=== PATIENT | female | born 1930 | race Caucasian/White ===

== ENCOUNTER → 2017-02-07 | Outpatient (CLI) | payer BC ==
[~2017-02-07] MED LIST: ALLO300T2 PO; ASPI-232 PO; ATRINS NEB; DOCU-94 PO; FURO-85 PO; IMD/2 PO; LORA-741 PO; MIRT45TA3 PO; MULT-506 PO; MULT60CA PO; SERT-234 PO; TPRSR50 PO
--- NOTE | 2017-02-07 15:00 | ECHOCARDIOGRAM REPORT ---
*NOTICE TO RECEIVING [employer] This information is strictly Confidential and protected under [place] law. [place] law prohibits you from making any further disclosure of this information unless further disclosure is expressly permitted by the written consent of the person to whom it pertains or is authorized by law. A general authorization for the release of medical or other information is not sufficient for this purpose. Hospital accepts no responsibility if the information is made available to any other person, INCLUDING THE PATIENT. Interpretation Summary * Name: KAITLYNN BARRON Study Date: 02/07/2017 12:38 PM BP: 125/63 mmHg * Patient Location: [facility] HR: 70 * : 1930 (M/d/yyyy) Gender: Female Height: 60 in * Age: 86 yrs Ethnicity: CA Weight: 156 lb * Ordering Physician: Sugar Ward * Referring Physician: Sugar Ward * Performed By: Marah Sands RDCS * * Reason For Study: DYSPNEA, ELEVATED BNP * BSA: 1.7 m2 * -- Conclusions -- * Left ventricular systolic function is low normal. * There are regional wall motion abnormalities as specified. * Right ventricular systolic pressure is normal. * The left atrium is mildly dilated. Procedure Details * A complete two-dimensional transthoracic echocardiogram was performed (2D, M-mode, Doppler and color flow Doppler). Left Ventricle * The left ventricle is normal in size. * There is normal left ventricular wall thickness. * Ejection Fraction = 50-55%. * Left ventricular systolic function is low normal. * There are regional wall motion abnormalities as specified. * Septum is severely hypokinetic. The basal inferior wall appears mildly hypokinetic Right Ventricle * The right ventricle is grossly normal size. * There is a pacemaker lead in the right ventricle. Atria * The left atrium is mildly dilated. * Right atrial size is normal. Mitral Valve * The mitral valve is grossly normal. * There is trace mitral regurgitation. Tricuspid Valve * The tricuspid valve is not well visualized, but is grossly normal. * There is mild tricuspid regurgitation. * Right ventricular systolic pressure is normal. Aortic Valve * The aortic valve is normal in structure and function. * No hemodynamically significant valvular aortic stenosis. * No aortic regurgitation is present. Great Vessels * The aortic root is normal size. Pericardium/Pleural * There is no pericardial effusion. MMode 2D Measurements and Calculations IVSd 0.87 cm IVSs 1.5 cm LVIDd 4.7 cm LVIDs 3.3 cm LVPWd 0.81 cm LVPWs 1.2 cm IVS/LVPW 1.1 FS 30.2 % EDV(Teich) 103.6 ml ESV(Teich) 44.1 ml EF(Teich) 57.4 % EDV(cubed) 105.5 ml ESV(cubed) 35.9 ml EF(cubed) 65.9 % % IVS thick 73.3 % % LVPW thick 53.2 % LV mass(C)d 131.5 grams LV mass(C)dI 78.3 grams/m\S\2 LV mass(C)s 154.9 grams LV mass(C)sI 92.2 grams/m\S\2 SV(Teich) 59.5 ml SI(Teich) 35.4 ml/m\S\2 SV(cubed) 69.6 ml SI(cubed) 41.4 ml/m\S\2 Ao root diam 2.8 cm Ao root area 6.1 cm\S\2 LA dimension 3.6 cm LA/Ao 1.3 LVAd ap4 19.1 cm\S\2 LVLd ap4 6.6 cm EDV(MOD-sp4) 46.5 ml EDV(sp4-el) 47.1 ml LVAs ap4 13.2 cm\S\2 LVLs ap4 6.5 cm ESV(MOD-sp4) 23.4 ml ESV(sp4-el) 23.0 ml EF(MOD-sp4) 49.7 % EF(sp4-el) 51.2 % LVAd ap2 23.6 cm\S\2 LVLd ap2 7.7 cm EDV(MOD-sp2) 61.4 ml EDV(sp2-el) 61.5 ml LVAs ap2 14.6 cm\S\2 LVLs ap2 6.4 cm ESV(MOD-sp2) 28.6 ml ESV(sp2-el) 28.4 ml EF(MOD-sp2) 53.4 % EF(sp2-el) 53.9 % LVLd %diff 14.5 % EDV(MOD-bp) 58.1 ml LVLs %diff -0.97 % ESV(MOD-bp) 26.0 ml EF(MOD-bp) 55.3 % SV(MOD-sp4) 23.1 ml SI(MOD-sp4) 13.8 ml/m\S\2 SV(MOD-sp2) 32.8 ml SI(MOD-sp2) 19.5 ml/m\S\2 SV(MOD-bp) 32.1 ml SI(MOD-bp) 19.1 ml/m\S\2 SV(sp4-el) 24.1 ml SI(sp4-el) 14.4 ml/m\S\2 SV(sp2-el) 33.1 ml SI(sp2-el) 19.7 ml/m\S\2 Doppler Measurements and Calculations Ao V2 max 127.2 cm/sec Ao max PG 6.5 mmHg Ao max PG (full) 5.1 mmHg LV V1 max PG 1.3 mmHg LV V1 max 57.8 cm/sec TR max wallace 245.9 cm/sec
== END | disposition home or self-care (01) ==
LOC: C.CPL 12:27
PROVIDERS: ATTEND Nurse Practitioner Adult Health
DX: R06.09 Other forms of dyspnea (principal)

== ENCOUNTER → 2017-04-06 | Outpatient (CLI) | payer BC ==
[2017-04-06 09:25] LABS: HEMATOCRIT 40.2 % (37-47); MEAN CELL VOLUME 101.3 fL (80-100); MEAN CORPUSCULAR HEMOGLOBIN 32.5 pg (25-34); MEAN CORPUSCULAR HGB CONC 32.1 g/dl (32-36); MEAN PLATELET VOLUME 10.9 fL (7.4-10.4); PLATELET COUNT 143 K/uL (130-400); RED BLOOD COUNT 3.97 M/uL (4.2-5.4); WHITE BLOOD COUNT 7.38 K/uL (4.8-10.8)
[2017-04-06 09:34] LABS: BLOOD UREA NITROGEN 33 mg/dl (7-18); BUN/CREATININE RATIO 29.9 (10-20); CALCIUM 9.2 mg/dl (8.5-10.1); CARBON DIOXIDE 25 mmol/L (21-32); CHLORIDE 111 mmol/L (98-107); GLUCOSE 116 mg/dl (70-99); POTASSIUM 4.2 mmol/L (3.5-5.1); SODIUM 143 mmol/L (136-145)
== END | disposition home or self-care (01) ==
LOC: C.LABWYN 09:03
PROVIDERS: ATTEND Internal Medicine
DX: I10 Essential (primary) hypertension (principal)

== ENCOUNTER → 2017-04-18 | Outpatient (CLI) | payer BC ==
[2017-04-18 08:46] LABS: BLOOD UREA NITROGEN 30 mg/dl (7-18); BUN/CREATININE RATIO 27.3 (10-20); CALCIUM 8.7 mg/dl (8.5-10.1); CARBON DIOXIDE 31 mmol/L (21-32); CHLORIDE 108 mmol/L (98-107); GLUCOSE 96 mg/dl (70-99); POTASSIUM 3.9 mmol/L (3.5-5.1); SODIUM 144 mmol/L (136-145)
== END | disposition home or self-care (01) ==
LOC: C.LABWYN 07:58
PROVIDERS: ATTEND Internal Medicine
DX: R60.9 Edema, unspecified (principal)

== ENCOUNTER 2017-09-12 23:18 | Emergency (ER) | payer BC ==
[~2017-09-12] VITALS: Ht 152.4 cm; Wt 83.2 kg
[2017-09-12 23:35] VITALS: TEMP 36.6; Ht 152.4 cm; Wt 83.2 kg
--- NOTE | 2017-09-12 23:42 | EMERGENCY ROOM VISIT NOTE ---
History Report prepared by Eber: Peewee Asher Under the Supervision of: Dr. Fadi Gtz M.D. First contact with patient: 23:24 Stated Complaint: BREATHING DIFFICULTY History of Present Illness The patient is a 87 year old female who presents to the Emergency Room with complaints of shortness of breath that began a couple of days ago. Over this time, the patient has been battling sinus and chest congestion with a cough. Her home health facility placed her onto Mucinex. However, her symptoms worsened significantly tonight. En route via ambulance, the patient received a nebulizer treatment which helped her symptoms. She notes that her breathing difficulties are exacerbated with exertion. She is afebrile. She denies any loss of consciousness, chest pain, nausea, vomiting, or sputum production. She notes that she is not short of breath when she lies down. Source of History: patient Onset: a couple days ago Position: other (Respiratory System) Symptom Intensity: moderate Quality: other (Shortness of breath) Timing: constant Modifying Factors (Worsening): exertion Modifying Factors (Relieving): other (Nebulizer) Associated Symptoms: + cough, No fevers Note: She is having sinus and chest congestion. Review of Systems See HPI for pertinent positives & negatives. A total of 10 systems reviewed and were otherwise negative. Past Medical & Surgical Medical Problems: (1) Anxiety (2) Anxiety (3) Anxiety (4) Atrial fibrillation (5) Cardiac pacemaker (6) Carotid artery disease (7) CKD (chronic kidney disease), stage III (8) Depression (9) Diabetes mellitus (10) Diabetes mellitus type 2, controlled (11) Diverticulitis (12) Dizziness (13) Dyslipidemia (14) GERD (gastroesophageal reflux disease) (15) History of atrial fibrillation (16) History of paroxysmal supraventricular tachycardia (17) History of thyroid cancer (18) History of ventricular tachycardia (19) Hyperlipidemia (20) Hypertension (21) Hypothyroidism (22) Mild cognitive impairment (23) Pacemaker Surgical Problems: (1) H/O thyroidectomy (2) Laparoscopic cholecystectomy (3) S/P knee replacement (4) Status post cardiac pacemaker procedure (5) Status post cholecystectomy (6) Status post partial thyroidectomy Family History Cancer Diabetes mellitus Hypertension Social History Smoking Status: Never Smoker Alcohol Use: none Drug Use: none Marital Status: Housing Status: lives alone Occupation Status: retired Current/Historical Medications Scheduled Allopurinol (Zyloprim), 1 TAB PO QAM Aspirin (Aspir-81), 81 MG PO QAM Azithromycin (Zithromax Z-Felix), 1 PKT PO UD Cetirizine Hcl (Qc All Day Allergy), 10 MG PO QAM Docusate Sodium (Colace), 1 CAP PO BID Doxycycline Hyclate (Vibramycin), 100 MG PO BID Furosemide (Lasix), 1 TAB PO BID17 Lactobacillus (Acidophilus Lactobacilli), 1 CAP PO QAM Metoprolol Succinate (Metoprolol Succinate ER), 50 MG PO QAM Mirtazapine (Mirtazapine), 45 MG PO HS Multiple Vitamins W/ Minerals (Therems M), 1 TAB PO QAM Prednisone (Prednisone), 1 TAB PO DAILY Sennosides-Docusate Sodium (Sennalax-S), 1 TAB PO QAM Sertraline (Zoloft), 150 MG PO HS Scheduled PRN Acetaminophen (Tylenol), 650 MG PO Q4H PRN for Pain Calcium Carbonate (Tums), 2 TABS PO BID PRN for GERD Dextromethorphan-Guaifenesin (Mucinex Dm), 1 TAB PO Q12 PRN for CONGESTION Ipratropium Franklin (Ipratropium Franklin), 1 VIAL NEB QID PRN for SOB/Wheezing Ipratropium-Albuterol (Duoneb), 1 TREATMENT INH Q4H PRN for SOB/Wheezing Loperamide Hcl (Imodium), 2 MG PO Q4H PRN for Diarrhea Lorazepam (Ativan), 0.25 MG PO Q6H PRN for Anxiety/Agitation Magnesium Hydroxide (Milk of Magnesia), 30 ML PO DAILY PRN for Constipation Allergies Coded Allergies: Sulfa Drugs (Verified Allergy, Intermediate, RASH, 09/13/17) Gabapentin (Verified Allergy, Unknown, Unknown Rxn, 09/13/17) Trazodone (Verified Allergy, Unknown, Unknown Rxn, 09/13/17) Physical Exam Vital Signs Date Time Temp Pulse Resp B/P (MAP) Pulse Ox O2 Delivery O2 Flow Rate FiO2 09/13/17 00:48 72 18 138/86 98 09/12/17 23:35 36.6 70 18 149/98 96 Room Air 09/12/17 23:35 96 Room Air Physical Exam GENERAL: Patient is elderly and well appearing and in no acute distress. HEENT: No acute trauma, normocephalic atraumatic, mucous membranes moist, rhinorrhea to the bilateral nares, no scleral icterus. NECK: Slight crackles to the right lower lobe. No stridor, no adenopathy, no meningismus, trachea is midline. LUNGS: No dyspnea. Clear to auscultation and equal bilaterally. No wheeze, no rhonchi. HEART: Regular rate and rhythm. No murmurs, rubs, gallops appreciated. ABDOMEN: Soft, nontender, bowel sounds positive, no masses appreciated, no peritonitis. BACK: No midline tenderness, no CVA tenderness EXTREMITIES: Normal motion all extremities, no cyanosis. 1+ edema bilateral lower extremities (chronic). NEUROLOGIC: Alert and oriented, no acute motor or sensory deficits, no focal weakness, cranial nerves grossly intact. SKIN: No rash, no jaundice, no diaphoresis. Medical Decision & Procedures ER Provider Diagnostic Interpretation: X ray results are stated below per my interpretation: Chest: 1 view: Mild RLL infiltrate, no effusion, normal cardiac border. Laboratory Results 09/12/17 23:15 Red Blood Count 3.93, Mean Corpuscular Volume 104.6, Mean Corpuscular Hemoglobin 33.6, Mean Corpuscular Hemoglobin Concent 32.1, Mean Platelet Volume 11.0, Neutrophils (%) (Auto) 71.4, Lymphocytes (%) (Auto) 15.1, Monocytes (%) ( Auto) 10.0, Eosinophils (%) (Auto) 2.6, Basophils (%) (Auto) 0.5, Neutrophils # (Auto) 5.78, Lymphocytes # (Auto) 1.22, Monocytes # (Auto) 0.81, Eosinophils # ( Auto) 0.21, Basophils # (Auto) 0.04 09/12/17 23:15 Test 09/12/17 23:15 White Blood Count 8.09 K/uL (4.8-10.8) Red Blood Count 3.93 M/uL (4.2-5.4) Hemoglobin 13.2 g/dL (12.0-16.0) Hematocrit 41.1 % (37-47) Mean Corpuscular Volume 104.6 fL (80-100) Mean Corpuscular Hemoglobin 33.6 pg (25-34) Mean Corpuscular Hemoglobin Concent 32.1 g/dl (32-36) Platelet Count 159 K/uL (130-400) Mean Platelet Volume 11.0 fL (7.4-10.4) Neutrophils (%) (Auto) 71.4 % Lymphocytes (%) (Auto) 15.1 % Monocytes (%) (Auto) 10.0 % Eosinophils (%) (Auto) 2.6 % Basophils (%) (Auto) 0.5 % Neutrophils # (Auto) 5.78 K/uL (1.4-6.5) Lymphocytes # (Auto) 1.22 K/uL (1.2-3.4) Monocytes # (Auto) 0.81 K/uL (0.11-0.59) Eosinophils # (Auto) 0.21 K/uL (0-0.5) Basophils # (Auto) 0.04 K/uL (0-0.2) RDW Standard Deviation 58.1 fL (36.4-46.3) RDW Coefficient of Variation 15.1 % (11.5-14.5) Immature Granulocyte % (Auto) 0.4 % Immature Granulocyte # (Auto) 0.03 K/uL (0.00-0.02) Anion Gap 5.0 mmol/L (3-11) Est Creatinine Clear Calc Drug Dose 32.6 ml/min Estimated GFR () 49.7 Estimated GFR (Non- 42.9 BUN/Creatinine Ratio 23.2 (10-20) Calcium Level 9.0 mg/dl (8.5-10.1) Troponin I 0.024 ng/ml (0-0.045) Laboratory results as reviewed by me. Medications Administered Medications (Trade) Dose Ordered Sig/Los Route Start Time Stop Time Status Last Admin Dose Admin Albuterol/ Ipratropium (Duoneb) 3 ml NOW STAT INH 09/12/17 23:50 09/12/17 23:51 DC 09/12/17 23:50 3 ML Prednisone (PredniSONE TAB) 40 mg NOW STAT PO 09/13/17 00:32 09/13/17 00:33 DC 09/13/17 00:32 40 MG Doxycycline Hyclate (Vibramycin Cap) 100 mg ONE ONCE PO 09/13/17 00:45 09/13/17 00:46 DC 09/13/17 00:45 100 MG ECG Indication: SOB/dyspnea Rate (beats per minute): 65 Rhythm: other (Ventricularly paced) Findings: no acute ischemic change, no ectopy ED Course 2324: The patient was evaluated in room B10. A complete history and physical exam was performed. 2350: Ordered DuoNeb 3 ml INH 0032: Ordered Prednisone 40 mg PO. The patient feels better and would like to go home. Her son is at the bedside and agrees with the plan. She has access to Nebulizers at her [facility]. 0045: Ordered Vibramycin Cap 100 mg PO 0050: Reevaluated the patient. Discussed results and discharge instructions: She verbalized understanding and agreement. The patient is ready for discharge. Medical Decision Differential: Infectious, Reactive Airway Disease, Pneumonia, Pneumothorax, COPD , CHF, ACS, Pulmonary Embolism, MSK, GI, Dissection, amongst other etiologies entertained. 87 yr old female with history of asthmatic bronchitis. SHOB vastly improved with neb. She is not septic, no clear pna, no evidence CHF/ACS. She does not have reason to highly suspect PE nor dissection. She has symptoms similar to multiple other episodes of bronchitis. She was symptom free post neb. Given steroids and doxy that have worked well in past and will be using neb at [facility]. Reviewed symptoms requiring return but she feels comfortable going home for now. Medication Reconcilliation Current Medication List: was personally reviewed by me Blood Pressure Screening Patient's blood pressure: Elevated blood pressure Blood pressure disposition: Elevated BP felt to be situational Impression Primary Impression: Asthmatic bronchitis Scribe Attestation The scribe's documentation has been prepared under my direction and personally reviewed by me in its entirety. I confirm that the note above accurately reflects all work, treatment, procedures, and medical decision making performed by me. Departure Information Dispostion Home / Self-Care Prescriptions Ipratropium-Albuterol (DUONEB) 3 Ml Nebu 1 TREATMENT INH Q4H Y for SOB/Wheezing, #1 BOX Prov: Fadi Gtz M.D. 09/13/17 Prednisone (Prednisone) 20 Mg Tab 1 TAB PO DAILY for 5 Days, #5 TAB Prov: Fadi Gtz M.D. 09/13/17 Doxycycline Hyclate (VIBRAMYCIN) 100 Mg Cap 100 MG PO BID for 7 Days, #14 CAP Prov: Fadi Gtz M.D. 09/13/17 Referrals [facility] (PCP) Forms HOME CARE DOCUMENTATION FORM, IMPORTANT VISIT INFORMATION, WORK / SCHOOL INSTRUCTIONS Patient Instructions Bronchitis Acute, My [facility]
[2017-09-12] MEDS ORDERED: ALBUT/IPRATROP 3MG/0.5MG NEB 3 ML VIAL INH STA (23:50)
[2017-09-13 00:06] LABS: BASO % 0.5 %; BASO ABS # 0.04 K/uL (0-0.2); COMPLETE YES; EOS % 2.6 %; HEMATOCRIT 41.1 % (37-47); IG% 0.4 %; LYMPH % 15.1 %; LYMPH ABS # 1.22 K/uL (1.2-3.4); MEAN CELL VOLUME 104.6 fL (80-100); MEAN CORPUSCULAR HEMOGLOBIN 33.6 pg (25-34); MEAN CORPUSCULAR HGB CONC 32.1 g/dl (32-36); NEUT % 71.4 %; PLATELET COUNT 159 K/uL (130-400); RED BLOOD COUNT 3.93 M/uL (4.2-5.4); WHITE BLOOD COUNT 8.09 K/uL (4.8-10.8)
[2017-09-13 00:10] LABS: BUN/CREATININE RATIO 23.2 (10-20); CREATININE 1.14 mg/dl (0.60-1.20); POTASSIUM 3.6 mmol/L (3.5-5.1)
[2017-09-13] MEDS ORDERED: AZITTAB PO (00:11)
[2017-09-13] MEDS ORDERED: LACT1CAP22 PO (00:11)
[2017-09-13] MEDS ORDERED: ACET-1311 PO (00:11)
[2017-09-13] MEDS ORDERED: CETI10TA62 PO (00:11)
[2017-09-13] MEDS ORDERED: MOMLX PO (00:11)
[2017-09-13] MEDS ORDERED: DEXT30TA7 PO (00:11)
[2017-09-13] MEDS ORDERED: SENN1TAB86 PO (00:11)
[2017-09-13] MEDS ORDERED: CALC500C3 PO (00:11)
[2017-09-13] MEDS ORDERED: MULTTAB63 PO (00:11)
[2017-09-13] MEDS ORDERED: PRED20TA PO (00:34)
[2017-09-13] MEDS ORDERED: IPRASOL4 INH (00:34)
[2017-09-13] MEDS ORDERED: DOXY100C PO (00:34)
[2017-09-13] MEDS ORDERED: DOXYCYCLINE HYCLATE 100 MG CAP PO ONE (00:45)
[2017-09-13 00:48] VITALS: BP 138/86; PULSE 72; O2SAT 98
--- NOTE | 2017-09-13 07:09 | DIAGNOSTIC IMAGING REPORT ---
SINGLE VIEW CHEST CLINICAL HISTORY: Dyspnea FINDINGS: An AP, portable, upright chest radiograph is compared to study dated 06/07/2016. The examination is degraded by portable technique and patient rotation. A 2-lead cardiac pacemaker partially obscures the left upper chest. The heart is enlarged and there is atherosclerotic calcification of the thoracic aorta. The pulmonary vasculature is noncongested. Bibasilar atelectasis is observed. No airspace consolidation is seen typical for pneumonia and there is no large pleural effusion. There is a 1.5 cm nodule in the right upper lobe. No pneumothorax is seen. The skeletal structures are osteopenic. The bony thorax is grossly intact. IMPRESSION: 1. Cardiomegaly and cardiac pacemaker. There is no radiographic evidence of congestive failure. 2. No airspace consolidation or large pleural effusion is identified. 3. There is a 1.5 cm right upper lobe pulmonary nodule. Follow-up with a chest CT is recommended for further assessment. Electronically signed by: Hermann Egan M.D. 09/13/2017 7:07 AM Dictated Date/Time: 09/13/2017 7:06 AM
== END 2017-09-13 01:15 | disposition home or self-care (01) ==
LOC: EDBD 23:18 → C.EDB 23:22
DX: J45.909 Unspecified asthma, uncomplicated (principal); I12.9 Hypertensive chronic kidney disease with stage 1 through stage 4 chronic kidney disease, or unspecified chronic kidney disease; E11.22 Type 2 diabetes mellitus with diabetic chronic kidney disease; N18.3 Chronic kidney disease, stage 3 (moderate); F32.9 Major depressive disorder, single episode, unspecified; F41.9 Anxiety disorder, unspecified; I48.91 Unspecified atrial fibrillation; Z85.850 Personal history of malignant neoplasm of thyroid; Z95.0 Presence of cardiac pacemaker; Z79.82 Long term (current) use of aspirin; Z79.899 Other long term (current) drug therapy

== ENCOUNTER → 2017-10-09 | Outpatient (CLI) | payer BC ==
[~2017-10-09] MED LIST changes: +ACET-1311 PO; +AZITTAB PO; +CALC500C3 PO; +CETI10TA62 PO; +DEXT30TA7 PO; +IPRASOL4 INH; +LACT1CAP22 PO; +MOMLX PO; -MULT-506 PO; -MULT60CA PO; +MULTTAB63 PO; +SENN1TAB86 PO
--- NOTE | 2017-10-09 11:51 | DIAGNOSTIC IMAGING REPORT ---
(CHEST) THORAX WITHOUT CT DOSE: 329.87 mGy.cm HISTORY: Abnormal chest x-ray. RIGHT UPPER LUNG MASS TECHNIQUE: Multiaxial CT images of the chest were performed without contrast. A dose lowering technique was utilized adhering to the principles of ALARA. COMPARISON: Chest 09/12/2017. FINDINGS: No pneumothorax. Small bilateral pleural effusions. Bibasilar interlobular septal thickening. Narrowing of the bronchi may be due to the expiratory phase. There are greater than 30 bilateral pulmonary nodules. The majorities are subcentimeter in size. Dominant nodule within the right upper lobe measures 1.5 cm. Dominant nodule within the lingula measures 1 cm. There is an enlarged and heterogeneous left thyroid lobe resulting in right deviation of the trachea. Left-sided dual-chamber pacemaker. No mediastinal or hilar lymphadenopathy. The heart is enlarged. Trace pericardial effusion. Cholecystectomy. There are 2 hypodense lesions within the liver. The largest in the left hepatic lobe measures 1.6 cm. These are incompletely characterize on this noncontrast study but favor cysts. The visualized adrenal glands and spleen are unremarkable. IMPRESSION: 1. Multiple bilateral pulmonary nodules as described above. This is highly suspicious for metastatic disease. 2. Enlarged and heterogeneous left thyroid lobe. This favors a multinodular goiter. However, an underlying thyroid malignancy cannot be excluded. 3. Small bilateral pleural effusions. 4. Mild bibasilar interlobular septal thickening. This may be due to mild congestive change. Electronically signed by: Marco Harman M.D. 10/09/2017 11:50 AM Dictated Date/Time: 10/09/2017 11:40 AM
== END | disposition home or self-care (01) ==
LOC: C.CTS 11:05
PROVIDERS: ATTEND Internal Medicine
DX: R91.8 Other nonspecific abnormal finding of lung field (principal); J90 Pleural effusion, not elsewhere classified

== ENCOUNTER → 2017-10-12 | Outpatient (CLI) | payer BC ==
[2017-10-12 08:50] LABS: BLOOD UREA NITROGEN 30 mg/dl (7-18); CALCIUM 8.9 mg/dl (8.5-10.1); CARBON DIOXIDE 28 mmol/L (21-32); CREATININE 1.01 mg/dl (0.60-1.20); GLUCOSE 139 mg/dl (70-99); POTASSIUM 3.5 mmol/L (3.5-5.1); SODIUM 142 mmol/L (136-145)
== END | disposition home or self-care (01) ==
LOC: C.LABOUTLO 08:26
PROVIDERS: ATTEND Internal Medicine
DX: I48.91 Unspecified atrial fibrillation (principal); R00.0 Tachycardia, unspecified; N18.3 Chronic kidney disease, stage 3 (moderate); E11.9 Type 2 diabetes mellitus without complications; K21.9 Gastro-esophageal reflux disease without esophagitis; F41.9 Anxiety disorder, unspecified

== ENCOUNTER 2017-10-15 06:39 | Inpatient (IN) | payer BC, OTHER ==
[2017-10-15] VITALS (8 sets, daily range): BP systolic 100–144; BP diastolic 74–98; PULSE 82–120; TEMP 36.6–37.1; O2SAT 91–96; BMI 34.6
[~2017-10-15] VITALS: Ht 152.4 cm; Wt 75.5 kg
[2017-10-15] MEDS ORDERED: ALBUT/IPRATROP 3MG/0.5MG NEB 3 ML VIAL INH STA (06:58)
[2017-10-15] MEDS ORDERED: METHYLPREDNISOLONE 125 MG VIAL IV STA (06:58)
--- NOTE | 2017-10-15 07:39 | DIAGNOSTIC IMAGING REPORT ---
CHEST ONE VIEW PORTABLE HISTORY: EVALUATE RESPIRATORY DISTRESS.DYSPNEA COMPARISON: Chest 09/12/2017. Chest CT 10/09/2017. FINDINGS: No pneumothorax. No pleural effusions. The heart remains mildly enlarged. Mild interstitial thickening, unchanged. Bilateral pulmonary nodules are better appreciated on the recent chest CT. Dominant nodule within the right upper lobe measures 1.4 cm. Left-sided dual-chamber pacemaker. IMPRESSION: 1. Stable cardiomegaly. 2. No new focal lung consolidations. 3. Pulmonary nodules are again noted. Electronically signed by: Marco Harman M.D. 10/15/2017 7:38 AM Dictated Date/Time: 10/15/2017 7:36 AM
[2017-10-15 07:57] LABS: BASO % 0.3 %; BASO ABS # 0.02 K/uL (0-0.2); EOS % 1.7 %; EOS ABS # 0.12 K/uL (0-0.5); HEMOGLOBIN 11.7 g/dL (12.0-16.0); IG# 0.02 K/uL (0.00-0.02); LYMPH % 8.6 %; MEAN CELL VOLUME 103.2 fL (80-100); MEAN CORPUSCULAR HEMOGLOBIN 33.5 pg (25-34); MEAN CORPUSCULAR HGB CONC 32.5 g/dl (32-36); MEAN PLATELET VOLUME 10.2 fL (7.4-10.4); MONO % 9.7 %; MONO ABS # 0.68 K/uL (0.11-0.59); NEUT % 79.4 %; NEUT ABS # 5.56 K/uL (1.4-6.5); PLATELET COUNT 126 K/uL (130-400); RED CELL DISTRIBUTION WIDTH CV 15.4 % (11.5-14.5); RED CELL DISTRIBUTION WIDTH SD 57.9 fL (36.4-46.3)
[2017-10-15 08:13] LABS: ALBUMIN 3.1 gm/dl (3.4-5.0); ALT/SGPT 34 U/L (12-78); AST/SGOT 35 U/L (15-37); BLOOD UREA NITROGEN 31 mg/dl (7-18); CALCIUM 8.8 mg/dl (8.5-10.1); CARBON DIOXIDE 28 mmol/L (21-32); CREATININE 1.21 mg/dl (0.60-1.20); GLUCOSE 137 mg/dl (70-99); POTASSIUM 3.5 mmol/L (3.5-5.1); SODIUM 141 mmol/L (136-145)
[2017-10-15 08:18] LABS: ALKALINE PHOSPHATASE 78 U/L (45-117); CKMB 1.2 ng/ml (0.5-3.6); TOTAL PROTEIN 5.8 gm/dl (6.4-8.2)
[2017-10-15 08:38] LABS: INFLUENZA B ANTIGEN Neg for Influ B (NEG)
[2017-10-15] MEDS ORDERED: SODIUM CHLORIDE 0.9% 500ML 500 ML IV STA (09:03)
[2017-10-15] MEDS ORDERED: OPTIRAY 320 IV PRN (09:15)
--- NOTE | 2017-10-15 10:24 | DIAGNOSTIC IMAGING REPORT ---
CHEST CTA for PULMONARY ARTERIES CT DOSE: 284.82 mGy.cm HISTORY: History distress. Dyspnea. TECHNIQUE: Multiaxial CT images of the chest were performed following the intravenous administration of contrast to evaluate the pulmonary arteries. Maximal intensity projection images were also obtained. A dose lowering technique was utilized adhering to the principles of ALARA. COMPARISON STUDY: Chest CT 10/09/2017. FINDINGS: Cholecystectomy. The spleen is unremarkable. Mild adrenal gland thickening, unchanged. This is likely chronic. There are 2 hypodense lesions within the liver, unchanged. These favor cysts. Partially visualized left renal hypodense lesion is incomplete characterize but also favors a cyst. No mediastinal or hilar lymphadenopathy. Normal caliber thoracic aorta with no evidence for dissection. The heart remains enlarged. Pacemaker wires are noted. Small bilateral pleural effusions. No suspicious lytic or blastic osseous lesions. No filling defects within the pulmonary arteries to suggest pulmonary embolus. Enlarged and heterogeneous left thyroid lobe resulting in right deviation of the trachea is again noted. However, the trachea appears patent. There again noted multiple bilateral pulmonary nodules. There are greater than 30 nodules present. Dominant nodule within the right upper lobe measures 1.5 cm area mild interlobular septal thickening most pronounced at the lung bases. No new focal lung consolidations. IMPRESSION: 1. No evidence for pulmonary embolus. 2. Otherwise, no significant change compared to the prior study. 3. Multiple bilateral pulmonary nodules which is suspicious for metastatic disease. 4. Mild interlobular septal thickening and small bilateral pleural effusions. This may represent mild pulmonary edema. 5. Enlarged and heterogeneous left thyroid lobe. Electronically signed by: Marco Harman M.D. 10/15/2017 10:23 AM Dictated Date/Time: 10/15/2017 10:14 AM
--- NOTE | 2017-10-15 14:15 | EMERGENCY ROOM VISIT NOTE ---
History Report prepared by Eber: Peewee Asher Under the Supervision of: Dr. Raheem Camargo M.D. First contact with patient: 06:51 Chief Complaint: COUGH Stated Complaint: COUGH/CONGESTION Nursing Triage Summary: patient with cough and congestion for a week. tried OTC meds with no relief. Duo neb on the way in by EMS. states it did help History of Present Illness The patient is a 87 year old female who presents to the Emergency Room with complaints of a non-productive cough that began 1 week ago. She has a past medical history of hypertension, diabetes, SVT, paroxysmal atrial fibrillation, and a hip/knee replacement. Over this time, she has tried multiple over the counter medications without relief. She has not contacted her PCP at her assisted living facility for her current symptoms. She is experiencing some chest congestion with her cough and notes that she feels mildly short of breath whenever she has a fit of coughing. En route via EMS, she was given a breathing treatment with mild improvement. She is not on oxygen at home. She denies any history of pneumonia. She denies any known sick contacts. Pt denies LOC, headache, fevers, chills, diaphoresis, visual changes, neck pain, chest pain, nausea, vomiting, abdominal pain, back pain, melena, hematochezia, urinary symptoms, numbness, weakness, lymphadenopathy, rash, or other complaints. Source of History: patient Onset: 1 week ago Position: other (Respiratory system) Symptom Intensity: moderate Quality: other (Cough) Timing: other (Persistent) Associated Symptoms: + SOB (intermittently with coughing) Note: She is experiencing some chest congestion. Review of Systems See HPI for pertinent positives and negatives. A total of ten systems were reviewed and were otherwise negative. Past Medical & Surgical Medical Problems: (1) Anxiety (2) Anxiety (3) Anxiety (4) Atrial fibrillation (5) Cardiac pacemaker (6) Carotid artery disease (7) CHF (congestive heart failure) (8) CKD (chronic kidney disease), stage III (9) Depression (10) Diabetes mellitus (11) Diabetes mellitus type 2, controlled (12) Diverticulitis (13) Dizziness (14) Dyslipidemia (15) GERD (gastroesophageal reflux disease) (16) History of atrial fibrillation (17) History of paroxysmal supraventricular tachycardia (18) History of thyroid cancer (19) History of ventricular tachycardia (20) Hyperlipidemia (21) Hypertension (22) Hypothyroidism (23) Mild cognitive impairment (24) Pacemaker (25) SOB (shortness of breath) Surgical Problems: (1) H/O thyroidectomy (2) Laparoscopic cholecystectomy (3) S/P knee replacement (4) Status post cardiac pacemaker procedure (5) Status post cholecystectomy (6) Status post partial thyroidectomy Family History Cancer Diabetes mellitus Hypertension Social History Smoking Status: Never Smoker Alcohol Use: none Drug Use: none Marital Status: Housing Status: lives alone Occupation Status: retired Current/Historical Medications Scheduled Allopurinol (Zyloprim), 1 TAB PO QAM Aspirin (Aspir-81), 81 MG PO QAM Cetirizine Hcl (Qc All Day Allergy), 10 MG PO QAM Docusate Sodium (Colace), 1 CAP PO BID Furosemide (Lasix), 1 TAB PO BID17 Lactobacillus (Acidophilus Lactobacilli), 1 CAP PO QAM Metoprolol Succinate (Metoprolol Succinate ER), 50 MG PO QAM Mirtazapine (Mirtazapine), 45 MG PO HS Multiple Vitamins W/ Minerals (Therems M), 1 TAB PO QAM Sennosides-Docusate Sodium (Sennalax-S), 1 TAB PO QAM Sertraline (Zoloft), 150 MG PO HS Scheduled PRN Acetaminophen (Tylenol), 650 MG PO Q4H PRN for Pain Calcium Carbonate (Tums), 2 TABS PO BID PRN for GERD Dextromethorphan-Guaifenesin (Mucinex Dm), 1 TAB PO Q12 PRN for CONGESTION Ipratropium Zearing (Ipratropium Zearing), 1 VIAL NEB QID PRN for SOB/Wheezing Ipratropium-Albuterol (Duoneb), 1 TREATMENT INH Q4H PRN for SOB/Wheezing Loperamide Hcl (Imodium), 2 MG PO Q4H PRN for Diarrhea Lorazepam (Ativan), 0.25 MG PO Q6H PRN for Anxiety/Agitation Magnesium Hydroxide (Milk of Magnesia), 30 ML PO DAILY PRN for Constipation Allergies Coded Allergies: Sulfa Drugs (Verified Allergy, Intermediate, RASH, 10/15/17) Gabapentin (Verified Allergy, Unknown, Unknown Rxn, 10/15/17) Trazodone (Verified Allergy, Unknown, Unknown Rxn, 10/15/17) Physical Exam Vital Signs Date Time Temp Pulse Resp B/P (MAP) Pulse Ox O2 Delivery O2 Flow Rate FiO2 10/15/17 11:35 110 30 99/77 94 10/15/17 11:31 55/48 10/15/17 11:05 119 23 94 10/15/17 11:02 147/103 10/15/17 10:54 119/92 10/15/17 10:43 126 10/15/17 10:35 110 24 95 10/15/17 10:30 107/67 10/15/17 10:20 110 24 96 10/15/17 10:16 122/85 10/15/17 10:02 111/74 10/15/17 09:15 104 21 101/62 95 10/15/17 09:04 109/74 10/15/17 09:00 72/44 10/15/17 08:45 103 20 92 10/15/17 08:30 82/47 10/15/17 08:15 110 27 95 10/15/17 08:00 99/60 10/15/17 07:47 96 Nasal Cannula 2.0 10/15/17 07:45 117 24 94 10/15/17 07:31 112/66 10/15/17 07:15 105 27 95 10/15/17 07:12 95 Nasal Cannula 2.0 10/15/17 07:02 103/68 10/15/17 06:52 127 10/15/17 06:49 Room Air 10/15/17 06:49 36.4 114 18 124/89 89 Room Air 10/15/17 06:45 124/89 Physical Exam GENERAL: Awake, alert, mildly dyspneic appearing, in no distress HENT: Normocephalic, atraumatic. Oropharynx unremarkable. EYES: Normal conjunctiva. Sclera non-icteric. NECK: Supple. No nuchal rigidity. FROM. No JVD. RESPIRATORY: Coarse breath sounds with scant wheezes bilaterally CARDIAC: Regular rate, normal rhythm. Extremities warm and well perfused. Pulses equal. ABDOMEN: Soft, non-distended. No tenderness to palpation. No rebound or guarding. No masses. RECTAL: Deferred. MUSCULOSKELETAL: Chest examination reveals no tenderness. The back is symmetrical on inspection without obvious abnormality. There is no CVA tenderness to palpation. No joint edema. LOWER EXTREMITIES: Left leg slightly larger than the right at 2+ edema vs 1+ edema. No discoloration. NEURO: Normal sensorium. No sensory or motor deficits noted. SKIN: No rash or jaundice noted. Medical Decision & Procedures ER Provider Diagnostic Interpretation: Radiology results as stated below per my review and radiologist interpretation: CHEST ONE VIEW PORTABLE HISTORY: EVALUATE RESPIRATORY DISTRESS.DYSPNEA COMPARISON: Chest 09/12/2017. Chest CT 10/09/2017. FINDINGS: No pneumothorax. No pleural effusions. The heart remains mildly enlarged. Mild interstitial thickening, unchanged. Bilateral pulmonary nodules are better appreciated on the recent chest CT. Dominant nodule within the right upper lobe measures 1.4 cm. Left-sided dual-chamber pacemaker. IMPRESSION: 1. Stable cardiomegaly. 2. No new focal lung consolidations. 3. Pulmonary nodules are again noted. Electronically signed by: Marco Harman M.D. 10/15/2017 7:38 AM Dictated Date/Time: 10/15/2017 7:36 AM CHEST CTA for PULMONARY ARTERIES CT DOSE: 284.82 mGy.cm HISTORY: History distress. Dyspnea. TECHNIQUE: Multiaxial CT images of the chest were performed following the intravenous administration of contrast to evaluate the pulmonary arteries. Maximal intensity projection images were also obtained. A dose lowering technique was utilized adhering to the principles of ALARA. COMPARISON STUDY: Chest CT 10/09/2017. FINDINGS: Cholecystectomy. The spleen is unremarkable. Mild adrenal gland thickening, unchanged. This is likely chronic. There are 2 hypodense lesions within the liver, unchanged. These favor cysts. Partially visualized left renal hypodense lesion is incomplete characterize but also favors a cyst. No mediastinal or hilar lymphadenopathy. Normal caliber thoracic aorta with no evidence for dissection. The heart remains enlarged. Pacemaker wires are noted. Small bilateral pleural effusions. No suspicious lytic or blastic osseous lesions. No filling defects within the pulmonary arteries to suggest pulmonary embolus. Enlarged and heterogeneous left thyroid lobe resulting in right deviation of the trachea is again noted. However, the trachea appears patent. There again noted multiple bilateral pulmonary nodules. There are greater than 30 nodules present. Dominant nodule within the right upper lobe measures 1.5 cm area mild interlobular septal thickening most pronounced at the lung bases. No new focal lung consolidations. IMPRESSION: 1. No evidence for pulmonary embolus. 2. Otherwise, no significant change compared to the prior study. 3. Multiple bilateral pulmonary nodules which is suspicious for metastatic disease. 4. Mild interlobular septal thickening and small bilateral pleural effusions. This may represent mild pulmonary edema. 5. Enlarged and heterogeneous left thyroid lobe. Electronically signed by: Marco Harman M.D. 10/15/2017 10:23 AM Dictated Date/Time: 10/15/2017 10:14 AM Laboratory Results 10/15/17 07:30 Red Blood Count 3.49, Mean Corpuscular Volume 103.2, Mean Corpuscular Hemoglobin 33.5, Mean Corpuscular Hemoglobin Concent 32.5, Mean Platelet Volume 10.2, Neutrophils (%) (Auto) 79.4, Lymphocytes (%) (Auto) 8.6, Monocytes (%) ( Auto) 9.7, Eosinophils (%) (Auto) 1.7, Basophils (%) (Auto) 0.3, Neutrophils # ( Auto) 5.56, Lymphocytes # (Auto) 0.60, Monocytes # (Auto) 0.68, Eosinophils # ( Auto) 0.12, Basophils # (Auto) 0.02 10/15/17 07:30 Test 10/15/17 07:30 10/15/17 08:00 10/15/17 10:20 White Blood Count 7.00 K/uL (4.8-10.8) Red Blood Count 3.49 M/uL (4.2-5.4) Hemoglobin 11.7 g/dL (12.0-16.0) Hematocrit 36.0 % (37-47) Mean Corpuscular Volume 103.2 fL (80-100) Mean Corpuscular Hemoglobin 33.5 pg (25-34) Mean Corpuscular Hemoglobin Concent 32.5 g/dl (32-36) Platelet Count 126 K/uL (130-400) Mean Platelet Volume 10.2 fL (7.4-10.4) Neutrophils (%) (Auto) 79.4 % Lymphocytes (%) (Auto) 8.6 % Monocytes (%) (Auto) 9.7 % Eosinophils (%) (Auto) 1.7 % Basophils (%) (Auto) 0.3 % Neutrophils # (Auto) 5.56 K/uL (1.4-6.5) Lymphocytes # (Auto) 0.60 K/uL (1.2-3.4) Monocytes # (Auto) 0.68 K/uL (0.11-0.59) Eosinophils # (Auto) 0.12 K/uL (0-0.5) Basophils # (Auto) 0.02 K/uL (0-0.2) RDW Standard Deviation 57.9 fL (36.4-46.3) RDW Coefficient of Variation 15.4 % (11.5-14.5) Immature Granulocyte % (Auto) 0.3 % Immature Granulocyte # (Auto) 0.02 K/uL (0.00-0.02) Anion Gap 7.0 mmol/L (3-11) Est Creatinine Clear Calc Drug Dose 30.2 ml/min Estimated GFR () 46.3 Estimated GFR (Non- 39.9 BUN/Creatinine Ratio 25.5 (10-20) Calcium Level 8.8 mg/dl (8.5-10.1) Total Bilirubin 0.6 mg/dl (0.2-1) Aspartate Amino Transf (AST/SGOT) 35 U/L (15-37) Alanine Aminotransferase (ALT/SGPT) 34 U/L (12-78) Alkaline Phosphatase 78 U/L (45-117) Total Creatine Kinase 47 U/L (26-192) Creatine Kinase MB 1.2 ng/ml (0.5-3.6) Creatine Kinase MB Ratio 2.6 (0-3.0) Troponin I < 0.015 ng/ml (0-0.045) Pro-B-Type Natriuretic Peptide 5577 pg/ml (0-1800) Total Protein 5.8 gm/dl (6.4-8.2) Albumin 3.1 gm/dl (3.4-5.0) Globulin 2.7 gm/dl (2.5-4.0) Albumin/Globulin Ratio 1.1 (0.9-2) Influenza Type A Antigen Neg for Influ A (NEG) Influenza Type B Antigen Neg for Influ B (NEG) Urine Color YELLOW Urine Appearance CLEAR (CLEAR) Urine pH 5.5 (4.5-7.5) Urine Specific [place] 1.010 (1.000-1.030) Urine Protein 1+ (NEG) Urine Glucose (UA) NEG (NEG) Urine Ketones NEG (NEG) Urine Occult Blood NEG (NEG) Urine Nitrite NEG (NEG) Urine Bilirubin NEG (NEG) Urine Urobilinogen NEG (NEG) Urine Leukocyte Esterase NEG (NEG) Urine RBC 0-4 /hpf (0-4) Urine WBC 1-5 /hpf (0-5) Urine Epithelial Cells >30 /lpf (0-5) Urine Bacteria NEG (NEG) Laboratory results reviewed by me Medications Administered Medications (Trade) Dose Ordered Sig/Los Route Start Time Stop Time Status Last Admin Dose Admin Albuterol/ Ipratropium (Duoneb) 3 ml NOW STAT INH 10/15/17 06:58 10/15/17 07:00 DC 10/15/17 06:58 3 ML Methylprednisolone Sodium Succinate (Solu-Medrol IV) 125 mg NOW STAT IV 10/15/17 06:58 10/15/17 07:00 DC 10/15/17 07:47 125 MG Sodium Chloride 500 ml @ 999 mls/hr Q31M STAT IV 10/15/17 09:03 10/15/17 09:33 DC 10/15/17 09:03 999 MLS/HR ECG Indication: SOB/dyspnea Rate (beats per minute): 116 Rhythm: atrial fibrillation, other (with RVR) Findings: PVC, Q waves (Septal and lateral) ED Course 0651: The patient was evaluated in room B11. A complete history and physical exam was performed. 0658: Ordered Solu-Medrol IV 125 mg IV, DuoNeb 3 ml INH 0750: Upon reevaluation, the patient is stable. 0903: Ordered Sodium Chloride 500 ml @ 999 mls/hr IV 0910: I updated the patient and her family at this time. She will be getting a CTA of her chest. She is feeling better. 1146: Upon reexamination, the patient was resting. I discussed the test results and treatment plan with her. I discussed the patient's case with Dr. Zaki Gates [facility] Hospitalist. The patient will be evaluated for further management. Medical Decision Triage Nursing notes reviewed. The patient's presentation and history were concerning for respiratory issues. Etiologies such as pneumonia, COPD, reactive airway disease, CHF, cardiac ischemia, pulmonary embolism, pneumothorax, musculoskeletal, infections, gastrointestinal, as well as others were entertained. The patient was evaluated. Clinically she was doing well but was requiring supplemental oxygen. She was given a DuoNeb and Solu-Medrol. She felt better with this. She was able to eat lunch. She did have an episode where blood pressure was low. She responded to fluids. She would have waxing and waning low and normal blood pressures. She was asymptomatic with this. Her blood work revealed an unremarkable CBC and chemistry panel. Her cardiac markers were negative. Her BNP was significantly elevated. She does not have a known history of CHF. Chest x-ray and CT of the chest as above. Given the findings the patient will need further evaluation and management in the hospital. Patient was made with the hospitalist service. The patient was evaluated and admitted for further treatment. Medication Reconcilliation Current Medication List: was personally reviewed by me Blood Pressure Screening Patient's blood pressure: Normal blood pressure Blood pressure disposition: Did not require urgent referral Consults Time Called: 1140 Consulting Physician: Dr. Zaki Schaeffer Hospitalist Returned Call: [phone] Discussed the patient's case. The patient will be evaluated for further treatment and disposition. Impression Primary Impression: Hypoxia Additional Impressions: SOB (shortness of breath) CHF (congestive heart failure) Pulmonary nodules Scribe Attestation The scribe's documentation has been prepared under my direction and personally reviewed by me in its entirety. I confirm that the note above accurately reflects all work, treatment, procedures, and medical decision making performed by me. Departure Information Dispostion Being Evaluated By Hospitalist Referrals [place] (PCP) Patient Instructions My [facility] Problem Qualifiers
--- NOTE | 2017-10-15 15:59 | History and Physical ---
History & Physical Date & Time of Service: Oct 15, 2017 at 15:59 Chief Complaint: Chf, Sob Primary Care Physician: Saba Shah M.D. History of Present Illness Source: patient, family (DAUGHTERS ) 87 yo F sent form [facility] personal residential with complain of SOB /FITZGERALD for past 2 weeks. Pt mentions of feeling weak and tired with minimum activity , occasional dizzy spell .has non productive cough felt feverish in the ER pt was found to be hypoxic in RA with audible wheeze CT chest with contrast shows no evidence of PE , multiple bilateral pulmonary nodule suspicions of metastatic malignancy pt is a non smoker all her life , no exposure to industrial chemicals , no prior hx of Asthma or COPD pt was seen at [facility] ER on 09/12/18 for Bronchitis /respiratory distress symptom improved with Neb tx pt was discharged form ER , arrangements made for home Neb tx Cxray -showed bilateral pulmonary nodule per Pulmonary Nodule programme CT chest with contrast on 10/09/17 showed bilateral multiple pulmonary nodule the dominant nodule being 1.5 cm had persisted non productive cough no report of hemoptysis pt had episode of significant epistaxis few days back -as daughter found a dressing gown soaked with blood both front and back pt did not report to [facility] staff the incident hx of Paroxysmal Afib on Beta chaya , not on chronic anticoagulation except for low dose aspirin 81 mg daily Past Medical/Surgical History Medical Problems: (1) Anxiety Status: Resolved (2) Anxiety Status: Chronic (3) Anxiety Status: Chronic (4) Atrial fibrillation Status: Chronic (5) Cardiac pacemaker Status: Chronic (6) Carotid artery disease Status: Chronic (7) CKD (chronic kidney disease), stage III Status: Chronic (8) Depression Status: Chronic (9) Diabetes mellitus Status: Chronic (10) Diabetes mellitus type 2, controlled Status: Chronic (11) Diverticulitis Status: Resolved (12) Dizziness Status: Resolved (13) Dyslipidemia Status: Chronic (14) GERD (gastroesophageal reflux disease) Status: Chronic (15) History of atrial fibrillation Status: Chronic (16) History of paroxysmal supraventricular tachycardia Status: Chronic (17) History of thyroid cancer Status: Chronic (18) History of ventricular tachycardia Permanent Comment: nonsustained Status: Chronic (19) Hyperlipidemia Status: Chronic (20) Hypertension Status: Chronic (21) Hypothyroidism Status: Chronic (22) Mild cognitive impairment Status: Chronic (23) Pacemaker Status: Chronic Surgical Problems: (1) H/O thyroidectomy Status: Chronic (2) Laparoscopic cholecystectomy Status: Resolved (3) S/P knee replacement Status: Chronic (4) Status post cardiac pacemaker procedure Status: Chronic (5) Status post cholecystectomy Status: Chronic (6) Status post partial thyroidectomy Status: Chronic Family History Cancer Diabetes mellitus Hypertension Social History Smoking Status: Never Smoker Drug Use: none Marital Status: Housing status: lives alone Occupational Status: retired Immunizations History of Influenza Vaccine: Yes History of Tetanus Vaccine?: Unknown History of Pneumococcal: Yes History of Hepatitis B Vaccine: Unknown Multi-Drug Resistant Organisms History of MDRO: No Allergies Coded Allergies: Sulfa Drugs (Verified Allergy, Intermediate, RASH, 10/15/17) Gabapentin (Verified Allergy, Unknown, Unknown Rxn, 10/15/17) Trazodone (Verified Allergy, Unknown, Unknown Rxn, 10/15/17) Home Medications Scheduled Allopurinol (Zyloprim), 1 TAB PO QAM Aspirin (Aspir-81), 81 MG PO QAM Cetirizine Hcl (Qc All Day Allergy), 10 MG PO QAM Docusate Sodium (Colace), 1 CAP PO BID Furosemide (Lasix), 1 TAB PO BID17 Lactobacillus (Acidophilus Lactobacilli), 1 CAP PO QAM Metoprolol Succinate (Metoprolol Succinate ER), 50 MG PO QAM Mirtazapine (Mirtazapine), 45 MG PO HS Multiple Vitamins W/ Minerals (Therems M), 1 TAB PO QAM Sennosides-Docusate Sodium (Sennalax-S), 1 TAB PO QAM Sertraline (Zoloft), 150 MG PO HS Scheduled PRN Acetaminophen (Tylenol), 650 MG PO Q4H PRN for Pain Calcium Carbonate (Tums), 2 TABS PO BID PRN for GERD Dextromethorphan-Guaifenesin (Mucinex Dm), 1 TAB PO Q12 PRN for CONGESTION Ipratropium Peck (Ipratropium Peck), 1 VIAL NEB QID PRN for SOB/Wheezing Ipratropium-Albuterol (Duoneb), 1 TREATMENT INH Q4H PRN for SOB/Wheezing Loperamide Hcl (Imodium), 2 MG PO Q4H PRN for Diarrhea Lorazepam (Ativan), 0.25 MG PO Q6H PRN for Anxiety/Agitation Magnesium Hydroxide (Milk of Magnesia), 30 ML PO DAILY PRN for Constipation Review of Systems Constitutional: + fever, + chills, + weakness, + fatigue Eyes: No worsening of vision, No eye pain, No redness, No discharge, No diplopia, No problem reported ENT: + unusual epistaxis (nose bleed few days back ), + nasal symptoms, + sore throat Respiratory: + cough, + sputum, + shortness of breath, + dyspnea on exertion, + dyspnea at rest Cardiovascular: + chest pain (with constant coughing ), + palpitations Abdomen: No pain, No nausea, No vomiting, No diarrhea, No constipation, No GI bleeding, No problem reported Genitourinary - Female: No dysuria, No urinary frequency, No urinary urgency, No urinary incontinence, No urinary retention, No hematuria, No dysmenorrhea, No menorrhagia, No metrorrhagia, No rash, No vaginal bleeding, No vaginal discharge, No vaginal itching, No vulvodynia, No , No problem reported Neurologic: + weakness, + numbness/tingling, + vertigo Psychiatric: No depression symptoms, No anhedonism, No anxiety, No insomnia, No substance abuse, No problem reported Endocrine: + fatigue Physical Exam Vital Signs Date Time Temp Pulse Resp B/P (MAP) Pulse Ox O2 Delivery O2 Flow Rate FiO2 10/15/17 13:40 37.1 115 28 144/74 (97) 94 Nasal Cannula 4.0 10/15/17 13:22 36.4 99 26 92/54 94 10/15/17 13:10 99 26 94 10/15/17 13:09 92/54 10/15/17 13:05 81/50 10/15/17 13:02 97 10/15/17 13:00 78/50 10/15/17 12:40 105 22 95 10/15/17 12:35 102 23 95 10/15/17 12:31 96 Nasal Cannula 2.0 10/15/17 12:30 107/63 10/15/17 12:05 104 22 95 10/15/17 12:00 92/60 10/15/17 11:35 110 30 99/77 94 10/15/17 11:31 55/48 10/15/17 11:05 119 23 94 10/15/17 11:02 147/103 10/15/17 10:54 119/92 10/15/17 10:43 126 10/15/17 10:35 110 24 95 10/15/17 10:30 107/67 10/15/17 10:20 110 24 96 10/15/17 10:16 122/85 10/15/17 10:02 111/74 10/15/17 09:15 104 21 101/62 95 10/15/17 09:04 109/74 10/15/17 09:00 72/44 10/15/17 08:45 103 20 92 10/15/17 08:30 82/47 10/15/17 08:15 110 27 95 10/15/17 08:00 99/60 10/15/17 07:47 96 Nasal Cannula 2.0 10/15/17 07:45 117 24 94 10/15/17 07:31 112/66 10/15/17 07:15 105 27 95 10/15/17 07:12 95 Nasal Cannula 2.0 10/15/17 07:02 103/68 10/15/17 06:52 127 10/15/17 06:49 Room Air 10/15/17 06:49 36.4 114 18 124/89 89 Room Air 10/15/17 06:45 124/89 General Appearance: no apparent distress, + pertinent finding (elderly female , in distress due to coughing spell ) Head: normocephalic, atraumatic Eyes: normal inspection, PERRL, EOMI, sclerae normal ENT: hearing grossly normal, pharynx normal Neck: supple, thyroid normal, no JVD, no carotid bruits, trachea midline Respiratory/Chest: + respiratory distress, + decreased breath sounds, + rales, + wheezing Cardiovascular: + irregularly irregular Abdomen/GI: normal bowel sounds, non tender, soft Extremities/Musculoskelatal: normal capillary refill, no pedal edema Neurologic/Psych: no motor/sensory deficits, alert, normal mood/affect, oriented x 3 Skin: normal color, warm/dry, no rash Diagnostics Laboratory Results Results Past 24 Hours Test 10/15/17 07:30 10/15/17 08:00 10/15/17 10:20 Range/Units White Blood Count 7.00 4.8-10.8 K/uL Red Blood Count 3.49 4.2-5.4 M/uL Hemoglobin 11.7 12.0-16.0 g/dL Hematocrit 36.0 37-47 % Mean Corpuscular Volume 103.2 80-100 fL Mean Corpuscular Hemoglobin 33.5 25-34 pg Mean Corpuscular Hemoglobin Concent 32.5 32-36 g/dl Platelet Count 126 130-400 K/uL Mean Platelet Volume 10.2 7.4-10.4 fL Neutrophils (%) (Auto) 79.4 % Lymphocytes (%) (Auto) 8.6 % Monocytes (%) (Auto) 9.7 % Eosinophils (%) (Auto) 1.7 % Basophils (%) (Auto) 0.3 % Neutrophils # (Auto) 5.56 1.4-6.5 K/uL Lymphocytes # (Auto) 0.60 1.2-3.4 K/uL Monocytes # (Auto) 0.68 0.11-0.59 K/uL Eosinophils # (Auto) 0.12 0-0.5 K/uL Basophils # (Auto) 0.02 0-0.2 K/uL RDW Standard Deviation 57.9 36.4-46.3 fL RDW Coefficient of Variation 15.4 11.5-14.5 % Immature Granulocyte % (Auto) 0.3 % Immature Granulocyte # (Auto) 0.02 0.00-0.02 K/uL Sodium Level 141 136-145 mmol/L Potassium Level 3.5 3.5-5.1 mmol/L Chloride Level 106 98-107 mmol/L Carbon Dioxide Level 28 21-32 mmol/L Anion Gap 7.0 3-11 mmol/L Blood Urea Nitrogen 31 7-18 mg/dl Creatinine 1.21 0.60-1.20 mg/dl Est Creatinine Clear Calc Drug Dose 30.2 ml/min Estimated GFR () 46.3 Estimated GFR (Non- 39.9 BUN/Creatinine Ratio 25.5 10-20 Random Glucose 137 70-99 mg/dl Calcium Level 8.8 8.5-10.1 mg/dl Total Bilirubin 0.6 0.2-1 mg/dl Aspartate Amino Transf (AST/SGOT) 35 15-37 U/L Alanine Aminotransferase (ALT/SGPT) 34 12-78 U/L Alkaline Phosphatase 78 45-117 U/L Total Creatine Kinase 47 26-192 U/L Creatine Kinase MB 1.2 0.5-3.6 ng/ml Creatine Kinase MB Ratio 2.6 0-3.0 Troponin I < 0.015 0-0.045 ng/ml Pro-B-Type Natriuretic Peptide 5577 0-1800 pg/ml Total Protein 5.8 6.4-8.2 gm/dl Albumin 3.1 3.4-5.0 gm/dl Globulin 2.7 2.5-4.0 gm/dl Albumin/Globulin Ratio 1.1 0.9-2 Influenza Type A Antigen Neg for Influ A NEG Influenza Type B Antigen Neg for Influ B NEG Urine Color YELLOW Urine Appearance CLEAR CLEAR Urine pH 5.5 4.5-7.5 Urine Specific Gilbert 1.010 1.000-1.030 Urine Protein 1+ NEG Urine Glucose (UA) NEG NEG Urine Ketones NEG NEG Urine Occult Blood NEG NEG Urine Nitrite NEG NEG Urine Bilirubin NEG NEG Urine Urobilinogen NEG NEG Urine Leukocyte Esterase NEG NEG Urine RBC 0-4 0-4 /hpf Urine WBC 1-5 0-5 /hpf Urine Epithelial Cells >30 0-5 /lpf Urine Bacteria NEG NEG Microbiology Results 10/15/17 Blood Culture, Received Pending 10/15/17 Blood Culture, Received Pending Diagnostic Radiology CT CHEST WITH CONTRAST : IMPRESSION: 1. No evidence for pulmonary embolus. 2. Otherwise, no significant change compared to the prior study. 3. Multiple bilateral pulmonary nodules which is suspicious for metastatic disease. There are greater than 30 nodules present. Dominant nodule within the right upper lobe measures 1.5 cm area mild interlobular septal thickening most pronounced at the lung bases. No new focal lung consolidations. 4. Mild interlobular septal thickening and small bilateral pleural effusions. This may represent mild pulmonary edema. 5. Enlarged and heterogeneous left thyroid lobe. CHEST XRAY : IMPRESSION: 1. Stable cardiomegaly. 2. No new focal lung consolidations. 3. Pulmonary nodules are again noted. EKG Vent. rate 116 BPM CA interval * ms QRS duration 124 ms QT/QTc 378/525 ms P-R-T axes * 9 147 Atrial fibrillation with rapid ventricular response with premature ventricular or aberrantly conducted complexes Anterolateral infarct , age undetermined Abnormal ECG When compared with ECG of 12-SEP-2017 23:53, Atrial fibrillation has replaced Electronic ventricular pacemaker Vent. rate has increased BY 51 BPM Confirmed by ARYAN PEREZ ([id number]) on 10/15/2017 12:10:47 PM Impression Assessment and Plan SOB /ACUTE HYPOXIC RESPIRATORY FAILURE : presents with few days of cough and SOB /FITZGERALD found to be hypoxic on room air multifactorial : rapid afib /pulm congestion /reactive airway disease ( diffuse wheeze ) /no prior hx of asthma or COPD cont with respiratory support ordered for neb tx given 125 mg IV Solu medrol in ER cont with 40 mg q 8hrs for wheeze /bronchospasm empiric abx with Doxycycline Pulmonology eval requested BILATERAL PULMONARY NODULE : CT chest with contrast : Negative for PE Multiple bilateral pulmonary nodules which is suspicious for metastatic disease.There are greater than30 nodules present. Dominant nodule within the right upper lobe measures 1.5 cm area mild interlobular septal thickening most pronounced at the lung bases. No new focal lung consolidations. noted in Cxray /CT chest in 09/2017 as well no hx of smoking will need bronchoscopy with biopsy -Family Daughters and Son ( POA ) Antony Conn updated Ct scan finding pulmonology eval requested AFIB RVR possible due to hypoxia /resp distress hx of paroxysmal afib -as per medical record on beta chaya ,was not on anticoagulation has not been following with Cardiology for years ( Last visit noted on [address] Jose J Paez ) pt is continued her home medication dose -Lopressor monitor in tele ECHO , serial troponin ordered Cardiology eval requested IV heparin wt based protocol pt had a significant nose bleed few days back -monitor closely for bleeding complication daily H&H RITO ON CKD STAGE 3 : cr elevated 1.21 baseline cr ~1 hold Lasix follow PRP PROLONG QTC : Qtc > 500 hold Remeron /Zofran avoid mediation that can worsen Qtc prolongation daily felt hat pouncing operator hand K /mg/ca level Cardiology following DNR/DNI -has living will discussed with pt and Daughters and Son ( POA ) DISPOSITION : resident at [facility] will need PT /OT eval prior to discharge Medicine follow up with Dr Espinoza CONTACT : SON ( POA ) ANTONY CONN PHONE # [phone] requests to have update form the Providers Level of Care Telemetry Advanced Directives Existing Living Will: Yes Existing Power of Paste Maker: Yes Resuscitation Status DO NOT RESUSCITATE VTE Prophylaxis VTE Risk Assessment Done? Y/N: Yes Risk Level: Moderate Given or contraindicated: Other Anticoagulation (iv heparin ) Additional Copies To Regino Espinoza D.O.
[2017-10-15] MEDS ORDERED: ONDANSETRON INJ 2 MG/ML 2 ML VIAL IV PRN (16:00)
[2017-10-15] MEDS ORDERED: GLUCOSE 40% GEL 15 GM TUBE PO PRN (16:00)
[2017-10-15] MEDS ORDERED: NITROGLYCERIN 0.4 MG SL PER TAB CHARGE SL PRN (16:00)
[2017-10-15] MEDS ORDERED: MAGNESIUM HYDROXIDE SUSP 30 ML UDC PO PRN ×2 (16:00)
[2017-10-15] MEDS ORDERED: POLYETHYLENE (MIRALAX) 17 GM PACK PO PRN (16:00)
[2017-10-15] MEDS ORDERED: GLUCAGON FOR INJ 1 MG VIAL SQ PRN (16:00)
[2017-10-15] MEDS ORDERED: ALUMINUM/MAGNESIUM/SIMETH (MAALOX MAX) 30 ML UDC PO PRN (16:00)
[2017-10-15] MEDS ORDERED: LOPERAMIDE HCL 2 MG CAP PO PRN (16:00)
[2017-10-15] MEDS ORDERED: GLUCOSE 10 TABS/TUBE PO PRN (16:00)
[2017-10-15] MEDS ORDERED: CALCIUM CARBONATE 500 MG CHEWABLE PO PRN (16:00)
[2017-10-15] MEDS ORDERED: DEXTROSE 50% 50 ML SYR IV PRN (16:00)
[2017-10-15] MEDS ORDERED: ALBUT/IPRATROP 3MG/0.5MG NEB 3 ML VIAL INH PRN ×2 (16:15→17:30)
[2017-10-15] MEDS ORDERED: GUAIFENESIN 600 MG TABCR PO PRN (16:45)
[2017-10-15] MEDS ORDERED: FUROSEMIDE 20 MG TAB PO SCH (17:00)
[2017-10-15] MEDS: INSULIN ASPART 100 UNITS/ML 3 ML PEN SC SCH ×2 (17:00→22:21)
[2017-10-15] MEDS: ALBUT/IPRATROP 3MG/0.5MG NEB 3 ML VIAL INH SCH ×2 (19:15→23:21)
[2017-10-15] MEDS ORDERED: SERTRALINE HCL 100 MG TAB PO SCH (21:00)
[2017-10-15] MEDS ORDERED: MIRTAZAPINE TAB 15 MG TAB PO SCH (21:00)
[2017-10-15] MEDS ORDERED: HEPARIN SOD 5000 UNIT/0.5 ML CARP SQ SCH (22:00)
[2017-10-15] MEDS: DOXYCYCLINE HYCLATE 100 MG CAP PO SCH (22:09)
[2017-10-15] MEDS: DOCUSATE SODIUM 100 MG CAP PO SCH (22:09)
[2017-10-15] MEDS: GUAIFENESIN/CODEINE 100MG/10MG 5ML UDC PO PRN (22:26)
[2017-10-16] VITALS (16 sets, daily range): BP systolic 93–134; BP diastolic 56–92; PULSE 105–144; TEMP 36.4–37.3; O2SAT 92–97; Ht 152.4 cm; Wt 75.5 kg
[2017-10-16] MEDS ORDERED: HEPARIN IV LOW DOSE NO BOLUS SCH (00:26)
[2017-10-16 01:13] LABS: PTT PATIENT 23.5 SECONDS (21.0-31.0)
[2017-10-16] MEDS: HEPARIN 25,000 UNIT/500ML D5W 500 ML IV PRN ×3 (01:25→23:08)
[2017-10-16] MEDS: ALBUT/IPRATROP 3MG/0.5MG NEB 3 ML VIAL INH SCH ×2 (04:16→06:57)
[2017-10-16 08:01] LABS: HEMATOCRIT 35.8 % (37-47); HEMOGLOBIN 11.4 g/dL (12.0-16.0); MEAN CELL VOLUME 103.8 fL (80-100); MEAN CORPUSCULAR HGB CONC 31.8 g/dl (32-36); MEAN PLATELET VOLUME 10.3 fL (7.4-10.4); PLATELET COUNT 112 K/uL (130-400); RED CELL DISTRIBUTION WIDTH CV 15.5 % (11.5-14.5); RED CELL DISTRIBUTION WIDTH SD 58.7 fL (36.4-46.3); WHITE BLOOD COUNT 6.86 K/uL (4.8-10.8)
[2017-10-16] MEDS: DOXYCYCLINE HYCLATE 100 MG CAP PO SCH ×2 (08:03→20:45)
[2017-10-16] MEDS: ASPIRIN 81 MG ECTAB PO SCH (08:03)
[2017-10-16] MEDS: DOCUSATE SODIUM 100 MG CAP PO SCH ×2 (08:03→20:45)
[2017-10-16] MEDS: LACTOBACILLUS ACIDOPHILUS (FLORANEX) TAB PO SCH (08:03)
[2017-10-16] MEDS: CETIRIZINE HCL 10 MG TAB PO SCH (08:03)
[2017-10-16] MEDS: CEROVITE ADV FORMULA TAB PO SCH (08:03)
[2017-10-16] MEDS: DOCUSATE SODIUM/SENNA 50/8.6MG TAB PO SCH (08:03)
[2017-10-16] MEDS: ALLOPURINOL 300 MG TAB PO SCH (08:04)
[2017-10-16] MEDS: INSULIN ASPART 100 UNITS/ML 3 ML PEN SC SCH ×4 (08:05→20:44)
[2017-10-16] MEDS: GUAIFENESIN/CODEINE 100MG/10MG 5ML UDC PO PRN ×2 (08:07→18:26)
[2017-10-16 08:28] LABS: PTT PATIENT 34.3 SECONDS (21.0-31.0)
[2017-10-16 08:31] LABS: CALCIUM 8.6 mg/dl (8.5-10.1); CREATININE 1.03 mg/dl (0.60-1.20); POTASSIUM 3.4 mmol/L (3.5-5.1)
[2017-10-16 08:59] LABS: HEMOGLOBIN A1C 6.2 % (4.5-5.6)
[2017-10-16] MEDS ORDERED: METOPROLOL SUCC 50MG EXT REL TAB PO SCH (09:00)
[2017-10-16] MEDS ORDERED: METOPROLOL SUCC 50MG EXT REL TAB PO STA (09:51)
--- NOTE | 2017-10-16 09:51 | Cardiology Consultation ---
Cardiology Consultation Date of Consultation: Oct 16, 2017. Requesting Physician: Dr. Pompa Reason for Consultation: AF, weakness, edema Pt evaluation today including: conversation w/ patient, physical exam, lab review, review of studies, review of inpatient medication list History of Present Illness 7-year-old woman with a history of paroxysmal atrial fibrillation and sick sinus syndrome, hyperlipidemia, hypertension and long-standing left bundle branch block. She had a dual-chamber pacemaker implanted on 04/06/2010. We followed her pacemaker initially, however more recently she was lost to follow- up and her device has not been interrogated since a hospitalization on 2013. At that time it was working well, she was pacing infrequently in the atrium and minimally in the ventricle and she had occasional episodes of atrial tachycardia or atrial fibrillation but only minutes in duration. She was therefore not anticoagulated. She now presents with a long-standing nonproductive cough, associated with some shortness of breath and dyspnea on exertion for perhaps 2 weeks. She also complains of feeling weak with minimal activity and occasional dizziness. In the emergency room she was hypoxic, wheezing and was admitted. She was seen in the emergency room in mid September for similar symptoms which improved with a nebulizer treatment. Of note she tells me that she had an episode of epistaxis several days ago, she tells me that it was not severe but it did get on her clothing and she doesn't think it lasted very long. She was not on anticoagulant at the time. On admission she was noted to be in atrial fibrillation, based on her history the duration was unknown. She has remained in atrial fibrillation so far during the hospitalization. She was admitted with edema, but she seems unaware of this so the duration of that is not known either. Past Medical/Surgical History (1) History of ventricular tachycardia (2) History of atrial fibrillation (3) Cardiac pacemaker (4) Diabetes mellitus type 2, controlled (5) Hypertension (6) History of thyroid cancer (7) Depression (8) GERD (gastroesophageal reflux disease) (9) Dyslipidemia (10) Carotid artery disease (11) CKD (chronic kidney disease), stage III (12) Mild cognitive impairment (13) Status post cardiac pacemaker procedure (14) Status post partial thyroidectomy (15) Status post cholecystectomy Family History Cancer Diabetes mellitus Hypertension Social History Smoking Status: Never Smoker History of Alcohol Use: No Review of Systems Constitutional: + weakness, No fever, No weight loss Respiratory: + see HPI, + cough, No wheezing, No shortness of breath, No dyspnea on exertion Cardiac: + see HPI Abdomen: No pain, No nausea, No vomiting, No diarrhea, No GI bleeding Female : No problem reported Neurologic: No paralysis, No weakness, No numbness/tingling, No balance problems Heme: No abnormal bleeding/bruising, No clotting problems Endo: No fatigue Skin: No problem reported All Other Systems: Reviewed and Negative Allergies Coded Allergies: Sulfa Antibiotics (Verified Allergy, Intermediate, RASH, 10/16/17) Gabapentin (Verified Allergy, Unknown, Unknown Rxn, 10/15/17) Trazodone (Verified Allergy, Unknown, Unknown Rxn, 10/15/17) Medications Current Inpatient Medications Medications (Trade) Dose Ordered Sig/Los Route Start Time Stop Time Status Last Admin Dose Admin Ioversol (Optiray 320) 100 ml UD PRN IV 10/15/17 09:15 10/19/17 09:14 Acetaminophen (Tylenol Tab) 650 mg Q4H PRN PO 10/15/17 16:00 11/14/17 15:59 Al Hydrox/Mg Hydrox/Simethicone (Maalox Max Susp) 15 ml Q4H PRN PO 10/15/17 16:00 11/14/17 15:59 Magnesium Hydroxide (Milk Of Magnesia Susp) 30 ml Q12H PRN PO 10/15/17 16:00 11/14/17 15:59 Nitroglycerin (Nitrostat Tab) 0.4 mg UD PRN SL 10/15/17 16:00 11/14/17 15:59 Aspirin (Ecotrin Tab) 81 mg QAM PO 10/16/17 09:00 11/15/17 08:59 10/16/17 08:03 81 MG Polyethylene (Miralax Powder Packet) 17 gm DAILY PRN PO 10/15/17 16:00 11/14/17 15:59 Insulin Aspart (novoLOG ASPART) SLIDING SCALE If C... ACHS SC 10/15/17 16:15 11/14/17 16:14 Glucose (Glucose 40% Gel) 15-30 GRAMS 15 GRAMS... UD PRN PO 10/15/17 16:00 11/14/17 15:59 Glucose (Glucose Chew Tab) 4-8 Tablets 4 Tabl... UD PRN PO 10/15/17 16:00 11/14/17 15:59 Dextrose (Dextrose 50% 50ML Syringe) 25-50ML OF 50% DW IV FOR... UD PRN IV 10/15/17 16:00 11/14/17 15:59 Glucagon (Glucagon Inj) 1 mg UD PRN SQ 10/15/17 16:00 11/14/17 15:59 Allopurinol (Zyloprim Tab) 300 mg QAM PO 10/16/17 09:00 11/15/17 08:59 10/16/17 08:04 300 MG Calcium Carbonate (Tums Chew Tab) 1,000 mg BID PRN PO 10/15/17 16:00 11/14/17 15:59 Cetirizine HCl (zyrTEC TAB) 10 mg QAM PO 10/16/17 09:00 11/15/17 08:59 10/16/17 08:03 10 MG Docusate Sodium (coLACE CAP) 100 mg BID PO 10/15/17 21:00 11/14/17 20:59 10/16/17 08:03 100 MG Loperamide HCl (Imodium Cap) 2 mg Q4H PRN PO 10/15/17 16:00 11/14/17 15:59 Lorazepam (Ativan Tab) 0.25 mg Q6H PRN PO 10/15/17 16:00 11/14/17 15:59 Metoprolol Succinate (Toprol Xl Tab) 50 mg QAM PO 10/16/17 09:00 11/15/17 08:59 10/16/17 08:04 50 MG Multivitamins/ Minerals (Multivitamin W/ Minerals Tab) 1 tab QAM PO 10/16/17 09:00 11/15/17 08:59 10/16/17 08:03 1 TAB Senna/Docusate Sodium (Senokot S Tab) 1 tab QAM PO 10/16/17 09:00 11/15/17 08:59 10/16/17 08:03 1 TAB Lactobacillus Acidophilus (Floranex Tab) 1 tab QAM PO 10/16/17 09:00 11/15/17 08:59 10/16/17 08:03 1 TAB Albuterol/ Ipratropium (Duoneb) 3 ml Q4R INH 10/15/17 17:15 11/14/17 16:14 10/16/17 06:57 3 ML Codeine Phosphate/ Guaifenesin (Robitussin-AC Sugar Free Syrup) 5 ml Q6H PRN PO 10/15/17 17:15 11/14/17 17:14 10/16/17 08:07 5 ML Doxycycline Hyclate (Vibramycin Cap) 100 mg BID PO 10/15/17 21:00 10/22/17 20:59 10/16/17 08:03 100 MG Albuterol/ Ipratropium (Duoneb) 3 ml Q2R PRN INH 10/15/17 17:30 11/14/17 17:29 Metoprolol Tartrate (Lopressor Iv) 5 mg Q6 PRN IV 10/16/17 00:15 11/15/17 00:14 Heparin Sodium/ Dextrose 500 ml @ 14 mls/hr Q24H PRN IV 10/16/17 00:45 11/15/17 00:44 10/16/17 01:25 14 MLS/HR Physical Exam Vital Signs Past 12 Hours Date Time Temp Pulse Resp B/P (MAP) Pulse Ox O2 Delivery O2 Flow Rate FiO2 10/16/17 08:12 36.4 109 22 134/56 (82) 97 Nasal Cannula 3.0 10/16/17 06:59 107 22 96 Nasal Cannula 3.0 10/16/17 04:16 112 24 95 Nasal Cannula 4.0 10/16/17 04:00 Nasal Cannula 4.0 10/16/17 04:00 36.5 106 22 112/92 (99) 97 Nasal Cannula 3.0 10/16/17 00:00 Nasal Cannula 4.0 10/15/17 23:31 36.9 83 19 133/98 (110) 95 Nasal Cannula 4.0 10/15/17 23:22 109 24 95 Nasal Cannula 4.0 Constitutional: General Apperance: heathly-appearing Level of Distress: mild distress Psychiatric: Mental Status: active & alert Head: normocephalic Eyes: EOM: EOMI ENMT: normal ENT inspection, hearing grossly normal Neck: supple, no masses Lungs: Respiratory effort: no dyspnea Auscultation: expiratory wheezing, rhonchi Cardiovascular: Heart Auscultation: no murmurs, no rubs, no gallops, tachycardia, irregular rate rhythm Peripheral Pulses: Bruits: none appreciated Abdomen: Bowel Sounds: normal Inspection & Palpation: soft, no tenderness, guarding & rebound, no masses Musculoskeletal: normal strength (5/5 throughout) Extremities: edema (+2 bilateral) Neurologic: Cranial Nerves: grossly intact Sensation: grossly intact Data Laboratory Results: Last 24 Hours Test 10/15/17 10:20 10/15/17 16:49 10/15/17 19:51 10/16/17 00:54 Urine Color YELLOW Urine Appearance CLEAR Urine pH 5.5 Urine Specific Potrero 1.010 Urine Protein 1+ Urine Glucose (UA) NEG Urine Ketones NEG Urine Occult Blood NEG Urine Nitrite NEG Urine Bilirubin NEG Urine Urobilinogen NEG Urine Leukocyte Esterase NEG Urine RBC 0-4 /hpf Urine WBC 1-5 /hpf Urine Epithelial Cells >30 /lpf Urine Bacteria NEG Bedside Glucose 170 mg/dl 175 mg/dl Activated Partial Thromboplast Time 23.5 SECONDS Partial Thromboplastin Ratio 0.9 Troponin I 0.015 ng/ml Test 10/16/17 07:39 10/16/17 07:42 Arterial Blood pH 7.43 Arterial Blood Partial Pressure CO2 40 mmHg Arterial Blood Partial Pressure O2 109 mm/Hg Arterial Blood HCO3 26 mmol/L Arterial Blood Oxygen Saturation 98.0 % Arterial Blood Base Excess 1.7 mEq/L Arterial Blood Gas Delivery 3 L Chaz Test POS White Blood Count 6.86 K/uL Red Blood Count 3.45 M/uL Hemoglobin 11.4 g/dL Hematocrit 35.8 % Mean Corpuscular Volume 103.8 fL Mean Corpuscular Hemoglobin 33.0 pg Mean Corpuscular Hemoglobin Concent 31.8 g/dl RDW Standard Deviation 58.7 fL RDW Coefficient of Variation 15.5 % Platelet Count 112 K/uL Mean Platelet Volume 10.3 fL Activated Partial Thromboplast Time 34.3 SECONDS Partial Thromboplastin Ratio 1.3 Sodium Level 143 mmol/L Potassium Level 3.4 mmol/L Chloride Level 106 mmol/L Carbon Dioxide Level 28 mmol/L Anion Gap 9.0 mmol/L Blood Urea Nitrogen 29 mg/dl Creatinine 1.03 mg/dl Est Creatinine Clear Calc Drug Dose 35.4 ml/min Estimated GFR () 56.2 Estimated GFR (Non- 48.5 BUN/Creatinine Ratio 27.9 Random Glucose 110 mg/dl Estimated Average Glucose 131 mg/dl Hemoglobin A1c 6.2 % Calcium Level 8.6 mg/dl Magnesium Level 2.3 mg/dl Troponin I 0.020 ng/ml Thyroid Stimulating Hormone (TSH) 1.240 uIu/ml Imaging: CXR: No pneumonia or CHF EKG: On admission AF with HR 116, LBBB, no pacing Telemetry reviewed: AF, HR averaging about 120 visually Pacer evaluation: Her pacer has been at [facility] since 05/20/2015, it is surprising it is still working. It will need to be replaced soon. It reports 31 days to AF. Assessment & Plan 1. AF: In the past she had very brief (minutes) episodes of SVT/AF, now about 31 days of AF. Agree with anticoagulation, I would stop aspirin (I don't think she has a clear indication for it). Her pacer needs replacement now, I would use heparin until that is done then switch to oral. Need better rate control, I will increase the metoprolol. Cannot convert now with 1 month of AF, will plan rate control and conversion in 1 month. 2. Weakness, fatigue: May be due to AF, she recalls symptoms from last fall. Need to look at LVEF 3. Pacer: Not evaluated for 3-1/2 years, was OK then with very little AF. Now at [facility] for 2-1/2 years. It needs to be replaced soon, before we start oral anticoagulants this admission. I have her scheduled for the afternoon of 2017. I discussed the indications, procedure, risks and alternatives of device replacement as well as lead replacement (if needed) and she understands and agrees to proceed. I also reviewed sedation with her. Consent obtained for the procedure and for sedation. I will keep her nothing by mouth after midnight. 4. Edema: She isn't aware of it but it is present. Could be from AF, perhaps with LV dysfunction, check echo. Thank You
[2017-10-16] MEDS ORDERED: HEPARIN IV BOLUS 4,000 UNIT in SYRINGE 0 ML IV ONE (10:00)
--- NOTE | 2017-10-16 10:26 | Pulmonary Consultation ---
History General Date of Service: Oct 16, 2017. Stated Complaint: Chf, Sob HPI The patient is a 87 year old female admitted to [facility] 10/15/17 from [facility] to [facility] with complaints dyspnea and cough. The patient's primary care provider is Saba Shah M.D. PMHx includes: atrial fibrillation/SSS s/p duel chamber pacemaker, diabetes mellitus, HTN, GERD, anxiety, macular degeneration, CKD III and h/o thyroid CA s /p partial surgical excision. She is a life-long non-smoker with apx 50-year history of heavy second hand smoke exposure through her . Patient's son Antony is her POA. 09/12/17 patient presented to the [facility] ER with symptoms of dyspnea, cough, sinus and chest congestion. She underwent CXR and discharged on doxycycline, nebulized bronchodilators and prednisone. She states that initially she felt somewhat improved. She tolerated these treatments well. Her symptoms however, regressed and dyspnea, cough and congestion progressed. CT 10/09/17: - Small bilateral pleural effusions - Bibasilar interlobular septal thickening - > 30 pulmonary nodules - these nodules are variable in size and rounded. Largest RUL: 1.5cm, lingular nodule 1cm - Enlarged heterogeneous left thyroid lobe and right tracheal deviation Patient returned to [facility] and was admitted 10/15/17 with progressive dyspnea, cough, chest congestion, and generalized fatigue/weakness. She reports associated symptom of bilateral peripheral edema without pain. She states that she underwent prior surgical fusion of her left foot and historically has had some minor swelling in the area however her current edema is more advanced that previous. She denies any calf pain. No associated abdominal pain, emesis or loose stools. No fevers or chills. Her cough is productive of thin white sputum with bother upper and lower airway involvement. She reports nebulizers offer only 20-minutes of symptomatic relief. Additionally, she reports a sensation of fullness in her throat without dysphagia or pain. On admission: WBC: 7, Hgb/Hct: 11.7/36, Plts: 126, ProBNP: 5577, Influenza: negative, TSH: 1.24. EKG: QTc: 525 with atrial fibrillation rate - 116. ABG 7.43/40/109-3LPM/26 CT Angiogram: 10/15/17: No evidence of filling defects. Persistent multiple pulmonary nodules. Mild interlobular septal thickening and small bilateral pleura effusions. Enlarged and heterogenous left thyroid lob. Patient denies any history of childhood asthma or allergies. She denies any history of frequent respiratory illness, chronic cough or h/o PE/DVT. She is a life-long [facility] resident [place] 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 She denies any known occupational/industrial/or environmental exposures. Prior imaging available CT A/P 05/11/13: 4mm right nodule suggested Historian: patient Review of Systems Constitutional: reports: malaise, weakness, weight gain, denies: chills, fever , weight loss Eyes: reports: no symptoms ENT: reports: nasal congestion, denies: epistaxis, sore throat Cardiovascular: reports: edema, denies: chest pressure, syncope Respiratory: reports: cough, shortness of breath, sputum production, FITZGERALD, denies: hemoptysis Gastrointestinal: reports: no symptoms Genitourinary - Female: denies: dysuria Musculoskeletal: reports: no symptoms Neurologic: reports: general weakness, denies: headache, dizziness, tingling, paresthesia Psychiatric: reports: anxiety Allergic / Immunologic: denies: frequent infections Past Medical History Past Medical History: 1. Atrial fibrillation 2. H/o duel chamber pacemaker implantation 3. Hypertension 4. H/O thyroid cancer s/p excision 5. Hypothyroid post excision 6. diabetes mellitus 7. Chronic kidney disease 8, Anxiety 9. GERD 10. Macular degeneration Family History Cancer Diabetes mellitus Hypertension Social History Hx Tobacco Use In Past Year?: No Smoking Status: Never Smoker Marital status: Housing status: lives alone Occupational Status: retired Immunizations History of Influenza Vaccine: Yes History of Tetanus Vaccine?: Unknown History of Pneumococcal: Yes History of Hepatitis B Vaccine: Unknown History of MDRO History of MDRO: No Allergies Coded Allergies: Sulfa Antibiotics (Verified Allergy, Intermediate, RASH, 10/16/17) Gabapentin (Verified Allergy, Unknown, Unknown Rxn, 10/15/17) Trazodone (Verified Allergy, Unknown, Unknown Rxn, 10/15/17) Current Medications Reported Home Medications Medications Dose Route/Sig Max Daily Dose Days Date Category Duoneb (Ipratropium-Albuterol) 3 Ml Nebu 1 Treatment INH Q4H PRN 09/13/17 Rx Milk of Magnesia (Magnesium Hydroxide) 30 Ml Susp 30 Ml PO DAILY PRN 09/13/17 Reported Tums (Calcium Carbonate) 500 Mg Chew 2 Tabs PO BID PRN 09/13/17 Reported Tylenol (Acetaminophen) 325 Mg Tab 650 Mg PO Q4H PRN 09/13/17 Reported Sennalax-S (Sennosides-Docusate Sodium) 1 Tab Tab 1 Tab PO QAM 09/13/17 Reported Qc All Day Allergy (Cetirizine Hcl) 10 Mg Tab 10 Mg PO QAM 09/13/17 Reported Mucinex Dm (Dextromethorphan-Guaifenesin) 1 Tab Tab 1 Tab PO Q12 PRN 14 09/13/17 Reported Acidophilus Lactobacilli (Lactobacillus) 1 Cap Cap 1 Cap PO QAM 09/13/17 Reported Therems M (Multiple Vitamins W/ Minerals) 1 Tab Tab 1 Tab PO QAM 09/13/17 Reported Ipratropium [place] 0.5 Mg/2.5 Ml Nebu 1 Vial NEB QID PRN 30 12/27/16 Reported Ativan (Lorazepam) 0.5 Mg Tab 0.25 Mg PO Q6H PRN 12/27/16 Reported Imodium (Loperamide HCl) 2 Mg Cap 2 Mg PO Q4H PRN 12/27/16 Reported Zoloft (Sertraline HCl) 100 Mg Tab 150 Mg PO HS 12/27/16 Reported Lasix (Furosemide) 20 Mg Tab 1 Tab PO BID17 90 12/27/16 Reported Colace (Docusate Sodium) 100 Mg Cap 1 Cap PO BID 15 12/27/16 Reported Zyloprim (Allopurinol) 300 Mg Tab 1 Tab PO QAM 30 12/27/16 Reported Metoprolol Succinate ER (Metoprolol Succinate) 50 Mg Tabcr 50 Mg PO QAM 06/10/16 Reported Aspir-81 (Aspirin) 81 Mg Tab 81 Mg PO QAM 06/07/16 Reported Mirtazapine 45 Mg Tab 45 Mg PO HS 12/25/15 Reported Physical Physical Exam Vital Signs: Date Time Temp Pulse Resp B/P (MAP) Pulse Ox O2 Delivery O2 Flow Rate FiO2 10/16/17 08:12 36.4 109 22 134/56 (82) 97 Nasal Cannula 3.0 10/16/17 08:00 94 Nasal Cannula 3.0 10/16/17 06:59 107 22 96 Nasal Cannula 3.0 10/16/17 04:16 112 24 95 Nasal Cannula 4.0 10/16/17 04:00 Nasal Cannula 4.0 10/16/17 04:00 36.5 106 22 112/92 (99) 97 Nasal Cannula 3.0 10/16/17 00:00 Nasal Cannula 4.0 10/15/17 23:31 36.9 83 19 133/98 (110) 95 Nasal Cannula 4.0 10/15/17 23:22 109 24 95 Nasal Cannula 4.0 10/15/17 20:00 Nasal Cannula 4.0 10/15/17 19:15 82 24 96 Nasal Cannula 4.0 10/15/17 18:50 36.9 112 22 117/83 (94) 96 Nasal Cannula 4.0 10/15/17 17:06 120 24 96 Nasal Cannula 4.0 10/15/17 15:14 36.6 94 19 100/81 (87) 91 Nasal Cannula 4.0 10/15/17 13:40 37.1 115 28 144/74 (97) 94 Nasal Cannula 4.0 10/15/17 13:22 36.4 99 26 92/54 94 10/15/17 13:10 99 26 94 10/15/17 13:09 92/54 10/15/17 13:05 81/50 10/15/17 13:02 97 10/15/17 13:00 78/50 10/15/17 12:40 105 22 95 10/15/17 12:35 102 23 95 10/15/17 12:31 96 Nasal Cannula 2.0 10/15/17 12:30 107/63 10/15/17 12:05 104 22 95 10/15/17 12:00 92/60 10/15/17 11:35 110 30 99/77 94 10/15/17 11:31 55/48 10/15/17 11:05 119 23 94 10/15/17 11:02 147/103 10/15/17 10:54 119/92 10/15/17 10:43 126 10/15/17 10:35 110 24 95 10/15/17 10:30 107/67 10/15/17 10:20 110 24 96 10/15/17 10:16 122/85 Constitutional: Well developed elderly female sitting in chair at bedside, no acute distress Head: + facial symmetry. O2 via NC Eyes: EOMi, PERRLA, pale conjunctiva. Glasses Mouth: Moist mucous membranes. White malini tongue. No erythema or visible drainage Respiratory: Non-labored respirations. Bilateral rales and coarse rhonchi. Wheeze upper airways bilaterally Right > Left. Cough provoked in deep inspiration Cardiovascular: Irregularly irregular. Cannot appreciate any additional details over lung exam. Palpable radial pulses. No clubbing or cyanosis GI: Soft, active bowel sounds MSK/Extremities: Moving and developed symmetrically. Bilateral LE edema Left > Right. No tenderness to palpation Neurologic: Alert, oriented. Good data recall. Cooperative and appropriate affect. Diagnostics Labs Results Past 24 Hours Test 10/15/17 10:20 10/15/17 16:49 10/15/17 19:51 10/16/17 00:54 Range/Units Urine Color YELLOW Urine Appearance CLEAR CLEAR Urine pH 5.5 4.5-7.5 Urine Specific [place] 1.010 1.000-1.030 Urine Protein 1+ NEG Urine Glucose (UA) NEG NEG Urine Ketones NEG NEG Urine Occult Blood NEG NEG Urine Nitrite NEG NEG Urine Bilirubin NEG NEG Urine Urobilinogen NEG NEG Urine Leukocyte Esterase NEG NEG Urine RBC 0-4 0-4 /hpf Urine WBC 1-5 0-5 /hpf Urine Epithelial Cells >30 0-5 /lpf Urine Bacteria NEG NEG Bedside Glucose 170 175 70-90 mg/dl Activated Partial Thromboplast Time 23.5 21.0-31.0 SECONDS Partial Thromboplastin Ratio 0.9 Troponin I 0.015 0-0.045 ng/ml Test 10/16/17 07:39 10/16/17 07:42 Range/Units Arterial Blood pH 7.43 7.35-7.45 Arterial Blood Partial Pressure CO2 40 35-46 mmHg Arterial Blood Partial Pressure O2 109 80-95 mm/Hg Arterial Blood HCO3 26 19-24 mmol/L Arterial Blood Oxygen Saturation 98.0 90-95 % Arterial Blood Base Excess 1.7 -9-1.8 mEq/L Arterial Blood Gas Delivery 3 L Chaz Test POS POS White Blood Count 6.86 4.8-10.8 K/uL Red Blood Count 3.45 4.2-5.4 M/uL Hemoglobin 11.4 12.0-16.0 g/dL Hematocrit 35.8 37-47 % Mean Corpuscular Volume 103.8 80-100 fL Mean Corpuscular Hemoglobin 33.0 25-34 pg Mean Corpuscular Hemoglobin Concent 31.8 32-36 g/dl RDW Standard Deviation 58.7 36.4-46.3 fL RDW Coefficient of Variation 15.5 11.5-14.5 % Platelet Count 112 130-400 K/uL Mean Platelet Volume 10.3 7.4-10.4 fL Activated Partial Thromboplast Time 34.3 21.0-31.0 SECONDS Partial Thromboplastin Ratio 1.3 Sodium Level 143 136-145 mmol/L Potassium Level 3.4 3.5-5.1 mmol/L Chloride Level 106 98-107 mmol/L Carbon Dioxide Level 28 21-32 mmol/L Anion Gap 9.0 3-11 mmol/L Blood Urea Nitrogen 29 7-18 mg/dl Creatinine 1.03 0.60-1.20 mg/dl Est Creatinine Clear Calc Drug Dose 35.4 ml/min Estimated GFR () 56.2 Estimated GFR (Non- 48.5 BUN/Creatinine Ratio 27.9 10-20 Random Glucose 110 70-99 mg/dl Estimated Average Glucose 131 mg/dl Hemoglobin A1c 6.2 4.5-5.6 % Calcium Level 8.6 8.5-10.1 mg/dl Magnesium Level 2.3 1.8-2.4 mg/dl Troponin I 0.020 0-0.045 ng/ml Thyroid Stimulating Hormone (TSH) 1.240 0.300-4.500 uIu/ml Impression Assessment and Plan 1. Switch to levalbuterol-ipratropium nebulized in setting of low-trade tachycardia and atrial athymia 2. Broaden antibiotic with non-QT prolongation antimicrobial 3. Ynes diuresis with increased peripheral edema 4. Add oral prednisone: 40mg q day - responded to treatment previously 5. Multiple pulmonary nodules in 87-yo female with multiple comorbidities - discuss goals of care with primary service and son TRISHA
[2017-10-16] MEDS: IPRATROPIUM BROMIDE NEB SOLN 0.02% 2.5 ML VIAL INH SCH ×4 (11:12→23:26)
[2017-10-16] MEDS: LEVALBUTEROL 1.25MG/0.5ML NEB INH SCH ×4 (11:12→23:26)
[2017-10-16] MEDS ORDERED: LEVALBUTEROL/IPRATROPIUM NEB INH SCH (12:00)
[2017-10-16] MEDS ORDERED: LACTATED RINGER'S 1000ML 1,000 ML IV ONE (15:30)
--- NOTE | 2017-10-16 16:09 | PULMONARY PROGRESS NOTE ---
DATE: 10/16/2017 STATED COMPLAINT: Shortness of breath/acute and chronic chest congestion. HISTORY OF PRESENT ILLNESS: An 87-year-old white female admitted on 10/15/2017 from [facility] to [facility] with complaints of dyspnea and cough. The patient was seen earlier today by Hilaria Huffman, physician assistant superintendent for curriculum, from the pulmonary service and I will refer you to her well outlined pulmonary consultative note. The patient has had a history of atrial fibrillation and sick sinus syndrome, status post dual-chamber pacemaker, diabetes mellitus, hypertension, GERD, macular degeneration, chronic renal disease and a history of thyroid CA with partial surgical resection by Dr. Boyd in the early . She is a nonsmoker. The patient states she feels better today than she did on admission and feels less congested, although has had difficulty expectorating phlegm. She has responded to aerosolized bronchodilator in the form of DuoNeb solution. A CTA done yesterday showed no evidence of pulmonary thromboembolic disease and was compared to film of 10/09/17, but once again showed multiple numerous bilateral pulmonary nodules, some measuring up to 1.5 cm throughout both lung allen associated with small bilateral pleural effusions and what appears to be mild pulmonary edema. Certainly, the lesions would suggest metastatic disease as the most likely etiology. PHYSICAL EXAMINATION: VITAL SIGNS: Temperature 36.4, pulse 105 and regular, respiratory rate 20, blood pressure 101/79, O2 sat 94% on 3 liters. SKIN: Without lesion. HEENT: Atraumatic, normocephalic. PERRLA, EOMI. Conjunctivae pale. Sclerae nonicteric. Fundi poorly visualized. NECK: Neck veins are not distended at 45 degrees. No evidence of adenopathy in the supra or infraclavicular areas. LUNGS: Coarse wheezes diffusely, left greater than right. CARDIAC EXAMINATION: Irregularly irregular rhythm with a ventricular response in the low 100 range. No S3. ABDOMEN: Soft, scaphoid. EXTREMITIES: No pedal edema, clubbing, or cyanosis. NEUROLOGICAL: Intact. IMAGING STUDIES: CT scan as noted. OVERALL ASSESSMENT: An 87-year-old presents with congestive heart failure with atrial fibrillation and relatively rapid ventricular response and with a probable intercurrent lower respiratory tract infection. I agree with the dosing of antibiotic and diuretics along with aerosolized bronchodilator. The patient may require additional steroid therapy. I did inform her about the presence of pulmonary nodules. It did not give detail as to what may be causing them at this point in time. It would be unlikely that they are playing a role in her severe coughing, if they do represent metastatic cancer, which is likely, then she may very well be immunocompromised. We will discuss further with Hilaria Huffman and the primary service and follow along with you. ROBEL
[2017-10-16 17:42] LABS: PTT PATIENT 60.2 SECONDS (21.0-31.0)
--- NOTE | 2017-10-16 18:15 | ECHOCARDIOGRAM REPORT ---
*NOTICE TO RECEIVING DEMOCRAT AGENCY This information is strictly Confidential and protected under [place] law. [place] law prohibits you from making any further disclosure of this information unless further disclosure is expressly permitted by the written consent of the person to whom it pertains or is authorized by law. A general authorization for the release of medical or other information is not sufficient for this purpose. Hospital accepts no responsibility if the information is made available to any other person, INCLUDING THE PATIENT. Interpretation Summary * Name: KAITLYNN BARRON Study Date: 10/16/2017 06:19 AM BP: 112/92 mmHg * Patient Location: [facility] HR: 92 * : 1930 (M/d/yyyy) Gender: Female Height: 60 in * Age: 87 yrs Ethnicity: CA Weight: 177 lb * Ordering Physician: Kacey Pompa MD * Performed By: Evelin Ramirez RDCS * * Reason For Study: Atrial Fibrillation * BSA: 1.8 m2 * -- Conclusions -- * 1. Normal LV size and wall thickness. * 2. Low normal LV systolic function. LVEF 50-55%. * 3. Mildly dilated RV with borderline function. * 4. Severe tricuspid regurgitation. * 5. Mild mitral regurgitation. Mild PI. * 6. Severe PH. Est PASP 60-65 mmHg. Dilated IVC. Est RA 15 mmHg. * 7. Compared with prior study on 02/07/2017: Severe TR, pulmonary hypertension, RV dilation is new. Procedure Details * A complete two-dimensional transthoracic echocardiogram was performed (2D, M-mode, Doppler and color flow Doppler). Left Ventricle * The left ventricle is grossly normal size. * There is normal left ventricular wall thickness. * Ejection Fraction = 50-55%. * Flattened septum is consistent with RV pressure overload. Right Ventricle * There is a pacemaker lead in the right ventricle. * The right ventricle is mildly dilated. * The right ventricular systolic function is borderline reduced. Atria * The left atrium is mildly dilated. * The right atrium is moderately dilated. * No ASD detected; PFO is not assessed. Mitral Valve * The mitral valve is grossly normal. * There is no mitral valve stenosis. * There is mild mitral regurgitation. Tricuspid Valve * There is severe tricuspid regurgitation. Aortic Valve * The aortic valve is trileaflet. * No hemodynamically significant valvular aortic stenosis. * There is no significant aortic regurgitation. Pulmonic Valve * There is no pulmonic valvular stenosis. * Mild pulmonic valvular regurgitation. Great Vessels * The aortic root and proximal ascending aorta are normal sized. Pericardium/Pleural * There is no pericardial effusion. Great Vessels * Dilated inferior vena cava with reduced collapsability with sniff indicates an elevated right atrial pressure of 15 mmHg MMode 2D Measurements and Calculations IVSd 0.83 cm IVSs 1.1 cm LVIDd 4.1 cm LVIDs 3.2 cm LVPWd 0.92 cm LVPWs 1.3 cm IVS/LVPW 0.90 FS 22.8 % EDV(Teich) 73.7 ml ESV(Teich) 39.6 ml EF(Teich) 46.3 % EDV(cubed) 68.3 ml ESV(cubed) 31.4 ml EF(cubed) 54.0 % % IVS thick 33.4 % % LVPW thick 42.5 % LV mass(C)d 109.2 grams LV mass(C)dI 61.6 grams/m\S\2 LV mass(C)s 118.3 grams LV mass(C)sI 66.8 grams/m\S\2 SV(Teich) 34.1 ml SI(Teich) 19.3 ml/m\S\2 SV(cubed) 36.9 ml SI(cubed) 20.8 ml/m\S\2 Ao root diam 2.8 cm Ao root area 6.1 cm\S\2 ACS 1.3 cm LA dimension 3.6 cm LA/Ao 1.3 LVAd ap4 18.5 cm\S\2 LVLd ap4 6.7 cm EDV(MOD-sp4) 42.5 ml EDV(sp4-el) 43.5 ml LVAs ap4 12.6 cm\S\2 LVLs ap4 6.6 cm ESV(MOD-sp4) 22.6 ml ESV(sp4-el) 20.4 ml EF(MOD-sp4) 46.8 % EF(sp4-el) 53.1 % LVAd ap2 18.3 cm\S\2 LVLd ap2 7.0 cm EDV(MOD-sp2) 46.3 ml EDV(sp2-el) 40.7 ml LVAs ap2 11.2 cm\S\2 LVLs ap2 6.1 cm ESV(MOD-sp2) 19.1 ml ESV(sp2-el) 17.4 ml EF(MOD-sp2) 58.8 % EF(sp2-el) 57.3 % LVLd %diff 4.4 % EDV(MOD-bp) 43.3 ml LVLs %diff -7.96 % ESV(MOD-bp) 21.6 ml EF(MOD-bp) 50.2 % SV(MOD-sp4) 19.9 ml SI(MOD-sp4) 11.2 ml/m\S\2 SV(MOD-sp2) 27.2 ml SI(MOD-sp2) 15.3 ml/m\S\2 SV(MOD-bp) 21.7 ml SI(MOD-bp) 12.3 ml/m\S\2 SV(sp4-el) 23.1 ml SI(sp4-el) 13.0 ml/m\S\2 SV(sp2-el) 23.3 ml SI(sp2-el) 13.2 ml/m\S\2 Doppler Measurements and Calculations Ao V2 max 101.2 cm/sec Ao max PG 4.1 mmHg Ao max PG (full) 1.6 mmHg LV V1 max PG 2.6 mmHg LV V1 max 78.9 cm/sec PA V2 max 74.6 cm/sec PA max PG 2.2 mmHg PI max wallace 97.7 cm/sec PI max PG 3.9 mmHg PI dec slope 130.2 cm/sec\S\2 PI P1/2t 219.8 msec TR max wallace 262.3 cm/sec
--- NOTE | 2017-10-16 19:27 | Progress Note ---
Subjective Date of Service: Oct 16, 2017. Subjective Pt evaluation today including: conversation w/ patient, physical exam, lab review, review of studies, review of inpatient medication list Saw/examined the patient in room 201 +shortness of breath +tachycardia Problem List Medical Problems: (1) Acute bronchitis Status: Acute (2) Anxiety Status: Chronic (3) Anxiety Status: Acute (4) Atrial fibrillation Status: Chronic (5) Diabetes mellitus Status: Chronic (6) Hyperlipidemia Status: Chronic (7) Hypertension Status: Acute (8) Hypothyroidism Status: Chronic (9) Hypoxia Status: Acute (10) Lightheaded Status: Acute (11) Pacemaker Status: Chronic (12) Pulmonary nodules Status: Acute (13) Vertigo Status: Acute (14) Vertigo Status: Acute (15) Wheezing Status: Acute Surgical Problems: (1) H/O thyroidectomy Status: Chronic (2) S/P knee replacement Status: Chronic Review of Systems Constitutional: No fever, No chills Respiratory: + cough, + sputum, + wheezing, + shortness of breath, + dyspnea on exertion, No dyspnea at rest, No hemoptysis Cardiac: No chest pain, No edema, No palpitations Psychiatric: + depression symptoms, + anxiety, No anhedonism, No insomnia, No substance abuse Medications Current Inpatient Medications Medications (Trade) Dose Ordered Sig/Los Route Start Time Stop Time Status Last Admin Dose Admin Ioversol (Optiray 320) 100 ml UD PRN IV 10/15/17 09:15 10/19/17 09:14 Acetaminophen (Tylenol Tab) 650 mg Q4H PRN PO 10/15/17 16:00 11/14/17 15:59 Al Hydrox/Mg Hydrox/Simethicone (Maalox Max Susp) 15 ml Q4H PRN PO 10/15/17 16:00 11/14/17 15:59 Magnesium Hydroxide (Milk Of Magnesia Susp) 30 ml Q12H PRN PO 10/15/17 16:00 11/14/17 15:59 Nitroglycerin (Nitrostat Tab) 0.4 mg UD PRN SL 10/15/17 16:00 11/14/17 15:59 Aspirin (Ecotrin Tab) 81 mg QAM PO 10/16/17 09:00 11/15/17 08:59 10/16/17 08:03 81 MG Polyethylene (Miralax Powder Packet) 17 gm DAILY PRN PO 10/15/17 16:00 11/14/17 15:59 Insulin Aspart (novoLOG ASPART) SLIDING SCALE If C... ACHS SC 10/15/17 16:15 11/14/17 16:14 10/16/17 12:36 1 UNITS Glucose (Glucose 40% Gel) 15-30 GRAMS 15 GRAMS... UD PRN PO 10/15/17 16:00 11/14/17 15:59 Glucose (Glucose Chew Tab) 4-8 Tablets 4 Tabl... UD PRN PO 10/15/17 16:00 11/14/17 15:59 Dextrose (Dextrose 50% 50ML Syringe) 25-50ML OF 50% DW IV FOR... UD PRN IV 10/15/17 16:00 11/14/17 15:59 Glucagon (Glucagon Inj) 1 mg UD PRN SQ 10/15/17 16:00 11/14/17 15:59 Allopurinol (Zyloprim Tab) 300 mg QAM PO 10/16/17 09:00 11/15/17 08:59 10/16/17 08:04 300 MG Calcium Carbonate (Tums Chew Tab) 1,000 mg BID PRN PO 10/15/17 16:00 11/14/17 15:59 Cetirizine HCl (zyrTEC TAB) 10 mg QAM PO 10/16/17 09:00 11/15/17 08:59 10/16/17 08:03 10 MG Docusate Sodium (coLACE CAP) 100 mg BID PO 10/15/17 21:00 11/14/17 20:59 10/16/17 08:03 100 MG Loperamide HCl (Imodium Cap) 2 mg Q4H PRN PO 10/15/17 16:00 11/14/17 15:59 Lorazepam (Ativan Tab) 0.25 mg Q6H PRN PO 10/15/17 16:00 11/14/17 15:59 Multivitamins/ Minerals (Multivitamin W/ Minerals Tab) 1 tab QAM PO 10/16/17 09:00 11/15/17 08:59 10/16/17 08:03 1 TAB Senna/Docusate Sodium (Senokot S Tab) 1 tab QAM PO 10/16/17 09:00 11/15/17 08:59 10/16/17 08:03 1 TAB Lactobacillus Acidophilus (Floranex Tab) 1 tab QAM PO 10/16/17 09:00 11/15/17 08:59 10/16/17 08:03 1 TAB Codeine Phosphate/ Guaifenesin (Robitussin-AC Sugar Free Syrup) 5 ml Q6H PRN PO 10/15/17 17:15 11/14/17 17:14 10/16/17 18:26 5 ML Doxycycline Hyclate (Vibramycin Cap) 100 mg BID PO 10/15/17 21:00 10/22/17 20:59 10/16/17 08:03 100 MG Albuterol/ Ipratropium (Duoneb) 3 ml Q2R PRN INH 10/15/17 17:30 11/14/17 17:29 Metoprolol Tartrate (Lopressor Iv) 5 mg Q6 PRN IV 10/16/17 00:15 11/15/17 00:14 Heparin Sodium/ Dextrose 500 ml @ 16 mls/hr Q24H PRN IV 10/16/17 00:45 10/17/17 09:00 10/16/17 10:45 16 MLS/HR Metoprolol Succinate (Toprol Xl Tab) 75 mg QAM PO 10/17/17 09:00 11/16/17 08:59 Ipratropium [place] (Atrovent 0.02% 0.5MG/2.5ML Neb) 0.5 mg Q4R INH 10/16/17 12:00 11/15/17 11:59 10/16/17 19:06 0.5 MG Levalbuterol (Xopenex 1.25MG/ 0.5ML Neb) 1.25 mg Q4R INH 10/16/17 12:00 11/15/17 11:59 10/16/17 19:06 1.25 MG Lactated Ringer's 1,000 ml @ 15 mls/hr Q24H ONCE IV 10/16/17 15:30 10/17/17 15:29 Cefazolin Sodium 10 ml @ 2.5 mls/min PREOP IV 10/17/17 06:00 10/17/17 18:00 Objective Vital Signs Date Time Temp Pulse Resp B/P (MAP) Pulse Ox O2 Delivery O2 Flow Rate FiO2 10/16/17 19:06 115 20 95 Nasal Cannula 3.0 10/16/17 16:00 94 Nasal Cannula 3.0 10/16/17 15:05 37.0 144 18 93/77 (82) 97 Nasal Cannula 3.0 10/16/17 14:43 105 20 94 Nasal Cannula 3.0 10/16/17 12:00 94 Nasal Cannula 3.0 10/16/17 11:56 36.4 115 22 101/79 (86) 95 Nasal Cannula 3.0 10/16/17 11:12 114 20 92 Nasal Cannula 3.0 10/16/17 08:12 36.4 109 22 134/56 (82) 97 Nasal Cannula 3.0 10/16/17 08:00 94 Nasal Cannula 3.0 10/16/17 06:59 107 22 96 Nasal Cannula 3.0 10/16/17 04:16 112 24 95 Nasal Cannula 4.0 10/16/17 04:00 Nasal Cannula 4.0 10/16/17 04:00 36.5 106 22 112/92 (99) 97 Nasal Cannula 3.0 10/16/17 00:00 Nasal Cannula 4.0 10/15/17 23:31 36.9 83 19 133/98 (110) 95 Nasal Cannula 4.0 10/15/17 23:22 109 24 95 Nasal Cannula 4.0 10/15/17 20:00 Nasal Cannula 4.0 Physical Exam General Appearance: no apparent distress ENT: hearing grossly normal Respiratory/Chest: no respiratory distress, no accessory muscle use, + decreased breath sounds Cardiovascular: no murmur, + tachycardia, + irregularly irregular Extremities: normal inspection, no pedal edema Laboratory Results Last 24 Hours Test 10/15/17 19:51 10/16/17 00:54 10/16/17 07:25 10/16/17 07:39 Bedside Glucose 175 mg/dl 113 mg/dl Activated Partial Thromboplast Time 23.5 SECONDS Partial Thromboplastin Ratio 0.9 Troponin I 0.015 ng/ml Arterial Blood pH 7.43 Arterial Blood Partial Pressure CO2 40 mmHg Arterial Blood Partial Pressure O2 109 mm/Hg Arterial Blood HCO3 26 mmol/L Arterial Blood Oxygen Saturation 98.0 % Arterial Blood Base Excess 1.7 mEq/L Arterial Blood Gas Delivery 3 L Chaz Test POS Test 1/15/18 07:42 10/16/17 11:11 10/16/17 16:00 10/16/17 17:00 White Blood Count 6.86 K/uL Red Blood Count 3.45 M/uL Hemoglobin 11.4 g/dL Hematocrit 35.8 % Mean Corpuscular Volume 103.8 fL Mean Corpuscular Hemoglobin 33.0 pg Mean Corpuscular Hemoglobin Concent 31.8 g/dl RDW Standard Deviation 58.7 fL RDW Coefficient of Variation 15.5 % Platelet Count 112 K/uL Mean Platelet Volume 10.3 fL Activated Partial Thromboplast Time 34.3 SECONDS 60.2 SECONDS Partial Thromboplastin Ratio 1.3 2.3 Sodium Level 143 mmol/L Potassium Level 3.4 mmol/L Chloride Level 106 mmol/L Carbon Dioxide Level 28 mmol/L Anion Gap 9.0 mmol/L Blood Urea Nitrogen 29 mg/dl Creatinine 1.03 mg/dl Est Creatinine Clear Calc Drug Dose 35.4 ml/min Estimated GFR () 56.2 Estimated GFR (Non- 48.5 BUN/Creatinine Ratio 27.9 Random Glucose 110 mg/dl Estimated Average Glucose 131 mg/dl Hemoglobin A1c 6.2 % Calcium Level 8.6 mg/dl Magnesium Level 2.3 mg/dl Troponin I 0.020 ng/ml Thyroid Stimulating Hormone (TSH) 1.240 uIu/ml Bedside Glucose 123 mg/dl 133 mg/dl Assessment and Plan 10/16 patient is NPO after midnight for pacemaker replacement in AM as per cardiology metoprolol dose is increased now continue IV heparin for now restarted Zoloft Hycodan PRN for cough restart Lasix if okay with cardiology for now nebulizers and abx. for breathing spoke with son - no biopsy needed for lung; wants symptomatic treatment only patient is agreeable to this plan SOB /ACUTE HYPOXIC RESPIRATORY FAILURE : presents with few days of cough and SOB /FITZGERALD found to be hypoxic on room air multifactorial : rapid afib /pulm congestion /reactive airway disease ( diffuse wheeze ) /no prior hx of asthma or COPD cont with respiratory support ordered for neb tx given 125 mg IV Solu medrol in ER cont with 40 mg q 8hrs for wheeze /bronchospasm empiric abx with Doxycycline Pulmonology eval requested BILATERAL PULMONARY NODULE : CT chest with contrast : Negative for PE Multiple bilateral pulmonary nodules which is suspicious for metastatic disease.There are greater than30 nodules present. Dominant nodule within the right upper lobe measures 1.5 cm area mild interlobular septal thickening most pronounced at the lung bases. No new focal lung consolidations. noted in Cxray /CT chest in 09/2017 as well no hx of smoking will need bronchoscopy with biopsy -Family Daughters and Son ( POA ) Antony Conn updated Ct scan finding pulmonology eval requested AFIB RVR possible due to hypoxia /resp distress hx of paroxysmal afib -as per medical record on beta chaya ,was not on anticoagulation has not been following with Cardiology for years ( Last visit noted on [address] Jose J Paez ) pt is continued her home medication dose -Lopressor monitor in tele ECHO , serial troponin ordered Cardiology eval requested IV heparin wt based protocol pt had a significant nose bleed few days back -monitor closely for bleeding complication daily H&H RITO ON CKD STAGE 3 : cr elevated 1.21 baseline cr ~1 hold Lasix follow PRP PROLONG QTC : Qtc > 500 hold Remeron /Zofran avoid mediation that can worsen 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
[2017-10-16] MEDS: SERTRALINE HCL 100 MG TAB PO SCH (20:46)
[2017-10-17] VITALS (13 sets, daily range): BP systolic 82–119; BP diastolic 61–88; PULSE 64–136; TEMP 36.6–37.2; O2SAT 93–100
[2017-10-17] MEDS ORDERED: NURSING VERBAL MED ORDER ONE (00:15)
[2017-10-17] MEDS: LEVALBUTEROL 1.25MG/0.5ML NEB INH SCH ×6 (03:13→23:02)
[2017-10-17] MEDS: IPRATROPIUM BROMIDE NEB SOLN 0.02% 2.5 ML VIAL INH SCH ×6 (03:13→23:02)
[2017-10-17] MEDS: METOPROLOL TARTRATE 1 MG/ML VIAL IV PRN ×2 (04:51→22:02)
[2017-10-17] MEDS: INSULIN ASPART 100 UNITS/ML 3 ML PEN SC SCH ×3 (06:00→17:26)
[2017-10-17] MEDS ORDERED: CEFAZOLIN 2000MG IV PUSH 10 ML IV SCH (06:00)
[2017-10-17] MEDS ORDERED: CEFAZOLIN SOD 1000MG/7.5 ML IV PUSH IV SCH (06:00)
[2017-10-17 06:06] LABS: HEMATOCRIT 36.7 % (37-47); HEMOGLOBIN 11.5 g/dL (12.0-16.0); MEAN CELL VOLUME 104.3 fL (80-100); MEAN CORPUSCULAR HEMOGLOBIN 32.7 pg (25-34); MEAN CORPUSCULAR HGB CONC 31.3 g/dl (32-36); MEAN PLATELET VOLUME 10.5 fL (7.4-10.4); PLATELET COUNT 126 K/uL (130-400); RED CELL DISTRIBUTION WIDTH CV 15.8 % (11.5-14.5); RED CELL DISTRIBUTION WIDTH SD 59.7 fL (36.4-46.3); WHITE BLOOD COUNT 6.59 K/uL (4.8-10.8)
[2017-10-17 06:18] LABS: PTT PATIENT 43.3 SECONDS (21.0-31.0)
[2017-10-17 06:30] LABS: CALCIUM 8.9 mg/dl (8.5-10.1); POTASSIUM 3.6 mmol/L (3.5-5.1)
[2017-10-17] MEDS ORDERED: HEPARIN IV BOLUS 2,000 UNIT in SYRINGE 0 ML IV ONE (07:15)
[2017-10-17] MEDS: ASPIRIN 81 MG ECTAB PO SCH (08:20)
[2017-10-17] MEDS: DOXYCYCLINE HYCLATE 100 MG CAP PO SCH ×2 (08:20→20:05)
[2017-10-17] MEDS: CEROVITE ADV FORMULA TAB PO SCH (08:20)
[2017-10-17] MEDS: METOPROLOL SUCC 50MG EXT REL TAB PO SCH (08:20)
[2017-10-17] MEDS: DOCUSATE SODIUM/SENNA 50/8.6MG TAB PO SCH (08:20)
[2017-10-17] MEDS: ALLOPURINOL 300 MG TAB PO SCH (08:20)
[2017-10-17] MEDS: CETIRIZINE HCL 10 MG TAB PO SCH (08:21)
[2017-10-17] MEDS: DOCUSATE SODIUM 100 MG CAP PO SCH ×2 (08:21→20:04)
[2017-10-17] MEDS: LACTOBACILLUS ACIDOPHILUS (FLORANEX) TAB PO SCH (08:27)
--- NOTE | 2017-10-17 12:41 | PULMONARY PROGRESS NOTE ---
DATE: 10/17/2017 DATE: 10/17/2017 SUBJECTIVE: The patient appears more breathless with persistent cough today and is feeling quite fatigued. She is not producing any phlegm with her coughing and cannot seem to achieve a comfortable position. Her PA systolic pressures are estimated at 60-65 mmHg with RV dilatation and normal LVEF 55%. OBJECTIVE: VITAL SIGNS: Temperature 37.2, pulse 118 and regular, respiratory rate 20, blood pressure 96/65, O2 sat 96% on 4 liters. SKIN: Without lesion. HEAD, EYES, EARS, NOSE, AND THROAT: Atraumatic, normocephalic. PERRLA, EOMI. Conjunctivae pale. Galien sclerae nonicteric. Fundi poorly visualized. NECK: Veins not distended at 45 degrees. LUNGS: Coarse wheezes diffusely. CARDIAC: Sinus tachycardia, no S3. ABDOMEN: Soft, scaphoid. No evidence of hepatosplenomegaly. EXTREMITIES: +1 pitting edema bilaterally. NEUROLOGIC: Intact. No lateralizing signs. CT scan of the chest on 10/15/2017 reviewed again showing no evidence of pulmonary thromboembolic disease but the multiple bilateral pulmonary nodules are very suspicious for metastatic disease. There are over 30 of them. 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 I think at this point in time we need to continue round the clock aerosolized bronchodilator in the form of DuoNeb. I would add high dose steroid therapy probably 40 mg q. 12 of Solu-Medrol. In addition, we could consider using Brovana 20 mg via nebulizer b.i.d. if patient is not too tachycardic. I am not concerned about patient's pulmonary hypertension as well which is newly diagnosed and certainly it is possible patient has endobronchial involvement from a neoplastic process, although I would doubt it. I would watch for any signs of respiratory fatigue or respiratory embarrassment in this patient. Will discuss further with hospitalist service.
[2017-10-17 13:35] LABS: PTT PATIENT 49.7 SECONDS (21.0-31.0)
--- NOTE | 2017-10-17 14:09 | Cardiology Follow-Up ---
Subjective Date of Service: Oct 17, 2017. Pt evaluation today including: conversation w/ patient, physical exam, lab review, review of studies, review of inpatient medication list History of Present Illness 7-year-old woman with a history of paroxysmal atrial fibrillation and sick sinus syndrome, hyperlipidemia, hypertension and long-standing left bundle branch block. She had a dual-chamber pacemaker implanted on 04/06/2010. We followed her pacemaker initially, however more recently she was lost to follow- up and her device has not been interrogated since a hospitalization on 2013. At that time it was working well, she was pacing infrequently in the atrium and minimally in the ventricle and she had occasional episodes of atrial tachycardia or atrial fibrillation but only minutes in duration. She was therefore not anticoagulated. She now presents with a long-standing nonproductive cough, associated with some shortness of breath and dyspnea on exertion for perhaps 2 weeks. She also complains of feeling weak with minimal activity and occasional dizziness. In the emergency room she was hypoxic, wheezing and was admitted. She was seen in the emergency room in mid September for similar symptoms which improved with a nebulizer treatment. Of note she tells me that she had an episode of epistaxis several days ago, she tells me that it was not severe but it did get on her clothing and she doesn't think it lasted very long. She was not on anticoagulant at the time. On admission she was noted to be in atrial fibrillation, based on her history the duration was unknown. Pacemaker interrogation however showed that is been present for one month. She was admitted with edema, but she seemed unaware of this so the duration of that is not known either. Pacemaker interrogation showed that her device was long since in need of replacement due to battery depletion, although was still functioning in its backup mode. She does not use it very much which is white lasted so long. It will need to be replaced this admission. I had planned on doing it this morning , however she didn't feel well and was having some respiratory difficulty so we postponed it. Social History Smoking Status: Never Smoker History of Alcohol Use: No Review of Systems Respiratory: + cough, + sputum, + wheezing, + shortness of breath, + dyspnea on exertion, No dyspnea at rest, No hemoptysis Cardiac: No chest pain, No edema, No palpitations Objective Vital Signs Past 12 Hours Date Time Temp Pulse Resp B/P (MAP) Pulse Ox O2 Delivery O2 Flow Rate FiO2 10/17/17 13:10 Nasal Cannula 3.0 10/17/17 12:00 Nasal Cannula 3.0 10/17/17 11:51 37.2 118 22 98/65 (76) 96 Nasal Cannula 4.0 10/17/17 11:18 102 20 95 Nasal Cannula 2.0 10/17/17 08:00 Nasal Cannula 3.0 10/17/17 07:32 36.7 108 24 111/85 (94) 95 Nasal Cannula 4.0 10/17/17 07:02 89 20 100 Nasal Cannula 3.0 10/17/17 06:15 96 106/63 (77) 10/17/17 05:05 98 82/61 (68) 10/17/17 04:51 116 127/92 10/17/17 04:00 Nasal Cannula 3.0 10/17/17 03:13 108 20 95 Nasal Cannula 3.0 10/17/17 03:00 36.6 109 18 113/71 (85) 96 Nasal Cannula 3.0 Last Recorded Weight-Kilograms: 79.500 Physical Exam Constitutional: Level of Distress: moderate distress Lungs: Respiratory effort: no dyspnea Auscultation: expiratory wheezing, rhonchi Cardiovascular: Heart Auscultation: no murmurs, no rubs, no gallops, tachycardia, irregular rate rhythm Peripheral Pulses: Bruits: none appreciated Extremities: edema Data Laboratory Results: Last 24 Hours Test 10/16/17 16:00 10/16/17 17:00 10/16/17 20:44 10/17/17 05:21 Bedside Glucose 133 mg/dl 152 mg/dl Activated Partial Thromboplast Time 60.2 SECONDS 43.3 SECONDS Partial Thromboplastin Ratio 2.3 1.7 White Blood Count 6.59 K/uL Red Blood Count 3.52 M/uL Hemoglobin 11.5 g/dL Hematocrit 36.7 % Mean Corpuscular Volume 104.3 fL Mean Corpuscular Hemoglobin 32.7 pg Mean Corpuscular Hemoglobin Concent 31.3 g/dl RDW Standard Deviation 59.7 fL RDW Coefficient of Variation 15.8 % Platelet Count 126 K/uL Mean Platelet Volume 10.5 fL Sodium Level 140 mmol/L Potassium Level 3.6 mmol/L Chloride Level 106 mmol/L Carbon Dioxide Level 27 mmol/L Anion Gap 7.0 mmol/L Blood Urea Nitrogen 28 mg/dl Creatinine 1.00 mg/dl Est Creatinine Clear Calc Drug Dose 36.3 ml/min Estimated GFR () 58.3 Estimated GFR (Non- 50.3 BUN/Creatinine Ratio 27.6 Random Glucose 124 mg/dl Calcium Level 8.9 mg/dl Magnesium Level 2.1 mg/dl Test 10/17/17 05:27 10/17/17 06:13 10/17/17 11:31 10/17/17 13:03 Urine Color RED Urine Appearance CLOUDY Urine pH 5.5 Urine Specific [place] 1.025 Urine Protein 2+ Urine Glucose (UA) NEG Urine Ketones NEG Urine Occult Blood 3+ Urine Nitrite NEG Urine Bilirubin NEG Urine Urobilinogen NEG Urine Leukocyte Esterase SMALL Urine WBC (Auto) 0 /hpf Urine RBC (Auto) 10-30 /hpf Urine Hyaline Casts (Auto) 0 /lpf Urine Epithelial Cells (Auto) 0-5 /lpf Urine Bacteria (Auto) NEG Bedside Glucose 119 mg/dl 118 mg/dl Activated Partial Thromboplast Time 49.7 SECONDS Partial Thromboplastin Ratio 1.9 Imaging: Echocardiography yesterday showed good left ventricular function (low normal), pulmonary hypertension with right ventricular and IVC dilatation. Telemetry reviewed: Atrial fibrillation with a reasonably well-controlled heart rate Assessment and Plan 1. AF: In the past she had very brief (minutes) episodes of SVT/AF, now about 31 days of AF. Agree with anticoagulation. Her pacer needs replacement now, I would use heparin until that is done then switch to oral anticoagulants. Cannot convert now with 1 month of AF, will plan rate control, anticoagulation and conversion in 1 month. 2. Weakness, fatigue: May be in part due to AF, she recalls symptoms from last fall. In addition her device has been operating in backup mode for a number of years (which is VVI 65) so she lacks rate response and prior to developing atrial fibrillation she was predominantly atrial pacing. This could contribute to her symptoms. In addition her pulmonary status could have contributed. 3. Pacer: Operating in backup mode, this is safe and in atrial fibrillation she does not need to pace very much. We need to replace that before she goes home as the device could fail at any time and she would not be protected from bradycardia. I have tentatively arranged for replacement on 10/19/2017, her pulmonary condition may be a determinant. I had discussed the indications, procedure, risks and alternatives of device replacement as well as lead replacement (if needed) yesterday and she understands and agrees to proceed. I also reviewed sedation with her. Consent obtained for the procedure and for sedation. 4. Edema: She isn't aware of it but it is present. Could be in part AF, however she has elevated right-sided pressures from her pulmonary hypertension which will promote edema. Thank You
[2017-10-17] MEDS: ACETAMINOPHEN 325 MG TAB PO PRN (14:24)
[2017-10-17] MEDS: METHYLPREDNISOLONE IV 80 MG in SYRINGE 0 ML IV SCH (14:24)
[2017-10-17] MEDS: GUAIFENESIN/CODEINE 100MG/10MG 5ML UDC PO PRN (17:27)
--- NOTE | 2017-10-17 18:38 | Progress Note ---
Subjective Date of Service: Oct 17, 2017. Subjective Pt evaluation today including: conversation w/ patient, physical exam, lab review, review of studies, review of inpatient medication list Saw/examined the patient in room 201 +worsening shortness of breath, worsening cough denies chest pain or palpitations Problem List Medical Problems: (1) Acute bronchitis Status: Acute (2) Anxiety Status: Chronic (3) Anxiety Status: Acute (4) Atrial fibrillation Status: Chronic (5) Diabetes mellitus Status: Chronic (6) Hyperlipidemia Status: Chronic (7) Hypertension Status: Acute (8) Hypothyroidism Status: Chronic (9) Hypoxia Status: Acute (10) Lightheaded Status: Acute (11) Pacemaker Status: Chronic (12) Pulmonary nodules Status: Acute (13) Vertigo Status: Acute (14) Vertigo Status: Acute (15) Wheezing Status: Acute Surgical Problems: (1) H/O thyroidectomy Status: Chronic (2) S/P knee replacement Status: Chronic Review of Systems Constitutional: + weakness, No fever, No chills Respiratory: + cough, + sputum, + wheezing, + shortness of breath, + dyspnea on exertion, No dyspnea at rest, No hemoptysis Cardiac: No chest pain, No edema, No palpitations Female : + hematuria Medications Current Inpatient Medications Medications (Trade) Dose Ordered Sig/Los Route Start Time Stop Time Status Last Admin Dose Admin Ioversol (Optiray 320) 100 ml UD PRN IV 10/15/17 09:15 10/19/17 09:14 Acetaminophen (Tylenol Tab) 650 mg Q4H PRN PO 10/15/17 16:00 11/14/17 15:59 10/17/17 14:24 650 MG Al Hydrox/Mg Hydrox/Simethicone (Maalox Max Susp) 15 ml Q4H PRN PO 10/15/17 16:00 11/14/17 15:59 Magnesium Hydroxide (Milk Of Magnesia Susp) 30 ml Q12H PRN PO 10/15/17 16:00 11/14/17 15:59 Nitroglycerin (Nitrostat Tab) 0.4 mg UD PRN SL 10/15/17 16:00 11/14/17 15:59 Aspirin (Ecotrin Tab) 81 mg QAM PO 10/16/17 09:00 11/15/17 08:59 10/17/17 08:20 81 MG Polyethylene (Miralax Powder Packet) 17 gm DAILY PRN PO 10/15/17 16:00 11/14/17 15:59 Glucose (Glucose 40% Gel) 15-30 GRAMS 15 GRAMS... UD PRN PO 10/15/17 16:00 11/14/17 15:59 Glucose (Glucose Chew Tab) 4-8 Tablets 4 Tabl... UD PRN PO 10/15/17 16:00 11/14/17 15:59 Dextrose (Dextrose 50% 50ML Syringe) 25-50ML OF 50% DW IV FOR... UD PRN IV 10/15/17 16:00 11/14/17 15:59 Glucagon (Glucagon Inj) 1 mg UD PRN SQ 10/15/17 16:00 11/14/17 15:59 Allopurinol (Zyloprim Tab) 300 mg QAM PO 10/16/17 09:00 11/15/17 08:59 10/17/17 08:20 300 MG Calcium Carbonate (Tums Chew Tab) 1,000 mg BID PRN PO 10/15/17 16:00 11/14/17 15:59 Cetirizine HCl (zyrTEC TAB) 10 mg QAM PO 10/16/17 09:00 11/15/17 08:59 10/17/17 08:21 10 MG Docusate Sodium (coLACE CAP) 100 mg BID PO 10/15/17 21:00 11/14/17 20:59 10/17/17 08:21 100 MG Loperamide HCl (Imodium Cap) 2 mg Q4H PRN PO 10/15/17 16:00 11/14/17 15:59 Lorazepam (Ativan Tab) 0.25 mg Q6H PRN PO 10/15/17 16:00 11/14/17 15:59 Multivitamins/ Minerals (Multivitamin W/ Minerals Tab) 1 tab QAM PO 10/16/17 09:00 11/15/17 08:59 10/17/17 08:20 1 TAB Senna/Docusate Sodium (Senokot S Tab) 1 tab QAM PO 10/16/17 09:00 11/15/17 08:59 10/17/17 08:20 1 TAB Lactobacillus Acidophilus (Floranex Tab) 1 tab QAM PO 10/16/17 09:00 11/15/17 08:59 10/17/17 08:27 1 TAB Codeine Phosphate/ Guaifenesin (Robitussin-AC Sugar Free Syrup) 5 ml Q6H PRN PO 10/15/17 17:15 11/14/17 17:14 10/17/17 17:27 5 ML Doxycycline Hyclate (Vibramycin Cap) 100 mg BID PO 10/15/17 21:00 10/22/17 20:59 10/17/17 08:20 100 MG Albuterol/ Ipratropium (Duoneb) 3 ml Q2R PRN INH 10/15/17 17:30 11/14/17 17:29 Metoprolol Tartrate (Lopressor Iv) 5 mg Q6 PRN IV 10/16/17 00:15 11/15/17 00:14 10/17/17 04:51 5 MG Metoprolol Succinate (Toprol Xl Tab) 75 mg QAM PO 10/17/17 09:00 11/16/17 08:59 10/17/17 08:20 75 MG Ipratropium [place] (Atrovent 0.02% 0.5MG/2.5ML Neb) 0.5 mg Q4R INH 10/16/17 12:00 11/15/17 11:59 10/17/17 14:53 0.5 MG Levalbuterol (Xopenex 1.25MG/ 0.5ML Neb) 1.25 mg Q4R INH 10/16/17 12:00 11/15/17 11:59 10/17/17 14:54 1.25 MG Sertraline HCl (Zoloft Tab) 150 mg HS PO 10/16/17 21:00 11/15/17 20:59 10/16/17 20:46 150 MG Insulin Aspart (novoLOG ASPART) SLIDING SCALE If C... Q6 SC 10/17/17 06:00 11/16/17 05:59 Methylprednisolone Sodium Succinate 80 mg/Syringe 1.28 ml @ 1.5 mls/min Q12H IV 10/17/17 14:00 11/16/17 13:59 10/17/17 14:24 1.5 MLS/MIN Objective Vital Signs Date Time Temp Pulse Resp B/P (MAP) Pulse Ox O2 Delivery O2 Flow Rate FiO2 10/17/17 16:13 Nasal Cannula 2.0 10/17/17 16:12 37.0 64 22 104/74 (84) 96 10/17/17 16:00 Nasal Cannula 2.0 10/17/17 14:55 106 20 95 Nasal Cannula 3.0 10/17/17 13:10 Nasal Cannula 3.0 10/17/17 12:00 Nasal Cannula 3.0 10/17/17 11:51 37.2 118 22 98/65 (76) 96 Nasal Cannula 4.0 10/17/17 11:18 102 20 95 Nasal Cannula 2.0 10/17/17 08:00 Nasal Cannula 3.0 10/17/17 07:32 36.7 108 24 111/85 (94) 95 Nasal Cannula 4.0 10/17/17 07:02 89 20 100 Nasal Cannula 3.0 10/17/17 06:15 96 106/63 (77) 10/17/17 05:05 98 82/61 (68) 10/17/17 04:51 116 127/92 10/17/17 04:00 Nasal Cannula 3.0 10/17/17 03:13 108 20 95 Nasal Cannula 3.0 10/17/17 03:00 36.6 109 18 113/71 (85) 96 Nasal Cannula 3.0 10/16/17 23:27 120 20 95 Nasal Cannula 3.0 10/16/17 23:15 Nasal Cannula 3.0 10/16/17 22:59 36.8 126 20 128/92 (104) 94 Nasal Cannula 3.0 10/16/17 20:00 95 Nasal Cannula 3.0 10/16/17 19:06 115 20 95 Nasal Cannula 3.0 10/16/17 18:50 37.3 129 20 103/81 (88) 96 Room Air Physical Exam General Appearance: no apparent distress Respiratory/Chest: no respiratory distress, no accessory muscle use, + respiratory distress, + decreased breath sounds, + accessory muscle use, + wheezing Cardiovascular: regular rate, rhythm, no edema, no murmur Extremities: normal range of motion, non-tender, normal inspection, no pedal edema, no calf tenderness Neurologic/Psychiatric: no motor/sensory deficits, alert, normal mood/affect Laboratory Results Last 24 Hours Test 10/16/17 20:44 10/17/17 05:21 10/17/17 05:27 1/16/18 06:13 Bedside Glucose 152 mg/dl 119 mg/dl White Blood Count 6.59 K/uL Red Blood Count 3.52 M/uL Hemoglobin 11.5 g/dL Hematocrit 36.7 % Mean Corpuscular Volume 104.3 fL Mean Corpuscular Hemoglobin 32.7 pg Mean Corpuscular Hemoglobin Concent 31.3 g/dl RDW Standard Deviation 59.7 fL RDW Coefficient of Variation 15.8 % Platelet Count 126 K/uL Mean Platelet Volume 10.5 fL Activated Partial Thromboplast Time 43.3 SECONDS Partial Thromboplastin Ratio 1.7 Sodium Level 140 mmol/L Potassium Level 3.6 mmol/L Chloride Level 106 mmol/L Carbon Dioxide Level 27 mmol/L Anion Gap 7.0 mmol/L Blood Urea Nitrogen 28 mg/dl Creatinine 1.00 mg/dl Est Creatinine Clear Calc Drug Dose 36.3 ml/min Estimated GFR () 58.3 Estimated GFR (Non- 50.3 BUN/Creatinine Ratio 27.6 Random Glucose 124 mg/dl Calcium Level 8.9 mg/dl Magnesium Level 2.1 mg/dl Urine Color RED Urine Appearance CLOUDY Urine pH 5.5 Urine Specific [place] 1.025 Urine Protein 2+ Urine Glucose (UA) NEG Urine Ketones NEG Urine Occult Blood 3+ Urine Nitrite NEG Urine Bilirubin NEG Urine Urobilinogen NEG Urine Leukocyte Esterase SMALL Urine WBC (Auto) 0 /hpf Urine RBC (Auto) 10-30 /hpf Urine Hyaline Casts (Auto) 0 /lpf Urine Epithelial Cells (Auto) 0-5 /lpf Urine Bacteria (Auto) NEG Test 10/17/17 11:31 10/17/17 13:03 10/17/17 15:53 Bedside Glucose 118 mg/dl 146 mg/dl Activated Partial Thromboplast Time 49.7 SECONDS Partial Thromboplastin Ratio 1.9 Assessment and Plan 10/17 appreciate pulm input solu-medrol started continue nebulizers PRN hycodan PRN for the cough continue b-chaya for rate control appreciate cardio input will delay pacemaker replacement 10/16 patient is NPO after midnight for pacemaker replacement in AM as per cardiology metoprolol dose is increased now continue IV heparin for now restarted Zoloft Hycodan PRN for cough restart Lasix if okay with cardiology for now nebulizers and abx. for breathing spoke with son - no biopsy needed for lung; wants symptomatic treatment only patient is agreeable to this plan Hematuria likely secondary to Gayle placement can d/c Gayle once she is not requiring Lasix SOB /ACUTE HYPOXIC RESPIRATORY FAILURE : presents with few days of cough and SOB /FITZGERALD found to be hypoxic on room air multifactorial : rapid afib /pulm congestion /reactive airway disease ( diffuse wheeze ) /no prior hx of asthma or COPD cont with respiratory support ordered for neb tx given 125 mg IV Solu medrol in ER cont with 40 mg q 8hrs for wheeze /bronchospasm empiric abx with Doxycycline Pulmonology eval requested BILATERAL PULMONARY NODULE : CT chest with contrast : Negative for PE Multiple bilateral pulmonary nodules which is suspicious for metastatic disease.There are greater than30 nodules present. Dominant nodule within the right upper lobe measures 1.5 cm area mild interlobular septal thickening most pronounced at the lung bases. No new focal lung consolidations. noted in Cxray /CT chest in 09/2017 as well no hx of smoking will need bronchoscopy with biopsy -Family Daughters and Son ( POA ) Antony Nilojessa updated Ct scan finding pulmonology eval requested AFIB RVR possible due to hypoxia /resp distress hx of paroxysmal afib -as per medical record on beta chaya ,was not on anticoagulation has not been following with Cardiology for years ( Last visit noted on [address] Jose J Paez ) pt is continued her home medication dose -Lopressor monitor in tele ECHO , serial troponin ordered Cardiology eval requested IV heparin wt based protocol pt had a significant nose bleed few days back -monitor closely for bleeding complication daily H&H RITO ON CKD STAGE 3 : cr elevated 1.21 baseline cr ~1 hold Lasix follow PRP PROLONG QTC : Qtc > 500 hold Remeron /Zofran avoid mediation that can worsen Qtc prolongation 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
[2017-10-17] MEDS: SERTRALINE HCL 100 MG TAB PO SCH (20:04)
[2017-10-17] MEDS: LORAZEPAM 0.5 MG TAB PO PRN (22:15)
[2017-10-18] VITALS (11 sets, daily range): BP systolic 120–168; BP diastolic 53–120; PULSE 88–125; TEMP 36.5–37; O2SAT 91–98
[2017-10-18] MEDS: METHYLPREDNISOLONE IV 80 MG in SYRINGE 0 ML IV SCH ×2 (02:24→13:52)
[2017-10-18] MEDS: LEVALBUTEROL 1.25MG/0.5ML NEB INH SCH ×6 (03:03→23:10)
[2017-10-18] MEDS: IPRATROPIUM BROMIDE NEB SOLN 0.02% 2.5 ML VIAL INH SCH ×6 (03:03→23:10)
[2017-10-18 05:54] LABS: HEMATOCRIT 36.5 % (37-47); MEAN CELL VOLUME 105.2 fL (80-100); MEAN CORPUSCULAR HEMOGLOBIN 34.6 pg (25-34); MEAN CORPUSCULAR HGB CONC 32.9 g/dl (32-36); MEAN PLATELET VOLUME 10.4 fL (7.4-10.4); PLATELET COUNT 118 K/uL (130-400); RED CELL DISTRIBUTION WIDTH CV 15.7 % (11.5-14.5); RED CELL DISTRIBUTION WIDTH SD 59.9 fL (36.4-46.3); WHITE BLOOD COUNT 8.36 K/uL (4.8-10.8)
[2017-10-18] MEDS: INSULIN ASPART 100 UNITS/ML 3 ML PEN SC SCH ×4 (06:00→18:34)
[2017-10-18 06:30] LABS: CREATININE 1.16 mg/dl (0.60-1.20); POTASSIUM 4.5 mmol/L (3.5-5.1)
[2017-10-18] MEDS: DOXYCYCLINE HYCLATE 100 MG CAP PO SCH ×2 (07:31→20:29)
[2017-10-18] MEDS: DOCUSATE SODIUM/SENNA 50/8.6MG TAB PO SCH (07:31)
[2017-10-18] MEDS: ASPIRIN 81 MG ECTAB PO SCH (07:31)
[2017-10-18] MEDS: CETIRIZINE HCL 10 MG TAB PO SCH (07:31)
[2017-10-18] MEDS: DOCUSATE SODIUM 100 MG CAP PO SCH ×2 (07:31→20:29)
[2017-10-18] MEDS: CEROVITE ADV FORMULA TAB PO SCH (07:31)
[2017-10-18] MEDS: METOPROLOL SUCC 50MG EXT REL TAB PO SCH ×2 (07:32→08:04)
[2017-10-18] MEDS: LACTOBACILLUS ACIDOPHILUS (FLORANEX) TAB PO SCH (07:33)
[2017-10-18] MEDS: ALLOPURINOL 300 MG TAB PO SCH (07:33)
--- NOTE | 2017-10-18 10:14 | Cardiology Follow-Up ---
Subjective Date of Service: Oct 18, 2017. Pt evaluation today including: conversation w/ patient, physical exam, lab review, review of studies, review of inpatient medication list History of Present Illness 7-year-old woman with a history of paroxysmal atrial fibrillation and sick sinus syndrome, hyperlipidemia, hypertension and long-standing left bundle branch block. She had a dual-chamber pacemaker implanted on 04/06/2010. We followed her pacemaker initially, however more recently she was lost to follow- up and her device has not been interrogated since a hospitalization on 2013. At that time it was working well, she was pacing infrequently in the atrium and minimally in the ventricle and she had occasional episodes of atrial tachycardia or atrial fibrillation but only minutes in duration. She was therefore not anticoagulated. She now presents with a long-standing nonproductive cough, associated with some shortness of breath and dyspnea on exertion for perhaps 2 weeks. She also complains of feeling weak with minimal activity and occasional dizziness. In the emergency room she was hypoxic, wheezing and was admitted. She was seen in the emergency room in mid September for similar symptoms which improved with a nebulizer treatment. Of note she tells me that she had an episode of epistaxis several days ago, she tells me that it was not severe but it did get on her clothing and she doesn't think it lasted very long. She was not on anticoagulant at the time. On admission she was noted to be in atrial fibrillation, based on her history the duration was unknown. Pacemaker interrogation however showed that is been present for one month. She was admitted with edema, but she seemed unaware of this so the duration of that is not known either. Pacemaker interrogation showed that her device was long since in need of replacement due to battery depletion, although was still functioning in its backup mode. She does not use it very much which is why It lasted so long. It will need to be replaced this admission. I had planned on doing it yesterday morning, however she didn't feel well and was having some respiratory difficulty so we postponed it. Today she feels better, she feels that her breathing has improved. She feels that she could lay still for the pacemaker replacement tomorrow. She has no cardiac vascular complaints. Social History Smoking Status: Never Smoker History of Alcohol Use: No Review of Systems Respiratory: + see HPI, + shortness of breath, + dyspnea on exertion, No dyspnea at rest, No hemoptysis Cardiac: No chest pain, No edema, No palpitations Medications Cardiovascular: Item Value Date Time Metoprolol 75 mg 10/17/17 0900 Succinate QAM/PO 10/18/17 0804 (Toprol Xl Tab) Aspirin 81 mg 10/16/17 0900 (Ecotrin Tab) QAM/PO 10/18/17 0731 Objective Vital Signs Past 12 Hours Date Time Temp Pulse Resp B/P (MAP) Pulse Ox O2 Delivery O2 Flow Rate FiO2 10/18/17 08:00 36.9 107 19 120/90 (100) 97 Nasal Cannula 5.0 10/18/17 08:00 Nasal Cannula 4.0 10/18/17 06:57 88 20 97 Nasal Cannula 5.0 10/18/17 04:00 Nasal Cannula 5.0 10/18/17 03:39 37.0 104 18 122/88 (99) 95 Nasal Cannula 5.0 10/18/17 00:00 Nasal Cannula 5.0 10/17/17 23:19 36.9 116 16 116/88 (97) 96 Nasal Cannula 5.0 10/17/17 23:05 105 20 93 Nasal Cannula 5.0 Last Recorded Weight-Kilograms: 78.700 Physical Exam Constitutional: Level of Distress: moderate distress Lungs: Respiratory effort: no dyspnea Auscultation: expiratory wheezing, rhonchi Cardiovascular: Heart Auscultation: no murmurs, no rubs, no gallops, tachycardia, irregular rate rhythm Peripheral Pulses: Bruits: none appreciated Data Laboratory Results: Last 24 Hours Test 10/17/17 11:31 10/17/17 13:03 10/17/17 15:53 10/17/17 19:59 Bedside Glucose 118 mg/dl 146 mg/dl 210 mg/dl Activated Partial Thromboplast Time 49.7 SECONDS Partial Thromboplastin Ratio 1.9 Test 10/17/17 23:48 10/18/17 05:11 10/18/17 05:53 Bedside Glucose 178 mg/dl 150 mg/dl White Blood Count 8.36 K/uL Red Blood Count 3.47 M/uL Hemoglobin 12.0 g/dL Hematocrit 36.5 % Mean Corpuscular Volume 105.2 fL Mean Corpuscular Hemoglobin 34.6 pg Mean Corpuscular Hemoglobin Concent 32.9 g/dl RDW Standard Deviation 59.9 fL RDW Coefficient of Variation 15.7 % Platelet Count 118 K/uL Mean Platelet Volume 10.4 fL Sodium Level 139 mmol/L Potassium Level 4.5 mmol/L Chloride Level 106 mmol/L Carbon Dioxide Level 29 mmol/L Anion Gap 4.0 mmol/L Blood Urea Nitrogen 36 mg/dl Creatinine 1.16 mg/dl Est Creatinine Clear Calc Drug Dose 31.1 ml/min Estimated GFR () 48.7 Estimated GFR (Non- 42.0 BUN/Creatinine Ratio 31.4 Random Glucose 153 mg/dl Calcium Level 9.0 mg/dl Magnesium Level 2.3 mg/dl Telemetry reviewed: Atrial fibrillation, heart rate somewhat improved today, still a little bit fast Assessment and Plan 1. AF: In the past she had very brief (minutes) episodes of SVT/AF, now about 33 days of AF. Agree with anticoagulation. Her pacer needs replacement now, I would use heparin until that is done then switch to oral anticoagulants. Cannot convert now with 1 month of AF, will plan rate control, anticoagulation and conversion in 1 month. 2. Weakness, fatigue: May be in part due to AF, she recalls symptoms from last fall. In addition her device has been operating in backup mode for a number of years (which is VVI 65) so she lacks rate response and prior to developing atrial fibrillation she was predominantly atrial pacing. This could contribute to her symptoms. In addition her pulmonary status could have contributed. 3. Pacer: Operating in backup mode, this is safe and in atrial fibrillation she does not need to pace very much. We need to replace that before she goes home as the device could fail at any time and she would not be protected from bradycardia. I have tentatively arranged for replacement on 10/19/2017, her pulmonary condition may be a determinant but seems to be improving, I will reevaluate tomorrow. I had discussed the indications, procedure, risks and alternatives of device replacement as well as lead replacement (if needed) on 10/16/2017 and she understands and agrees to proceed. I also reviewed sedation with her. Consent has been obtained for the procedure and for sedation. Thank You
--- NOTE | 2017-10-18 10:36 | DIAGNOSTIC IMAGING REPORT ---
CHEST ONE VIEW PORTABLE CLINICAL HISTORY: r/o overload COMPARISON STUDY: Chest CT and chest radiograph March or 2017. FINDINGS: A dual lead left pacemaker is noted. Multiple pulmonary noduled, including a 1.4 cm right upper lobe nodule are better depicted on recent chest CT. Rightward deviation of the trachea is due to a suspected thyroid goiter. Moderate cardiomegaly is noted. There are small bilateral pleural effusions. There is no pneumothorax. Mild pulmonary edema is present. IMPRESSION: 1. Mild pulmonary edema with small bilateral pleural effusions. 2. Redemonstration of multiple pulmonary nodules, better depicted on recent chest CT. 3. Bibasilar opacities, left greater than right. Atelectasis is favored although consolidation could appear similar. Electronically signed by: Dami Clarke M.D. 10/18/2017 10:34 AM Dictated Date/Time: 10/18/2017 10:32 AM
[2017-10-18] MEDS ORDERED: FUROSEMIDE 20 MG TAB PO ONE (12:30)
--- NOTE | 2017-10-18 16:09 | PULMONARY PROGRESS NOTE ---
DATE: 10/18/2017 DATE: 10/18/2017 The patient evaluation today including: Conversation with patient, physical exam, lab review, review of studies, review of inpatient medication list. HISTORY OF PRESENT ILLNESS: An 87-year-old white female with history of paroxysmal atrial fibrillation and sick sinus syndrome, dyslipidemia, hypertension and dual chamber pacemaker implantation on 04/06/2010. The patient states her respiratory status is somewhat improved overnight and her coughing is less problematic. She is still not productive of phlegm and denies pleuritic pain or hemoptysis. CT scan shows multiple pulmonary nodules worrisome for metastatic disease. Previous bout of epistaxis recently has abated. Pacemaker interrogation shows rare dependence on pacing. OBJECTIVE: CURRENT VITAL SIGNS: Temperature 36.9, pulse 107 and regular, respiratory rate 19, blood pressure 120/90, O2 sat 97% on 5 liters. SKIN: Without lesion. HEAD, EYES, EARS, NOSE, AND THROAT: Atraumatic, normocephalic. PERRLA, EOMI. Conjunctivae pale. Sclerae not icteric. Fundi poorly visualized. NECK: Neck veins are not distended at 45 degrees. LUNGS: Coarse rhonchi and wheezes audible, but less prominently noted than yesterday. CARDIAC: Exam irregular, tachycardic rhythm, no S2 audible. ABDOMEN: Soft, scaphoid. EXTREMITIES: No pedal edema, clubbing or cyanosis. NEUROLOGIC: Intact. No lateralizing signs. LABORATORY DATA: Chest x-ray yesterday, mild pulmonary edema with small bilateral pleural effusions and bibasilar opacities, left greater than right. The left thyroid lobe is displacing the trachea rightward. There does not appear to be any obvious invasion. The patient's influenza type A antigen for A and B were negative. OVERALL ASSESSMENT: An 87-year-old currently on cefazolin, IV methylprednisolone. In addition, aerosolized bronchodilator with some improvement but still persistent bronchospasm. At this point in time, I would continue with vigorous pulmonary toilet as the patient does appear to be slowly improving, although if she reaches a plateau phase with her respiratory status and then does not show further improvement, may consider bronchoscopic intervention, although at this point in time I think the patient would not tolerate the procedure well. Will continue current anticoagulation and will follow along with you every day. Further workup of the pulmonary nodules will be detailed once patient has clinically improved.
--- NOTE | 2017-10-18 19:02 | Progress Note ---
Subjective Date of Service: Oct 18, 2017. Subjective Pt evaluation today including: conversation w/ patient, physical exam, lab review, review of studies, review of inpatient medication list Saw/examined the patient in room 201 No problems/issues to note, breathing improving today cough improved Problem List Medical Problems: (1) Acute bronchitis Status: Acute (2) Anxiety Status: Chronic (3) Anxiety Status: Acute (4) Atrial fibrillation Status: Chronic (5) Diabetes mellitus Status: Chronic (6) Hyperlipidemia Status: Chronic (7) Hypertension Status: Acute (8) Hypothyroidism Status: Chronic (9) Hypoxia Status: Acute (10) Lightheaded Status: Acute (11) Pacemaker Status: Chronic (12) Pulmonary nodules Status: Acute (13) Vertigo Status: Acute (14) Vertigo Status: Acute (15) Wheezing Status: Acute Surgical Problems: (1) H/O thyroidectomy Status: Chronic (2) S/P knee replacement Status: Chronic Review of Systems Respiratory: + cough, + sputum, + wheezing, + shortness of breath, + dyspnea on exertion, No dyspnea at rest, No hemoptysis Cardiac: No chest pain, No edema, No palpitations Abdomen: No nausea, No vomiting, No diarrhea Medications Current Inpatient Medications Medications (Trade) Dose Ordered Sig/Los Route Start Time Stop Time Status Last Admin Dose Admin Ioversol (Optiray 320) 100 ml UD PRN IV 10/15/17 09:15 10/19/17 09:14 Acetaminophen (Tylenol Tab) 650 mg Q4H PRN PO 10/15/17 16:00 11/14/17 15:59 10/17/17 14:24 650 MG Al Hydrox/Mg Hydrox/Simethicone (Maalox Max Susp) 15 ml Q4H PRN PO 10/15/17 16:00 11/14/17 15:59 Magnesium Hydroxide (Milk Of Magnesia Susp) 30 ml Q12H PRN PO 10/15/17 16:00 11/14/17 15:59 10/18/17 14:50 30 ML Nitroglycerin (Nitrostat Tab) 0.4 mg UD PRN SL 10/15/17 16:00 11/14/17 15:59 Aspirin (Ecotrin Tab) 81 mg QAM PO 10/16/17 09:00 11/15/17 08:59 10/18/17 07:31 81 MG Polyethylene (Miralax Powder Packet) 17 gm DAILY PRN PO 10/15/17 16:00 11/14/17 15:59 10/18/17 18:32 17 GM Glucose (Glucose 40% Gel) 15-30 GRAMS 15 GRAMS... UD PRN PO 10/15/17 16:00 11/14/17 15:59 Glucose (Glucose Chew Tab) 4-8 Tablets 4 Tabl... UD PRN PO 10/15/17 16:00 11/14/17 15:59 Dextrose (Dextrose 50% 50ML Syringe) 25-50ML OF 50% DW IV FOR... UD PRN IV 10/15/17 16:00 11/14/17 15:59 Glucagon (Glucagon Inj) 1 mg UD PRN SQ 10/15/17 16:00 11/14/17 15:59 Allopurinol (Zyloprim Tab) 300 mg QAM PO 10/16/17 09:00 11/15/17 08:59 10/18/17 07:33 300 MG Calcium Carbonate (Tums Chew Tab) 1,000 mg BID PRN PO 10/15/17 16:00 11/14/17 15:59 Cetirizine HCl (zyrTEC TAB) 10 mg QAM PO 10/16/17 09:00 11/15/17 08:59 10/18/17 07:31 10 MG Docusate Sodium (coLACE CAP) 100 mg BID PO 10/15/17 21:00 11/14/17 20:59 10/18/17 07:31 100 MG Loperamide HCl (Imodium Cap) 2 mg Q4H PRN PO 10/15/17 16:00 11/14/17 15:59 Lorazepam (Ativan Tab) 0.25 mg Q6H PRN PO 10/15/17 16:00 11/14/17 15:59 10/17/17 22:15 0.25 MG Multivitamins/ Minerals (Multivitamin W/ Minerals Tab) 1 tab QAM PO 10/16/17 09:00 11/15/17 08:59 10/18/17 07:31 1 TAB Senna/Docusate Sodium (Senokot S Tab) 1 tab QAM PO 10/16/17 09:00 11/15/17 08:59 10/18/17 07:31 1 TAB Lactobacillus Acidophilus (Floranex Tab) 1 tab QAM PO 10/16/17 09:00 11/15/17 08:59 10/18/17 07:33 1 TAB Codeine Phosphate/ Guaifenesin (Robitussin-AC Sugar Free Syrup) 5 ml Q6H PRN PO 10/15/17 17:15 11/14/17 17:14 10/17/17 17:27 5 ML Doxycycline Hyclate (Vibramycin Cap) 100 mg BID PO 10/15/17 21:00 10/22/17 20:59 10/18/17 07:31 100 MG Albuterol/ Ipratropium (Duoneb) 3 ml Q2R PRN INH 10/15/17 17:30 11/14/17 17:29 Metoprolol Tartrate (Lopressor Iv) 5 mg Q6 PRN IV 10/16/17 00:15 11/15/17 00:14 10/17/17 22:02 5 MG Metoprolol Succinate (Toprol Xl Tab) 75 mg QAM PO 10/17/17 09:00 11/16/17 08:59 10/18/17 08:04 75 MG Ipratropium [place] (Atrovent 0.02% 0.5MG/2.5ML Neb) 0.5 mg Q4R INH 10/16/17 12:00 11/15/17 11:59 10/18/17 11:12 0.5 MG Levalbuterol (Xopenex 1.25MG/ 0.5ML Neb) 1.25 mg Q4R INH 10/16/17 12:00 11/15/17 11:59 10/18/17 11:12 1.25 MG Sertraline HCl (Zoloft Tab) 150 mg HS PO 10/16/17 21:00 11/15/17 20:59 10/17/17 20:04 200 MG Insulin Aspart (novoLOG ASPART) SLIDING SCALE If C... Q6 SC 10/17/17 06:00 11/16/17 05:59 10/18/17 18:34 1 UNITS Methylprednisolone Sodium Succinate 80 mg/Syringe 1.28 ml @ 1.5 mls/min Q12H IV 10/17/17 14:00 11/16/17 13:59 10/18/17 13:52 1.5 MLS/MIN Lactated Ringer's 1,000 ml @ 15 mls/hr Q24H ONCE IV 10/19/17 06:00 10/20/17 05:59 Cefazolin Sodium 1000 mg/Syringe 5 ml @ 1.667 mls/ min PREOP IV 10/19/17 06:00 10/19/17 18:00 Objective Vital Signs Date Time Temp Pulse Resp B/P (MAP) Pulse Ox O2 Delivery O2 Flow Rate FiO2 10/18/17 18:59 114 18 94 Nasal Cannula 2.0 10/18/17 16:00 91 Nasal Cannula 1.5 10/18/17 15:00 36.7 96 27 128/53 (78) 91 Nasal Cannula 10/18/17 12:00 Nasal Cannula 4.0 10/18/17 11:41 36.5 124 26 168/120 (136) Nasal Cannula 4.0 10/18/17 11:12 110 20 98 Nasal Cannula 4.0 10/18/17 11:04 Nasal Cannula 4.0 10/18/17 08:00 36.9 107 19 120/90 (100) 97 Nasal Cannula 5.0 10/18/17 08:00 Nasal Cannula 4.0 10/18/17 06:57 88 20 97 Nasal Cannula 5.0 10/18/17 04:00 Nasal Cannula 5.0 10/18/17 03:39 37.0 104 18 122/88 (99) 95 Nasal Cannula 5.0 10/18/17 00:00 Nasal Cannula 5.0 10/17/17 23:19 36.9 116 16 116/88 (97) 96 Nasal Cannula 5.0 10/17/17 23:05 105 20 93 Nasal Cannula 5.0 10/17/17 22:02 120 119/83 10/17/17 20:00 Nasal Cannula 2.0 Physical Exam General Appearance: no apparent distress Respiratory/Chest: no respiratory distress, no accessory muscle use, + decreased breath sounds, + wheezing Cardiovascular: + tachycardia, + irregularly irregular Extremities: normal inspection, no pedal edema Laboratory Results Last 24 Hours Test 10/17/17 19:59 10/17/17 23:48 10/18/17 05:11 10/18/17 05:53 Bedside Glucose 210 mg/dl 178 mg/dl 150 mg/dl White Blood Count 8.36 K/uL Red Blood Count 3.47 M/uL Hemoglobin 12.0 g/dL Hematocrit 36.5 % Mean Corpuscular Volume 105.2 fL Mean Corpuscular Hemoglobin 34.6 pg Mean Corpuscular Hemoglobin Concent 32.9 g/dl RDW Standard Deviation 59.9 fL RDW Coefficient of Variation 15.7 % Platelet Count 118 K/uL Mean Platelet Volume 10.4 fL Sodium Level 139 mmol/L Potassium Level 4.5 mmol/L Chloride Level 106 mmol/L Carbon Dioxide Level 29 mmol/L Anion Gap 4.0 mmol/L Blood Urea Nitrogen 36 mg/dl Creatinine 1.16 mg/dl Est Creatinine Clear Calc Drug Dose 31.1 ml/min Estimated GFR () 48.7 Estimated GFR (Non- 42.0 BUN/Creatinine Ratio 31.4 Random Glucose 153 mg/dl Calcium Level 9.0 mg/dl Magnesium Level 2.3 mg/dl Test 10/18/17 11:30 10/18/17 16:02 Bedside Glucose 174 mg/dl 177 mg/dl Assessment and Plan 10/18 plan for now is to continue solu-medrol, nebulizers PRN possible pacemaker replacement on 10/19 may need Lasix and possibly an increase in b-chaya, monitor this overnight appreciate pulmonology and cardio input 10/17 appreciate pulm input solu-medrol started continue nebulizers PRN hycodan PRN for the cough continue b-chaya for rate control appreciate cardio input will delay pacemaker replacement 10/16 patient is NPO after midnight for pacemaker replacement in AM as per cardiology metoprolol dose is increased now continue IV heparin for now restarted Zoloft Hycodan PRN for cough restart Lasix if okay with cardiology for now nebulizers and abx. for breathing spoke with son - no biopsy needed for lung; wants symptomatic treatment only patient is agreeable to this plan Hematuria likely secondary to Gayle placement can d/c Gayle once she is not requiring Lasix SOB /ACUTE HYPOXIC RESPIRATORY FAILURE : presents with few days of cough and SOB /FITZGERALD found to be hypoxic on room air multifactorial : rapid afib /pulm congestion /reactive airway disease ( diffuse wheeze ) /no prior hx of asthma or COPD cont with respiratory support ordered for neb tx given 125 mg IV Solu medrol in ER cont with 40 mg q 8hrs for wheeze /bronchospasm empiric abx with Doxycycline Pulmonology eval requested BILATERAL PULMONARY NODULE : CT chest with contrast : Negative for PE Multiple bilateral pulmonary nodules which is suspicious for metastatic disease.There are greater than30 nodules present. Dominant nodule within the right upper lobe measures 1.5 cm area mild interlobular septal thickening most pronounced at the lung bases. No new focal lung consolidations. noted in Cxray /CT chest in 09/2017 as well no hx of smoking will need bronchoscopy with biopsy -Family Daughters and Son ( POA ) Antony Conn updated Ct scan finding pulmonology eval requested AFIB RVR possible due to hypoxia /resp distress hx of paroxysmal afib -as per medical record on beta chaya ,was not on anticoagulation has not been following with Cardiology for years ( Last visit noted on [address] Jose J Paez ) pt is continued her home medication dose -Lopressor monitor in tele ECHO , serial troponin ordered Cardiology eval requested IV heparin wt based protocol pt had a significant nose bleed few days back -monitor closely for bleeding complication daily H&H RITO ON CKD STAGE 3 : cr elevated 1.21 baseline cr ~1 hold Lasix follow PRP PROLONG QTC : Qtc > 500 hold Remeron /Zofran avoid mediation that can worsen Qtc prolongation daily ekg monitor tech K /mg/ca level Cardiology following DNR/DNI -has living will discussed with pt and Daughters and Son ( POA ) DISPOSITION : resident at [facility] will need PT /OT eval prior to discharge Medicine follow up with Dr Espinoza CONTACT : SON ( POA ) ANTONY CONN PHONE # [phone] requests to have update form the Providers
[2017-10-18] MEDS: SERTRALINE HCL 100 MG TAB PO SCH (20:29)
[2017-10-18] MEDS: LORAZEPAM 0.5 MG TAB PO PRN (20:37)
[2017-10-18] MEDS: METOPROLOL TARTRATE 1 MG/ML VIAL IV PRN (20:38)
[2017-10-18] MEDS: GUAIFENESIN/CODEINE 100MG/10MG 5ML UDC PO PRN (20:48)
[2017-10-19] VITALS (21 sets, daily range): BP systolic 95–133; BP diastolic 32–113; PULSE 90–116; TEMP 36.5–36.8; O2SAT 92–98
[2017-10-19] MEDS: INSULIN ASPART 100 UNITS/ML 3 ML PEN SC SCH ×4 (00:29→18:00)
[2017-10-19] MEDS: METHYLPREDNISOLONE IV 80 MG in SYRINGE 0 ML IV SCH ×2 (02:20→14:00)
[2017-10-19] MEDS: IPRATROPIUM BROMIDE NEB SOLN 0.02% 2.5 ML VIAL INH SCH ×5 (03:12→18:37)
[2017-10-19] MEDS: LEVALBUTEROL 1.25MG/0.5ML NEB INH SCH ×5 (03:12→18:37)
[2017-10-19 05:38] LABS: HEMATOCRIT 38.9 % (37-47); HEMOGLOBIN 12.3 g/dL (12.0-16.0); MEAN CELL VOLUME 104.9 fL (80-100); MEAN CORPUSCULAR HEMOGLOBIN 33.2 pg (25-34); MEAN CORPUSCULAR HGB CONC 31.6 g/dl (32-36); MEAN PLATELET VOLUME 10.8 fL (7.4-10.4); PLATELET COUNT 144 K/uL (130-400); RED CELL DISTRIBUTION WIDTH CV 15.7 % (11.5-14.5); RED CELL DISTRIBUTION WIDTH SD 60.5 fL (36.4-46.3); WHITE BLOOD COUNT 12.32 K/uL (4.8-10.8)
[2017-10-19] MEDS ORDERED: CEFAZOLIN SOD 1000MG/7.5 ML IV PUSH IV SCH (06:00)
[2017-10-19] MEDS ORDERED: LACTATED RINGER'S 1000ML 1,000 ML IV ONE (06:00)
[2017-10-19] MEDS ORDERED: CEFAZOLIN IV 1,000 MG in SYRINGE 0 ML IV SCH (06:00)
[2017-10-19 06:08] LABS: CALCIUM 9.2 mg/dl (8.5-10.1); CREATININE 1.29 mg/dl (0.60-1.20)
[2017-10-19] MEDS ORDERED: BACITRACIN OINT 0.9 GM PKT ONE (07:21)
[2017-10-19] MEDS ORDERED: BACITRACIN 50000 UNIT VIAL ONE (07:22)
[2017-10-19] MEDS ORDERED: LIDOCAINE HCL 1% 20 ML VIAL ONE (07:22)
[2017-10-19] MEDS ORDERED: MIDAZOLAM HCL 5 MG/ML 1 ML VIAL ONE (07:49)
[2017-10-19] MEDS ORDERED: FENTANYL CITRATE INJ 50 MCG/1 ML 2 ML VIAL ONE (07:49)
--- NOTE | 2017-10-19 08:31 | History & Physical Bridge Note ---
H&P Re-Evaluation Bridge Note: I have examined the patient, reviewed the History & Physical and in the interval since the performance of the History & Physical I have noted the following changes of clinical significance: No changes noted.
[2017-10-19] MEDS ORDERED: CEFAZOLIN SOD 1 GM VIAL ONE ×2 (08:36→08:44)
--- NOTE | 2017-10-19 08:38 | Pre Sedation Assessment ---
Pre Sedation Assessment General Date of Sedation: Oct 19, 2017. Vital Signs Past 12 Hours Date Time Temp Pulse Resp B/P (MAP) Pulse Ox O2 Delivery O2 Flow Rate FiO2 10/19/17 08:13 36.5 103 18 120/91 (101) 96 Nasal Cannula 2.0 10/19/17 07:23 102 18 98 Nasal Cannula 2.0 10/19/17 07:08 36.6 99 20 133/88 (103) 95 Nasal Cannula 2.0 10/19/17 04:00 36.7 90 19 110/74 (86) 95 3.0 10/19/17 04:00 95 Nasal Cannula 3.0 10/19/17 00:00 92 Nasal Cannula 3.0 10/19/17 00:00 36.8 113 22 132/113 (119) 92 3.0 10/18/17 23:10 113 18 95 Nasal Cannula 2.0 10/18/17 20:38 120 123/76 Review Cardiovascular: + irregularly irregular Pre-Sedation Airway Assessment Smoking Status: Never Smoker Hx of Sleep Apnea: Yes Hx of difficult intubation: No Short Thick Neck: No Thyro-mental Distance: > 3 Finger Breadths Oral Cavity: Dentures Mallampati Classification: Class III ASA Classification: Class III NPO Status Date of Last Intake of Fluids: Oct 18, 2017 Time of Last Intake of Fluids: 2230 Date of Last Intake of Solids: Oct 18, 2017 Time of Last Intake of Solids: 2100 Procedure Planning Contraindications for Sedation: None Current Medications Reviewed: Yes Notes The planned sedation has been discussed with the patient. Informed Consent was obtained. I have identified the patient, determined the appropriateness of sedation and have assessed the patient immediately prior to the procedure. All medicine(s) and interventions are by my order.
--- NOTE | 2017-10-19 09:26 | [facility] Operative Report ---
Operative Report Operative Date Oct 19, 2017. Pre-Operative Diagnosis Pacemaker at [facility] Post-Operative Diagnosis same Procedure(s) Performed Dual chamber pacemaker replacement Surgeon Dr. Pineda Electrical Systems Design Engineer Surgeon(s) none Estimated Blood Loss 10 cc Findings Good chronic lead measurements Specimens Old pacemaker, return to [employer] Anesthesia local with sedation Complication(s) None Disposition PCU Description of Procedure After obtaining informed consent for the procedure, the patient was brought to the laboratory being NPO after midnight. After identification in the laboratory the patient was prepped and draped in the standard sterile manner for a left- sided device replacement. The left prepectoral region was anesthetized with 1% lidocaine local anesthetic and once adequate anesthesia was obtained a 5 cm incision was made through the old implant scar and carried down to the pacemaker generator. The generator was dissected free of tissue and explanted. A bacitracin-soaked sponge(50,000 units in 50 cc normal saline solution) was placed in the pocket. The pacemaker was removed from the leads and connected to an external pacing system. Pacing and sensing characteristics were evaluated in both the atrial and ventricular leads as noted on the implant data sheet. A new pacemaker was attached to the leads and found to be functioning normally. The bacitracin- soaked sponge was removed from the pocket, the pacemaker was placed in the pocket with the leads coiled beneath it. The incision was closed with a running double subcutaneous closure of 3-0 V-lock absorbable suture and 3-0 Vicryl followed by a running subcuticular skin closure of 4-0 V lock absorbable suture. Bacitracin ointment was placed on the incision and a dressing applied. I attest to the content of the Intraoperative Record and any orders documented therein. Any exceptions are noted below.
--- NOTE | 2017-10-19 09:27 | Post Sedation Assessment ---
Post Sedation Assessment General Date of Sedation Oct 19, 2017. Vital Signs: Vital Signs Past 12 Hours Date Time Temp Pulse Resp B/P (MAP) Pulse Ox O2 Delivery O2 Flow Rate FiO2 10/19/17 09:20 88 16 108/74 (85) 96 Mask 3 10/19/17 09:15 83 16 124/82 (96) 96 Mask 3 10/19/17 09:10 93 16 123/82 (96) 96 Mask 3 10/19/17 08:13 36.5 103 18 120/91 (101) 96 Nasal Cannula 2.0 10/19/17 08:00 98 Nasal Cannula 2.0 10/19/17 07:23 102 18 98 Nasal Cannula 2.0 10/19/17 07:08 36.6 99 20 133/88 (103) 95 Nasal Cannula 2.0 10/19/17 04:00 36.7 90 19 110/74 (86) 95 3.0 10/19/17 04:00 95 Nasal Cannula 3.0 10/19/17 00:00 92 Nasal Cannula 3.0 10/19/17 00:00 36.8 113 22 132/113 (119) 92 3.0 10/18/17 23:10 113 18 95 Nasal Cannula 2.0 Post Procedure Recovery Score Activity: (2) Moves 4 extremities * Respiration: (2) Deep breath/cough Circulation: (2) +/-20% PreAnes Value Consciousness: (1) Arouseable (by name) Oxygen Saturation: (1) O2 needed for >90% Post Anesthesia Score: 6 Discharge Sedation Level of Care: Fast Track Phase II Post Sedation Plan On clinical assessment, the patient appears to have tolerated the sedation without complications. Patient is recovering as anticipated. Patient will continue to be monitored by nursing and may be discharged when sedation discharge criteria are met per below protocol. Upon Completions of procedure and additional 15 minutes continue every 5 minute vital signs and the P.A.R. score; then discharge to a Phase I or Fast Track to Phase II per the following guidelines: * Discharge Patient to appropriate Phase II area if PAR is 8 or greater or return to pre- procedure baseline. The post - procedure orders will be as directed. * If PAR score is less than 8 or not return to pre-procedure baseline then patient will follow Phase I monitoring till PAR is reached for Phase II. The Phase I may be done in procedure room or may call to secure a Phase I area. * If naloxone or flumazenil are used for reversal, hold in Phase I for an additional 60 -120 minutes before discharge to Phase II. Please call the Sedation Physician to re-evaluate and complete post-note for discharge to Phase II area. Do NOT discharge from procedure sedation or Phase 1 until post- sedation evaluation note is complete by procedure /sedation MD Sedation Discharge Instructions to be given to the patient at discharge to home.
--- NOTE | 2017-10-19 09:28 | Clinical Documentation Query ---
CLINICAL DOCUMENTATION QUERY Dr. ALFARO, In your clinical opinion is this patient being managed for: ( X ) Acute or acute on chronic diastolic CHF ( ) Chronic diastolic CHF only ( ) Not Agree ( ) Other explanation of clinical findings (Please Explain) ( ) Unable to determine (Please Define) ( ) Need to Discuss The medical record reflects the following clinical findings, treatment, and risk factors. Clinical Indicators: 87 yo female presenting with hypoxia, A fib RVR, RITO, and dyspnea. BNP 5577. ER and pulmonary impressions include CHF, repeated CXR: indicates mild pulmonary edema with small bilateral pleural effusions. PMH included mention of history of unspecified CHF. ECHO performed this admission showed EF 50-55% Treatment: tele, O2 support, daily wts, I/O, po lasix, repeated CXR, cardiology consult, pulmonary consult, ECHO Risk Factors: IV fluids, A fib RVR, HTN, CKD, DM, SVT Please clarify and document your clinical opinion in the progress notes and discharge summary. Terms such as "probable", "suspected", "likely", "questionable", "possible", or "still to be ruled out" are acceptable. IF IN AGREEMENT, YOU MUST DOCUMENT ABOVE DIAGNOSTIC STATEMENT IN DAILY PROGRESS NOTES AND DISCHARGE SUMMARY. This document is not part of the patient's record. Thank You, Sherron Betancur RN [phone]
[2017-10-19] MEDS ORDERED: KETOROLAC TROMETHAMINE 10 MG TAB PO PRN (09:30)
[2017-10-19] MEDS ORDERED: ACETAMINOPHEN 325 MG TAB PO PRN (09:30)
[2017-10-19] MEDS: ALLOPURINOL 300 MG TAB PO SCH (09:41)
[2017-10-19] MEDS: METOPROLOL SUCC 50MG EXT REL TAB PO SCH (09:41)
[2017-10-19] MEDS: DOXYCYCLINE HYCLATE 100 MG CAP PO SCH ×2 (09:41→20:45)
[2017-10-19] MEDS: CETIRIZINE HCL 10 MG TAB PO SCH (09:41)
[2017-10-19] MEDS: DOCUSATE SODIUM 100 MG CAP PO SCH ×2 (09:42→20:45)
[2017-10-19] MEDS: CEROVITE ADV FORMULA TAB PO SCH (09:42)
[2017-10-19] MEDS: ASPIRIN 81 MG ECTAB PO SCH (09:42)
[2017-10-19] MEDS: DOCUSATE SODIUM/SENNA 50/8.6MG TAB PO SCH (09:42)
[2017-10-19] MEDS: LACTOBACILLUS ACIDOPHILUS (FLORANEX) TAB PO SCH (09:44)
[2017-10-19] MEDS ORDERED: METOPROLOL SUCC 25MG EXT REL TAB PO STA (10:10)
--- NOTE | 2017-10-19 11:17 | Progress Note ---
Subjective Date of Service: Oct 19, 2017. Subjective Pt evaluation today including: conversation w/ patient, physical exam, lab review, review of studies, review of inpatient medication list Saw/examined the patient in room 201 She had her pacemaker replacement this morning procedure went well b-chaya dose changed this morning, HRs are improving her cough and shortness of breath improving Problem List Medical Problems: (1) Acute bronchitis Status: Acute (2) Anxiety Status: Chronic (3) Anxiety Status: Acute (4) Atrial fibrillation Status: Chronic (5) Diabetes mellitus Status: Chronic (6) Hyperlipidemia Status: Chronic (7) Hypertension Status: Acute (8) Hypothyroidism Status: Chronic (9) Hypoxia Status: Acute (10) Lightheaded Status: Acute (11) Pacemaker Status: Chronic (12) Pulmonary nodules Status: Acute (13) Vertigo Status: Acute (14) Vertigo Status: Acute (15) Wheezing Status: Acute Surgical Problems: (1) H/O thyroidectomy Status: Chronic (2) S/P knee replacement Status: Chronic Review of Systems Constitutional: No fever, No chills, No weakness Respiratory: + cough, + sputum, + wheezing, + shortness of breath, + dyspnea on exertion Cardiac: No chest pain, No edema, No palpitations Abdomen: No pain, No nausea, No vomiting, No diarrhea Medications Current Inpatient Medications Medications (Trade) Dose Ordered Sig/Los Route Start Time Stop Time Status Last Admin Dose Admin Acetaminophen (Tylenol Tab) 650 mg Q4H PRN PO 10/15/17 16:00 11/14/17 15:59 10/17/17 14:24 650 MG Al Hydrox/Mg Hydrox/Simethicone (Maalox Max Susp) 15 ml Q4H PRN PO 10/15/17 16:00 11/14/17 15:59 Magnesium Hydroxide (Milk Of Magnesia Susp) 30 ml Q12H PRN PO 10/15/17 16:00 11/14/17 15:59 10/18/17 14:50 30 ML Nitroglycerin (Nitrostat Tab) 0.4 mg UD PRN SL 10/15/17 16:00 11/14/17 15:59 Aspirin (Ecotrin Tab) 81 mg QAM PO 10/16/17 09:00 11/15/17 08:59 10/19/17 09:42 81 MG Polyethylene (Miralax Powder Packet) 17 gm DAILY PRN PO 10/15/17 16:00 11/14/17 15:59 10/18/17 18:32 17 GM Glucose (Glucose 40% Gel) 15-30 GRAMS 15 GRAMS... UD PRN PO 10/15/17 16:00 11/14/17 15:59 Glucose (Glucose Chew Tab) 4-8 Tablets 4 Tabl... UD PRN PO 10/15/17 16:00 11/14/17 15:59 Dextrose (Dextrose 50% 50ML Syringe) 25-50ML OF 50% DW IV FOR... UD PRN IV 10/15/17 16:00 11/14/17 15:59 Glucagon (Glucagon Inj) 1 mg UD PRN SQ 10/15/17 16:00 11/14/17 15:59 Allopurinol (Zyloprim Tab) 300 mg QAM PO 10/16/17 09:00 11/15/17 08:59 10/19/17 09:41 300 MG Calcium Carbonate (Tums Chew Tab) 1,000 mg BID PRN PO 10/15/17 16:00 11/14/17 15:59 Cetirizine HCl (zyrTEC TAB) 10 mg QAM PO 10/16/17 09:00 11/15/17 08:59 10/19/17 09:41 10 MG Docusate Sodium (coLACE CAP) 100 mg BID PO 10/15/17 21:00 11/14/17 20:59 10/19/17 09:42 100 MG Loperamide HCl (Imodium Cap) 2 mg Q4H PRN PO 10/15/17 16:00 11/14/17 15:59 Lorazepam (Ativan Tab) 0.25 mg Q6H PRN PO 10/15/17 16:00 11/14/17 15:59 10/18/17 20:37 0.25 MG Multivitamins/ Minerals (Multivitamin W/ Minerals Tab) 1 tab QAM PO 10/16/17 09:00 11/15/17 08:59 10/19/17 09:42 1 TAB Senna/Docusate Sodium (Senokot S Tab) 1 tab QAM PO 10/16/17 09:00 11/15/17 08:59 10/19/17 09:42 1 TAB Lactobacillus Acidophilus (Floranex Tab) 1 tab QAM PO 10/16/17 09:00 11/15/17 08:59 10/19/17 09:44 1 TAB Codeine Phosphate/ Guaifenesin (Robitussin-AC Sugar Free Syrup) 5 ml Q6H PRN PO 10/15/17 17:15 11/14/17 17:14 10/18/17 20:48 5 ML Doxycycline Hyclate (Vibramycin Cap) 100 mg BID PO 10/15/17 21:00 10/22/17 20:59 10/19/17 09:41 100 MG Albuterol/ Ipratropium (Duoneb) 3 ml Q2R PRN INH 10/15/17 17:30 11/14/17 17:29 Metoprolol Tartrate (Lopressor Iv) 5 mg Q6 PRN IV 10/16/17 00:15 11/15/17 00:14 10/18/17 20:38 5 MG Ipratropium [place] (Atrovent 0.02% 0.5MG/2.5ML Neb) 0.5 mg Q4R INH 10/16/17 12:00 11/15/17 11:59 10/19/17 07:22 0.5 MG Levalbuterol (Xopenex 1.25MG/ 0.5ML Neb) 1.25 mg Q4R INH 10/16/17 12:00 11/15/17 11:59 10/19/17 07:22 1.25 MG Sertraline HCl (Zoloft Tab) 150 mg HS PO 10/16/17 21:00 11/15/17 20:59 10/18/17 20:29 150 MG Insulin Aspart (novoLOG ASPART) SLIDING SCALE If C... Q6 SC 10/17/17 06:00 11/16/17 05:59 10/19/17 00:29 1 UNITS Methylprednisolone Sodium Succinate 80 mg/Syringe 1.28 ml @ 1.5 mls/min Q12H IV 10/17/17 14:00 11/16/17 13:59 10/19/17 02:20 1.5 MLS/MIN Lactated Ringer's 1,000 ml @ 15 mls/hr Q24H ONCE IV 10/19/17 06:00 10/20/17 05:59 10/19/17 06:33 15 MLS/HR Cefazolin Sodium 1000 mg/Syringe 5 ml @ 1.667 mls/ min PREOP IV 10/19/17 06:00 10/19/17 18:00 Cefazolin Sodium 1000 mg/Syringe 5 ml @ 1.667 mls/ min Q8H IV 10/19/17 16:00 10/20/17 15:59 Ketorolac Tromethamine (Toradol Tab) 10 mg Q6H PRN PO 10/19/17 09:30 10/24/17 09:29 Metoprolol Succinate (Toprol Xl Tab) 100 mg QAM PO 10/20/17 09:00 11/19/17 08:59 Objective Vital Signs Date Time Temp Pulse Resp B/P (MAP) Pulse Ox O2 Delivery O2 Flow Rate FiO2 10/19/17 09:25 109 16 118/79 (92) 96 Mask 3 10/19/17 09:20 88 16 108/74 (85) 96 Mask 3 10/19/17 09:15 83 16 124/82 (96) 96 Mask 3 10/19/17 09:10 93 16 123/82 (96) 96 Mask 3 10/19/17 08:13 36.5 103 18 120/91 (101) 96 Nasal Cannula 2.0 10/19/17 08:00 98 Nasal Cannula 2.0 10/19/17 07:23 102 18 98 Nasal Cannula 2.0 10/19/17 07:08 36.6 99 20 133/88 (103) 95 Nasal Cannula 2.0 10/19/17 04:00 36.7 90 19 110/74 (86) 95 3.0 10/19/17 04:00 95 Nasal Cannula 3.0 10/19/17 00:00 92 Nasal Cannula 3.0 10/19/17 00:00 36.8 113 22 132/113 (119) 92 3.0 10/18/17 23:10 113 18 95 Nasal Cannula 2.0 10/18/17 20:38 120 123/76 10/18/17 20:00 91 Nasal Cannula 1.5 10/18/17 19:24 36.8 125 23 123/76 (92) 97 Nasal Cannula 3.0 10/18/17 18:59 114 18 94 Nasal Cannula 2.0 10/18/17 16:00 91 Nasal Cannula 1.5 10/18/17 15:00 36.7 96 27 128/53 (78) 91 Nasal Cannula 10/18/17 12:00 Nasal Cannula 4.0 10/18/17 11:41 36.5 124 26 168/120 (136) Nasal Cannula 4.0 10/18/17 11:12 110 20 98 Nasal Cannula 4.0 10/18/17 11:04 Nasal Cannula 4.0 Physical Exam General Appearance: no apparent distress, + pertinent finding (chronically ill) Respiratory/Chest: no respiratory distress, no accessory muscle use, + decreased breath sounds, + wheezing (mild and improving end expiratory wheezing) Cardiovascular: no murmur, + tachycardia, + irregularly irregular Extremities: normal inspection, no pedal edema, + pertinent finding (b/l knee surgical scars) Neurologic/Psychiatric: no motor/sensory deficits, alert, normal mood/affect Laboratory Results Last 24 Hours Test 10/18/17 11:30 10/18/17 16:02 10/19/17 00:06 10/19/17 05:04 Bedside Glucose 174 mg/dl 177 mg/dl 182 mg/dl White Blood Count 12.32 K/uL Red Blood Count 3.71 M/uL Hemoglobin 12.3 g/dL Hematocrit 38.9 % Mean Corpuscular Volume 104.9 fL Mean Corpuscular Hemoglobin 33.2 pg Mean Corpuscular Hemoglobin Concent 31.6 g/dl RDW Standard Deviation 60.5 fL RDW Coefficient of Variation 15.7 % Platelet Count 144 K/uL Mean Platelet Volume 10.8 fL Sodium Level 139 mmol/L Potassium Level 5.0 mmol/L Chloride Level 104 mmol/L Carbon Dioxide Level 28 mmol/L Anion Gap 7.0 mmol/L Blood Urea Nitrogen 52 mg/dl Creatinine 1.29 mg/dl Est Creatinine Clear Calc Drug Dose 28.0 ml/min Estimated GFR () 42.8 Estimated GFR (Non- 36.9 BUN/Creatinine Ratio 40.7 Random Glucose 153 mg/dl Calcium Level 9.2 mg/dl Magnesium Level 2.4 mg/dl Test 10/19/17 05:46 Bedside Glucose 153 mg/dl Assessment and Plan This is an 87 year old female with a PMH of A. Fib, HTN, CKD stage 3, sick sinus syndrome s/p pacemaker, CAD, DM2 presents from independent living due to worsening shortness of breath Acute Hypoxic Respiratory Failure secondary to presumed COPD Exacerbation Severe Pulmonary HTN 10/19 no official diagnosis of COPD patient was never a smoker, but her smoked for numerous years appreciate pulmonary input currently she is on Solu-medrol 80mg IV BID will taper to prednisone when okay with pulmonary Hycodan PRN for cough nebulizers as needed; will use Levalbuterol due to tachycardia 10/18 plan for now is to continue solu-medrol, nebulizers PRN possible pacemaker replacement on 10/19 may need Lasix and possibly an increase in b- chaya, monitor this overnight appreciate pulmonology and cardio input 10/17 appreciate pulm input solu-medrol started continue nebulizers PRN hycodan PRN for the cough continue b-chaya for rate control appreciate cardio input will delay pacemaker replacement 10/16 patient is NPO after midnight for pacemaker replacement in AM as per cardiology metoprolol dose is increased now continue IV heparin for now restarted Zoloft Hycodan PRN for cough restart Lasix if okay with cardiology for now nebulizers and abx. for breathing A. Fib with RVR 10/19 multiple causes, including hypoxia and respiratory distress currently on Toprol; dose increased to 100mg rates are improving down to closer to 100 monitor HRs on tele will add Coumadin for around 1 month as per cardiology Sick Sinus Syndrome pacemaker has been replaced on 10/19 Hematuria - resolved likely secondary to Gayle placement can d/c Gayle once she is not requiring Lasix Bilateral Pulmonary Nodules CT chest with contrast performed multiple bilateral pulmonary nodules; suspicious for metastatic disease spoke with son - no biopsy needed for lung; wants symptomatic treatment only patient is agreeable to this plan Acute Kidney Injury superimposed on CKD stage 3 creatinine on admission around 1.2 baseline is around 1.0 will hold off on IVFs or diuretics, currently euvolemic Prolonged QTc monitor electrolytes hold QTc prolonging agents if able DVT ppx SCDs DNR/DNI Antony Senia, son, is the [facility] [place] - [phone]
--- NOTE | 2017-10-19 15:40 | PULMONARY PROGRESS NOTE ---
DATE: 10/19/2017 SUBJECTIVE: The patient's evaluation is today including: Conversation with the patient, physical exam, lab review, review of studies and review of inpatient medication list. The patient underwent sedation and dual chamber pacemaker replacement today with Dr. Pineda uneventfully. She states she feels somewhat better. Her cough and dyspnea are not as profound. Beta blockade dosing was changed this morning. OBJECTIVE: VITAL SIGNS: Temperature 36.5, pulse 96 and regular, respiratory rate 19, blood pressure 108/79, and O2 sat 96% on 2 liters. SKIN: Without lesion. HEENT: Atraumatic. LUNGS: Scattered wheeze, but less pronounced than yesterday. CARDIAC: Tachycardic rhythm, no S3 audible. ABDOMEN: Soft and scaphoid. EXTREMITIES: Trace pedal edema. No clubbing or peripheral cyanosis. NEUROLOGIC: Intact. Chest x-ray yesterday showed mild pulmonary edema with small bilateral pleural effusions and multiple pulmonary nodules were bibasilar opacities, left greater than right noted. H&H is 12 and 38 and white count is 12,000. The patient is on steroid therapy. BUN 52 and creatinine 1.29. OVERALL ASSESSMENT: Elderly white female admitted with chronic obstructive pulmonary disease/asthma exacerbation with multiple pulmonary nodules, very very suggestive of metastatic disease, showing some improvement, but clearly symptomatic and having difficulty expectorating any quantity of phlegm. She is being mobilized out of bed and was ambulated this morning and she states that she felt somewhat improved performing this activity today than she has in the recent past. Would continue current therapy. Once again at this point in time, I would hold off any diagnostic or therapeutic procedure, i.e. bronchoscopic intervention unless the patient does not fully progress further with significant clinical improvement. We will continue daily rounds on the patient.
[2017-10-19] MEDS: CEFAZOLIN IV 1,000 MG in SYRINGE 0 ML IV SCH (16:00)
[2017-10-19] MEDS: SERTRALINE HCL 100 MG TAB PO SCH (20:45)
[2017-10-20] VITALS (8 sets, daily range): BP systolic 101–134; BP diastolic 71–93; PULSE 79–106; TEMP 36.7–37; O2SAT 91–98
[2017-10-20] MEDS: IPRATROPIUM BROMIDE NEB SOLN 0.02% 2.5 ML VIAL INH SCH ×8 (00:07→23:07)
[2017-10-20] MEDS: LEVALBUTEROL 1.25MG/0.5ML NEB INH SCH ×8 (00:07→23:07)
[2017-10-20] MEDS: CEFAZOLIN IV 1,000 MG in SYRINGE 0 ML IV SCH ×2 (02:23→08:44)
[2017-10-20] MEDS: METHYLPREDNISOLONE IV 80 MG in SYRINGE 0 ML IV SCH ×2 (02:23→14:30)
[2017-10-20] MEDS: INSULIN ASPART 100 UNITS/ML 3 ML PEN SC SCH ×5 (02:26→21:02)
[2017-10-20] MEDS ORDERED: NURSING VERBAL MED ORDER ONE (06:45)
[2017-10-20 07:14] LABS: HEMATOCRIT 35.7 % (37-47); HEMOGLOBIN 11.4 g/dL (12.0-16.0); MEAN CELL VOLUME 104.1 fL (80-100); MEAN CORPUSCULAR HEMOGLOBIN 33.2 pg (25-34); MEAN CORPUSCULAR HGB CONC 31.9 g/dl (32-36); MEAN PLATELET VOLUME 10.8 fL (7.4-10.4); PLATELET COUNT 137 K/uL (130-400); RED CELL DISTRIBUTION WIDTH CV 15.5 % (11.5-14.5); RED CELL DISTRIBUTION WIDTH SD 59.4 fL (36.4-46.3); WHITE BLOOD COUNT 9.92 K/uL (4.8-10.8)
[2017-10-20 07:42] LABS: CREATININE 1.26 mg/dl (0.60-1.20); POTASSIUM 5.2 mmol/L (3.5-5.1)
[2017-10-20] MEDS: DOCUSATE SODIUM 100 MG CAP PO SCH ×2 (08:45→20:50)
[2017-10-20] MEDS: ASPIRIN 81 MG ECTAB PO SCH (08:45)
[2017-10-20] MEDS: ALLOPURINOL 300 MG TAB PO SCH (08:45)
[2017-10-20] MEDS: CEROVITE ADV FORMULA TAB PO SCH (08:45)
[2017-10-20] MEDS: DOXYCYCLINE HYCLATE 100 MG CAP PO SCH ×2 (08:45→20:51)
[2017-10-20] MEDS: DOCUSATE SODIUM/SENNA 50/8.6MG TAB PO SCH (08:45)
[2017-10-20] MEDS: CETIRIZINE HCL 10 MG TAB PO SCH (08:45)
[2017-10-20] MEDS: LACTOBACILLUS ACIDOPHILUS (FLORANEX) TAB PO SCH (08:46)
[2017-10-20] MEDS ORDERED: METOPROLOL SUCC 50MG EXT REL TAB PO SCH (09:00)
--- NOTE | 2017-10-20 10:07 | Progress Note ---
Subjective Date of Service: Oct 20, 2017. Subjective Pt evaluation today including: conversation w/ patient, physical exam, lab review, review of studies, review of inpatient medication list Saw/examined the patient in room 201 +cough persists, +wheezing no shortness of breath, feeling better no palpitations or chest pain Problem List Medical Problems: (1) Acute bronchitis Status: Acute (2) Anxiety Status: Chronic (3) Anxiety Status: Acute (4) Atrial fibrillation Status: Chronic (5) Diabetes mellitus Status: Chronic (6) Hyperlipidemia Status: Chronic (7) Hypertension Status: Acute (8) Hypothyroidism Status: Chronic (9) Hypoxia Status: Acute (10) Lightheaded Status: Acute (11) Pacemaker Status: Chronic (12) Pulmonary nodules Status: Acute (13) Vertigo Status: Acute (14) Vertigo Status: Acute (15) Wheezing Status: Acute Surgical Problems: (1) H/O thyroidectomy Status: Chronic (2) S/P knee replacement Status: Chronic Review of Systems Constitutional: + weakness Respiratory: + cough, + sputum, + wheezing, + dyspnea on exertion, No shortness of breath Cardiac: No chest pain, No edema, No palpitations Medications Current Inpatient Medications Medications (Trade) Dose Ordered Sig/Los Route Start Time Stop Time Status Last Admin Dose Admin Acetaminophen (Tylenol Tab) 650 mg Q4H PRN PO 10/15/17 16:00 11/14/17 15:59 10/17/17 14:24 650 MG Al Hydrox/Mg Hydrox/Simethicone (Maalox Max Susp) 15 ml Q4H PRN PO 10/15/17 16:00 11/14/17 15:59 Magnesium Hydroxide (Milk Of Magnesia Susp) 30 ml Q12H PRN PO 10/15/17 16:00 11/14/17 15:59 10/18/17 14:50 30 ML Nitroglycerin (Nitrostat Tab) 0.4 mg UD PRN SL 10/15/17 16:00 11/14/17 15:59 Aspirin (Ecotrin Tab) 81 mg QAM PO 10/16/17 09:00 11/15/17 08:59 10/20/17 08:45 81 MG Polyethylene (Miralax Powder Packet) 17 gm DAILY PRN PO 10/15/17 16:00 11/14/17 15:59 10/18/17 18:32 17 GM Glucose (Glucose 40% Gel) 15-30 GRAMS 15 GRAMS... UD PRN PO 10/15/17 16:00 11/14/17 15:59 Glucose (Glucose Chew Tab) 4-8 Tablets 4 Tabl... UD PRN PO 10/15/17 16:00 11/14/17 15:59 Dextrose (Dextrose 50% 50ML Syringe) 25-50ML OF 50% DW IV FOR... UD PRN IV 10/15/17 16:00 11/14/17 15:59 Glucagon (Glucagon Inj) 1 mg UD PRN SQ 10/15/17 16:00 11/14/17 15:59 Allopurinol (Zyloprim Tab) 300 mg QAM PO 10/16/17 09:00 11/15/17 08:59 10/20/17 08:45 300 MG Calcium Carbonate (Tums Chew Tab) 1,000 mg BID PRN PO 10/15/17 16:00 11/14/17 15:59 Cetirizine HCl (zyrTEC TAB) 10 mg QAM PO 10/16/17 09:00 11/15/17 08:59 10/20/17 08:45 10 MG Docusate Sodium (coLACE CAP) 100 mg BID PO 10/15/17 21:00 11/14/17 20:59 10/20/17 08:45 100 MG Loperamide HCl (Imodium Cap) 2 mg Q4H PRN PO 10/15/17 16:00 11/14/17 15:59 Lorazepam (Ativan Tab) 0.25 mg Q6H PRN PO 10/15/17 16:00 11/14/17 15:59 10/18/17 20:37 0.25 MG Multivitamins/ Minerals (Multivitamin W/ Minerals Tab) 1 tab QAM PO 10/16/17 09:00 11/15/17 08:59 10/20/17 08:45 1 TAB Senna/Docusate Sodium (Senokot S Tab) 1 tab QAM PO 10/16/17 09:00 11/15/17 08:59 10/20/17 08:45 1 TAB Codeine Phosphate/ Guaifenesin (Robitussin-AC Sugar Free Syrup) 5 ml Q6H PRN PO 10/15/17 17:15 11/14/17 17:14 1/17/18 20:48 5 ML Doxycycline Hyclate (Vibramycin Cap) 100 mg BID PO 10/15/17 21:00 10/22/17 20:59 10/20/17 08:45 100 MG Albuterol/ Ipratropium (Duoneb) 3 ml Q2R PRN INH 10/15/17 17:30 11/14/17 17:29 Metoprolol Tartrate (Lopressor Iv) 5 mg Q6 PRN IV 10/16/17 00:15 11/15/17 00:14 10/18/17 20:38 5 MG Ipratropium [place] (Atrovent 0.02% 0.5MG/2.5ML Neb) 0.5 mg Q4R INH 10/16/17 12:00 11/15/17 11:59 10/20/17 07:28 0.5 MG Levalbuterol (Xopenex 1.25MG/ 0.5ML Neb) 1.25 mg Q4R INH 10/16/17 12:00 11/15/17 11:59 10/20/17 07:28 1.25 MG Sertraline HCl (Zoloft Tab) 150 mg HS PO 10/16/17 21:00 11/15/17 20:59 10/19/17 20:45 150 MG Methylprednisolone Sodium Succinate 80 mg/Syringe 1.28 ml @ 1.5 mls/min Q12H IV 10/17/17 14:00 11/16/17 13:59 10/20/17 02:23 1.5 MLS/MIN Cefazolin Sodium 1000 mg/Syringe 5 ml @ 1.667 mls/ min Q8H IV 10/19/17 16:00 10/20/17 15:59 10/20/17 08:44 1.667 MLS/MIN Ketorolac Tromethamine (Toradol Tab) 10 mg Q6H PRN PO 10/19/17 09:30 10/24/17 09:29 Metoprolol Succinate (Toprol Xl Tab) 100 mg QAM PO 10/20/17 09:00 11/19/17 08:59 10/20/17 08:46 100 MG Lactobacillus Acidophilus (Floranex Tab) 1 tab QAM PO 10/20/17 09:00 11/15/17 08:59 10/20/17 08:46 1 TAB Insulin Aspart (novoLOG ASPART) SLIDING SCALE If C... ACHS SC 10/20/17 07:00 11/19/17 06:59 10/20/17 08:47 2 UNITS Objective Vital Signs Date Time Temp Pulse Resp B/P (MAP) Pulse Ox O2 Delivery O2 Flow Rate FiO2 10/20/17 07:43 37.0 106 21 134/88 (103) 93 10/20/17 07:28 97 18 91 Nasal Cannula 2.0 10/20/17 04:00 Nasal Cannula 2.0 10/20/17 03:30 36.7 95 20 121/71 (88) 96 Nasal Cannula 2.0 10/20/17 00:01 Nasal Cannula 2.0 10/19/17 23:55 101 21 122/80 (94) 10/19/17 23:30 36.6 10/19/17 20:41 36.7 116 26 97/47 (64) 95 Nasal Cannula 2.0 10/19/17 20:00 Nasal Cannula 2.0 10/19/17 18:37 112 18 96 Nasal Cannula 2.0 10/19/17 16:22 36.5 103 21 95/32 (53) 94 Nasal Cannula 3.0 10/19/17 16:04 102 18 97 Nasal Cannula 2.0 10/19/17 16:00 Nasal Cannula 2.0 10/19/17 15:33 105 96 10/19/17 12:05 105 19 108/79 (89) 96 2.0 10/19/17 12:00 Nasal Cannula 2.0 10/19/17 11:35 105 20 112/84 (93) 96 2.0 10/19/17 11:08 96 18 97 Nasal Cannula 2.0 10/19/17 11:05 36.5 108 20 118/82 (94) 96 2.0 10/19/17 10:50 36.5 98 19 125/83 (97) 96 2.0 10/19/17 10:20 92 19 122/96 (105) 96 2.0 10/19/17 10:05 91 21 117/101 (106) 96 2.0 Physical Exam General Appearance: no apparent distress Respiratory/Chest: no respiratory distress, no accessory muscle use, + wheezing (diffuse end expiratory wheezing) Cardiovascular: no edema, no murmur, + irregularly irregular Extremities: non-tender, normal inspection, no pedal edema Laboratory Results Last 24 Hours Test 10/19/17 16:13 10/20/17 02:19 10/20/17 05:41 10/20/17 06:20 Bedside Glucose 166 mg/dl 198 mg/dl 177 mg/dl White Blood Count 9.92 K/uL Red Blood Count 3.43 M/uL Hemoglobin 11.4 g/dL Hematocrit 35.7 % Mean Corpuscular Volume 104.1 fL Mean Corpuscular Hemoglobin 33.2 pg Mean Corpuscular Hemoglobin Concent 31.9 g/dl RDW Standard Deviation 59.4 fL RDW Coefficient of Variation 15.5 % Platelet Count 137 K/uL Mean Platelet Volume 10.8 fL Sodium Level 139 mmol/L Potassium Level 5.2 mmol/L Chloride Level 105 mmol/L Carbon Dioxide Level 28 mmol/L Anion Gap 6.0 mmol/L Blood Urea Nitrogen 61 mg/dl Creatinine 1.26 mg/dl Est Creatinine Clear Calc Drug Dose 28.5 ml/min Estimated GFR () 44.1 Estimated GFR (Non- 38.0 BUN/Creatinine Ratio 48.0 Random Glucose 166 mg/dl Calcium Level 9.0 mg/dl Magnesium Level 2.6 mg/dl Test 10/20/17 07:30 Bedside Glucose 168 mg/dl Assessment and Plan This is an 87 year old female with a PMH of A. Fib, HTN, CKD stage 3, sick sinus syndrome s/p pacemaker, CAD, DM2 presents from independent living due to worsening shortness of breath Acute Hypoxic Respiratory Failure secondary to presumed COPD Exacerbation Severe Pulmonary HTN 10/20 continue pulmonary care including IV steroids, Hycodan PRN, nebs further management as per pulmonology for now, no bronchoscope unless condition does not improve we can wean O2 as tolerated PT/OT 10/19 no official diagnosis of COPD patient was never a smoker, but her smoked for numerous years appreciate pulmonary input currently she is on Solu-medrol 80mg IV BID will taper to prednisone when okay with pulmonary Hycodan PRN for cough nebulizers as needed; will use Levalbuterol due to tachycardia 10/18 plan for now is to continue solu-medrol, nebulizers PRN possible pacemaker replacement on 10/19 may need Lasix and possibly an increase in b- chaya, monitor this overnight appreciate pulmonology and cardio input 10/17 appreciate pulm input solu-medrol started continue nebulizers PRN hycodan PRN for the cough continue b-chaya for rate control appreciate cardio input will delay pacemaker replacement 10/16 patient is NPO after midnight for pacemaker replacement in AM as per cardiology metoprolol dose is increased now continue IV heparin for now restarted Zoloft Hycodan PRN for cough restart Lasix if okay with cardiology for now nebulizers and abx. for breathing A. Fib with RVR 10/19 multiple causes, including hypoxia and respiratory distress currently on Toprol; dose increased to 100mg rates are improving down to closer to 100 monitor HRs on tele will add Coumadin for around 1 month as per cardiology Sick Sinus Syndrome pacemaker has been replaced on 10/19 Hematuria - resolved likely secondary to Gayle placement can d/c Gayle Bilateral Pulmonary Nodules CT chest with contrast performed multiple bilateral pulmonary nodules; suspicious for metastatic disease spoke with son - no biopsy needed for lung; wants symptomatic treatment only patient is agreeable to this plan Acute Kidney Injury superimposed on CKD stage 3 creatinine on admission around 1.2 baseline is around 1.0 will hold off on IVFs or diuretics, currently euvolemic Prolonged QTc monitor electrolytes hold QTc prolonging agents if able DVT ppx SCDs DNR/DNI Antony Conn, son, is the [facility] - [phone]
[2017-10-20] MEDS ORDERED: METOPROLOL SUCC 50MG EXT REL TAB PO STA (10:44)
--- NOTE | 2017-10-20 10:44 | Cardiology Follow-Up ---
Subjective Date of Service: Oct 20, 2017. Pt evaluation today including: conversation w/ patient, physical exam, lab review, review of inpatient medication list History of Present Illness 87-year-old woman with a history of paroxysmal atrial fibrillation and sick sinus syndrome, hyperlipidemia, hypertension and long-standing left bundle branch block. She had a dual-chamber pacemaker implanted on 04/06/2010. We followed her pacemaker initially, however more recently she was lost to follow- up and her device has not been interrogated since a hospitalization on 2013. At that time it was working well, she was pacing infrequently in the atrium and minimally in the ventricle and she had occasional episodes of atrial tachycardia or atrial fibrillation but only minutes in duration. She was therefore not anticoagulated. She now presents with a long-standing nonproductive cough, associated with some shortness of breath and dyspnea on exertion for perhaps 2 weeks. She also complains of feeling weak with minimal activity and occasional dizziness. In the emergency room she was hypoxic, wheezing and was admitted. She was seen in the emergency room in mid September for similar symptoms which improved with a nebulizer treatment. Of note she tells me that she had an episode of epistaxis several days ago, she tells me that it was not severe but it did get on her clothing and she doesn't think it lasted very long. She was not on anticoagulant at the time. On admission she was noted to be in atrial fibrillation, based on her history the duration was unknown. Pacemaker interrogation however showed that is been present for one month. She was admitted with edema, but she seemed unaware of this so the duration of that was not known either. We replaced her pacemaker on 10/19/2017 using her chronic leads which were functioning well. Today she feels well regarding her pacemaker incision, she is still having breathing difficulty which may or may not be improved much. She has no cardiac vascular complaints. Social History Smoking Status: Never Smoker History of Alcohol Use: No Review of Systems Respiratory: + cough, + sputum, + wheezing, + dyspnea on exertion, No shortness of breath Cardiac: No chest pain, No edema, No palpitations Medications Cardiovascular: Item Value Date Time Metoprolol 100 mg 10/20/17 0900 Succinate QAM/PO 10/20/17 0846 (Toprol Xl Tab) Aspirin 81 mg 10/16/17 0900 (Ecotrin Tab) QAM/PO 10/20/17 0845 Objective Vital Signs Past 12 Hours Date Time Temp Pulse Resp B/P (MAP) Pulse Ox O2 Delivery O2 Flow Rate FiO2 10/20/17 07:43 37.0 106 21 134/88 (103) 93 10/20/17 07:28 97 18 91 Nasal Cannula 2.0 10/20/17 04:00 Nasal Cannula 2.0 10/20/17 03:30 36.7 95 20 121/71 (88) 96 Nasal Cannula 2.0 10/20/17 00:01 Nasal Cannula 2.0 10/19/17 23:55 101 21 122/80 (94) 10/19/17 23:30 36.6 Last Recorded Weight-Kilograms: 78.000 Physical Exam Constitutional: Level of Distress: moderate distress Lungs: Respiratory effort: no dyspnea Auscultation: expiratory wheezing, rhonchi Cardiovascular: Heart Auscultation: no murmurs, no rubs, no gallops, tachycardia, irregular rate rhythm Peripheral Pulses: Bruits: none appreciated Her pacemaker site is clean and dry, there is minor ecchymosis but no swelling. Data Laboratory Results: Last 24 Hours Test 10/19/17 16:13 10/20/17 02:19 10/20/17 05:41 10/20/17 06:20 Bedside Glucose 166 mg/dl 198 mg/dl 177 mg/dl White Blood Count 9.92 K/uL Red Blood Count 3.43 M/uL Hemoglobin 11.4 g/dL Hematocrit 35.7 % Mean Corpuscular Volume 104.1 fL Mean Corpuscular Hemoglobin 33.2 pg Mean Corpuscular Hemoglobin Concent 31.9 g/dl RDW Standard Deviation 59.4 fL RDW Coefficient of Variation 15.5 % Platelet Count 137 K/uL Mean Platelet Volume 10.8 fL Sodium Level 139 mmol/L Potassium Level 5.2 mmol/L Chloride Level 105 mmol/L Carbon Dioxide Level 28 mmol/L Anion Gap 6.0 mmol/L Blood Urea Nitrogen 61 mg/dl Creatinine 1.26 mg/dl Est Creatinine Clear Calc Drug Dose 28.5 ml/min Estimated GFR () 44.1 Estimated GFR (Non- 38.0 BUN/Creatinine Ratio 48.0 Random Glucose 166 mg/dl Calcium Level 9.0 mg/dl Magnesium Level 2.6 mg/dl Test 10/20/17 07:30 Bedside Glucose 168 mg/dl Telemetry reviewed: Atrial fibrillation with an elevated heart rate during the day, acceptable at night. Assessment and Plan 1. AF: In the past she had very brief (minutes) episodes of SVT/AF, now about one month of AF. Agree with anticoagulation. Cannot convert now with 1 month of AF, will plan rate control, anticoagulation and conversion in 1 month. My recommendation would be to start Eliquis today, I would start with the evening dose today. We need better rate control, I'm going to increase her Toprol succinate today. 2. Weakness, fatigue: May be in part due to AF, she recalls symptoms from last fall. In addition her device has been operating in backup mode for a number of years (which is VVI 65) so she lacks rate response and prior to developing atrial fibrillation she was predominantly atrial pacing. This could contribute to her symptoms. In addition her pulmonary is probably the main culprit. 3. Pacer: Replaced yesterday, very little pacing due to her intrinsically fast heart rate. Thank You
--- NOTE | 2017-10-20 11:56 | PULMONARY PROGRESS NOTE ---
DATE: 10/20/2017 The patient's evaluation is today including: Conversation with the patient, physical exam, lab review, and review of inpatient medication list. SUBJECTIVE: The patient does not feel better today. He is still quite dyspneic at rest with persistent cough and currently bronchospastic on exam. She seemed better yesterday. She did undergo a procedure yesterday with Dr. Pineda with changing a pacemaker. She rarely paces to my inspection and is in atrial fibrillation. She has been continued on anticoagulant therapy. The CT scan on admission showed multiple pulmonary nodules, probably greater than 30 that would suggest given its appearance of metastatic disease to the lung. Given her age and the fact she has metastatic disease, the persistent bronchospasm creates difficult clinical scenario. I believe the patient would tolerate bronchoscopic intervention at this point in time and we will need to review her medications. The presence of metoprolol at 150 mg daily may be problematic at that dose. We will discuss further with Dr. Pineda. She is on cefazolin, which should be adequate coverage at this point what we are attempting to treat. She is receiving aerosolized bronchodilator q. 4 hours and IV methylprednisolone. I believe her tachycardic rhythm is direct response from her underlying lung disease and lung infection and the dose of beta blockade I believe is enough there to maintain her bronchospasm. We will discuss further with Dr. Pineda. [facility]
[2017-10-20] MEDS ORDERED: DIGOXIN 0.25 MG TAB PO ONE ×2 (12:15→16:00)
[2017-10-20] MEDS: GUAIFENESIN/CODEINE 100MG/10MG 5ML UDC PO PRN (13:01)
--- NOTE | 2017-10-20 16:04 | DIAGNOSTIC IMAGING REPORT ---
TWO VIEW CHEST CLINICAL HISTORY: Lead placement.. FINDINGS: PA and lateral chest radiographs are compared to study dated 10/18/2017. Correlation is made with chest CT dated 10/15/2017. A 2-lead cardiac pacemaker partially obscures the left upper chest. The heart is enlarged and there is atherosclerotic calcification of the thoracic aorta. The pulmonary vasculature is noncongested. A 1.4 cm right upper lobe pulmonary nodule is unchanged. Patchy airspace opacities are seen in the left lung base. There is no pleural effusion. There is no pneumothorax. The skeletal structures are osteopenic. Degenerative change and scoliosis are noted in the thoracic spine. There is a healed left clavicular fracture. Healed left-sided rib fractures are noted. IMPRESSION: 1. No pneumothorax is identified post procedure. 2. Cardiomegaly and cardiac pacemaker. There is no radiographic evidence of congestive failure. 3. A right upper lobe pulmonary nodule is unchanged. 4. Patchy airspace opacities at the left lung base likely represent atelectasis. Clinical correlation will be required. Electronically signed by: Hermann Egan M.D. 10/20/2017 4:02 PM Dictated Date/Time: 10/20/2017 3:59 PM
[2017-10-20] MEDS: SERTRALINE HCL 100 MG TAB PO SCH (20:50)
[2017-10-20] MEDS: ACETAMINOPHEN 325 MG TAB PO PRN (21:58)
[2017-10-21] VITALS (15 sets, daily range): BP systolic 82–126; BP diastolic 59–93; PULSE 62–107; TEMP 36.6–37; O2SAT 91–98
[2017-10-21] MEDS: METHYLPREDNISOLONE IV 80 MG in SYRINGE 0 ML IV SCH ×2 (02:09→13:40)
[2017-10-21] MEDS: IPRATROPIUM BROMIDE NEB SOLN 0.02% 2.5 ML VIAL INH SCH ×6 (03:57→23:13)
[2017-10-21] MEDS: LEVALBUTEROL 1.25MG/0.5ML NEB INH SCH ×6 (03:57→23:13)
[2017-10-21 06:55] LABS: HEMOGLOBIN 11.3 g/dL (12.0-16.0); MEAN CELL VOLUME 102.9 fL (80-100); MEAN CORPUSCULAR HEMOGLOBIN 33.2 pg (25-34); MEAN CORPUSCULAR HGB CONC 32.3 g/dl (32-36); MEAN PLATELET VOLUME 10.6 fL (7.4-10.4); NUCLEATED RED BLOOD CELL ABS 0.03 K/uL (0-0); PLATELET COUNT 124 K/uL (130-400); RED CELL DISTRIBUTION WIDTH CV 15.3 % (11.5-14.5); RED CELL DISTRIBUTION WIDTH SD 57.5 fL (36.4-46.3); WHITE BLOOD COUNT 9.01 K/uL (4.8-10.8)
[2017-10-21] MEDS ORDERED: BOOST VANILLA PO SCH (07:30)
[2017-10-21] MEDS: DOCUSATE SODIUM 100 MG CAP PO SCH ×2 (08:55→19:49)
[2017-10-21] MEDS: DOXYCYCLINE HYCLATE 100 MG CAP PO SCH ×2 (08:56→19:49)
[2017-10-21] MEDS: CEROVITE ADV FORMULA TAB PO SCH (08:56)
[2017-10-21] MEDS: DOCUSATE SODIUM/SENNA 50/8.6MG TAB PO SCH (08:56)
[2017-10-21] MEDS: CETIRIZINE HCL 10 MG TAB PO SCH (08:56)
[2017-10-21] MEDS: ALLOPURINOL 300 MG TAB PO SCH (08:56)
[2017-10-21] MEDS: DILTIAZEM HCL 240 MG CAPCR PO SCH (08:56)
[2017-10-21] MEDS: ASPIRIN 81 MG ECTAB PO SCH (08:56)
[2017-10-21] MEDS: LACTOBACILLUS ACIDOPHILUS (FLORANEX) TAB PO SCH (08:56)
[2017-10-21] MEDS ORDERED: METOPROLOL SUCC 50MG EXT REL TAB PO SCH (09:00)
[2017-10-21] MEDS: INSULIN ASPART 100 UNITS/ML 3 ML PEN SC SCH ×4 (09:06→21:45)
--- NOTE | 2017-10-21 10:16 | PULMONARY PROGRESS NOTE ---
DATE: 10/21/2017 DATE: 10/21/2017 SUBJECTIVE: The patient feels somewhat improved today, her cough persists, but she is less dyspneic. I did speak with Dr. Pineda yesterday from cardiology who felt that given the bronchospasm that was present that the dose of Lopressor 150 mg daily could be problematic in this individual. He told me he would start her on diltiazem and use that in exchange for her beta blockade. I think there has been some improvement already. Her cough persists and as stated earlier, we have multiple bilateral pulmonary nodules that are very worrisome for metastatic disease with an unknown primary. We will continue current therapy and see if the patient can help mobilize those secretions and improve her cough and symptoms of dyspnea.
[2017-10-21] MEDS: DIGOXIN 0.125 MG TAB PO SCH (16:20)
[2017-10-21] MEDS: GUAIFENESIN/CODEINE 100MG/10MG 5ML UDC PO PRN (16:20)
[2017-10-21] MEDS: BOOST GLUCOSE CONTROL PO SCH (16:21)
--- NOTE | 2017-10-21 17:18 | Progress Note ---
Subjective Date of Service: Oct 21, 2017. Subjective Pt evaluation today including: conversation w/ patient, physical exam, lab review, review of studies, review of inpatient medication list Saw/examined the patient in room 201 cough persists breathing is improving, denies chest pain or palpitations Problem List Medical Problems: (1) Acute bronchitis Status: Acute (2) Anxiety Status: Chronic (3) Anxiety Status: Acute (4) Atrial fibrillation Status: Chronic (5) Diabetes mellitus Status: Chronic (6) Hyperlipidemia Status: Chronic (7) Hypertension Status: Acute (8) Hypothyroidism Status: Chronic (9) Hypoxia Status: Acute (10) Lightheaded Status: Acute (11) Pacemaker Status: Chronic (12) Pulmonary nodules Status: Acute (13) Vertigo Status: Acute (14) Vertigo Status: Acute (15) Wheezing Status: Acute Surgical Problems: (1) H/O thyroidectomy Status: Chronic (2) S/P knee replacement Status: Chronic Review of Systems Constitutional: + weakness Respiratory: + cough, + sputum, No wheezing, No shortness of breath, No dyspnea on exertion, No dyspnea at rest, No hemoptysis Cardiac: No chest pain, No edema, No palpitations Medications Current Inpatient Medications Medications (Trade) Dose Ordered Sig/Los Route Start Time Stop Time Status Last Admin Dose Admin Acetaminophen (Tylenol Tab) 650 mg Q4H PRN PO 10/15/17 16:00 11/14/17 15:59 10/20/17 21:58 650 MG Al Hydrox/Mg Hydrox/Simethicone (Maalox Max Susp) 15 ml Q4H PRN PO 10/15/17 16:00 11/14/17 15:59 Magnesium Hydroxide (Milk Of Magnesia Susp) 30 ml Q12H PRN PO 10/15/17 16:00 11/14/17 15:59 10/18/17 14:50 30 ML Nitroglycerin (Nitrostat Tab) 0.4 mg UD PRN SL 10/15/17 16:00 11/14/17 15:59 Aspirin (Ecotrin Tab) 81 mg QAM PO 10/16/17 09:00 11/15/17 08:59 10/21/17 08:56 81 MG Polyethylene (Miralax Powder Packet) 17 gm DAILY PRN PO 10/15/17 16:00 11/14/17 15:59 10/18/17 18:32 17 GM Glucose (Glucose 40% Gel) 15-30 GRAMS 15 GRAMS... UD PRN PO 10/15/17 16:00 11/14/17 15:59 Glucose (Glucose Chew Tab) 4-8 Tablets 4 Tabl... UD PRN PO 10/15/17 16:00 11/14/17 15:59 Dextrose (Dextrose 50% 50ML Syringe) 25-50ML OF 50% DW IV FOR... UD PRN IV 10/15/17 16:00 11/14/17 15:59 Glucagon (Glucagon Inj) 1 mg UD PRN SQ 10/15/17 16:00 11/14/17 15:59 Allopurinol (Zyloprim Tab) 300 mg QAM PO 10/16/17 09:00 11/15/17 08:59 10/21/17 08:56 300 MG Calcium Carbonate (Tums Chew Tab) 1,000 mg BID PRN PO 10/15/17 16:00 11/14/17 15:59 Cetirizine HCl (zyrTEC TAB) 10 mg QAM PO 10/16/17 09:00 11/15/17 08:59 10/21/17 08:56 10 MG Docusate Sodium (coLACE CAP) 100 mg BID PO 10/15/17 21:00 11/14/17 20:59 10/21/17 08:55 100 MG Loperamide HCl (Imodium Cap) 2 mg Q4H PRN PO 10/15/17 16:00 11/14/17 15:59 Lorazepam (Ativan Tab) 0.25 mg Q6H PRN PO 10/15/17 16:00 11/14/17 15:59 10/18/17 20:37 0.25 MG Multivitamins/ Minerals (Multivitamin W/ Minerals Tab) 1 tab QAM PO 10/16/17 09:00 11/15/17 08:59 10/21/17 08:56 1 TAB Senna/Docusate Sodium (Senokot S Tab) 1 tab QAM PO 10/16/17 09:00 11/15/17 08:59 10/21/17 08:56 1 TAB Codeine Phosphate/ Guaifenesin (Robitussin-AC Sugar Free Syrup) 5 ml Q6H PRN PO 10/15/17 17:15 11/14/17 17:14 10/21/17 16:20 5 ML Doxycycline Hyclate (Vibramycin Cap) 100 mg BID PO 10/15/17 21:00 10/22/17 20:59 10/21/17 08:56 100 MG Albuterol/ Ipratropium (Duoneb) 3 ml Q2R PRN INH 10/15/17 17:30 11/14/17 17:29 Metoprolol Tartrate (Lopressor Iv) 5 mg Q6 PRN IV 10/16/17 00:15 11/15/17 00:14 10/18/17 20:38 5 MG Ipratropium Aurora (Atrovent 0.02% 0.5MG/2.5ML Neb) 0.5 mg Q4R INH 10/16/17 12:00 11/15/17 11:59 10/21/17 15:36 0.5 MG Levalbuterol (Xopenex 1.25MG/ 0.5ML Neb) 1.25 mg Q4R INH 10/16/17 12:00 11/15/17 11:59 10/21/17 15:36 1.25 MG Sertraline HCl (Zoloft Tab) 150 mg HS PO 10/16/17 21:00 11/15/17 20:59 10/20/17 20:50 150 MG Methylprednisolone Sodium Succinate 80 mg/Syringe 1.28 ml @ 1.5 mls/min Q12H IV 10/17/17 14:00 11/16/17 13:59 10/21/17 13:40 1.5 MLS/MIN Ketorolac Tromethamine (Toradol Tab) 10 mg Q6H PRN PO 10/19/17 09:30 10/24/17 09:29 Lactobacillus Acidophilus (Floranex Tab) 1 tab QAM PO 10/20/17 09:00 11/15/17 08:59 10/21/17 08:56 1 TAB Insulin Aspart (novoLOG ASPART) SLIDING SCALE If C... ACHS SC 10/20/17 07:00 11/19/17 06:59 10/21/17 13:40 2 UNITS Diltiazem HCl (Cardizem Cd Cap) 240 mg QAM PO 10/21/17 09:00 2/19/18 08:59 10/21/17 08:56 240 MG Digoxin (Lanoxin Tab) 0.125 mg DAILY@16 PO 10/21/17 16:00 11/20/17 15:59 10/21/17 16:20 0.125 MG Enteral Nutritional Formula (Boost Glucose Control) 1 can BIDM PO 10/21/17 16:45 11/20/17 16:44 10/21/17 16:21 1 CAN Objective Vital Signs Date Time Temp Pulse Resp B/P (MAP) Pulse Ox O2 Delivery O2 Flow Rate FiO2 10/21/17 16:20 83 10/21/17 15:36 78 14 96 Nasal Cannula 2.0 10/21/17 15:09 37.0 87 20 114/93 (100) 93 Room Air 10/21/17 12:20 36.6 85 22 125/73 (90) 92 Nasal Cannula 2.0 10/21/17 11:13 77 14 97 Nasal Cannula 2.0 10/21/17 08:30 36.9 83 12 126/70 (88) 97 Nasal Cannula 2.0 10/21/17 07:03 66 18 96 Nasal Cannula 2.0 10/21/17 04:08 36.8 86 18 82/59 (67) 94 Room Air 10/21/17 04:00 94 Room Air 10/21/17 03:58 62 22 91 Nasal Cannula 2.0 10/21/17 00:01 98 Room Air 10/20/17 23:08 86 16 98 Nasal Cannula 2.0 10/20/17 23:02 36.9 90 19 104/93 (97) 96 Nasal Cannula 2.0 10/20/17 20:00 Nasal Cannula 2.0 10/20/17 19:07 89 20 94 Nasal Cannula 2.0 10/20/17 19:07 36.8 98 22 119/79 (92) 96 Nasal Cannula 2.0 10/20/17 17:20 102 Physical Exam General Appearance: no apparent distress Respiratory/Chest: no respiratory distress, no accessory muscle use, + rhonchi Cardiovascular: + irregularly irregular Extremities: normal inspection, no pedal edema Laboratory Results Last 24 Hours Test 10/20/17 20:26 10/21/17 06:19 10/21/17 06:34 10/21/17 10:44 Bedside Glucose 199 mg/dl 193 mg/dl 229 mg/dl White Blood Count 9.01 K/uL Red Blood Count 3.40 M/uL Hemoglobin 11.3 g/dL Hematocrit 35.0 % Mean Corpuscular Volume 102.9 fL Mean Corpuscular Hemoglobin 33.2 pg Mean Corpuscular Hemoglobin Concent 32.3 g/dl RDW Standard Deviation 57.5 fL RDW Coefficient of Variation 15.3 % Platelet Count 124 K/uL Mean Platelet Volume 10.6 fL Nucleated RBC Absolute Count (auto) 0.03 K/uL Nucleated Red Blood Cells % 0.3 % Digoxin Level 1.2 ng/ml Test 10/21/17 16:12 Bedside Glucose 186 mg/dl Assessment and Plan This is an 87 year old female with a PMH of A. Fib, HTN, CKD stage 3, sick sinus syndrome s/p pacemaker, CAD, DM2 presents from independent living due to worsening shortness of breath Acute Hypoxic Respiratory Failure secondary to presumed COPD Exacerbation Severe Pulmonary HTN 10/21 appreciate pulm and cardio input plan for now is to transition from metoprolol to Cardizem and digoxin as per cardiology continue IV steroids, Hycodan PRN and nebs 10/20 continue pulmonary care including IV steroids, Hycodan PRN, nebs further management as per pulmonology for now, no bronchoscope unless condition does not improve we can wean O2 as tolerated PT/OT 10/19 no official diagnosis of COPD patient was never a smoker, but her smoked for numerous years appreciate pulmonary input currently she is on Solu-medrol 80mg IV BID will taper to prednisone when okay with pulmonary Hycodan PRN for cough nebulizers as needed; will use Levalbuterol due to tachycardia 10/18 plan for now is to continue solu-medrol, nebulizers PRN possible pacemaker replacement on 10/19 may need Lasix and possibly an increase in b- chaya, monitor this overnight appreciate pulmonology and cardio input 10/17 appreciate pulm input solu-medrol started continue nebulizers PRN hycodan PRN for the cough continue b-chaya for rate control appreciate cardio input will delay pacemaker replacement 10/16 patient is NPO after midnight for pacemaker replacement in AM as per cardiology metoprolol dose is increased now continue IV heparin for now restarted Zoloft Hycodan PRN for cough restart Lasix if okay with cardiology for now nebulizers and abx. for breathing A. Fib with RVR 10/19 multiple causes, including hypoxia and respiratory distress currently on Toprol; dose increased to 100mg rates are improving down to closer to 100 monitor HRs on tele will add Coumadin for around 1 month as per cardiology Sick Sinus Syndrome pacemaker has been replaced on 10/19 Hematuria - resolved likely secondary to Gayle placement can d/c Gayle Bilateral Pulmonary Nodules CT chest with contrast performed multiple bilateral pulmonary nodules; suspicious for metastatic disease spoke with son - no biopsy needed for lung; wants symptomatic treatment only patient is agreeable to this plan Acute Kidney Injury superimposed on CKD stage 3 creatinine on admission around 1.2 baseline is around 1.0 will hold off on IVFs or diuretics, currently euvolemic Prolonged QTc monitor electrolytes hold QTc prolonging agents if able DVT ppx SCDs DNR/DNI Antony Conn, son, is the [employer] [facility] - [phone]
[2017-10-21] MEDS: SERTRALINE HCL 100 MG TAB PO SCH (19:50)
[2017-10-21] MEDS ORDERED: GUAIFENESIN 600 MG TABCR PO ONE (20:11)
[2017-10-22] VITALS (14 sets, daily range): BP systolic 107–128; BP diastolic 66–94; PULSE 67–99; TEMP 36.4–37; O2SAT 92–98
[2017-10-22] MEDS: METHYLPREDNISOLONE IV 80 MG in SYRINGE 0 ML IV SCH ×2 (01:02→13:51)
[2017-10-22] MEDS: LEVALBUTEROL 1.25MG/0.5ML NEB INH SCH ×6 (03:52→22:50)
[2017-10-22] MEDS: IPRATROPIUM BROMIDE NEB SOLN 0.02% 2.5 ML VIAL INH SCH ×6 (03:52→22:50)
[2017-10-22 06:07] LABS: HEMATOCRIT 37.6 % (37-47); HEMOGLOBIN 12.2 g/dL (12.0-16.0); MEAN CELL VOLUME 103.3 fL (80-100); MEAN CORPUSCULAR HEMOGLOBIN 33.5 pg (25-34); MEAN CORPUSCULAR HGB CONC 32.4 g/dl (32-36); MEAN PLATELET VOLUME 10.6 fL (7.4-10.4); NUCLEATED RED BLOOD CELL ABS 0.04 K/uL (0-0); PLATELET COUNT 145 K/uL (130-400); RED CELL DISTRIBUTION WIDTH CV 15.3 % (11.5-14.5); RED CELL DISTRIBUTION WIDTH SD 57.5 fL (36.4-46.3); WHITE BLOOD COUNT 12.56 K/uL (4.8-10.8)
[2017-10-22 06:43] LABS: CALCIUM 9.1 mg/dl (8.5-10.1); CREATININE 1.07 mg/dl (0.60-1.20); POTASSIUM 5.3 mmol/L (3.5-5.1)
[2017-10-22] MEDS: DOXYCYCLINE HYCLATE 100 MG CAP PO SCH (08:50)
[2017-10-22] MEDS: LACTOBACILLUS ACIDOPHILUS (FLORANEX) TAB PO SCH (08:50)
[2017-10-22] MEDS: DOCUSATE SODIUM/SENNA 50/8.6MG TAB PO SCH (08:50)
[2017-10-22] MEDS: CEROVITE ADV FORMULA TAB PO SCH (08:50)
[2017-10-22] MEDS: BOOST GLUCOSE CONTROL PO SCH ×2 (08:50→17:39)
[2017-10-22] MEDS: CETIRIZINE HCL 10 MG TAB PO SCH (08:51)
[2017-10-22] MEDS: DILTIAZEM HCL 240 MG CAPCR PO SCH (08:51)
[2017-10-22] MEDS: ALLOPURINOL 300 MG TAB PO SCH (08:51)
[2017-10-22] MEDS: GUAIFENESIN 600 MG TABCR PO SCH ×2 (08:51→21:11)
[2017-10-22] MEDS: ASPIRIN 81 MG ECTAB PO SCH (08:51)
[2017-10-22] MEDS: DOCUSATE SODIUM 100 MG CAP PO SCH ×2 (08:51→21:11)
--- NOTE | 2017-10-22 08:54 | Progress Note ---
Subjective Date of Service: Oct 22, 2017. Subjective Pt evaluation today including: conversation w/ patient, physical exam, lab review, review of studies, review of inpatient medication list Saw/examined the patient in room 201 She is seated comfortably Breathing improving Cough is improving HRs much improved Problem List Medical Problems: (1) Acute bronchitis Status: Acute (2) Anxiety Status: Chronic (3) Anxiety Status: Acute (4) Atrial fibrillation Status: Chronic (5) Diabetes mellitus Status: Chronic (6) Hyperlipidemia Status: Chronic (7) Hypertension Status: Acute (8) Hypothyroidism Status: Chronic (9) Hypoxia Status: Acute (10) Lightheaded Status: Acute (11) Pacemaker Status: Chronic (12) Pulmonary nodules Status: Acute (13) Vertigo Status: Acute (14) Vertigo Status: Acute (15) Wheezing Status: Acute Surgical Problems: (1) H/O thyroidectomy Status: Chronic (2) S/P knee replacement Status: Chronic Review of Systems Constitutional: + weakness, No fever, No chills Respiratory: + cough, + sputum, No wheezing, No shortness of breath, No dyspnea on exertion, No dyspnea at rest, No hemoptysis Cardiac: No chest pain Abdomen: No pain, No nausea, No vomiting, No diarrhea Medications Current Inpatient Medications Medications (Trade) Dose Ordered Sig/Los Route Start Time Stop Time Status Last Admin Dose Admin Acetaminophen (Tylenol Tab) 650 mg Q4H PRN PO 10/15/17 16:00 11/14/17 15:59 10/20/17 21:58 650 MG Al Hydrox/Mg Hydrox/Simethicone (Maalox Max Susp) 15 ml Q4H PRN PO 10/15/17 16:00 11/14/17 15:59 Magnesium Hydroxide (Milk Of Magnesia Susp) 30 ml Q12H PRN PO 10/15/17 16:00 11/14/17 15:59 10/18/17 14:50 30 ML Nitroglycerin (Nitrostat Tab) 0.4 mg UD PRN SL 10/15/17 16:00 11/14/17 15:59 Aspirin (Ecotrin Tab) 81 mg QAM PO 10/16/17 09:00 11/15/17 08:59 10/21/17 08:56 81 MG Polyethylene (Miralax Powder Packet) 17 gm DAILY PRN PO 10/15/17 16:00 11/14/17 15:59 10/18/17 18:32 17 GM Glucose (Glucose 40% Gel) 15-30 GRAMS 15 GRAMS... UD PRN PO 10/15/17 16:00 11/14/17 15:59 Glucose (Glucose Chew Tab) 4-8 Tablets 4 Tabl... UD PRN PO 10/15/17 16:00 11/14/17 15:59 Dextrose (Dextrose 50% 50ML Syringe) 25-50ML OF 50% DW IV FOR... UD PRN IV 10/15/17 16:00 11/14/17 15:59 Glucagon (Glucagon Inj) 1 mg UD PRN SQ 10/15/17 16:00 11/14/17 15:59 Allopurinol (Zyloprim Tab) 300 mg QAM PO 10/16/17 09:00 11/15/17 08:59 10/21/17 08:56 300 MG Calcium Carbonate (Tums Chew Tab) 1,000 mg BID PRN PO 10/15/17 16:00 11/14/17 15:59 Cetirizine HCl (zyrTEC TAB) 10 mg QAM PO 10/16/17 09:00 11/15/17 08:59 10/21/17 08:56 10 MG Docusate Sodium (coLACE CAP) 100 mg BID PO 10/15/17 21:00 11/14/17 20:59 10/21/17 19:49 100 MG Loperamide HCl (Imodium Cap) 2 mg Q4H PRN PO 10/15/17 16:00 11/14/17 15:59 Lorazepam (Ativan Tab) 0.25 mg Q6H PRN PO 10/15/17 16:00 11/14/17 15:59 10/18/17 20:37 0.25 MG Multivitamins/ Minerals (Multivitamin W/ Minerals Tab) 1 tab QAM PO 10/16/17 09:00 11/15/17 08:59 10/21/17 08:56 1 TAB Senna/Docusate Sodium (Senokot S Tab) 1 tab QAM PO 10/16/17 09:00 11/15/17 08:59 10/21/17 08:56 1 TAB Codeine Phosphate/ Guaifenesin (Robitussin-AC Sugar Free Syrup) 5 ml Q6H PRN PO 10/15/17 17:15 11/14/17 17:14 10/21/17 16:20 5 ML Doxycycline Hyclate (Vibramycin Cap) 100 mg BID PO 10/15/17 21:00 10/22/17 20:59 10/21/17 19:49 100 MG Albuterol/ Ipratropium (Duoneb) 3 ml Q2R PRN INH 10/15/17 17:30 11/14/17 17:29 Metoprolol Tartrate (Lopressor Iv) 5 mg Q6 PRN IV 10/16/17 00:15 11/15/17 00:14 10/18/17 20:38 5 MG Ipratropium [place] (Atrovent 0.02% 0.5MG/2.5ML Neb) 0.5 mg Q4R INH 10/16/17 12:00 11/15/17 11:59 10/22/17 07:30 0.5 MG Levalbuterol (Xopenex 1.25MG/ 0.5ML Neb) 1.25 mg Q4R INH 10/16/17 12:00 11/15/17 11:59 10/22/17 07:30 1.25 MG Sertraline HCl (Zoloft Tab) 150 mg HS PO 10/16/17 21:00 11/15/17 20:59 10/21/17 19:50 150 MG Methylprednisolone Sodium Succinate 80 mg/Syringe 1.28 ml @ 1.5 mls/min Q12H IV 10/17/17 14:00 11/16/17 13:59 10/22/17 01:02 1.5 MLS/MIN Ketorolac Tromethamine (Toradol Tab) 10 mg Q6H PRN PO 10/19/17 09:30 10/24/17 09:29 10/21/17 19:51 10 MG Lactobacillus Acidophilus (Floranex Tab) 1 tab QAM PO 10/20/17 09:00 11/15/17 08:59 10/21/17 08:56 1 TAB Insulin Aspart (novoLOG ASPART) SLIDING SCALE If C... ACHS SC 10/20/17 07:00 11/19/17 06:59 10/21/17 21:45 1 UNITS Diltiazem HCl (Cardizem Cd Cap) 240 mg QAM PO 10/21/17 09:00 11/20/17 08:59 10/21/17 08:56 240 MG Digoxin (Lanoxin Tab) 0.125 mg DAILY@16 PO 10/21/17 16:00 11/20/17 15:59 10/21/17 16:20 0.125 MG Enteral Nutritional Formula (Boost Glucose Control) 1 can BIDM PO 10/21/17 16:45 11/20/17 16:44 10/21/17 16:21 1 CAN Guaifenesin (Mucinex Contr Rel Tab) 1,200 mg Q12 PO 10/22/17 09:00 11/21/17 08:59 Insulin Glargine (Lantus Solostar Pen) 5 units BID SC 10/22/17 09:00 11/21/17 08:59 Objective Vital Signs Date Time Temp Pulse Resp B/P (MAP) Pulse Ox O2 Delivery O2 Flow Rate FiO2 10/22/17 07:49 37.0 77 27 107/75 (86) 92 Nasal Cannula 2.0 10/22/17 07:30 68 16 96 Nasal Cannula 2.0 10/22/17 04:00 95 Nasal Cannula 3.0 10/22/17 03:25 85 16 96 Nasal Cannula 2.0 10/22/17 03:25 36.8 75 19 118/73 (88) 96 Nasal Cannula 2.0 10/22/17 00:00 95 Nasal Cannula 3.0 10/21/17 23:13 76 16 98 Nasal Cannula 2.0 10/21/17 23:05 36.8 84 21 115/86 (96) 94 Nasal Cannula 2.0 10/21/17 20:00 95 Nasal Cannula 3.0 10/21/17 19:27 37.0 77 24 90/76 (81) 95 Nasal Cannula 2.0 10/21/17 19:06 107 16 98 Nasal Cannula 2.0 10/21/17 16:20 83 10/21/17 16:00 Nasal Cannula 2.0 10/21/17 15:36 78 14 96 Nasal Cannula 2.0 10/21/17 15:09 37.0 87 20 114/93 (100) 93 Room Air 10/21/17 12:20 36.6 85 22 125/73 (90) 92 Nasal Cannula 2.0 10/21/17 12:00 Nasal Cannula 2.0 10/21/17 11:13 77 14 97 Nasal Cannula 2.0 Physical Exam General Appearance: no apparent distress Respiratory/Chest: no respiratory distress, no accessory muscle use, + rhonchi Cardiovascular: no murmur, + irregularly irregular Extremities: normal inspection, no pedal edema Neurologic/Psychiatric: no motor/sensory deficits, alert, normal mood/affect Laboratory Results Last 24 Hours Test 10/21/17 10:44 10/21/17 16:12 10/21/17 20:58 10/22/17 05:28 Bedside Glucose 229 mg/dl 186 mg/dl 229 mg/dl White Blood Count 12.56 K/uL Red Blood Count 3.64 M/uL Hemoglobin 12.2 g/dL Hematocrit 37.6 % Mean Corpuscular Volume 103.3 fL Mean Corpuscular Hemoglobin 33.5 pg Mean Corpuscular Hemoglobin Concent 32.4 g/dl RDW Standard Deviation 57.5 fL RDW Coefficient of Variation 15.3 % Platelet Count 145 K/uL Mean Platelet Volume 10.6 fL Nucleated RBC Absolute Count (auto) 0.04 K/uL Nucleated Red Blood Cells % 0.3 % Sodium Level 138 mmol/L Potassium Level 5.3 mmol/L Chloride Level 104 mmol/L Carbon Dioxide Level 24 mmol/L Anion Gap 10.0 mmol/L Blood Urea Nitrogen 66 mg/dl Creatinine 1.07 mg/dl Est Creatinine Clear Calc Drug Dose 33.9 ml/min Estimated GFR () 53.7 Estimated GFR (Non- 46.3 BUN/Creatinine Ratio 61.6 Random Glucose 199 mg/dl Calcium Level 9.1 mg/dl Magnesium Level 2.5 mg/dl Test 10/22/17 06:33 Bedside Glucose 239 mg/dl Assessment and Plan This is an 87 year old female with a PMH of A. Fib, HTN, CKD stage 3, sick sinus syndrome s/p pacemaker, CAD, DM2 presents from independent living due to worsening shortness of breath Acute Hypoxic Respiratory Failure secondary to presumed COPD Exacerbation Severe Pulmonary HTN 10/22 she is now off of b-blockers currently on Solumedrol 80mg q12 - will need to taper as soon as possible continue doxycycline Hycodan PRN nebulization 10/21 appreciate pulm and cardio input plan for now is to transition from metoprolol to Cardizem and digoxin as per cardiology continue IV steroids, Hycodan PRN and nebs 10/20 continue pulmonary care including IV steroids, Hycodan PRN, nebs further management as per pulmonology for now, no bronchoscope unless condition does not improve we can wean O2 as tolerated PT/OT 10/19 no official diagnosis of COPD patient was never a smoker, but her smoked for numerous years appreciate pulmonary input currently she is on Solu-medrol 80mg IV BID will taper to prednisone when okay with pulmonary Hycodan PRN for cough nebulizers as needed; will use Levalbuterol due to tachycardia 10/18 plan for now is to continue solu-medrol, nebulizers PRN possible pacemaker replacement on 10/19 may need Lasix and possibly an increase in b- chaya, monitor this overnight appreciate pulmonology and cardio input 10/17 appreciate pulm input solu-medrol started continue nebulizers PRN hycodan PRN for the cough continue b-chaya for rate control appreciate cardio input will delay pacemaker replacement 10/16 patient is NPO after midnight for pacemaker replacement in AM as per cardiology metoprolol dose is increased now continue IV heparin for now restarted Zoloft Hycodan PRN for cough restart Lasix if okay with cardiology for now nebulizers and abx. for breathing A. Fib with RVR - improving 10/22 currently on Cardizem and Digoxin; off of metoprolol HRs are much improved Eliquis to be started as per cardiology 10/19 multiple causes, including hypoxia and respiratory distress currently on Toprol; dose increased to 100mg rates are improving down to closer to 100 monitor HRs on tele will add Coumadin for around 1 month as per cardiology DM2 patient is currently on an insulin sliding scale due to steroid use, BSGs are elevated added Lantus 5 units BID on 10/22 continue to monitor BSGs and adjust Sick Sinus Syndrome pacemaker has been replaced on 10/19 Hematuria - resolved likely secondary to Gayle placement can d/c Gayle Bilateral Pulmonary Nodules CT chest with contrast performed multiple bilateral pulmonary nodules; suspicious for metastatic disease spoke with son - no biopsy needed for lung; wants symptomatic treatment only patient is agreeable to this plan Acute Kidney Injury superimposed on CKD stage 3 - resolved creatinine on admission around 1.2 baseline is around 1.0 will hold off on IVFs or diuretics, currently euvolemic Prolonged QTc monitor electrolytes hold QTc prolonging agents if able DVT ppx SCDs DNR/DNI Antony Conn, son, is the [facility] - [phone]
[2017-10-22] MEDS: INSULIN ASPART 100 UNITS/ML 3 ML PEN SC SCH ×4 (08:58→21:20)
[2017-10-22] MEDS: INSULIN GLARGINE SOLOSTAR 100 UNITS/ML 3 ML PEN SC SCH ×2 (10:14→21:21)
--- NOTE | 2017-10-22 12:47 | PULMONARY PROGRESS NOTE ---
DATE: 10/22/2017 SUBJECTIVE: Cough, improved. The patient is less dyspneic. She feels better rested today. PHYSICAL EXAMINATION: VITAL SIGNS: Stable. Temperature 37.0, pulse 77 and regular, respiratory rate between 16 and 27, blood pressure 107/75, O2 sat 92% on 2 liters. SKIN: Without lesion. HEENT: Atraumatic, normocephalic. PERRLA. LUNGS: Less wheezes audible, distant. CARDIAC: Exam unchanged. ABDOMEN: Soft. EXTREMITIES: No pedal edema. ASSESSMENT: Stable, improving. Review of the CTA of chest wall on 10/15/2017 compared to 10/09/2017, there are multiple greater than 38 bilateral pulmonary nodules suspicious for metastatic disease. I have gone back into the EMR to see if a previous CT scan of the chest had been performed. I cannot find one. The last chest x-ray prior to Fco's admission was in June 2016 and I cannot appreciate pulmonary nodules present at that juncture. The chest film on 10/15/2017 clearly shows the pulmonary nodules, especially the one on the right upper lobe that is now measuring 1.4 cm. OVERALL ASSESSMENT AND PLAN: Continue current pulmonary toilet, would decrease steroids slowly to an oral dose as well as oral antibiotics and mobilize patient. Decision will need to be made down the road whether any of these nodules are wedged out for diagnosis, although it is possible to try to reach the right upper lobe nodule by navigational bronchoscopy for tissue diagnosis.
[2017-10-22] MEDS: GUAIFENESIN/CODEINE 100MG/10MG 5ML UDC PO PRN (13:53)
[2017-10-22] MEDS: DIGOXIN 0.125 MG TAB PO SCH (17:40)
[2017-10-22] MEDS: SERTRALINE HCL 100 MG TAB PO SCH (21:12)
[2017-10-22] MEDS: LORAZEPAM 0.5 MG TAB PO PRN (22:10)
[2017-10-23] VITALS (12 sets, daily range): BP systolic 110–150; BP diastolic 69–103; PULSE 77–97; TEMP 36.4–37; O2SAT 88–99
[2017-10-23] MEDS: METHYLPREDNISOLONE IV 80 MG in SYRINGE 0 ML IV SCH (03:11)
[2017-10-23] MEDS: IPRATROPIUM BROMIDE NEB SOLN 0.02% 2.5 ML VIAL INH SCH ×6 (03:41→23:16)
[2017-10-23] MEDS: LEVALBUTEROL 1.25MG/0.5ML NEB INH SCH ×6 (03:41→23:16)
[2017-10-23 06:11] LABS: HEMOGLOBIN 11.7 g/dL (12.0-16.0); MEAN CELL VOLUME 102.9 fL (80-100); MEAN CORPUSCULAR HEMOGLOBIN 33.4 pg (25-34); MEAN CORPUSCULAR HGB CONC 32.5 g/dl (32-36); MEAN PLATELET VOLUME 10.3 fL (7.4-10.4); NUCLEATED RED BLOOD CELL ABS 0.05 K/uL (0-0); PLATELET COUNT 172 K/uL (130-400); RED CELL DISTRIBUTION WIDTH CV 15.4 % (11.5-14.5); RED CELL DISTRIBUTION WIDTH SD 57.7 fL (36.4-46.3); WHITE BLOOD COUNT 17.55 K/uL (4.8-10.8)
[2017-10-23 06:44] LABS: CREATININE 1.02 mg/dl (0.60-1.20); POTASSIUM 5.1 mmol/L (3.5-5.1)
--- NOTE | 2017-10-23 07:28 | DIAGNOSTIC IMAGING REPORT ---
CHEST ONE VIEW PORTABLE HISTORY: shortness of breath COMPARISON: Chest 10/20/2017. FINDINGS: A few scattered pulmonary nodules with the largest in the right upper lobe measuring 1.3 cm. No new focal lung consolidations. Mild interstitial thickening at the lung bases persist. Mild emphysema. No pneumothorax. Left-sided dual-chamber pacemaker. The heart remains unenlarged. No evidence for pulmonary edema. The patient is slightly rotated on this study. Old left clavicle fracture. IMPRESSION: No significant change compared to the prior study. No acute process. Pulmonary nodules and cardiomegaly are again noted. Electronically signed by: Marco Harman M.D. 10/23/2017 7:26 AM Dictated Date/Time: 10/23/2017 7:25 AM
[2017-10-23] MEDS: BOOST GLUCOSE CONTROL PO SCH (07:30)
--- NOTE | 2017-10-23 08:53 | DIAGNOSTIC IMAGING REPORT ---
CT SCAN OF THE BRAIN WITHOUT IV CONTRAST CLINICAL HISTORY: Sudden onset of right-sided weakness. COMPARISON STUDY: CT of the brain dated 10/22/2015. TECHNIQUE: Unenhanced axial CT scan of the brain is performed from the vertex to the skull base. A dose lowering technique was utilized adhering to the principles of ALARA. CT DOSE: 537.48 mGy.cm FINDINGS: Brain parenchyma: There are age-related involutional changes noting moderate subcortical and periventricular microangiopathic change. There is no hemorrhage, mass effect, or evidence of acute territorial ischemia by CT criteria. Green-white matter is preserved. No extra-axial fluid collection is seen. Ventricles, sulci, cisterns: Prominent secondary to involutional change. Intracranial vasculature: There is atherosclerotic calcification of the cavernous carotid intervertebral arteries. Calvarium: Unremarkable. Sinuses and mastoids: Mucosal thickening is present within the maxillary antra. There is an air-fluid level in the left. Moderate mucosal thickening is also seen in the ethmoid sinuses. The mastoid air cells are well pneumatized. Orbits: The bony orbits are grossly intact. There are bilateral ocular lens implants. IMPRESSION: There is no hemorrhage, mass effect, or evidence of acute territorial ischemia by CT criteria. Electronically signed by: Hermann Egan M.D. 10/23/2017 8:52 AM Dictated Date/Time: 10/23/2017 8:45 AM
[2017-10-23] MEDS: DOCUSATE SODIUM 100 MG CAP PO SCH (09:00)
[2017-10-23] MEDS: ASPIRIN 81 MG ECTAB PO SCH (09:00)
[2017-10-23] MEDS: ALLOPURINOL 300 MG TAB PO SCH (09:00)
[2017-10-23] MEDS: GUAIFENESIN 600 MG TABCR PO SCH ×2 (09:00→20:29)
[2017-10-23] MEDS: LACTOBACILLUS ACIDOPHILUS (FLORANEX) TAB PO SCH (09:00)
[2017-10-23] MEDS: DILTIAZEM HCL 240 MG CAPCR PO SCH (09:00)
[2017-10-23] MEDS: CETIRIZINE HCL 10 MG TAB PO SCH (09:00)
[2017-10-23] MEDS: DOCUSATE SODIUM/SENNA 50/8.6MG TAB PO SCH (09:00)
[2017-10-23] MEDS: CEROVITE ADV FORMULA TAB PO SCH (09:00)
[2017-10-23] MEDS: INSULIN ASPART 100 UNITS/ML 3 ML PEN SC SCH ×4 (09:03→21:43)
[2017-10-23] MEDS: INSULIN GLARGINE SOLOSTAR 100 UNITS/ML 3 ML PEN SC SCH ×2 (09:04→21:47)
[2017-10-23] MEDS ORDERED: PHARMACIST DISCHARGE MED REC CONSULT PRN (09:15)
[2017-10-23] MEDS ORDERED: HEPARIN 25,000 UNIT/500ML D5W 500 ML IV PRN (09:30)
[2017-10-23] MEDS ORDERED: ASPIRIN 300 MG SUPP PR ONE (09:30)
[2017-10-23 09:40] LABS: INR 1.1 (0.9-1.1); PTT PATIENT 20.8 SECONDS (21.0-31.0)
[2017-10-23 10:10] LABS: HEMOGLOBIN A1C 6.5 % (4.5-5.6)
--- NOTE | 2017-10-23 10:11 | Progress Note ---
Subjective Date of Service: Oct 23, 2017. Subjective Pt evaluation today including: conversation w/ patient, physical exam, lab review, review of studies, review of inpatient medication list Saw/examined the patient in room 201 [facility]CHANA was called earlier today. Patient was walking to the bathroom and when walking back, developed R sided weakness and facial droop. She made it back to the bed and by the time of my arrival, symptoms had resolved. HRs overnight controlled in the 70s and 80s - she is still in A. Fib Patient then went to head CT stat and on the way back, developed worsening symptoms - speech difficulty, R sided weakness. She can answer some questions, but aphasic at times. Problem List Medical Problems: (1) Acute bronchitis Status: Acute (2) Anxiety Status: Chronic (3) Anxiety Status: Acute (4) Atrial fibrillation Status: Chronic (5) Diabetes mellitus Status: Chronic (6) Hyperlipidemia Status: Chronic (7) Hypertension Status: Acute (8) Hypothyroidism Status: Chronic (9) Hypoxia Status: Acute (10) Lightheaded Status: Acute (11) Pacemaker Status: Chronic (12) Pulmonary nodules Status: Acute (13) Vertigo Status: Acute (14) Vertigo Status: Acute (15) Wheezing Status: Acute Surgical Problems: (1) H/O thyroidectomy Status: Chronic (2) S/P knee replacement Status: Chronic Review of Systems Respiratory: No cough, No sputum, No shortness of breath Cardiac: No chest pain, No palpitations Neurologic: + weakness Medications Current Inpatient Medications Medications (Trade) Dose Ordered Sig/Los Route Start Time Stop Time Status Last Admin Dose Admin Acetaminophen (Tylenol Tab) 650 mg Q4H PRN PO 10/15/17 16:00 11/14/17 15:59 10/20/17 21:58 650 MG Al Hydrox/Mg Hydrox/Simethicone (Maalox Max Susp) 15 ml Q4H PRN PO 10/15/17 16:00 11/14/17 15:59 Magnesium Hydroxide (Milk Of Magnesia Susp) 30 ml Q12H PRN PO 10/15/17 16:00 11/14/17 15:59 10/18/17 14:50 30 ML Nitroglycerin (Nitrostat Tab) 0.4 mg UD PRN SL 10/15/17 16:00 11/14/17 15:59 Aspirin (Ecotrin Tab) 81 mg QAM PO 10/16/17 09:00 11/15/17 08:59 10/22/17 08:51 81 MG Polyethylene (Miralax Powder Packet) 17 gm DAILY PRN PO 10/15/17 16:00 11/14/17 15:59 10/18/17 18:32 17 GM Glucose (Glucose 40% Gel) 15-30 GRAMS 15 GRAMS... UD PRN PO 10/15/17 16:00 11/14/17 15:59 Glucose (Glucose Chew Tab) 4-8 Tablets 4 Tabl... UD PRN PO 10/15/17 16:00 11/14/17 15:59 Dextrose (Dextrose 50% 50ML Syringe) 25-50ML OF 50% DW IV FOR... UD PRN IV 10/15/17 16:00 11/14/17 15:59 Glucagon (Glucagon Inj) 1 mg UD PRN SQ 10/15/17 16:00 11/14/17 15:59 Allopurinol (Zyloprim Tab) 300 mg QAM PO 10/16/17 09:00 11/15/17 08:59 10/22/17 08:51 300 MG Calcium Carbonate (Tums Chew Tab) 1,000 mg BID PRN PO 10/15/17 16:00 11/14/17 15:59 Cetirizine HCl (zyrTEC TAB) 10 mg QAM PO 10/16/17 09:00 11/15/17 08:59 10/22/17 08:51 10 MG Docusate Sodium (coLACE CAP) 100 mg BID PO 10/15/17 21:00 11/14/17 20:59 10/22/17 21:11 100 MG Loperamide HCl (Imodium Cap) 2 mg Q4H PRN PO 10/15/17 16:00 11/14/17 15:59 Lorazepam (Ativan Tab) 0.25 mg Q6H PRN PO 10/15/17 16:00 11/14/17 15:59 10/22/17 22:10 0.25 MG Multivitamins/ Minerals (Multivitamin W/ Minerals Tab) 1 tab QAM PO 10/16/17 09:00 11/15/17 08:59 10/22/17 08:50 1 TAB Senna/Docusate Sodium (Senokot S Tab) 1 tab QAM PO 10/16/17 09:00 11/15/17 08:59 10/22/17 08:50 1 TAB Codeine Phosphate/ Guaifenesin (Robitussin-AC Sugar Free Syrup) 5 ml Q6H PRN PO 10/15/17 17:15 11/14/17 17:14 10/22/17 13:53 5 ML Albuterol/ Ipratropium (Duoneb) 3 ml Q2R PRN INH 10/15/17 17:30 11/14/17 17:29 Metoprolol Tartrate (Lopressor Iv) 5 mg Q6 PRN IV 10/16/17 00:15 11/15/17 00:14 10/18/17 20:38 5 MG Ipratropium [place] (Atrovent 0.02% 0.5MG/2.5ML Neb) 0.5 mg Q4R INH 10/16/17 12:00 11/15/17 11:59 10/23/17 03:41 0.5 MG Levalbuterol (Xopenex 1.25MG/ 0.5ML Neb) 1.25 mg Q4R INH 10/16/17 12:00 11/15/17 11:59 10/23/17 03:41 1.25 MG Sertraline HCl (Zoloft Tab) 150 mg HS PO 10/16/17 21:00 11/15/17 20:59 10/22/17 21:12 150 MG Ketorolac Tromethamine (Toradol Tab) 10 mg Q6H PRN PO 10/19/17 09:30 10/24/17 09:29 10/21/17 19:51 10 MG Lactobacillus Acidophilus (Floranex Tab) 1 tab QAM PO 10/20/17 09:00 11/15/17 08:59 10/22/17 08:50 1 TAB Insulin Aspart (novoLOG ASPART) SLIDING SCALE If C... ACHS SC 10/20/17 07:00 11/19/17 06:59 10/23/17 09:03 3 UNITS Diltiazem HCl (Cardizem Cd Cap) 240 mg QAM PO 10/21/17 09:00 11/20/17 08:59 10/22/17 08:51 240 MG Digoxin (Lanoxin Tab) 0.125 mg DAILY@16 PO 10/21/17 16:00 11/20/17 15:59 Future Hold 10/22/17 17:40 0.125 MG Enteral Nutritional Formula (Boost Glucose Control) 1 can BIDM PO 10/21/17 16:45 11/20/17 16:44 10/22/17 17:39 1 CAN Guaifenesin (Mucinex Contr Rel Tab) 1,200 mg Q12 PO 10/22/17 09:00 11/21/17 08:59 10/22/17 21:11 1,200 MG Insulin Glargine (Lantus Solostar Pen) 5 units BID SC 10/22/17 09:00 11/21/17 08:59 10/23/17 09:04 5 UNITS Methylprednisolone Sodium Succinate 40 mg/Syringe 0.64 ml @ 1.5 mls/min Q12H IV 10/23/17 14:00 11/16/17 13:59 Miscellaneous Information (Pharmacist Discharge Med Rec Consult) 1 ea UD PRN N/A 10/23/17 09:15 11/22/17 09:14 Digoxin 125 mcg/ Syringe 10 ml @ 2 mls/min DAILY@16 IV 10/23/17 16:00 11/22/17 15:59 Heparin Sodium/ Dextrose 500 ml @ 21 mls/hr [id number] PRN IV 10/23/17 09:30 11/22/17 09:29 10/23/17 09:55 21 MLS/HR Objective Vital Signs Date Time Temp Pulse Resp B/P (MAP) Pulse Ox O2 Delivery O2 Flow Rate FiO2 10/23/17 08:31 36.4 77 24 143/95 (111) 98 Nasal Cannula 2.0 10/23/17 08:00 Nasal Cannula 2.0 10/23/17 04:14 36.4 97 22 124/96 (105) 97 Nasal Cannula 2.0 10/23/17 04:00 Nasal Cannula 2.0 10/23/17 03:30 80 20 98 Room Air 10/22/17 23:59 Nasal Cannula 2.0 10/22/17 23:17 36.6 99 18 122/94 (103) 96 Nasal Cannula 2.0 10/22/17 22:50 93 16 96 Room Air 10/22/17 19:16 37.0 76 17 111/89 (96) 97 Nasal Cannula 3.0 10/22/17 19:15 96 Nasal Cannula 3.0 10/22/17 18:53 74 16 98 Nasal Cannula 2.0 10/22/17 17:40 82 10/22/17 16:00 Room Air 10/22/17 15:05 36.4 67 22 115/66 (82) 96 Nasal Cannula 2.0 10/22/17 14:48 82 16 96 Nasal Cannula 2.0 10/22/17 12:08 36.8 73 22 128/75 (92) 98 Nasal Cannula 2.0 10/22/17 12:00 Room Air 10/22/17 11:47 77 16 96 Nasal Cannula 2.0 Physical Exam General Appearance: no apparent distress Respiratory/Chest: no respiratory distress, no accessory muscle use, + rhonchi Cardiovascular: + irregularly irregular (rate controlled) Extremities: + pertinent finding (no swelling) Neurologic/Psychiatric: + pertinent finding (she is alert, awake - answers some questions, but aphasic at other times, difficulty expressing words, R sided weakness intermittently) Laboratory Results Last 24 Hours Test 10/22/17 10:51 10/22/17 16:24 10/22/17 21:01 10/23/17 05:19 Bedside Glucose 257 mg/dl 240 mg/dl 230 mg/dl White Blood Count 17.55 K/uL Red Blood Count 3.50 M/uL Hemoglobin 11.7 g/dL Hematocrit 36.0 % Mean Corpuscular Volume 102.9 fL Mean Corpuscular Hemoglobin 33.4 pg Mean Corpuscular Hemoglobin Concent 32.5 g/dl RDW Standard Deviation 57.7 fL RDW Coefficient of Variation 15.4 % Platelet Count 172 K/uL Mean Platelet Volume 10.3 fL Nucleated RBC Absolute Count (auto) 0.05 K/uL Nucleated Red Blood Cells % 0.3 % Sodium Level 137 mmol/L Potassium Level 5.1 mmol/L Chloride Level 103 mmol/L Carbon Dioxide Level 26 mmol/L Anion Gap 9.0 mmol/L Blood Urea Nitrogen 57 mg/dl Creatinine 1.02 mg/dl Est Creatinine Clear Calc Drug Dose 35.2 ml/min Estimated GFR () 56.9 Estimated GFR (Non- 49.1 BUN/Creatinine Ratio 56.0 Random Glucose 208 mg/dl Calcium Level 9.0 mg/dl Magnesium Level 2.4 mg/dl Test 10/23/17 07:17 10/23/17 08:25 10/23/17 09:17 Bedside Glucose 201 mg/dl 243 mg/dl Prothrombin Time 11.7 SECONDS Prothromb Time International Ratio 1.1 Activated Partial Thromboplast Time 20.8 SECONDS Partial Thromboplastin Ratio 0.8 Assessment and Plan This is an 87 year old female with a PMH of A. Fib, HTN, CKD stage 3, sick sinus syndrome s/p pacemaker, CAD, DM2 presents from independent living due to worsening shortness of breath TIA vs. Acute CVA patient with expressive aphasia, R sided weakness, intermittent symptoms which are lasting longer Held off on stroke alert due to the low likelihood of starting tPA - patient is 87 years old, fall risk, multiple bruises throughout body, recent pacemaker insertion, etc. Head CT no acute process started on IV heparin will give aspirin suppository speech, PT/OT PO dig to IV dig IV Lopressor PRN consulted neurology cannot obtain MRI due to recent pacemaker insertion; possible CTA? will monitor for epistaxis - patient has had significant epistaxis in the past; monitor for hematuria which she was having earlier this admission Acute Hypoxic Respiratory Failure secondary to presumed COPD Exacerbation Severe Pulmonary HTN 10/23 tapered her IV solu-medrol to 40mg q12 continue to taper as tolerated 10/22 she is now off of b-blockers currently on Solumedrol 80mg q12 - will need to taper as soon as possible continue doxycycline Hycodan PRN nebulization 10/21 appreciate pulm and cardio input plan for now is to transition from metoprolol to Cardizem and digoxin as per cardiology continue IV steroids, Hycodan PRN and nebs 10/20 continue pulmonary care including IV steroids, Hycodan PRN, nebs further management as per pulmonology for now, no bronchoscope unless condition does not improve we can wean O2 as tolerated PT/OT 10/19 no official diagnosis of COPD patient was never a smoker, but her smoked for numerous years appreciate pulmonary input currently she is on Solu-medrol 80mg IV BID will taper to prednisone when okay with pulmonary Hycodan PRN for cough nebulizers as needed; will use Levalbuterol due to tachycardia 10/18 plan for now is to continue solu-medrol, nebulizers PRN possible pacemaker replacement on 10/19 may need Lasix and possibly an increase in b- chaya, monitor this overnight appreciate pulmonology and cardio input 10/17 appreciate pulm input solu-medrol started continue nebulizers PRN hycodan PRN for the cough continue b-chaya for rate control appreciate cardio input will delay pacemaker replacement 10/16 patient is NPO after midnight for pacemaker replacement in AM as per cardiology metoprolol dose is increased now continue IV heparin for now restarted Zoloft Hycodan PRN for cough restart Lasix if okay with cardiology for now nebulizers and abx. for breathing A. Fib with RVR - improving 10/22 currently on Cardizem and Digoxin; off of metoprolol HRs are much improved Eliquis to be started as per cardiology 10/19 multiple causes, including hypoxia and respiratory distress currently on Toprol; dose increased to 100mg rates are improving down to closer to 100 monitor HRs on tele will add Coumadin for around 1 month as per cardiology DM2 patient is currently on an insulin sliding scale due to steroid use, BSGs are elevated added Lantus 5 units BID on 10/22 continue to monitor BSGs and adjust Sick Sinus Syndrome pacemaker has been replaced on 10/19 Hematuria - resolved likely secondary to Gayle placement can d/c Gayle Bilateral Pulmonary Nodules CT chest with contrast performed multiple bilateral pulmonary nodules; suspicious for metastatic disease spoke with son - no biopsy needed for lung; wants symptomatic treatment only patient is agreeable to this plan Acute Kidney Injury superimposed on CKD stage 3 - resolved creatinine on admission around 1.2 baseline is around 1.0 will hold off on IVFs or diuretics, currently euvolemic Prolonged QTc monitor electrolytes hold QTc prolonging agents if able DVT ppx IV heparin transition to Eliquis DNR/DNI Antony Conn, son, is the A - [phone]
[2017-10-23] MEDS ORDERED: LORAZEPAM 2 MG/ML 1 ML VIAL IV STA (10:55)
[2017-10-23] MEDS ORDERED: LORAZEPAM 2 MG/ML 1 ML VIAL ONE (13:14)
[2017-10-23] MEDS: METHYLPREDNISOLONE IV 40 MG in SYRINGE 0 ML IV SCH (13:20)
--- NOTE | 2017-10-23 13:46 | Neurology Consultation ---
Neurology Consultation Date of Consultation: Oct 23, 2017. Attending Physician: Marvin Gonzalez DO Primary Care Physician: Saba Shah M.D. Reason for Consultation: TIA vs CVA History of Present Illness Source: hospital records Genevieve is an 87 year old female who has a PMH VT, AF, cardiac pacemaker, DM 2, HTN, thyroid CA, depression, GERD, DL, CAD, CKD stage III, mild cognitive impairment, was sent from [facility] with complaint of SOB, FITZGERALD for the past 2 weeks on 10/15/2017. She was weak and tired with minimal activity, occasional dizzy spell and non productive cough. She had a CT check in ED which r/o PE but suspicious pulmonary nodules were identified possible metastatic malignancy. She was not a smoker but her was a long time smoker and no prior history of asthma or COPD. She was admitted and had a pacemaker replacement/exchange 10/19. Today she had an episode of right sided weakness after coming from the bathroom with right facial droop which resolved going to CT head. She was sent for a CT head and had another episode after the CT head which did not resolve. Nursing staff reports she is very agitated and they have been giving her ativan. She was started on a heparin gtt and suppository aspirin after the second event. She is too confused and is not follow commands to pass her dysphagia screening. Since she just had the pacemaker exchange she can not have an MRI to verify the CVA. ROS can not be done due to confusion. Past Medical/Surgical History Medical Problems: (1) Acute bronchitis Status: Acute (2) Anxiety Status: Chronic (3) Anxiety Status: Acute (4) Atrial fibrillation Status: Chronic (5) Diabetes mellitus Status: Chronic (6) Hyperlipidemia Status: Chronic (7) Hypertension Status: Acute (8) Hypothyroidism Status: Chronic (9) Hypoxia Status: Acute (10) Lightheaded Status: Acute (11) Pacemaker Status: Chronic (12) Pulmonary nodules Status: Acute (13) Vertigo Status: Acute (14) Vertigo Status: Acute (15) Wheezing Status: Acute Surgical Problems: (1) H/O thyroidectomy Status: Chronic (2) S/P knee replacement Status: Chronic Social History Smoking Status: Never smoker Drug Use: none Marital Status: Housing Status: lives alone Occupation Status: retired Allergies Coded Allergies: Sulfa Antibiotics (Verified Allergy, Intermediate, RASH, 10/16/17) Gabapentin (Verified Allergy, Unknown, Unknown Rxn, 10/15/17) Trazodone (Verified Allergy, Unknown, Unknown Rxn, 10/15/17) Current Inpatient Medications Current Inpatient Medications Medications (Trade) Dose Ordered Sig/Los Route Start Time Stop Time Status Last Admin Dose Admin Acetaminophen (Tylenol Tab) 650 mg Q4H PRN PO 10/15/17 16:00 11/14/17 15:59 10/20/17 21:58 650 MG Al Hydrox/Mg Hydrox/Simethicone (Maalox Max Susp) 15 ml Q4H PRN PO 10/15/17 16:00 11/14/17 15:59 Magnesium Hydroxide (Milk Of Magnesia Susp) 30 ml Q12H PRN PO 10/15/17 16:00 11/14/17 15:59 10/18/17 14:50 30 ML Nitroglycerin (Nitrostat Tab) 0.4 mg UD PRN SL 10/15/17 16:00 11/14/17 15:59 Aspirin (Ecotrin Tab) 81 mg QAM PO 10/16/17 09:00 11/15/17 08:59 10/22/17 08:51 81 MG Polyethylene (Miralax Powder Packet) 17 gm DAILY PRN PO 10/15/17 16:00 11/14/17 15:59 10/18/17 18:32 17 GM Glucose (Glucose 40% Gel) 15-30 GRAMS 15 GRAMS... UD PRN PO 10/15/17 16:00 11/14/17 15:59 Glucose (Glucose Chew Tab) 4-8 Tablets 4 Tabl... UD PRN PO 10/15/17 16:00 11/14/17 15:59 Dextrose (Dextrose 50% 50ML Syringe) 25-50ML OF 50% DW IV FOR... UD PRN IV 10/15/17 16:00 11/14/17 15:59 Glucagon (Glucagon Inj) 1 mg UD PRN SQ 10/15/17 16:00 11/14/17 15:59 Allopurinol (Zyloprim Tab) 300 mg QAM PO 10/16/17 09:00 11/15/17 08:59 10/22/17 08:51 300 MG Calcium Carbonate (Tums Chew Tab) 1,000 mg BID PRN PO 10/15/17 16:00 11/14/17 15:59 Cetirizine HCl (zyrTEC TAB) 10 mg QAM PO 10/16/17 09:00 11/15/17 08:59 10/22/17 08:51 10 MG Docusate Sodium (coLACE CAP) 100 mg BID PO 10/15/17 21:00 11/14/17 20:59 10/22/17 21:11 100 MG Loperamide HCl (Imodium Cap) 2 mg Q4H PRN PO 10/15/17 16:00 11/14/17 15:59 Lorazepam (Ativan Tab) 0.25 mg Q6H PRN PO 10/15/17 16:00 11/14/17 15:59 10/22/17 22:10 0.25 MG Multivitamins/ Minerals (Multivitamin W/ Minerals Tab) 1 tab QAM PO 10/16/17 09:00 11/15/17 08:59 10/22/17 08:50 1 TAB Senna/Docusate Sodium (Senokot S Tab) 1 tab QAM PO 10/16/17 09:00 11/15/17 08:59 10/22/17 08:50 1 TAB Codeine Phosphate/ Guaifenesin (Robitussin-AC Sugar Free Syrup) 5 ml Q6H PRN PO 10/15/17 17:15 11/14/17 17:14 10/22/17 13:53 5 ML Albuterol/ Ipratropium (Duoneb) 3 ml Q2R PRN INH 10/15/17 17:30 11/14/17 17:29 Metoprolol Tartrate (Lopressor Iv) 5 mg Q6 PRN IV 10/16/17 00:15 11/15/17 00:14 10/18/17 20:38 5 MG Ipratropium [place] (Atrovent 0.02% 0.5MG/2.5ML Neb) 0.5 mg Q4R INH 10/16/17 12:00 11/15/17 11:59 10/23/17 03:41 0.5 MG Levalbuterol (Xopenex 1.25MG/ 0.5ML Neb) 1.25 mg Q4R INH 10/16/17 12:00 11/15/17 11:59 10/23/17 03:41 1.25 MG Sertraline HCl (Zoloft Tab) 150 mg HS PO 10/16/17 21:00 11/15/17 20:59 10/22/17 21:12 150 MG Ketorolac Tromethamine (Toradol Tab) 10 mg Q6H PRN PO 10/19/17 09:30 10/24/17 09:29 10/21/17 19:51 10 MG Lactobacillus Acidophilus (Floranex Tab) 1 tab QAM PO 10/20/17 09:00 11/15/17 08:59 10/22/17 08:50 1 TAB Insulin Aspart (novoLOG ASPART) SLIDING SCALE If C... ACHS SC 10/20/17 07:00 11/19/17 06:59 10/23/17 12:17 2 UNITS Diltiazem HCl (Cardizem Cd Cap) 240 mg QAM PO 10/21/17 09:00 11/20/17 08:59 10/22/17 08:51 240 MG Digoxin (Lanoxin Tab) 0.125 mg DAILY@16 PO 10/21/17 16:00 11/20/17 15:59 Future Hold 10/22/17 17:40 0.125 MG Enteral Nutritional Formula (Boost Glucose Control) 1 can BIDM PO 10/21/17 16:45 11/20/17 16:44 10/22/17 17:39 1 CAN Guaifenesin (Mucinex Contr Rel Tab) 1,200 mg Q12 PO 10/22/17 09:00 11/21/17 08:59 10/22/17 21:11 1,200 MG Insulin Glargine (Lantus Solostar Pen) 5 units BID SC 10/22/17 09:00 11/21/17 08:59 10/23/17 09:04 5 UNITS Methylprednisolone Sodium Succinate 40 mg/Syringe 0.64 ml @ 1.5 mls/min Q12H IV 10/23/17 14:00 11/16/17 13:59 10/23/17 13:20 1.5 MLS/MIN Miscellaneous Information (Pharmacist Discharge Med Rec Consult) 1 ea UD PRN N/A 10/23/17 09:15 11/22/17 09:14 Digoxin 125 mcg/ Syringe 10 ml @ 2 mls/min DAILY@16 IV 10/23/17 16:00 11/22/17 15:59 Heparin Sodium/ Dextrose 500 ml @ 21 mls/hr [id number] PRN IV 10/23/17 09:30 11/22/17 09:29 10/23/17 09:55 21 MLS/HR Physical Exam Vital Signs (Past 24 Hrs): Date Time Temp Pulse Resp B/P (MAP) Pulse Ox O2 Delivery O2 Flow Rate FiO2 10/23/17 12:44 36.6 84 30 150/103 (119) 98 Nasal Cannula 2.0 10/23/17 11:56 93 Nasal Cannula 2.0 10/23/17 08:31 36.4 77 24 143/95 (111) 98 Nasal Cannula 2.0 10/23/17 08:00 Nasal Cannula 2.0 10/23/17 04:14 36.4 97 22 124/96 (105) 97 Nasal Cannula 2.0 10/23/17 04:00 Nasal Cannula 2.0 10/23/17 03:30 80 20 98 Room Air 10/22/17 23:59 Nasal Cannula 2.0 10/22/17 23:17 36.6 99 18 122/94 (103) 96 Nasal Cannula 2.0 10/22/17 22:50 93 16 96 Room Air 10/22/17 19:16 37.0 76 17 111/89 (96) 97 Nasal Cannula 3.0 10/22/17 19:15 96 Nasal Cannula 3.0 10/22/17 18:53 74 16 98 Nasal Cannula 2.0 10/22/17 17:40 82 10/22/17 16:00 Room Air 10/22/17 15:05 36.4 67 22 115/66 (82) 96 Nasal Cannula 2.0 10/22/17 14:48 82 16 96 Nasal Cannula 2.0 Physical Exam: Constitutional: confused and unable to follow commands Ears, Nose, Mouth and Throat: mucous membranes moist, no injection and skin normal, eyes normal Cardiovascular: normal S-1 and S-2 and regular rate and rhythm Respiratory: course breath sounds Musculoskeletal: peripheral edema weak pulses Skin: no stigmata of neurocutaneous disease noted and normal and intact Eyes: does not follow NEUROLOGIC EXAMINATION: Mental status: Alert and interactive Oriented to person Speech when asked questions rambling words Cranial Nerves right facial droop, able to raise bilaterally eye brows, Reflexes: Deep tendon reflexes were symmetrical and graded 2/5. Plantar responses were flexor. Coordination: touches finger to finger on left Gait/Stance: Posture lying in bad Motor: unable to hold right arm against gravity. Strength: will not follow commands, moves both LE spontaneously and with stimuli Laboratory Results Past 24 Hours: 10/23/17 05:19 10/23/17 05:19 Test 10/23/17 05:19 10/23/17 09:17 10/23/17 11:01 Red Blood Count 3.50 M/uL (4.2-5.4) Mean Corpuscular Volume 102.9 fL (80-100) Mean Corpuscular Hemoglobin 33.4 pg (25-34) Mean Corpuscular Hemoglobin Concent 32.5 g/dl (32-36) RDW Standard Deviation 57.7 fL (36.4-46.3) RDW Coefficient of Variation 15.4 % (11.5-14.5) Mean Platelet Volume 10.3 fL (7.4-10.4) Nucleated RBC Absolute Count (auto) 0.05 K/uL (0-0) Nucleated Red Blood Cells % 0.3 % Anion Gap 9.0 mmol/L (3-11) Est Creatinine Clear Calc Drug Dose 35.2 ml/min Estimated GFR () 56.9 Estimated GFR (Non- 49.1 BUN/Creatinine Ratio 56.0 (10-20) Calcium Level 9.0 mg/dl (8.5-10.1) Magnesium Level 2.4 mg/dl (1.8-2.4) Prothrombin Time 11.7 SECONDS (9.0-12.0) Prothromb Time International Ratio 1.1 (0.9-1.1) Activated Partial Thromboplast Time 20.8 SECONDS (21.0-31.0) Partial Thromboplastin Ratio 0.8 Estimated Average Glucose 140 mg/dl Hemoglobin A1c 6.5 % (4.5-5.6) Bedside Glucose 242 mg/dl (70-90) Imaging TTE- Normal LV size and wall thickness. 2. Low normal LV systolic function. LVEF 50-55%. 3. Mildly dilated RV with borderline function. 4. Severe tricuspid regurgitation. 5. Mild mitral regurgitation. Mild PI. 6. Severe PH. Est PASP 60-65 mmHg. Dilated IVC. Est RA 15 mmHg. 7. Compared with prior study on 02/07/2017: Severe TR, pulmonary hypertension, RV dilation is new. CT head- : There is no hemorrhage, mass effect, or evidence of acute territorial ischemia by CT criteria. Impression 87 year old presented with SOB and FITZGERALD, pacemaker exchange- sudden MS, right side weakness Plan 1. continue heparin gtt (stopped for now) and aspirin [place] for now 2. dysphagia screening when able 3. CT head - repeat now 4. unable to have MRI due to pacemaker exchange - 10/19/2017 5. cardiology for rate control afib 6. permissive HTN for now 7. PT/OT speech assessments for discharge needs 8. cardiology on board for further evaluation of afib related infarct and direction of therapy 9. limit ativan due to sedation 10, further recommendations to follow I have seen and discussed above patient with Dr Puja Soto, neurology Pt seen and examined, chart, images reviewed. Spoke with Dr Gonzalez. Pt has relative left gaze preference, language dysfunction, dysarthria, confusion, mildly decreased level of consciousness. RUE min volitional mvmt, rle withdrawal. CT repeated, no clear infarct, no hemorrhage. Heparin stopped bc of large size of infarct and therefore risk of hemorrhage transformation. I doubt pt is a good [place] [facility] ac candidate. Would use asa as you are doing. Rec repeat CT head noncontrast 48 hour from initial.Carotid US ordered. Will follow with you. KOFFI Soto MD
--- NOTE | 2017-10-23 14:57 | PULMONARY PROGRESS NOTE ---
DATE: 10/23/2017 SUBJECTIVE: I addressed the patient morning at 0730 that I would be happy to speak with her son who wished to discuss her cardiopulmonary status with me and the appearance of multiple pulmonary nodules on CT scan of the chest. Apparently, half hour after she saw me, she went to the bathroom escorted by the nurse and demonstrated signs of aphasia and weakness. She was placed back in bed. A CT scan of the head showed no evidence for hemorrhage or at that point in time, acute cerebral infarct. The symptoms appeared to brett and then recurred. She has seen neurology, specifically Puja De Guzman, the physician phlebotomist medical lab assistant today. The patient has a past medical history of ventricular tachycardia, atrial fibrillation, cardiac pacemaker, diabetes mellitus type 2 and hypertension as well as thyroid CA, depression, and GERD. She also has chronic renal disease and coronary artery disease and a history of a mild cognitive impairment. I informed the patient son that she has greater than [address] scan of the chest and this appears to be very suspicious for metastatic disease. There was a plan to consider bronchoscopic evaluation because of the patient's persistent cough and dyspnea that did not seem to improve with aggressive management. We did stop her beta chaya last week as a thought this may be contributing to her bronchospasm and Cardizem was utilized instead. I spoke with Dr. Pineda concerning that. We placed the pacemaker this past week and IV anticoagulation was held for the procedure, but not restarted. Apparently, patient has fallen many times at home and had numerous ecchymotic areas on the abdominal and posterior chest area consistent with falls. I also was considering a bronchoscopic evaluation if patient's symptoms did not improve. I told the patient's son that over the weekend, she seemed to turn a corner from a respiratory standpoint. Certainly, if she has metastatic disease with a primary of the lung with metastatic disease then, at her age and comorbidities, I am not sure any treatment would be forthcoming. He agreed. This right-sided weakness has persisted and she has a right facial droop with partial expressive aphasia. She is unable to get an MRI scan because of the recent pacemaker implantation. The heparin has been restarted. The plans were made to switch her over to Eliquis provided that there is no evidence for a hemorrhagic infarct. The patient does have severe pulmonary hypertension as well by an echo. At this point in time, there is no plan for further evaluation, i.e., bronchoscopic evaluation given the most recent cerebral incident and clinical status currently. MTDD
[2017-10-23 16:33] LABS: PTT PATIENT 49.8 SECONDS (21.0-31.0)
--- NOTE | 2017-10-23 16:44 | DIAGNOSTIC IMAGING REPORT ---
HEAD WITHOUT CONTRAST (CT) CT DOSE: 1074.96 mGy.cm HISTORY: Mental status change right side weakness TECHNIQUE: Multiaxial CT images of the head were performed without the use of intravenous contrast. A dose lowering technique was utilized adhering to the principles of ALARA. Comparison: 10/23/2017 8:35 AM Findings: Moderate mucosal thickening of all major sinuses. Mastoid air cells are considered clear. Generalized atrophy of the cerebellar as well as cerebral hemispheres. Mild compensatory prominence of the ventricular system. Mild chronic small vessel change of the periventricular and deep white matter regions. All findings appear similar as compared to the prior study. There is no new or interval process. The calvarium and skull base are intact. The ventricles and sulci are within normal limits. There is no mass, hematoma, midline shift, or acute infarct. Impression: Chronic and age-related change. No acute intracranial abnormality. No change from the prior study. The above report was generated using voice recognition software. It may contain grammatical, syntax or spelling errors. Electronically signed by: Bradley Gallagher M.D. 10/23/2017 4:42 PM Dictated Date/Time: 10/23/2017 4:41 PM
[2017-10-23] MEDS: DIGOXIN IV 125 MCG in SYRINGE 9.5 ML IV SCH (17:48)
--- NOTE | 2017-10-23 19:13 | DIAGNOSTIC IMAGING REPORT ---
CAROTID DOPPLER NECK ART HISTORY: Mental status change right sided weakness COMPARISON: None. TECHNIQUE: Real-time, grayscale, and color Doppler sonography of the carotid arteries was performed. Imaging reviewed in the transverse and longitudinal planes. All measurements were calculated based on NASCET criteria. FINDINGS: Antegrade flow is seen in the bilateral vertebral arteries. The brachial pressures are hemodynamically similar. Moderate plaque formation bilaterally. The peak systolic velocity within the right ICA is 168. The right systolic ratio is 2.2. The peak systolic velocity within the left ICA is 70. The left systolic ratio is 0.83. IMPRESSION: 1. 50-70% stenosis right internal carotid artery. 2. No additional significant stenotic process. The above report was generated using voice recognition software. It may contain grammatical, syntax or spelling errors. Electronically signed by: Bradley Gallagher M.D. 10/23/2017 7:11 PM Dictated Date/Time: 10/23/2017 7:11 PM
[2017-10-24] VITALS (12 sets, daily range): BP systolic 108–118; BP diastolic 57–79; PULSE 73–100; TEMP 36.7–37.3; O2SAT 92–99
[2017-10-24] MEDS: METHYLPREDNISOLONE IV 40 MG in SYRINGE 0 ML IV SCH ×2 (02:15→14:18)
[2017-10-24] MEDS: LEVALBUTEROL 1.25MG/0.5ML NEB INH SCH ×6 (03:43→23:05)
[2017-10-24] MEDS: IPRATROPIUM BROMIDE NEB SOLN 0.02% 2.5 ML VIAL INH SCH ×6 (03:43→23:05)
[2017-10-24 06:00] LABS: HEMATOCRIT 26.4 % (37-47); HEMOGLOBIN 8.7 g/dL (12.0-16.0); MEAN CELL VOLUME 102.3 fL (80-100); MEAN CORPUSCULAR HEMOGLOBIN 33.7 pg (25-34); MEAN PLATELET VOLUME 9.8 fL (7.4-10.4); NUCLEATED RED BLOOD CELL ABS 0.04 K/uL (0-0); PLATELET COUNT 139 K/uL (130-400); PTT PATIENT 20.3 SECONDS (21.0-31.0); RED CELL DISTRIBUTION WIDTH CV 15.5 % (11.5-14.5); RED CELL DISTRIBUTION WIDTH SD 56.9 fL (36.4-46.3); WHITE BLOOD COUNT 15.05 K/uL (4.8-10.8)
[2017-10-24] MEDS ORDERED: INSULIN ASPART 100 UNITS/ML 3 ML PEN SC SCH (06:00)
[2017-10-24 06:25] LABS: BASO % 0.1 %; BASO ABS # 0.02 K/uL (0-0.2); IG# 0.27 K/uL (0.00-0.02); LYMPH ABS # 0.76 K/uL (1.2-3.4); MONO % 6.9 %; MONO ABS # 1.04 K/uL (0.11-0.59); NEUT % 86.2 %; NEUT ABS # 12.96 K/uL (1.4-6.5)
[2017-10-24 06:40] LABS: CALCIUM 8.4 mg/dl (8.5-10.1); CREATININE 0.86 mg/dl (0.60-1.20); POTASSIUM 4.8 mmol/L (3.5-5.1)
[2017-10-24 08:23] LABS: HEMATOCRIT 26.7 % (37-47); HEMOGLOBIN 8.8 g/dL (12.0-16.0); MEAN CELL VOLUME 101.9 fL (80-100); MEAN CORPUSCULAR HEMOGLOBIN 33.6 pg (25-34); MEAN PLATELET VOLUME 10.1 fL (7.4-10.4); NUCLEATED RED BLOOD CELL ABS 0.06 K/uL (0-0); PLATELET COUNT 139 K/uL (130-400); RED CELL DISTRIBUTION WIDTH CV 15.5 % (11.5-14.5); RED CELL DISTRIBUTION WIDTH SD 57.2 fL (36.4-46.3); WHITE BLOOD COUNT 15.29 K/uL (4.8-10.8)
[2017-10-24] MEDS: METOPROLOL TARTRATE 1 MG/ML VIAL IV PRN (08:56)
[2017-10-24] MEDS: CEROVITE ADV FORMULA TAB PO SCH ×2 (09:00→11:16)
[2017-10-24] MEDS: GUAIFENESIN 600 MG TABCR PO SCH ×3 (09:00→20:24)
[2017-10-24] MEDS: DILTIAZEM HCL 240 MG CAPCR PO SCH ×2 (09:00→11:15)
[2017-10-24] MEDS: LACTOBACILLUS ACIDOPHILUS (FLORANEX) TAB PO SCH ×2 (09:00→11:16)
--- NOTE | 2017-10-24 09:49 | DIAGNOSTIC IMAGING REPORT ---
HEAD WITHOUT CONTRAST (CT) CLINICAL HISTORY: 87 years-old Female with stroke symptoms, anemia, rule out intracranial bleed. Acute strokelike symptoms TECHNIQUE: Multiple axial CT images of the head were obtained without contrast. A dose lowering technique was utilized adhering to the principles of ALARA. CT DOSE: 614.27 mGy.cm COMPARISON: CT head 10/23/2017. FINDINGS: There is no acute intracranial hemorrhage, midline shift or abnormal extra-axial collections. There is a focal area of cytotoxic edema with sulcal effacement and blurring of the plummer-white interface measuring 3.2 x 2.5 cm within the left frontal lobe as seen on images 17 through 21 of series 2. No significant mass effect or hydrocephalus. No intracranial mass identified. There is moderate atrophy with ex vacuo ventriculomegaly. Moderate to advanced chronic microvascular ischemic changes redemonstrated. Vascular calcifications are seen at the level of the skull base. No calvarial fracture. The mastoid air cells and middle ear cavities are clear. Mucosal thickening of the maxillary and ethmoid sinuses with bilateral maxillary sinus air-fluid levels. Soft tissues are unremarkable. Orbits appear symmetric. IMPRESSION: 1. Small to moderate-sized acute infarction of the left frontal lobe is noted with associated sulcal effacement and cytotoxic edema. No significant mass effect, hemorrhage or midline shift. 2. Atrophy with chronic microvascular ischemic changes. The above report was generated using voice recognition software. It may contain grammatical, syntax or spelling errors. Electronically signed by: Julian Martinez M.D. 10/24/2017 9:48 AM Dictated Date/Time: 10/24/2017 9:42 AM
[2017-10-24] MEDS: INSULIN GLARGINE SOLOSTAR 100 UNITS/ML 3 ML PEN SC SCH ×2 (09:59→20:30)
[2017-10-24] MEDS ORDERED: NURSING VERBAL MED ORDER ONE (11:00)
[2017-10-24] MEDS: INSULIN ASPART 100 UNITS/ML 3 ML PEN SC SCH ×3 (12:07→20:21)
--- NOTE | 2017-10-24 14:09 | Neurology Progress Notes ---
Neurology Progress Note Date of Service Oct 24, 2017. Tory Vallejo is an 87 year old female who has a PMH VT, AF, cardiac pacemaker, DM 2, HTN, thyroid CA, depression, GERD, DL, CAD, CKD stage III, mild cognitive impairment, was sent from [facility] with complaint of SOB, FITZGERALD for the past 2 weeks on 10/15/2017. She was weak and tired with minimal activity, occasional dizzy spell and non productive cough. She had a CT check in ED which r/o PE but suspicious pulmonary nodules were identified possible metastatic malignancy. She was not a smoker but her was a long time smoker and no prior history of asthma or COPD. She was admitted and had a pacemaker replacement/exchange 10/19. Today she had an episode of right sided weakness after coming from the bathroom with right facial droop which resolved going to CT head. She was sent for a CT head and had another episode after the CT head which did not resolve. Nursing staff reports she was very agitated and they have been giving her ativan. She was started on a heparin gtt and suppository aspirin after the second event. She is too confused and is not follow commands to pass her dysphagia screening. Since she just had the pacemaker exchange she can not have an MRI to verify the CVA. ROS can not be done due to confusion. Today she is more alert and states she knows where she is but she is unable to state where she is. denies CP, SOB, abdominal pain, N, V. She passed her dyphagia screening for soft foods and took her pill orally this am. Objective Date Time Temp Pulse Resp B/P (MAP) Pulse Ox O2 Delivery O2 Flow Rate FiO2 10/24/17 12:00 Nasal Cannula 2.0 10/24/17 11:29 36.8 89 114/79 (91) 96 Nasal Cannula 2.0 10/24/17 08:56 118 114/74 10/24/17 08:33 Nasal Cannula 2.0 10/24/17 07:33 36.7 93 18 114/74 (87) 96 10/24/17 07:03 92 20 96 Nasal Cannula 2.0 10/24/17 04:00 Nasal Cannula 2.0 10/24/17 03:44 90 20 92 Nasal Cannula 2.0 10/24/17 03:36 36.8 78 17 117/62 (80) 98 Nasal Cannula 2.0 10/23/17 23:59 Nasal Cannula 2.0 10/23/17 23:17 96 20 88 Room Air 10/23/17 23:04 37.0 92 24 114/85 (95) 93 Room Air 10/23/17 20:13 36.5 91 18 110/76 (87) 99 Nasal Cannula 2.0 10/23/17 20:00 Nasal Cannula 2.0 10/23/17 19:53 95 20 94 Nasal Cannula 2.0 10/23/17 17:48 95 10/23/17 16:00 95 Nasal Cannula 2.0 10/23/17 15:50 86 20 95 Nasal Cannula 2.0 10/23/17 15:02 36.6 89 21 124/69 (87) 95 Humidified Air 2.0 Last 24 Hours Test 10/23/17 15:55 10/23/17 17:06 10/23/17 21:19 10/23/17 23:29 Activated Partial Thromboplast Time 49.8 SECONDS Partial Thromboplastin Ratio 1.9 Troponin I 0.030 ng/ml 0.027 ng/ml Bedside Glucose 163 mg/dl 163 mg/dl Test 10/24/17 05:10 10/24/17 06:19 10/24/17 08:10 White Blood Count 15.05 K/uL 15.29 K/uL Red Blood Count 2.58 M/uL 2.62 M/uL Hemoglobin 8.7 g/dL 8.8 g/dL Hematocrit 26.4 % 26.7 % Mean Corpuscular Volume 102.3 fL 101.9 fL Mean Corpuscular Hemoglobin 33.7 pg 33.6 pg Mean Corpuscular Hemoglobin Concent 33.0 g/dl 33.0 g/dl Platelet Count 139 K/uL 139 K/uL Mean Platelet Volume 9.8 fL 10.1 fL Neutrophils (%) (Auto) 86.2 % Lymphocytes (%) (Auto) 5.0 % Monocytes (%) (Auto) 6.9 % Eosinophils (%) (Auto) 0.0 % Basophils (%) (Auto) 0.1 % Neutrophils # (Auto) 12.96 K/uL Lymphocytes # (Auto) 0.76 K/uL Monocytes # (Auto) 1.04 K/uL Eosinophils # (Auto) 0.00 K/uL Basophils # (Auto) 0.02 K/uL RDW Standard Deviation 56.9 fL 57.2 fL RDW Coefficient of Variation 15.5 % 15.5 % Immature Granulocyte % (Auto) 1.8 % Immature Granulocyte # (Auto) 0.27 K/uL Nucleated RBC Absolute Count (auto) 0.04 K/uL 0.06 K/uL Nucleated Red Blood Cells % 0.3 % 0.4 % Tear Drop Cells OCCASIONAL Ovalocytes 1+ Activated Partial Thromboplast Time 20.3 SECONDS Partial Thromboplastin Ratio 0.8 Sodium Level 141 mmol/L Potassium Level 4.8 mmol/L Chloride Level 108 mmol/L Carbon Dioxide Level 27 mmol/L Anion Gap 6.0 mmol/L Blood Urea Nitrogen 44 mg/dl Creatinine 0.86 mg/dl Est Creatinine Clear Calc Drug Dose 42.0 ml/min Estimated GFR () 69.9 Estimated GFR (Non- 60.3 BUN/Creatinine Ratio 51.5 Random Glucose 156 mg/dl Calcium Level 8.4 mg/dl Triglycerides Level 99 mg/dl Cholesterol Level 80 mg/dl HDL Cholesterol 34 mg/dl LDL Cholesterol, Calculated 26 mg/dl VLDL Cholesterol, Calculated 20 mg/dl Cholesterol/HDL Ratio 2.4 Bedside Glucose 185 mg/dl Imaging: CT head- . Small to moderate-sized acute infarction of the left frontal lobe is noted with associated sulcal effacement and cytotoxic edema. No significant mass effect, hemorrhage or midline shift. Atrophy with chronic microvascular ischemic changes. Exam: Physical Exam: Constitutional: appearance nourished, healthy and normal Ears, Nose, Mouth and Throat: mucous membranes moist, no injection and skin normal, eyes normal Cardiovascular: normal S-1 and S-2 and regular rate and rhythm Respiratory: course breath sounds Musculoskeletal: no peripheral edema and good distal pulses Skin: no stigmata of neurocutaneous disease noted and normal and intact Eyes: extraocular muscles intact (EOMI) and pupils equal, round and reactive to light (PERRL), gross visual allen intact, right sided neglect but can direct to overcome NEUROLOGIC EXAMINATION: Mental status: Alert and interactive Oriented to person Speech dysarthria able to answer simple questions Cranial Nerves slight flattening of left nasolabial fold, eye brow symmetric tongue midline Reflexes: Deep tendon reflexes were symmetrical and graded 2/5. Sensory: intact to light touch Coordination: finger to nose on right Gait/Stance: Posture lying in bed Strength: left hand utility system repairer biceps triceps 5/5, hip flex 5/5. right hand able to maintain slight arm raise against gravity. unable to lift RLE against gravity or resistance. Current Inpatient Medications Medications (Trade) Dose Ordered Sig/Los Route Start Time Stop Time Status Last Admin Dose Admin Al Hydrox/Mg Hydrox/Simethicone (Maalox Max Susp) 15 ml Q4H PRN PO 10/15/17 16:00 11/14/17 15:59 Magnesium Hydroxide (Milk Of Magnesia Susp) 30 ml Q12H PRN PO 10/15/17 16:00 11/14/17 15:59 10/18/17 14:50 30 ML Nitroglycerin (Nitrostat Tab) 0.4 mg UD PRN SL 10/15/17 16:00 11/14/17 15:59 Aspirin (Ecotrin Tab) 81 mg QAM PO 10/16/17 09:00 11/15/17 08:59 Future Hold 10/22/17 08:51 81 MG Polyethylene (Miralax Powder Packet) 17 gm DAILY PRN PO 10/15/17 16:00 11/14/17 15:59 10/18/17 18:32 17 GM Glucose (Glucose 40% Gel) 15-30 GRAMS 15 GRAMS... UD PRN PO 10/15/17 16:00 11/14/17 15:59 Glucose (Glucose Chew Tab) 4-8 Tablets 4 Tabl... UD PRN PO 10/15/17 16:00 11/14/17 15:59 Dextrose (Dextrose 50% 50ML Syringe) 25-50ML OF 50% DW IV FOR... UD PRN IV 10/15/17 16:00 11/14/17 15:59 Glucagon (Glucagon Inj) 1 mg UD PRN SQ 10/15/17 16:00 11/14/17 15:59 Loperamide HCl (Imodium Cap) 2 mg Q4H PRN PO 10/15/17 16:00 11/14/17 15:59 Lorazepam (Ativan Tab) 0.25 mg Q6H PRN PO 10/15/17 16:00 11/14/17 15:59 10/22/17 22:10 0.25 MG Multivitamins/ Minerals (Multivitamin W/ Minerals Tab) 1 tab QAM PO 10/16/17 09:00 11/15/17 08:59 10/24/17 11:16 1 TAB Codeine Phosphate/ Guaifenesin (Robitussin-AC Sugar Free Syrup) 5 ml Q6H PRN PO 10/15/17 17:15 11/14/17 17:14 10/22/17 13:53 5 ML Albuterol/ Ipratropium (Duoneb) 3 ml Q2R PRN INH 10/15/17 17:30 11/14/17 17:29 Metoprolol Tartrate (Lopressor Iv) 5 mg Q6 PRN IV 10/16/17 00:15 11/15/17 00:14 10/24/17 08:56 5 MG Ipratropium Paguate (Atrovent 0.02% 0.5MG/2.5ML Neb) 0.5 mg Q4R INH 10/16/17 12:00 11/15/17 11:59 10/24/17 07:04 0.5 MG Levalbuterol (Xopenex 1.25MG/ 0.5ML Neb) 1.25 mg Q4R INH 10/16/17 12:00 11/15/17 11:59 10/24/17 07:05 1.25 MG Sertraline HCl (Zoloft Tab) 150 mg HS PO 10/16/17 21:00 11/15/17 20:59 Future Hold 10/22/17 21:12 150 MG Lactobacillus Acidophilus (Floranex Tab) 1 tab QAM PO 10/20/17 09:00 11/15/17 08:59 10/24/17 11:16 1 TAB Diltiazem HCl (Cardizem Cd Cap) 240 mg QAM PO 10/21/17 09:00 11/20/17 08:59 10/24/17 11:15 240 MG Digoxin (Lanoxin Tab) 0.125 mg DAILY@16 PO 10/21/17 16:00 11/20/17 15:59 Future Hold 10/22/17 17:40 0.125 MG Guaifenesin (Mucinex Contr Rel Tab) 1,200 mg Q12 PO 10/22/17 09:00 11/21/17 08:59 10/24/17 11:16 1,200 MG Insulin Glargine (Lantus Solostar Pen) 5 units BID SC 10/22/17 09:00 11/21/17 08:59 10/23/17 21:47 5 UNITS Methylprednisolone Sodium Succinate 40 mg/Syringe 0.64 ml @ 1.5 mls/min Q12H IV 10/23/17 14:00 11/16/17 13:59 10/24/17 02:15 1.5 MLS/MIN Miscellaneous Information (Pharmacist Discharge Med Rec Consult) 1 ea UD PRN N/A 10/23/17 09:15 11/22/17 09:14 Digoxin 125 mcg/ Syringe 10 ml @ 2 mls/min DAILY@16 IV 10/23/17 16:00 11/22/17 15:59 10/23/17 17:48 2 MLS/MIN Insulin Aspart (novoLOG ASPART) SLIDING SCALE If C... ACHS SC 10/24/17 11:30 11/23/17 11:29 10/24/17 12:07 1 UNITS Impression 87 year old presented with SOB and FITZGERALD, pacemaker exchange- sudden MS, right side weakness with L frontal lobe infarct Plan 1. heparin gtt (stopped for now) and aspirin now able to take oral medication She was on aspirin prior to admission. was likely stopped for surgery. 2. dysphagia screening - done -passed for soft foods and able to take oral medications 3. CT head - left sided stroke will need to watch for hemorrhagic conversion 4. unable to have MRI due to pacemaker exchange - 10/19/2017 5. cardiology for rate control afib 6. permissive HTN for now 7. PT/OT speech assessments for discharge needs 8. cardiology on board for further evaluation of afib related infarct and direction of therapy 9. limit ativan due to sedation 10. will need HTN, DL , DM control once out of stroke protocol window. 11. follow up with Neurology Puja De Guzman PAC schedule in 2-3 weeks after discharge from rehab I have seen and discussed above patient with Dr Puja Soto, neurology Pt with afib, was off AC due to procedures. New L mca infarct, clinically much better today with mild exp aphasia, nonhomonymous r hr hemianopsia.mild RUE weakness 4/5 rle at least 3/5. CT today, showing infarct without hemorrhagic transformation. Pt currently on asa. Spoke with pt and her son and other children. Pt has significant bruises on her back and buttocks and forearms. She reports that she has fallen in assisted living. Her admission nursing eval notes bruises on forearms which supports some injuries. I do not think this pt is an anticoagulant candidate because of falls and new neurologic deficit and some r neglect. We can see as she recovers if that changes and could reassess. In interim could continue asa. Pt has LEA stenosis 50-70%. Per son, this is known. Recommend follow-up carotid us in 1 year. KOFFI Soto MD
[2017-10-24] MEDS: DIGOXIN IV 125 MCG in SYRINGE 9.5 ML IV SCH (15:53)
--- NOTE | 2017-10-24 15:57 | Progress Note ---
Internal Med Progress Note Date of Service: Oct 24, 2017. Provider Documentation: SUBJECTIVE: Patient seen and examined at bedside. Is verbal with slurred speech. Denies pain. Able to make bilateral upper and lower extremity movements with right sided weakness OBJECTIVE: Exam: General- not in distress Neck- trachea midline Lungs- Clear to auscultation, no wheezing Heart- irregular rhythm Abdomen- soft, nontender, positive bowel sounds Extremities / Neuro - handgrip is stronger in left arm compared to right arm. able to raise both arms. Able to move ankles and toes bilaterally. Left leg elevation and strength greater compared to right leg. ASSESSMENT & PLAN: This is an 87 year old female with a PMH of A. Fib, HTN, CKD stage 3, sick sinus syndrome s/p pacemaker, CAD, DM2 presents from independent living due to worsening shortness of breath and subsequently developed stroke while patient was being evaluated for pulmonary nodules Bilateral Pulmonary Nodules -CT chest with contrast 10/15/17: Multiple bilateral pulmonary nodules which is suspicious for metastatic disease -no biopsy desired at this time Sick Sinus Syndrome pacemaker has been replaced on 10/19/17 TIA vs. Acute CVA on 10/23/17: patient with expressive aphasia, R sided weakness , Head CT at that time did not reveal acute process, was started on IV heparin and given aspirin suppository. Neurology recommended aspirin only. cannot obtain MRI due to recent pacemaker insertion (10/19/2017) -10/24/17: repeat CT head: Small to moderate-sized acute infarction of the left frontal lobe is noted with associated sulcal effacement and cytotoxic edema. No significant mass effect, hemorrhage or midline shift. -10/24/17 dysphagia screening - done -passed for soft foods and able to take oral medications - PT/OT speech assessments for discharge needs -follow up with Neurology Puja De Guzman PAC schedule in 2-3 weeks after discharge from rehab Anemia - Hgb trended down from 11.7 to 8.7 between 10/23/17 to 10/24/17 which led to rescanning the head but there is no intracranial bleed Fecal occult blood test stool to be sent Hematuria from Gayle placement has resolved Will trend CBC for now Acute Kidney Injury - resolved DM2 : insulin Prolonged QTc monitor electrolytes hold QTc prolonging agents if able A. Fib with RVR - improving -on PO diltiazem, on IV Digoxin, on IV Lopressor prn -will transition towards more oral medications as needed once eating without aspiration is satisfactory Acute Hypoxic Respiratory Failure secondary to presumed COPD Exacerbation Severe Pulmonary HTN -Xopenex, Solumedrol - will transition to prednisone gradually DVT ppx: aspirin Palliative Care consult requested DNR/DNI Antony Conn, son, is the POA - [phone] Vital Signs: Date Time Temp Pulse Resp B/P (MAP) Pulse Ox O2 Delivery O2 Flow Rate FiO2 10/24/17 15:53 76 10/24/17 14:26 85 20 96 Nasal Cannula 2.0 10/24/17 12:00 Nasal Cannula 2.0 10/24/17 11:40 90 20 95 Nasal Cannula 2.0 10/24/17 11:29 36.8 89 114/79 (91) 96 Nasal Cannula 2.0 10/24/17 08:56 118 114/74 10/24/17 08:33 Nasal Cannula 2.0 10/24/17 07:33 36.7 93 18 114/74 (87) 96 10/24/17 07:03 92 20 96 Nasal Cannula 2.0 10/24/17 04:00 Nasal Cannula 2.0 10/24/17 03:44 90 20 92 Nasal Cannula 2.0 10/24/17 03:36 36.8 78 17 117/62 (80) 98 Nasal Cannula 2.0 10/23/17 23:59 Nasal Cannula 2.0 10/23/17 23:17 96 20 88 Room Air 10/23/17 23:04 37.0 92 24 114/85 (95) 93 Room Air 10/23/17 20:13 36.5 91 18 110/76 (87) 99 Nasal Cannula 2.0 10/23/17 20:00 Nasal Cannula 2.0 10/23/17 19:53 95 20 94 Nasal Cannula 2.0 10/23/17 17:48 95 Lab Results: Results Past 24 Hours Test 10/23/17 17:06 10/23/17 21:19 10/23/17 23:29 10/24/17 05:10 Range/Units Bedside Glucose 163 163 70-90 mg/dl Troponin I 0.027 0-0.045 ng/ml White Blood Count 15.05 4.8-10.8 K/uL Red Blood Count 2.58 4.2-5.4 M/uL Hemoglobin 8.7 12.0-16.0 g/dL Hematocrit 26.4 37-47 % Mean Corpuscular Volume 102.3 80-100 fL Mean Corpuscular Hemoglobin 33.7 25-34 pg Mean Corpuscular Hemoglobin Concent 33.0 32-36 g/dl Platelet Count 139 130-400 K/uL Mean Platelet Volume 9.8 7.4-10.4 fL Neutrophils (%) (Auto) 86.2 % Lymphocytes (%) (Auto) 5.0 % Monocytes (%) (Auto) 6.9 % Eosinophils (%) (Auto) 0.0 % Basophils (%) (Auto) 0.1 % Neutrophils # (Auto) 12.96 1.4-6.5 K/uL Lymphocytes # (Auto) 0.76 1.2-3.4 K/uL Monocytes # (Auto) 1.04 0.11-0.59 K/uL Eosinophils # (Auto) 0.00 0-0.5 K/uL Basophils # (Auto) 0.02 0-0.2 K/uL RDW Standard Deviation 56.9 36.4-46.3 fL RDW Coefficient of Variation 15.5 11.5-14.5 % Immature Granulocyte % (Auto) 1.8 % Immature Granulocyte # (Auto) 0.27 0.00-0.02 K/uL Nucleated RBC Absolute Count (auto) 0.04 0-0 K/uL Nucleated Red Blood Cells % 0.3 % Tear Drop Cells OCCASIONAL Ovalocytes 1+ Activated Partial Thromboplast Time 20.3 21.0-31.0 SECONDS Partial Thromboplastin Ratio 0.8 Sodium Level 141 136-145 mmol/L Potassium Level 4.8 3.5-5.1 mmol/L Chloride Level 108 98-107 mmol/L Carbon Dioxide Level 27 21-32 mmol/L Anion Gap 6.0 3-11 mmol/L Blood Urea Nitrogen 44 7-18 mg/dl Creatinine 0.86 0.60-1.20 mg/dl Est Creatinine Clear Calc Drug Dose 42.0 ml/min Estimated GFR () 69.9 Estimated GFR (Non- 60.3 BUN/Creatinine Ratio 51.5 10-20 Random Glucose 156 70-99 mg/dl Calcium Level 8.4 8.5-10.1 mg/dl Triglycerides Level 99 0-150 mg/dl Cholesterol Level 80 0-200 mg/dl HDL Cholesterol 34 mg/dl LDL Cholesterol, Calculated 26 mg/dl VLDL Cholesterol, Calculated 20 mg/dl Cholesterol/HDL Ratio 2.4 Test 10/24/17 06:19 10/24/17 08:10 Range/Units Bedside Glucose 185 70-90 mg/dl White Blood Count 15.29 4.8-10.8 K/uL Red Blood Count 2.62 4.2-5.4 M/uL Hemoglobin 8.8 12.0-16.0 g/dL Hematocrit 26.7 37-47 % Mean Corpuscular Volume 101.9 80-100 fL Mean Corpuscular Hemoglobin 33.6 25-34 pg Mean Corpuscular Hemoglobin Concent 33.0 32-36 g/dl RDW Standard Deviation 57.2 36.4-46.3 fL RDW Coefficient of Variation 15.5 11.5-14.5 % Platelet Count 139 130-400 K/uL Mean Platelet Volume 10.1 7.4-10.4 fL Nucleated RBC Absolute Count (auto) 0.06 0-0 K/uL Nucleated Red Blood Cells % 0.4 %
--- NOTE | 2017-10-24 16:26 | Palliative Care Consultation ---
Consultation Date of Consultation: Oct 24, 2017. Requesting Physician: Dr. Gee Attending Physician: Dr. Gee Reason for Consultation: Goals of care History of Present Illness This 87 year old female patient with PMH mild cognitive impairment, presumed COPD, CKD, CAD, Afib, GERD, pacemaker, and others listed below, presented to the hospital 9 days ago from [facility] personal snf with c/o SOB/FITZGERALD for two weeks. In ED, CT chest showed no PE, but did show multiple bilateral pulmonary nodules suspicious for metastatic disease. Patient had been in [facility] ED on 09/12/18 for bronchitis, pulmonary nodules discovered at that time, patient home with [facility] treatments. She continued to feel unwell so she came back to hospital. Her hospitalization has been complicated by Afib with RVR, anemia, respiratory failure, and RITO. Yesterday, patient had sudden stroke-like symptoms including right sided weakness and aphasia. CT head showed no hemorrhage or, at the time, obvious sings of ischemic CVA. Symptoms waxed and waned, but today she has residual weakness and expressive aphasia/word finding. Given patient's advanced age and multiple comorbidities, there has been ongoing conversation about goals of care. Palliative care is consulted. I met with the patient in room 201. She is awake, alert and oriented x4. She does have some word finding and expressive aphasia, but with a great deal of effort and time, patient is able to communicate fairly well. She stated that she is ready to focus on comfort and staying out of the hospital. She made it apparent that she wanted to return to [facility] on hospice. She gave me permission to speak with her son, Antony Conn, about goals of care and hospice. I called him and left a message. Waiting for return phone call. See plan below. Past Medical/Surgical History Medical History: Asthma COPD Anxiety Afib Pacemaker CAD CKD stage III Depression DM Diverticulitis Thyroid cancer Hyperlipidemia Vtach, nonsustained Mild cognitive impairment Htn GERD Surgical History: Thyroidectomy Cholecystectomy Knee replacement Pacemaker Social History Smoking Status: Never Smoker History of Alcohol Use: No Drug Use: none Marital Status: Housing Status: lives alone Occupation Status: retired Review of Systems Constitutional: + weakness ENT: No trouble swallowing (tolerating mechanical soft diet) Respiratory: No shortness of breath Cardiac: No chest pain Abdomen: No pain, No nausea, No vomiting Neurologic: + weakness, + problem reported (aphasia) Psychiatric: No depression symptoms, No anxiety Allergies Coded Allergies: Sulfa Antibiotics (Verified Allergy, Intermediate, RASH, 10/16/17) Gabapentin (Verified Allergy, Unknown, Unknown Rxn, 10/15/17) Trazodone (Verified Allergy, Unknown, Unknown Rxn, 10/15/17) Medications Current Inpatient Medications Medications (Trade) Dose Ordered Sig/Los Route Start Time Stop Time Status Last Admin Dose Admin Al Hydrox/Mg Hydrox/Simethicone (Maalox Max Susp) 15 ml Q4H PRN PO 10/15/17 16:00 11/14/17 15:59 Magnesium Hydroxide (Milk Of Magnesia Susp) 30 ml Q12H PRN PO 10/15/17 16:00 11/14/17 15:59 10/18/17 14:50 30 ML Nitroglycerin (Nitrostat Tab) 0.4 mg UD PRN SL 10/15/17 16:00 11/14/17 15:59 Aspirin (Ecotrin Tab) 81 mg QAM PO 10/16/17 09:00 11/15/17 08:59 Future Hold 10/22/17 08:51 81 MG Polyethylene (Miralax Powder Packet) 17 gm DAILY PRN PO 10/15/17 16:00 11/14/17 15:59 10/18/17 18:32 17 GM Glucose (Glucose 40% Gel) 15-30 GRAMS 15 GRAMS... UD PRN PO 10/15/17 16:00 11/14/17 15:59 Glucose (Glucose Chew Tab) 4-8 Tablets 4 Tabl... UD PRN PO 10/15/17 16:00 11/14/17 15:59 Dextrose (Dextrose 50% 50ML Syringe) 25-50ML OF 50% DW IV FOR... UD PRN IV 10/15/17 16:00 11/14/17 15:59 Glucagon (Glucagon Inj) 1 mg UD PRN SQ 10/15/17 16:00 11/14/17 15:59 Loperamide HCl (Imodium Cap) 2 mg Q4H PRN PO 10/15/17 16:00 11/14/17 15:59 Lorazepam (Ativan Tab) 0.25 mg Q6H PRN PO 10/15/17 16:00 11/14/17 15:59 10/22/17 22:10 0.25 MG Multivitamins/ Minerals (Multivitamin W/ Minerals Tab) 1 tab QAM PO 10/16/17 09:00 11/15/17 08:59 10/24/17 11:16 1 TAB Codeine Phosphate/ Guaifenesin (Robitussin-AC Sugar Free Syrup) 5 ml Q6H PRN PO 10/15/17 17:15 11/14/17 17:14 10/22/17 13:53 5 ML Albuterol/ Ipratropium (Duoneb) 3 ml Q2R PRN INH 10/15/17 17:30 11/14/17 17:29 Metoprolol Tartrate (Lopressor Iv) 5 mg Q6 PRN IV 10/16/17 00:15 11/15/17 00:14 10/24/17 08:56 5 MG Ipratropium [place] (Atrovent 0.02% 0.5MG/2.5ML Neb) 0.5 mg Q4R INH 10/16/17 12:00 11/15/17 11:59 10/24/17 14:25 0.5 MG Levalbuterol (Xopenex 1.25MG/ 0.5ML Neb) 1.25 mg Q4R INH 10/16/17 12:00 11/15/17 11:59 10/24/17 14:25 1.25 MG Sertraline HCl (Zoloft Tab) 150 mg HS PO 10/16/17 21:00 11/15/17 20:59 Future Hold 10/22/17 21:12 150 MG Lactobacillus Acidophilus (Floranex Tab) 1 tab QAM PO 10/20/17 09:00 11/15/17 08:59 10/24/17 11:16 1 TAB Diltiazem HCl (Cardizem Cd Cap) 240 mg QAM PO 10/21/17 09:00 11/20/17 08:59 10/24/17 11:15 240 MG Digoxin (Lanoxin Tab) 0.125 mg DAILY@16 PO 10/21/17 16:00 11/20/17 15:59 Future Hold 10/22/17 17:40 0.125 MG Guaifenesin (Mucinex Contr Rel Tab) 1,200 mg Q12 PO 10/22/17 09:00 11/21/17 08:59 10/24/17 11:16 1,200 MG Insulin Glargine (Lantus Solostar Pen) 5 units BID SC 10/22/17 09:00 11/21/17 08:59 10/23/17 21:47 5 UNITS Methylprednisolone Sodium Succinate 40 mg/Syringe 0.64 ml @ 1.5 mls/min Q12H IV 10/23/17 14:00 11/16/17 13:59 10/24/17 14:18 1.5 MLS/MIN Miscellaneous Information (Pharmacist Discharge Med Rec Consult) 1 ea UD PRN N/A 10/23/17 09:15 11/22/17 09:14 Digoxin 125 mcg/ Syringe 10 ml @ 2 mls/min DAILY@16 IV 10/23/17 16:00 11/22/17 15:59 10/23/17 17:48 2 MLS/MIN Insulin Aspart (novoLOG ASPART) SLIDING SCALE If C... ACHS SC 10/24/17 11:30 11/23/17 11:29 10/24/17 12:07 1 UNITS Physical Exam Date Time Temp Pulse Resp B/P (MAP) Pulse Ox O2 Delivery O2 Flow Rate FiO2 10/24/17 14:26 85 20 96 Nasal Cannula 2.0 10/24/17 12:00 Nasal Cannula 2.0 10/24/17 11:40 90 20 95 Nasal Cannula 2.0 10/24/17 11:29 36.8 89 114/79 (91) 96 Nasal Cannula 2.0 10/24/17 08:56 118 114/74 10/24/17 08:33 Nasal Cannula 2.0 10/24/17 07:33 36.7 93 18 114/74 (87) 96 10/24/17 07:03 92 20 96 Nasal Cannula 2.0 10/24/17 04:00 Nasal Cannula 2.0 10/24/17 03:44 90 20 92 Nasal Cannula 2.0 10/24/17 03:36 36.8 78 17 117/62 (80) 98 Nasal Cannula 2.0 10/23/17 23:59 Nasal Cannula 2.0 10/23/17 23:17 96 20 88 Room Air 10/23/17 23:04 37.0 92 24 114/85 (95) 93 Room Air 10/23/17 20:13 36.5 91 18 110/76 (87) 99 Nasal Cannula 2.0 10/23/17 20:00 Nasal Cannula 2.0 10/23/17 19:53 95 20 94 Nasal Cannula 2.0 10/23/17 17:48 95 10/23/17 16:00 95 Nasal Cannula 2.0 10/23/17 15:50 86 20 95 Nasal Cannula 2.0 General Appearance: no apparent distress ENT: hearing grossly normal Neck: supple, no JVD Respiratory: lungs clear, no respiratory distress, no accessory muscle use Cardiovascular: regular rate, rhythm, no edema, + normal peripheral pulses Abdomen: normal bowel sounds, non tender, soft Neurologic/Psychiatric: alert, oriented x 3, + aphasia, + motor weakness Skin: normal color Laboratory Results Last 24 Hours Test 10/23/17 15:55 10/23/17 17:06 10/23/17 21:19 10/23/17 23:29 Activated Partial Thromboplast Time 49.8 SECONDS Partial Thromboplastin Ratio 1.9 Troponin I 0.030 ng/ml 0.027 ng/ml Bedside Glucose 163 mg/dl 163 mg/dl Test 10/24/17 05:10 10/24/17 06:19 10/24/17 08:10 White Blood Count 15.05 K/uL 15.29 K/uL Red Blood Count 2.58 M/uL 2.62 M/uL Hemoglobin 8.7 g/dL 8.8 g/dL Hematocrit 26.4 % 26.7 % Mean Corpuscular Volume 102.3 fL 101.9 fL Mean Corpuscular Hemoglobin 33.7 pg 33.6 pg Mean Corpuscular Hemoglobin Concent 33.0 g/dl 33.0 g/dl Platelet Count 139 K/uL 139 K/uL Mean Platelet Volume 9.8 fL 10.1 fL Neutrophils (%) (Auto) 86.2 % Lymphocytes (%) (Auto) 5.0 % Monocytes (%) (Auto) 6.9 % Eosinophils (%) (Auto) 0.0 % Basophils (%) (Auto) 0.1 % Neutrophils # (Auto) 12.96 K/uL Lymphocytes # (Auto) 0.76 K/uL Monocytes # (Auto) 1.04 K/uL Eosinophils # (Auto) 0.00 K/uL Basophils # (Auto) 0.02 K/uL RDW Standard Deviation 56.9 fL 57.2 fL RDW Coefficient of Variation 15.5 % 15.5 % Immature Granulocyte % (Auto) 1.8 % Immature Granulocyte # (Auto) 0.27 K/uL Nucleated RBC Absolute Count (auto) 0.04 K/uL 0.06 K/uL Nucleated Red Blood Cells % 0.3 % 0.4 % Tear Drop Cells OCCASIONAL Ovalocytes 1+ Activated Partial Thromboplast Time 20.3 SECONDS Partial Thromboplastin Ratio 0.8 Sodium Level 141 mmol/L Potassium Level 4.8 mmol/L Chloride Level 108 mmol/L Carbon Dioxide Level 27 mmol/L Anion Gap 6.0 mmol/L Blood Urea Nitrogen 44 mg/dl Creatinine 0.86 mg/dl Est Creatinine Clear Calc Drug Dose 42.0 ml/min Estimated GFR () 69.9 Estimated GFR (Non- 60.3 BUN/Creatinine Ratio 51.5 Random Glucose 156 mg/dl Calcium Level 8.4 mg/dl Triglycerides Level 99 mg/dl Cholesterol Level 80 mg/dl HDL Cholesterol 34 mg/dl LDL Cholesterol, Calculated 26 mg/dl VLDL Cholesterol, Calculated 20 mg/dl Cholesterol/HDL Ratio 2.4 Bedside Glucose 185 mg/dl Assessment & Plan Palliative Performance Scale: 40 % Problem list: Aphasia s/p CVA on 10/23/17 SOB Acute respiratory failure- improved- COPD exacerbation Severe pulmonary htn BL pulmonary nodules Afib with RVR RITO on CKD stage III Acute CVA 10/23/17 Goals of care Palliative care recs: discussed with patient, left a message for son Antony Conn to call me back. -Patient is level 5/DNR. -Patient is aphasic but I spent some time with her and held goals of care conversation as best I could. Patient was able to tell me her name, that she was in the hospital. She could say short sentences without issue at times. Did have some expressive aphasia/word finding. Patient stated that she would be agreeable to going back to [facility] with hospice care. She wants to remain comfortable and stay out of the hospital. -Patient gave me permission to call her son, Antony, and confirm plan with him and discuss goals of care. I called and left a message for him-- waiting for return phone call. I don't want to formalize hospice plans until I'm able to speak with him. -Case management is following, who spoke with [facility]. They are willing to take patient back on hospice. -Further goals and recommendations to follow. Thank you kindly for this consult. I will follow as needed.
[2017-10-24] MEDS ORDERED: ASPIRIN 81 MG CHEW PO ONE (16:30)
--- NOTE | 2017-10-24 18:24 | DIAGNOSTIC IMAGING REPORT ---
VENOUS DOPPLER LWR EXT BILA HISTORY: Pain. Edema. stroke, rule out DVT COMPARISON STUDY: None. FINDINGS: There is normal compressibility, flow, and augmentation within the bilateral lower extremity deep venous systems. IMPRESSION: No DVT within the right or left lower extremity. The above report was generated using voice recognition software. It may contain grammatical, syntax or spelling errors. Electronically signed by: Bradley Gallagher M.D. 10/24/2017 6:23 PM Dictated Date/Time: 10/24/2017 6:22 PM
[2017-10-25] VITALS (13 sets, daily range): BP systolic 105–143; BP diastolic 53–76; PULSE 75–106; TEMP 36.4–36.9; O2SAT 93–100
[2017-10-25] MEDS: METHYLPREDNISOLONE IV 40 MG in SYRINGE 0 ML IV SCH ×2 (01:34→14:11)
[2017-10-25] MEDS: LORAZEPAM 0.5 MG TAB PO PRN ×2 (01:34→21:44)
[2017-10-25] MEDS: LEVALBUTEROL 1.25MG/0.5ML NEB INH SCH ×6 (03:58→23:05)
[2017-10-25] MEDS: IPRATROPIUM BROMIDE NEB SOLN 0.02% 2.5 ML VIAL INH SCH ×6 (03:58→23:05)
[2017-10-25 05:59] LABS: BASO % 0.1 %; BASO ABS # 0.02 K/uL (0-0.2); EOS % 0.1 %; EOS ABS # 0.01 K/uL (0-0.5); HEMATOCRIT 28.8 % (37-47); HEMOGLOBIN 9.4 g/dL (12.0-16.0); IG# 0.64 K/uL (0.00-0.02); LYMPH % 3.6 %; MEAN CELL VOLUME 102.5 fL (80-100); MEAN CORPUSCULAR HEMOGLOBIN 33.5 pg (25-34); MEAN CORPUSCULAR HGB CONC 32.6 g/dl (32-36); MEAN PLATELET VOLUME 10.1 fL (7.4-10.4); MONO % 4.4 %; MONO ABS # 0.86 K/uL (0.11-0.59); NEUT % 88.5 %; NUCLEATED RED BLOOD CELL ABS 0.11 K/uL (0-0); PLATELET COUNT 162 K/uL (130-400); RED CELL DISTRIBUTION WIDTH CV 15.5 % (11.5-14.5); RED CELL DISTRIBUTION WIDTH SD 56.7 fL (36.4-46.3); WHITE BLOOD COUNT 19.43 K/uL (4.8-10.8)
[2017-10-25 06:42] LABS: CREATININE 0.86 mg/dl (0.60-1.20); POTASSIUM 4.7 mmol/L (3.5-5.1)
[2017-10-25 06:51] LABS: PTT PATIENT 19.5 SECONDS (21.0-31.0)
[2017-10-25] MEDS: ASPIRIN 81 MG CHEW PO SCH (08:01)
[2017-10-25] MEDS: INSULIN ASPART 100 UNITS/ML 3 ML PEN SC SCH ×4 (08:04→21:45)
[2017-10-25] MEDS: DILTIAZEM HCL 240 MG CAPCR PO SCH (08:07)
[2017-10-25] MEDS: LACTOBACILLUS ACIDOPHILUS (FLORANEX) TAB PO SCH (08:07)
[2017-10-25] MEDS: GUAIFENESIN 600 MG TABCR PO SCH ×2 (08:08→21:44)
[2017-10-25] MEDS: CEROVITE ADV FORMULA TAB PO SCH (08:09)
[2017-10-25] MEDS: INSULIN GLARGINE SOLOSTAR 100 UNITS/ML 3 ML PEN SC SCH ×2 (08:15→21:46)
--- NOTE | 2017-10-25 12:22 | ECHOCARDIOGRAM REPORT ---
*NOTICE TO RECEIVING CONSTITUTION PARTY AGENCY This information is strictly Confidential and protected under [place] law. [place] law prohibits you from making any further disclosure of this information unless further disclosure is expressly permitted by the written consent of the person to whom it pertains or is authorized by law. A general authorization for the release of medical or other information is not sufficient for this purpose. Hospital accepts no responsibility if the information is made available to any other person, INCLUDING THE PATIENT. Interpretation Summary * Name: KAITLYNN BARRON Study Date: 10/25/2017 08:10 AM BP: 116/76 mmHg * Patient Location: [facility] HR: 95 * : 1930 (M/d/yyyy) Gender: Female Height: 60 in * Age: 87 yrs Ethnicity: CA Weight: 168 lb * Ordering Physician: Philipp Gee MD * Performed By: Anne Husain RDCS * * Reason For Study: Atrial fibrillation, post stroke * BSA: 1.7 m2 * -- Conclusions -- * 1. Normal left ventricular size and systolic function. EF 55-60%. No definite regional wall motion abnormalities. Septal motion consistent with bundle-branch block/pacing. No significant left ventricular hypertrophy. * 2. Dilated right ventricle with reduced systolic function. * 3. The left atrium is severely dilated. * 4. The right atrium is mildly dilated. * 5. Limited 2D study per request. * 6. Technically difficult study, enhanced with IV Definity. * 7. Compared to prior study on 10/16/2017, LV systolic function has improved. Procedure Details * A two-dimensional transthoracic echocardiogram was performed. * A contrast injection of Definity was performed to improve assessment of LV function. * Contrast was injected into an intravenous site in the left arm. * One vial of Definity ultrasound contrast was diluted in normal saline to a total volume of 10 ml. A total of '3' ml of solution was administered during imaging. * Lot # [id number] of Definity utilized for procedure. * Expiration date OCT 20. * The attending nurse who injected the contrast agent was Brigette Oneil RN. Left Ventricle * Normal left ventricular size and systolic function. EF 55-60%. No definite regional wall motion abnormalities. Septal motion consistent with bundle-branch block/pacing. No significant left ventricular hypertrophy. Right Ventricle * The right ventricle is not well visualized. * Dilated right ventricle with reduced systolic function. Atria * The left atrium is severely dilated. * The right atrium is mildly dilated. Mitral Valve * The mitral valve is grossly normal. Tricuspid Valve * The tricuspid valve is not well visualized. Aortic Valve * The aortic valve is not well visualized. Pulmonic Valve * The pulmonic valve is not well visualized. Great Vessels * The aortic root is normal size. Pericardium/Pleural * There is no pericardial effusion. Great Vessels * Dilated IVC. MMode 2D Measurements and Calculations IVSd 0.88 cm LVIDd 4.4 cm LVIDs 3.0 cm LVPWd 0.97 cm IVS/LVPW 0.90 FS 30.5 % EDV(Teich) 85.5 ml ESV(Teich) 35.7 ml EF(Teich) 58.2 % EDV(cubed) 82.5 ml ESV(cubed) 27.7 ml EF(cubed) 66.4 % LV mass(C)d 130.6 grams LV mass(C)dI 75.4 grams/m\S\2 SV(Teich) 49.8 ml SI(Teich) 28.7 ml/m\S\2 SV(cubed) 54.8 ml SI(cubed) 31.6 ml/m\S\2 Ao root diam 2.8 cm Ao root area 6.3 cm\S\2 LVAd ap4 27.0 cm\S\2 LVLd ap4 7.1 cm EDV(MOD-sp4) 85.0 ml EDV(sp4-el) 87.0 ml LVAs ap4 15.9 cm\S\2 LVLs ap4 5.9 cm ESV(MOD-sp4) 37.3 ml ESV(sp4-el) 36.4 ml EF(MOD-sp4) 56.1 % EF(sp4-el) 58.1 % LVAd ap2 24.6 cm\S\2 LVLd ap2 7.5 cm EDV(MOD-sp2) 65.8 ml EDV(sp2-el) 68.4 ml LVAs ap2 10.7 cm\S\2 LVLs ap2 6.2 cm ESV(MOD-sp2) 15.5 ml ESV(sp2-el) 15.8 ml EF(MOD-sp2) 76.4 % EF(sp2-el) 76.9 % LVLd %diff 5.3 % EDV(MOD-bp) 75.3 ml LVLs %diff 4.5 % ESV(MOD-bp) 24.2 ml EF(MOD-bp) 67.9 % SV(MOD-sp4) 47.7 ml SI(MOD-sp4) 27.5 ml/m\S\2 SV(MOD-sp2) 50.2 ml SI(MOD-sp2) 29.0 ml/m\S\2 SV(MOD-bp) 51.2 ml SI(MOD-bp) 29.5 ml/m\S\2 SV(sp4-el) 50.6 ml SI(sp4-el) 29.2 ml/m\S\2 SV(sp2-el) 52.6 ml SI(sp2-el) 30.4 ml/m\S\2
--- NOTE | 2017-10-25 12:46 | Palliative Care Progress Note ---
Palliative Care Progress Note Date of Service Oct 25, 2017. Subjective Spoke with patient's son, Antony Conn, today. He spoke with staff from [facility] today who confirmed that patient is able to return on hospice. Antony agrees that the goal for patient will be comfort and hospice care when she is discharged from hospital. He plans to come see patient this evening and will talk more about it with her. He is requesting that Dr. Gee call him with an update on medical conditions and plan for when patient will be discharged. I did relay that message to Dr. Gee. I also updated case management coordinator on hospice choice- she will interface with [facility] and [facility]. Patient currently has no symptoms, so I have no recommendations for meds at this time. I will sign off for now, but please don't hesitate to contact me with any further palliative care needs. Thank you again for this consult.
--- NOTE | 2017-10-25 13:05 | CARDIOLOGY PROGRESS NOTE ---
DATE: 10/25/2017 TIME: 12:35 p.m. SUBJECTIVE: Dr. Gee has requested a cardiology reevaluate Ms. Conn. She has been followed by Dr. Pineda. She unfortunately has suffered a stroke on 10/23/2017. She has been seen by neurology. Anticoagulation therapy was discontinued secondary to the stroke and concern for hemorrhagic conversion. For now, they have recommended aspirin. She had been switched from metoprolol succinate to diltiazem for concern of bronchospasm as per discussion by Dr. Gauthier and Dr. Pineda as documented by Dr. Gauthier. She is on a diltiazem 240 mg p.o. daily and is also taking digoxin IV. She denies chest pain, shortness of breath, syncope, near syncope, or palpitations. She has some right-sided weakness and acknowledges that she is having some expressive aphasia since the stroke. Telemetry personally reviewed. She is in atrial fibrillation with reasonable heart rate control. She does have intermittent paced complexes and also some PVCs. Telemetry strips from 10/24/2017 also reviewed. She appeared to have nonsustained ventricular tachycardia versus aberrantly conducted complexes. OBJECTIVE: VITAL SIGNS: Temperature 36.7 degrees, heart rate currently 76 beats per minute, respiratory rate 18, blood pressure 106/53 mmHg, and oxygen saturation 98% on 2 liters per nasal cannula. I's and O's negative 1.1 liters. Weight is 76.5 kg. GENERAL: No acute distress. She is alert. NECK: Prominent V wave. CARDIAC EXAM: No ventricular heave. Irregularly irregular. Normal S1 and S2. There is a 1/6 systolic murmur. No rubs or gallops. LUNGS: Clear to auscultation bilaterally without wheezes, rales or rhonchi. ABDOMEN: Soft, nontender, and nondistended. Normoactive bowel sounds. EXTREMITIES: Trace to 1+ bilateral lower extremity edema. No cyanosis. MEDICATIONS: Include aspirin 81 mg daily, digoxin 125 mcg IV daily, diltiazem 240 mg daily, methylprednisolone 40 mg IV q. 12 hours, and metoprolol tartrate 5 mg IV q. 6 hours as needed. LABORATORY DATA: On 10/21/2017, digoxin level is 1.2. Today's labs, sodium 138, potassium 4.7, BUN 38, and creatinine 0.86. WBC 19.43, hemoglobin 9.4, and platelets 162. Head CT on 10/24/2017, small to moderate sized acute infarction in the left frontal lobe with associated sulcal effacement and cytotoxic edema. No mass effect, hemorrhage or midline shift reported. Limited echo as requested by the hospitalist service reviewed. Normal LV systolic function. EF 55%-60%. No definite wall motion abnormalities. Septal motion consistent with bundle branch block/pacing. Dilated right ventricle with reduced systolic function. Biatrial dilation. Limited 2D echo. ASSESSMENT AND PLAN: 1. Atrial fibrillation: She appears to be in persistent atrial fibrillation as noted by Dr. Pineda. Continue rate control strategy. Her heart rate appears to be adequately rate controlled currently. Would continue diltiazem 240 mg daily. This can be further titrated to 360 mg if necessary for improved rate control. For now, continue current dose. We will switch digoxin to oral dosing. This will also improve from most recent level, which was slightly high. Repeat digoxin level in 1-2 weeks. In regards to stroke risk reduction, anticoagulation therapy is indicated, but neurology would like to hold off for now given acute stroke and concern for hemorrhagic conversion. If/when safe from a neurologic standpoint in the future, would recommend restarting anticoagulation therapy if the patient finds this acceptable. She is considering hospice care according to records and as per our conversation today. 2. Pacemaker: She had her pacemaker replaced earlier this hospitalization. This will be followed by Dr. Pineda through electrophysiology. 3. Edema: Monitor fluid status closely. If she appears as though she is having worsening edema, would give intermittent doses of diuretic therapy. Would not make any changes at this time. She may have some degree of edema from right heart failure given her significant tricuspid regurgitation, which has been noted on prior echo on 10/16/2017. 4. Severe tricuspid regurgitation: Continue to monitor. Would not recommend aggressive measures in this regard, especially with acute stroke. 5. Paroxysmal ventricular tachycardia: She appears to be asymptomatic. Continue rate controlling medications. 6. Disposition: The patient's care has been discussed with Dr. Gee of the primary hospitalist service. Please call for any other questions or concerns. Cardiology will sign off at this time as her heart rate is adequately controlled. [facility]
--- NOTE | 2017-10-25 15:16 | Neurology Progress Notes ---
Neurology Progress Note Date of Service Oct 25, 2017. Tory Vallejo is an 87 year old female who has a PMH VT, AF, cardiac pacemaker, DM 2, HTN, thyroid CA, depression, GERD, DL, CAD, CKD stage III, mild cognitive impairment, was sent from [facility] with complaint of SOB, FITZGERALD for the past 2 weeks on 10/15/2017. She was weak and tired with minimal activity, occasional dizzy spell and non productive cough. She had a CT check in ED which r/o PE but suspicious pulmonary nodules were identified possible metastatic malignancy. She was not a smoker but her was a long time smoker and no prior history of asthma or COPD. She was admitted and had a pacemaker replacement/exchange 10/19. Today she had an episode of right sided weakness after coming from the bathroom with right facial droop which resolved going to CT head. She was sent for a CT head and had another episode after the CT head which did not resolve. Nursing staff reports she was very agitated and they have been giving her ativan. She was started on a heparin gtt and suppository aspirin after the second event. She is too confused and is not follow commands to pass her dysphagia screening. Since she just had the pacemaker exchange she can not have an MRI to verify the CVA. ROS can not be done due to confusion. She passed her dysphagia screening for soft foods and took her pill orally Today she is sitting in bedside chair her right arm is flaying and she appears very frustrated. She states someone needs to help her but she doesn't say what. when asked if she wants to get back in bed she states yes. denies CP, SOB, abdominal pain, N, V. Objective Date Time Temp Pulse Resp B/P (MAP) Pulse Ox O2 Delivery O2 Flow Rate FiO2 10/25/17 12:00 36.7 94 18 106/53 (70) 98 Nasal Cannula 2.0 10/25/17 12:00 Nasal Cannula 2.0 10/25/17 11:23 75 18 98 Nasal Cannula 2.0 10/25/17 11:01 36.7 85 20 106/53 (70) 99 Nasal Cannula 2.0 10/25/17 10:31 100 Nasal Cannula 2.0 10/25/17 08:42 Nasal Cannula 2.0 10/25/17 07:15 97 20 93 Nasal Cannula 2.0 10/25/17 07:15 36.6 95 20 116/76 (89) 97 Nasal Cannula 2.0 10/25/17 04:00 Nasal Cannula 2.0 10/25/17 03:40 88 20 98 Nasal Cannula 2.0 10/25/17 03:13 36.9 90 18 105/67 (80) 97 Nasal Cannula 2.0 10/25/17 00:00 Nasal Cannula 2.0 10/24/17 23:11 37.3 92 20 118/76 (90) 96 Nasal Cannula 2.0 10/24/17 23:05 100 20 96 Nasal Cannula 2.0 10/24/17 20:00 Nasal Cannula 2.0 10/24/17 19:14 83 20 92 Nasal Cannula 2.0 10/24/17 19:14 86 20 98 Nasal Cannula 2.0 10/24/17 19:02 37.2 73 20 108/57 (74) 99 Nasal Cannula 3.0 10/24/17 16:00 Nasal Cannula 2.0 10/24/17 15:53 76 10/24/17 15:37 36.8 93 20 115/57 (76) 98 Nasal Cannula 2.0 Last 24 Hours Test 10/24/17 16:05 10/24/17 16:42 10/24/17 20:16 10/25/17 05:15 Bedside Glucose 188 mg/dl 184 mg/dl 179 mg/dl White Blood Count 19.43 K/uL Red Blood Count 2.81 M/uL Hemoglobin 9.4 g/dL Hematocrit 28.8 % Mean Corpuscular Volume 102.5 fL Mean Corpuscular Hemoglobin 33.5 pg Mean Corpuscular Hemoglobin Concent 32.6 g/dl Platelet Count 162 K/uL Mean Platelet Volume 10.1 fL Neutrophils (%) (Auto) 88.5 % Lymphocytes (%) (Auto) 3.6 % Monocytes (%) (Auto) 4.4 % Eosinophils (%) (Auto) 0.1 % Basophils (%) (Auto) 0.1 % Neutrophils # (Auto) 17.20 K/uL Lymphocytes # (Auto) 0.70 K/uL Monocytes # (Auto) 0.86 K/uL Eosinophils # (Auto) 0.01 K/uL Basophils # (Auto) 0.02 K/uL RDW Standard Deviation 56.7 fL RDW Coefficient of Variation 15.5 % Immature Granulocyte % (Auto) 3.3 % Immature Granulocyte # (Auto) 0.64 K/uL Nucleated RBC Absolute Count (auto) 0.11 K/uL Nucleated Red Blood Cells % 0.6 % Activated Partial Thromboplast Time 19.5 SECONDS Partial Thromboplastin Ratio 0.8 Sodium Level 138 mmol/L Potassium Level 4.7 mmol/L Chloride Level 105 mmol/L Carbon Dioxide Level 24 mmol/L Anion Gap 9.0 mmol/L Blood Urea Nitrogen 38 mg/dl Creatinine 0.86 mg/dl Est Creatinine Clear Calc Drug Dose 41.3 ml/min Estimated GFR () 69.9 Estimated GFR (Non- 60.3 BUN/Creatinine Ratio 43.8 Random Glucose 187 mg/dl Calcium Level 9.0 mg/dl Test 10/25/17 06:38 10/25/17 10:59 Bedside Glucose 204 mg/dl 166 mg/dl Imaging: UE/LE doppler- No DVT within the right or left lower extremity TTE- Normal left ventricular size and systolic function. EF 55-60%. No definite regional wall motion abnormalities. Septal motion consistent with bundle-branch block/pacing. No significant left ventricular hypertrophy. * 2. Dilated right ventricle with reduced systolic function. * 3. The left atrium is severely dilated. * 4. The right atrium is mildly dilated. * 5. Limited 2D study per request. * 6. Technically difficult study, enhanced with IV Definity. * 7. Compared to prior study on 10/16/2017, LV systolic function has improved. Exam: Physical Exam: Constitutional: appearance nourished Ears, Nose, Mouth and Throat: mucous membranes moist, no injection and skin normal, eyes normal Cardiovascular: irregular Respiratory:course breath sounds Musculoskeletal: non pitting peripheral edema Skin: no stigmata of neurocutaneous disease noted and normal and intact Eyes: extraocular muscles intact (EOMI) and pupils equal, round and reactive to light (PERRL) NEUROLOGIC EXAMINATION: Mental status: Alert and interactive Oriented unable to say no ifs ands or buts, can identify thumb and cup Oriented to person Speech dysphasia Cranial Nerves right neglect, visual field cut Reflexes: Deep tendon reflexes were symmetrical and graded 2/5. Sensory: to light touch or cool touch Coordination: unable coordinate hand motion to finger right, left in tact Gait/Stance: sitting bedside repositioning of right arm continues to flail to right. Strength: hand put in beat adjuster but no control over arm motion and neglect with right hand motion, left finger to finger no bi pass, hip flex bilaterally Current Inpatient Medications Medications (Trade) Dose Ordered Sig/Los Route Start Time Stop Time Status Last Admin Dose Admin Al Hydrox/Mg Hydrox/Simethicone (Maalox Max Susp) 15 ml Q4H PRN PO 10/15/17 16:00 11/14/17 15:59 Magnesium Hydroxide (Milk Of Magnesia Susp) 30 ml Q12H PRN PO 10/15/17 16:00 11/14/17 15:59 10/18/17 14:50 30 ML Nitroglycerin (Nitrostat Tab) 0.4 mg UD PRN SL 10/15/17 16:00 11/14/17 15:59 Polyethylene (Miralax Powder Packet) 17 gm DAILY PRN PO 10/15/17 16:00 11/14/17 15:59 10/18/17 18:32 17 GM Glucose (Glucose 40% Gel) 15-30 GRAMS 15 GRAMS... UD PRN PO 10/15/17 16:00 11/14/17 15:59 Glucose (Glucose Chew Tab) 4-8 Tablets 4 Tabl... UD PRN PO 10/15/17 16:00 11/14/17 15:59 Dextrose (Dextrose 50% 50ML Syringe) 25-50ML OF 50% DW IV FOR... UD PRN IV 10/15/17 16:00 11/14/17 15:59 Glucagon (Glucagon Inj) 1 mg UD PRN SQ 10/15/17 16:00 11/14/17 15:59 Loperamide HCl (Imodium Cap) 2 mg Q4H PRN PO 10/15/17 16:00 11/14/17 15:59 Lorazepam (Ativan Tab) 0.25 mg Q6H PRN PO 10/15/17 16:00 11/14/17 15:59 10/25/17 01:34 0.25 MG Multivitamins/ Minerals (Multivitamin W/ Minerals Tab) 1 tab QAM PO 10/16/17 09:00 11/15/17 08:59 10/25/17 08:09 1 TAB Codeine Phosphate/ Guaifenesin (Robitussin-AC Sugar Free Syrup) 5 ml Q6H PRN PO 10/15/17 17:15 11/14/17 17:14 10/22/17 13:53 5 ML Albuterol/ Ipratropium (Duoneb) 3 ml Q2R PRN INH 10/15/17 17:30 11/14/17 17:29 Metoprolol Tartrate (Lopressor Iv) 5 mg Q6 PRN IV 10/16/17 00:15 11/15/17 00:14 10/24/17 08:56 5 MG Ipratropium Aromas (Atrovent 0.02% 0.5MG/2.5ML Neb) 0.5 mg Q4R INH 10/16/17 12:00 11/15/17 11:59 10/25/17 11:23 0.5 MG Levalbuterol (Xopenex 1.25MG/ 0.5ML Neb) 1.25 mg Q4R INH 10/16/17 12:00 11/15/17 11:59 10/25/17 11:23 1.25 MG Sertraline HCl (Zoloft Tab) 150 mg HS PO 10/16/17 21:00 11/15/17 20:59 Future Hold 10/22/17 21:12 150 MG Lactobacillus Acidophilus (Floranex Tab) 1 tab QAM PO 10/20/17 09:00 11/15/17 08:59 10/25/17 08:07 1 TAB Diltiazem HCl (Cardizem Cd Cap) 240 mg QAM PO 10/21/17 09:00 11/20/17 08:59 10/25/17 08:07 240 MG Digoxin (Lanoxin Tab) 0.125 mg DAILY@16 PO 10/21/17 16:00 11/20/17 15:59 Future hold 10/22/17 17:40 0.125 MG Guaifenesin (Mucinex Contr Rel Tab) 1,200 mg Q12 PO 10/22/17 09:00 11/21/17 08:59 10/25/17 08:08 1,200 MG Insulin Glargine (Lantus Solostar Pen) 5 units BID SC 10/22/17 09:00 11/21/17 08:59 10/25/17 08:15 5 UNITS Methylprednisolone Sodium Succinate 40 mg/Syringe 0.64 ml @ 1.5 mls/min Q12H IV 10/23/17 14:00 11/16/17 13:59 10/25/17 14:11 1.5 MLS/MIN Miscellaneous Information (Pharmacist Discharge Med Rec Consult) 1 ea UD PRN N/A 10/23/17 09:15 11/22/17 09:14 Insulin Aspart (novoLOG ASPART) SLIDING SCALE If C... ACHS SC 10/24/17 11:30 11/23/17 11:29 10/25/17 11:58 2 UNITS Aspirin (Aspirin Chew) 81 mg DAILY PO 10/25/17 09:00 11/24/17 08:59 10/25/17 08:01 81 MG Impression 87 year old presented with SOB and FITZGERALD, pacemaker exchange- sudden MS, right side weakness with L frontal lobe infarct Plan 1. antiplt tx with asa 2. dysphagia screening - done -passed for soft foods and able to take oral medications 3. CT head - left sided stroke will need to watch for hemorrhagic conversion 4. unable to have MRI due to pacemaker exchange - 10/19/2017 6. permissive HTN for now 7. PT/OT speech assessments for discharge needs 8. cardiology on board for further evaluation of afib related infarct and direction of therapy 9. limit ativan due to sedation 10. will need HTN, DL , DM control once out of stroke protocol window. 11. follow up with Neurology Puja De Guzman PAC schedule in 2-3 weeks after discharge from rehab. PT seen in presence of son. Pt stable. I do not think the pt is an anticoag candidate and rec ongoing asa. If her ambulation status improves this could be reconsidered, but pt had falls in assisted living prior to this admission. Pt will need inpt rehab. I would have not objections from a neurologic standpoint if pt stable tomorrow that she be discharged to rehabl. KOFFI Soto MD I have seen and discussed above patient with Dr Puja Soto, neurology
[2017-10-25] MEDS: DIGOXIN 0.125 MG TAB PO SCH (17:09)
--- NOTE | 2017-10-25 17:43 | Progress Note ---
Internal Med Progress Note Date of Service: Oct 25, 2017. Provider Documentation: SUBJECTIVE: Patient seen and examined at bedside. Is verbal with slurred speech. Denies pain. Able to make bilateral upper and lower extremity movements with right sided weakness OBJECTIVE: Exam: General- not in distress HEENT - slurred speech Neck- trachea midline Lungs- Clear to auscultation, no wheezing Heart- irregular rhythm Abdomen- soft, nontender, positive bowel sounds Extremities / Neuro - handgrip is stronger in left arm compared to right arm. able to raise both arms. Able to move ankles and toes bilaterally. Left leg elevation and strength greater compared to right leg. ASSESSMENT & PLAN: This is an 87 year old female with a PMH of A. Fib, HTN, CKD stage 3, sick sinus syndrome s/p pacemaker, CAD, DM2 presents from independent living due to worsening shortness of breath and subsequently developed stroke while patient was being evaluated for pulmonary nodules Bilateral Pulmonary Nodules -CT chest with contrast 10/15/17: Multiple bilateral pulmonary nodules which is suspicious for metastatic disease -no biopsy desired at this time Sick Sinus Syndrome pacemaker has been replaced on 10/19/17 TIA vs. Acute CVA on 10/23/17: patient with expressive aphasia, R sided weakness , Head CT at that time did not reveal acute process, was started on IV heparin and given aspirin suppository. Neurology recommended aspirin only. cannot obtain MRI due to recent pacemaker insertion (10/19/2017) -10/24/17: repeat CT head: Small to moderate-sized acute infarction of the left frontal lobe is noted with associated sulcal effacement and cytotoxic edema. No significant mass effect, hemorrhage or midline shift. -10/24/17 dysphagia screening - done -passed for soft foods and able to take oral medications - PT/OT speech assessments for discharge needs -follow up with Neurology Puja De Guzman PAC schedule in 2-3 weeks after discharge from rehab Anemia Hgb trended down from 11.7 to 8.7 between 10/23/17 to 10/24/17 which led to rescanning the head but there is no intracranial bleed Hgb on 10/25/17 is 9.4 Fecal occult blood test stool pending Hematuria from Gayle placement had resolved A. Fib with RVR that has been rate controlled recently -on PO diltiazem, on IV Digoxin switched to oral digoxin by cardiology service -cardiology service has mentioned anticoagulation but it would appear that based on patient's history of bruising and fall risk that anticoagulation may be risky in this patient to cause bleeding, this was discussed with neurology service present with patient, patient's son Antony Conn at the bedside Echocardiogram 10/25/16 * 1. Normal left ventricular size and systolic function. EF 55-60%. No definite regional wall motion abnormalities. Septal motion consistent with bundle-branch block/pacing. No significant left ventricular hypertrophy. * 2. Dilated right ventricle with reduced systolic function. * 3. The left atrium is severely dilated. * 4. The right atrium is mildly dilated. * 5. Limited 2D study per request. * 6. Technically difficult study, enhanced with IV Definity. * 7. Compared to prior study on 10/16/2017, LV systolic function has improved. History of Prolonged QTc monitor electrolytes avoid QTc prolonging agents Acute Hypoxic Respiratory Failure secondary to presumed COPD Exacerbation Severe Pulmonary HTN -Xopenex, Solumedrol stopped on 10/25/17 and to transition to oral prednisone on 10/26/17 -patient's son reports that she was not oxygen dependent at home Acute Kidney Injury - resolved DM2 : insulin DVT ppx: aspirin Palliative Care consult requested DNR/DNI Antony Conn, son, is the A - [phone] Disposition: As per social work and palliative care consult, when patient is medically stable patient may return to [facility] on hospice as an available option for after hospital discharge Vital Signs: Date Time Temp Pulse Resp B/P (MAP) Pulse Ox O2 Delivery O2 Flow Rate FiO2 10/25/17 17:09 100 10/25/17 16:00 Nasal Cannula 2.0 10/25/17 15:20 36.5 85 20 143/66 (91) 98 Nasal Cannula 2.0 10/25/17 14:35 80 20 94 Nasal Cannula 2.0 10/25/17 12:00 36.7 94 18 106/53 (70) 98 Nasal Cannula 2.0 10/25/17 12:00 Nasal Cannula 2.0 10/25/17 11:23 75 18 98 Nasal Cannula 2.0 10/25/17 11:01 36.7 85 20 106/53 (70) 99 Nasal Cannula 2.0 10/25/17 10:31 100 Nasal Cannula 2.0 10/25/17 08:42 Nasal Cannula 2.0 10/25/17 07:15 97 20 93 Nasal Cannula 2.0 10/25/17 07:15 36.6 95 20 116/76 (89) 97 Nasal Cannula 2.0 10/25/17 04:00 Nasal Cannula 2.0 10/25/17 03:40 88 20 98 Nasal Cannula 2.0 10/25/17 03:13 36.9 90 18 105/67 (80) 97 Nasal Cannula 2.0 10/25/17 00:00 Nasal Cannula 2.0 10/24/17 23:11 37.3 92 20 118/76 (90) 96 Nasal Cannula 2.0 10/24/17 23:05 100 20 96 Nasal Cannula 2.0 10/24/17 20:00 Nasal Cannula 2.0 10/24/17 19:14 83 20 92 Nasal Cannula 2.0 10/24/17 19:14 86 20 98 Nasal Cannula 2.0 10/24/17 19:02 37.2 73 20 108/57 (74) 99 Nasal Cannula 3.0 Lab Results: Results Past 24 Hours Test 10/24/17 20:16 10/25/17 05:15 10/25/17 06:38 10/25/17 10:59 Range/Units Bedside Glucose 179 204 166 70-90 mg/dl White Blood Count 19.43 4.8-10.8 K/uL Red Blood Count 2.81 4.2-5.4 M/uL Hemoglobin 9.4 12.0-16.0 g/dL Hematocrit 28.8 37-47 % Mean Corpuscular Volume 102.5 80-100 fL Mean Corpuscular Hemoglobin 33.5 25-34 pg Mean Corpuscular Hemoglobin Concent 32.6 32-36 g/dl Platelet Count 162 130-400 K/uL Mean Platelet Volume 10.1 7.4-10.4 fL Neutrophils (%) (Auto) 88.5 % Lymphocytes (%) (Auto) 3.6 % Monocytes (%) (Auto) 4.4 % Eosinophils (%) (Auto) 0.1 % Basophils (%) (Auto) 0.1 % Neutrophils # (Auto) 17.20 1.4-6.5 K/uL Lymphocytes # (Auto) 0.70 1.2-3.4 K/uL Monocytes # (Auto) 0.86 0.11-0.59 K/uL Eosinophils # (Auto) 0.01 0-0.5 K/uL Basophils # (Auto) 0.02 0-0.2 K/uL RDW Standard Deviation 56.7 36.4-46.3 fL RDW Coefficient of Variation 15.5 11.5-14.5 % Immature Granulocyte % (Auto) 3.3 % Immature Granulocyte # (Auto) 0.64 0.00-0.02 K/uL Nucleated RBC Absolute Count (auto) 0.11 0-0 K/uL Nucleated Red Blood Cells % 0.6 % Activated Partial Thromboplast Time 19.5 21.0-31.0 SECONDS Partial Thromboplastin Ratio 0.8 Sodium Level 138 136-145 mmol/L Potassium Level 4.7 3.5-5.1 mmol/L Chloride Level 105 98-107 mmol/L Carbon Dioxide Level 24 21-32 mmol/L Anion Gap 9.0 3-11 mmol/L Blood Urea Nitrogen 38 7-18 mg/dl Creatinine 0.86 0.60-1.20 mg/dl Est Creatinine Clear Calc Drug Dose 41.3 ml/min Estimated GFR () 69.9 Estimated GFR (Non- 60.3 BUN/Creatinine Ratio 43.8 10-20 Random Glucose 187 70-99 mg/dl Calcium Level 9.0 8.5-10.1 mg/dl Test 10/25/17 16:30 Range/Units Bedside Glucose 187 70-90 mg/dl
[2017-10-26] VITALS (16 sets, daily range): BP systolic 85–127; BP diastolic 57–73; PULSE 65–116; TEMP 36.8–37; O2SAT 92–99
[2017-10-26] MEDS: LEVALBUTEROL 1.25MG/0.5ML NEB INH SCH ×6 (03:07→23:38)
[2017-10-26] MEDS: IPRATROPIUM BROMIDE NEB SOLN 0.02% 2.5 ML VIAL INH SCH ×6 (03:07→23:38)
[2017-10-26 05:45] LABS: BASO % 0.1 %; BASO ABS # 0.02 K/uL (0-0.2); HEMATOCRIT 26.1 % (37-47); HEMOGLOBIN 8.5 g/dL (12.0-16.0); IG# 0.64 K/uL (0.00-0.02); LYMPH ABS # 0.53 K/uL (1.2-3.4); MEAN CELL VOLUME 102.4 fL (80-100); MEAN CORPUSCULAR HEMOGLOBIN 33.3 pg (25-34); MEAN CORPUSCULAR HGB CONC 32.6 g/dl (32-36); MONO % 5.8 %; MONO ABS # 1.01 K/uL (0.11-0.59); NEUT % 87.4 %; NEUT ABS # 15.29 K/uL (1.4-6.5); NUCLEATED RED BLOOD CELL ABS 0.17 K/uL (0-0); PLATELET COUNT 137 K/uL (130-400); RED CELL DISTRIBUTION WIDTH CV 15.6 % (11.5-14.5); RED CELL DISTRIBUTION WIDTH SD 56.4 fL (36.4-46.3); WHITE BLOOD COUNT 17.49 K/uL (4.8-10.8)
[2017-10-26 06:09] LABS: CALCIUM 8.2 mg/dl (8.5-10.1); CREATININE 0.9 mg/dl (0.60-1.20); POTASSIUM 4.7 mmol/L (3.5-5.1)
[2017-10-26 06:56] LABS: PTT PATIENT 18.6 SECONDS (21.0-31.0)
[2017-10-26] MEDS: INSULIN ASPART 100 UNITS/ML 3 ML PEN SC SCH ×4 (09:11→20:48)
[2017-10-26] MEDS: ASPIRIN 81 MG CHEW PO SCH (09:11)
[2017-10-26] MEDS: CEROVITE ADV FORMULA TAB PO SCH (09:12)
[2017-10-26] MEDS: DILTIAZEM HCL 240 MG CAPCR PO SCH (09:12)
[2017-10-26] MEDS: LACTOBACILLUS ACIDOPHILUS (FLORANEX) TAB PO SCH (09:12)
[2017-10-26] MEDS: GUAIFENESIN 600 MG TABCR PO SCH ×2 (09:12→20:42)
[2017-10-26] MEDS: INSULIN GLARGINE SOLOSTAR 100 UNITS/ML 3 ML PEN SC SCH ×2 (09:14→20:47)
--- NOTE | 2017-10-26 12:16 | Gastrointestinal Consultation ---
Gastrointestinal Consultation Date of Consultation: Oct 26, 2017 Attending Physician: Dr Gee Consulting Physician: Dr. Mccoy Reason for Consultation: Anemai / heme positive stool History of Present Illness Patient is a 87 year old female initially presented to the hospital for evaluation of worsening shortness of breath. The patient has a long history of atrial fibrillation and sick sinus syndrome and is status post placement of a pacemaker. Her pulmonary history is notable for severe pulmonary hypertension for which she follows with . During the hospital stay the patient has been noted to have a worsening anemia associated with heme-positive stool. There is been no gross bleeding reported by the patient or nursing staff. She denies having difficulty with swallowing, pain with swallowing fevers chills or sweats today. The patient does note that her shortness of breath is somewhat improved. She [facility] been [facility] a [facility] for prolonged period of time and previously been on hospice care. GI is consult at regard to need of endoscopic intervention. Past Medical/Surgical History Medical Problems: (1) Acute bronchitis Status: Acute (2) Anxiety Status: Chronic (3) Anxiety Status: Acute (4) Atrial fibrillation Status: Chronic (5) Diabetes mellitus Status: Chronic (6) Hyperlipidemia Status: Chronic (7) Hypertension Status: Acute (8) Hypothyroidism Status: Chronic (9) Hypoxia Status: Acute (10) Lightheaded Status: Acute (11) Pacemaker Status: Chronic (12) Pulmonary nodules Status: Acute (13) Vertigo Status: Acute (14) Vertigo Status: Acute (15) Wheezing Status: Acute Surgical Problems: (1) H/O thyroidectomy Status: Chronic (2) S/P knee replacement Status: Chronic Past Medical History: HTN Anemia Pulmonary hypertension Atrial fibrillation DM HLP Past Surgical History: Pacemaker placment Colonoscopy 2009 EUS 2010 (dilated CBD) EGD in 2008 Knee replacement Thyroidectomy Family History Cancer Diabetes mellitus Hypertension Social History Smoking Status: Never Smoker Alcohol Use: none Drug Use: none Marital Status: Housing Status: lives alone Occupation Status: retired Allergies Coded Allergies: Sulfa Antibiotics (Verified Allergy, Intermediate, RASH, 10/16/17) Gabapentin (Verified Allergy, Unknown, Unknown Rxn, 10/15/17) Trazodone (Verified Allergy, Unknown, Unknown Rxn, 10/15/17) Current Medications Home Meds and Scripts Medications Dose Route/Sig Max Daily Dose Days Date Category Duoneb (Ipratropium-Albuterol) 3 Ml Nebu 1 Treatment INH Q4H PRN 09/13/17 Rx Milk of Magnesia (Magnesium Hydroxide) 30 Ml Susp 30 Ml PO DAILY PRN 09/13/17 Reported Tums (Calcium Carbonate) 500 Mg Chew 2 Tabs PO BID PRN 09/13/17 Reported Tylenol (Acetaminophen) 325 Mg Tab 650 Mg PO Q4H PRN 09/13/17 Reported Sennalax-S (Sennosides-Docusate Sodium) 1 Tab Tab 1 Tab PO QAM 09/13/17 Reported Qc All Day Allergy (Cetirizine Hcl) 10 Mg Tab 10 Mg PO QAM 09/13/17 Reported Mucinex Dm (Dextromethorphan-Guaifenesin) 1 Tab Tab 1 Tab PO Q12 PRN 14 09/13/17 Reported Acidophilus Lactobacilli (Lactobacillus) 1 Cap Cap 1 Cap PO QAM 09/13/17 Reported Therems M (Multiple Vitamins W/ Minerals) 1 Tab Tab 1 Tab PO QAM 09/13/17 Reported Ipratropium [place] 0.5 Mg/2.5 Ml Nebu 1 Vial NEB QID PRN 30 12/27/16 Reported Ativan (Lorazepam) 0.5 Mg Tab 0.25 Mg PO Q6H PRN 12/27/16 Reported Imodium (Loperamide HCl) 2 Mg Cap 2 Mg PO Q4H PRN 12/27/16 Reported Zoloft (Sertraline HCl) 100 Mg Tab 150 Mg PO HS 12/27/16 Reported Lasix (Furosemide) 20 Mg Tab 1 Tab PO BID17 90 12/27/16 Reported Colace (Docusate Sodium) 100 Mg Cap 1 Cap PO BID 15 12/27/16 Reported Zyloprim (Allopurinol) 300 Mg Tab 1 Tab PO QAM 30 12/27/16 Reported Metoprolol Succinate ER (Metoprolol Succinate) 50 Mg Tabcr 50 Mg PO QAM 06/10/16 Reported Aspir-81 (Aspirin) 81 Mg Tab 81 Mg PO QAM 06/07/16 Reported Mirtazapine 45 Mg Tab 45 Mg PO HS 12/25/15 Reported Review of Systems Constitutional: No fever Eyes: No worsening of vision ENT: + nasal symptoms (1), + sore throat, No hearing loss, No trouble swallowing Respiratory: + hemoptysis Cardiac: No chest pain Abdomen: + odynophagia, No pain, No nausea, No vomiting, No GI bleeding, No jaundice Neuro: No memory loss, No numbness/tingling Heme: + abnormal bleeding/bruising Skin: + new/changing skin lesions Physical Exam Date Time Temp Pulse Resp B/P (MAP) Pulse Ox O2 Delivery O2 Flow Rate FiO2 10/26/17 12:00 Nasal Cannula 2.0 10/26/17 11:05 82 18 97 Nasal Cannula 2.0 10/26/17 08:30 94 24 123/65 (84) 95 Nasal Cannula 2.0 10/26/17 08:30 Nasal Cannula 2.0 10/26/17 08:19 Nasal Cannula 2.0 10/26/17 08:18 37.0 88 27 127/60 (82) 94 Nasal Cannula 2.0 10/26/17 07:14 88 18 98 Nasal Cannula 2.0 10/26/17 04:00 Nasal Cannula 2.0 10/26/17 03:14 36.8 88 19 117/66 (83) 98 Nasal Cannula 2.0 10/26/17 03:08 88 20 98 Nasal Cannula 2.0 10/26/17 00:00 Nasal Cannula 2.0 10/25/17 23:20 36.6 106 20 110/74 (86) 95 Nasal Cannula 2.0 10/25/17 23:07 91 20 100 Nasal Cannula 2.0 10/25/17 20:00 Nasal Cannula 2.0 10/25/17 19:20 36.4 87 20 129/60 (83) 98 Nasal Cannula 2.0 10/25/17 19:02 85 20 98 Nasal Cannula 2.0 10/25/17 17:09 100 10/25/17 16:00 Nasal Cannula 2.0 10/25/17 15:20 36.5 85 20 143/66 (91) 98 Nasal Cannula 2.0 10/25/17 14:35 80 20 94 Nasal Cannula 2.0 General Appearance: + moderate distress Eyes: PERRL Neck: supple, trachea midline Respiratory/Chest: + decreased breath sounds, + crackles Cardiovascular: no JVD, + systolic murmur, + irregularly irregular Abdomen: soft Extremities: + pedal edema (2+ extending to mid legs) Neurologic/Psych: oriented x 3 Skin: no jaundice, + pertinent finding (large submucosal hematoma noted in the left flank area) Laboratory Results Last 24 Hours Test 1/24/18 16:30 10/25/17 18:05 10/25/17 20:59 10/26/17 04:53 Bedside Glucose 187 mg/dl 222 mg/dl Stool Occult Blood POSITIVE White Blood Count 17.49 K/uL Red Blood Count 2.55 M/uL Hemoglobin 8.5 g/dL Hematocrit 26.1 % Mean Corpuscular Volume 102.4 fL Mean Corpuscular Hemoglobin 33.3 pg Mean Corpuscular Hemoglobin Concent 32.6 g/dl Platelet Count 137 K/uL Mean Platelet Volume 10.0 fL Neutrophils (%) (Auto) 87.4 % Lymphocytes (%) (Auto) 3.0 % Monocytes (%) (Auto) 5.8 % Eosinophils (%) (Auto) 0.0 % Basophils (%) (Auto) 0.1 % Neutrophils # (Auto) 15.29 K/uL Lymphocytes # (Auto) 0.53 K/uL Monocytes # (Auto) 1.01 K/uL Eosinophils # (Auto) 0.00 K/uL Basophils # (Auto) 0.02 K/uL RDW Standard Deviation 56.4 fL RDW Coefficient of Variation 15.6 % Immature Granulocyte % (Auto) 3.7 % Immature Granulocyte # (Auto) 0.64 K/uL Nucleated RBC Absolute Count (auto) 0.17 K/uL Nucleated Red Blood Cells % 1.0 % Polychromasia 1+ Activated Partial Thromboplast Time 18.6 SECONDS Partial Thromboplastin Ratio 0.7 Sodium Level 135 mmol/L Potassium Level 4.7 mmol/L Chloride Level 104 mmol/L Carbon Dioxide Level 27 mmol/L Anion Gap 4.0 mmol/L Blood Urea Nitrogen 39 mg/dl Creatinine 0.90 mg/dl Est Creatinine Clear Calc Drug Dose 39.5 ml/min Estimated GFR () 66.2 Estimated GFR (Non- 57.1 BUN/Creatinine Ratio 44.0 Random Glucose 164 mg/dl Calcium Level 8.2 mg/dl Digoxin Level 1.4 ng/ml Test 10/26/17 06:43 10/26/17 11:01 Bedside Glucose 192 mg/dl 253 mg/dl Impression Patient is a 87 year old female with multiple severe medical problems. The patient was referred to GI for evaluation of anemia and heme-positive stool. Given the patient's age and comorbid medical conditions she is not a good candidate for endoscopic evaluation. The patient and I did have a long discussion about this this afternoon. At this time she does not wish to undergo any procedures well. Upon evaluation of the patient I wonder if her worsening anemia could be related to the large bruise that's noted on her left flank. I would suggest that this be further evaluated by the internal medicine service. Recommendations No plan for endoscopic interventions at this time Please recall for any questions or concerns
--- NOTE | 2017-10-26 13:25 | Palliative Care Progress Note ---
Palliative Care Progress Note Date of Service Oct 26, 2017. Subjective Received call from patient's son, Antony Conn, this morning at 0815. Given patient's marked improvement since the CVA, he would like to pursue some rehab at SNF instead of patient going to [facility] on hospice care. I updated Dr. Gee and social work case manager.
--- NOTE | 2017-10-26 14:25 | Pharmacy Progress Note ---
Glycemic Control: Initial Note Date of Service Oct 26, 2017. Scope Glycemic Pharmacist to provide recommendations to improve glycemic control (all ICU patients are screened for hyperglycemia and treatment recommendations are provided per protocol). Pt identified with hyperglycemia (BSG above 180) while admitted to [facility] Subjective The patient is a 87 year old female admitted on Oct 15, 2017 at 11:57 for worsening shortness of breath and subsequently developed stroke while admitted . Patient's past medical history is significant for type 2 diabetes mellitus. Objective Height (Feet): 5 Height (Inches): 0.00 Weight (Kilograms): 78.300 Accuchecks BSG (last 24hrs): Test 10/25/17 16:30 10/25/17 20:59 10/26/17 04:53 10/26/17 06:43 Bedside Glucose 187 mg/dl (70-90) 222 mg/dl (70-90) 192 mg/dl (70-90) Random Glucose 164 mg/dl (70-99) Test 10/26/17 11:01 Bedside Glucose 253 mg/dl (70-90) Laboratory Data (last 24hrs) Test 10/26/17 04:53 Anion Gap 4.0 mmol/L BUN/Creatinine Ratio 44.0 Blood Urea Nitrogen 39 mg/dl Creatinine 0.90 mg/dl Potassium Level 4.7 mmol/L Sodium Level 135 mmol/L White Blood Count 17.49 K/uL Red Blood Count 2.55 M/uL Hemoglobin 8.5 g/dL Hematocrit 26.1 % Mean Corpuscular Volume 102.4 fL Mean Corpuscular Hemoglobin 33.3 pg Mean Corpuscular Hemoglobin Concent 32.6 g/dl Platelet Count 137 K/uL Mean Platelet Volume 10.0 fL Neutrophils (%) (Auto) 87.4 % Lymphocytes (%) (Auto) 3.0 % Monocytes (%) (Auto) 5.8 % Eosinophils (%) (Auto) 0.0 % Basophils (%) (Auto) 0.1 % Neutrophils # (Auto) 15.29 K/uL Lymphocytes # (Auto) 0.53 K/uL Monocytes # (Auto) 1.01 K/uL Eosinophils # (Auto) 0.00 K/uL Basophils # (Auto) 0.02 K/uL Recent Pertinent Medications Outpatient Anti-diabetic Regimen: * No home meds for DM * A1c = 6.5% The patient is currently receiving: * Basal Insulin: Lantus 5 units every 12 hours * Correctional Insulin: Novolog Correction per scale ACHS Goal Range: Low 140 mg/dL - High 180 mg/dL Correction Factor: 50 mg/dL/unit * Prandial Insulin: Per carb ratio of 1 unit per 30 grams CHO consumed Risk Factors for Insulin Resistance: * Steroids: Prednisone 40mg PO Q AM - 1st day of this therapy after receiving Solu-Medrol 40mg IV Q 12 hours * Diet: ordered T2DM / low Na diet Assessment & Plan ASSESSMENT: 10/26/17 * Patient with no prior dx of DM, however with A1c in the diabetic range, admitted for SOB on 10/15/17. * On 10/23 patient dx with CVA * Steroids have contributed to poor glycemic control this admission. Today steroids are being tapered however current insulin order likely inadequate to correct current level of hyperglycemia. * Would recommend the following doses while on Prednisone 40mg PO daily, doses are based upon weight and moderate stress level RECOMMEND: * Increasing Lantus to 8 units SQ BID * Changing correction factor to 35 mg/dl/unit * Changing carb ratio to 1 unit per 12 grams CHO consumed * Changing goal range to Low 110 mg/dL - High 140 mg/dL * Reevaluate insulin doses with each step down in steroid dose Pharmacy will continue to provide recommendations in EMR while patient admitted to /. Physicians may request pharmacy to continue to follow patient when transferred out of the ICU and/or consult pharmacy to write glycemic control orders * Please note that the plan above was derived based on current level of insulin resistance and hospital stress. These recommendations are appropriate for inpatient admission only. Plan of care upon discharge will need to be reassessed to avoid potential outpatient hypo/hyperglycemia. Thank you.
--- NOTE | 2017-10-26 15:04 | Neurology Progress Notes ---
Neurology Progress Note Date of Service Oct 26, 2017. Tory Vallejo is an 87 year old female who has a PMH VT, AF, cardiac pacemaker, DM 2, HTN, thyroid CA, depression, GERD, DL, CAD, CKD stage III, mild cognitive impairment, was sent from [facility] with complaint of SOB, FITZGERALD for the past 2 weeks on 10/15/2017. She was weak and tired with minimal activity, occasional dizzy spell and non productive cough. She had a CT check in ED which r/o PE but suspicious pulmonary nodules were identified possible metastatic malignancy. She was not a smoker but her was a long time smoker and no prior history of asthma or COPD. She was admitted and had a pacemaker replacement/exchange 10/19. Today she had an episode of right sided weakness after coming from the bathroom with right facial droop which resolved going to CT head. She was sent for a CT head and had another episode after the CT head which did not resolve. Nursing staff reports she was very agitated and they have been giving her ativan. She was started on a heparin gtt and suppository aspirin after the second event. She is too confused and is not follow commands to pass her dysphagia screening. Since she just had the pacemaker exchange she can not have an MRI to verify the CVA. ROS can not be done due to confusion. She passed her dysphagia screening for soft foods and took her pill orally Today she is lying in bed and states she feels good. According to notes in the chart the son is perusing rehab rather than the hospice care that was previously mentioned. denies CP, SOB, abdominal pain, N, V, headache. Objective Date Time Temp Pulse Resp B/P (MAP) Pulse Ox O2 Delivery O2 Flow Rate FiO2 10/26/17 13:16 124/62 (82) 10/26/17 13:08 36.9 65 22 85/65 (72) 98 Nasal Cannula 3.0 10/26/17 12:00 Nasal Cannula 2.0 10/26/17 11:05 82 18 97 Nasal Cannula 2.0 10/26/17 08:30 94 24 123/65 (84) 95 Nasal Cannula 2.0 10/26/17 08:30 Nasal Cannula 2.0 10/26/17 08:19 Nasal Cannula 2.0 10/26/17 08:18 37.0 88 27 127/60 (82) 94 Nasal Cannula 2.0 10/26/17 07:14 88 18 98 Nasal Cannula 2.0 10/26/17 04:00 Nasal Cannula 2.0 10/26/17 03:14 36.8 88 19 117/66 (83) 98 Nasal Cannula 2.0 10/26/17 03:08 88 20 98 Nasal Cannula 2.0 10/26/17 00:00 Nasal Cannula 2.0 10/25/17 23:20 36.6 106 20 110/74 (86) 95 Nasal Cannula 2.0 10/25/17 23:07 91 20 100 Nasal Cannula 2.0 10/25/17 20:00 Nasal Cannula 2.0 10/25/17 19:20 36.4 87 20 129/60 (83) 98 Nasal Cannula 2.0 10/25/17 19:02 85 20 98 Nasal Cannula 2.0 10/25/17 17:09 100 10/25/17 16:00 Nasal Cannula 2.0 10/25/17 15:20 36.5 85 20 143/66 (91) 98 Nasal Cannula 2.0 Last 24 Hours Test 10/25/17 16:30 10/25/17 18:05 10/25/17 20:59 10/26/17 04:53 Bedside Glucose 187 mg/dl 222 mg/dl Stool Occult Blood POSITIVE White Blood Count 17.49 K/uL Red Blood Count 2.55 M/uL Hemoglobin 8.5 g/dL Hematocrit 26.1 % Mean Corpuscular Volume 102.4 fL Mean Corpuscular Hemoglobin 33.3 pg Mean Corpuscular Hemoglobin Concent 32.6 g/dl Platelet Count 137 K/uL Mean Platelet Volume 10.0 fL Neutrophils (%) (Auto) 87.4 % Lymphocytes (%) (Auto) 3.0 % Monocytes (%) (Auto) 5.8 % Eosinophils (%) (Auto) 0.0 % Basophils (%) (Auto) 0.1 % Neutrophils # (Auto) 15.29 K/uL Lymphocytes # (Auto) 0.53 K/uL Monocytes # (Auto) 1.01 K/uL Eosinophils # (Auto) 0.00 K/uL Basophils # (Auto) 0.02 K/uL RDW Standard Deviation 56.4 fL RDW Coefficient of Variation 15.6 % Immature Granulocyte % (Auto) 3.7 % Immature Granulocyte # (Auto) 0.64 K/uL Nucleated RBC Absolute Count (auto) 0.17 K/uL Nucleated Red Blood Cells % 1.0 % Polychromasia 1+ Activated Partial Thromboplast Time 18.6 SECONDS Partial Thromboplastin Ratio 0.7 Sodium Level 135 mmol/L Potassium Level 4.7 mmol/L Chloride Level 104 mmol/L Carbon Dioxide Level 27 mmol/L Anion Gap 4.0 mmol/L Blood Urea Nitrogen 39 mg/dl Creatinine 0.90 mg/dl Est Creatinine Clear Calc Drug Dose 39.5 ml/min Estimated GFR () 66.2 Estimated GFR (Non- 57.1 BUN/Creatinine Ratio 44.0 Random Glucose 164 mg/dl Calcium Level 8.2 mg/dl Digoxin Level 1.4 ng/ml Test 10/26/17 06:43 10/26/17 11:01 Bedside Glucose 192 mg/dl 253 mg/dl Imaging: no new imaging Exam: Physical Exam: Constitutional: appearance nourished obese Ears, Nose, Mouth and Throat: mucous membranes moist, no injection and skin normal, eyes normal Cardiovascular: irregular Respiratory: course breath sounds Musculoskeletal: non pitting peripheral edema, distant pulses Skin: no stigmata of neurocutaneous disease noted and normal and intact Eyes: extraocular muscles intact (EOMI) and pupils equal, round and reactive to light (PERRL), gross visual allen intact NEUROLOGIC EXAMINATION: Mental status: Alert and interactive Oriented to person Speech dysphasia, unable to say no ifs ands or buts, can identify and say thumb and button Cranial Nerves eye brow raise symmetric, some flattening of naso labial fold Reflexes: Deep tendon reflexes were symmetrical and graded 2/5. Sensory: no deficit to light touch Coordination: finger to nose on left, right can reach and grab hand Gait/Stance: Posture lying in bed Motor: lifts right arm against gravity Strength: right hand production dispatcher bicep tricep 3/5, hip flex 3/5, plantar flex ext 5/5, left biceps triceps hand production dispatcher 5/5 hip flex 4/5, plantar flex ext 5/5 Current Inpatient Medications Medications (Trade) Dose Ordered Sig/Los Route Start Time Stop Time Status Last Admin Dose Admin Al Hydrox/Mg Hydrox/Simethicone (Maalox Max Susp) 15 ml Q4H PRN PO 10/15/17 16:00 11/14/17 15:59 Magnesium Hydroxide (Milk Of Magnesia Susp) 30 ml Q12H PRN PO 10/15/17 16:00 11/14/17 15:59 10/18/17 14:50 30 ML Nitroglycerin (Nitrostat Tab) 0.4 mg UD PRN SL 10/15/17 16:00 11/14/17 15:59 Polyethylene (Miralax Powder Packet) 17 gm DAILY PRN PO 10/15/17 16:00 11/14/17 15:59 10/18/17 18:32 17 GM Glucose (Glucose 40% Gel) 15-30 GRAMS 15 GRAMS... UD PRN PO 10/15/17 16:00 11/14/17 15:59 Glucose (Glucose Chew Tab) 4-8 Tablets 4 Tabl... UD PRN PO 10/15/17 16:00 11/14/17 15:59 Dextrose (Dextrose 50% 50ML Syringe) 25-50ML OF 50% DW IV FOR... UD PRN IV 10/15/17 16:00 11/14/17 15:59 Glucagon (Glucagon Inj) 1 mg UD PRN SQ 10/15/17 16:00 11/14/17 15:59 Loperamide HCl (Imodium Cap) 2 mg Q4H PRN PO 10/15/17 16:00 11/14/17 15:59 Lorazepam (Ativan Tab) 0.25 mg Q6H PRN PO 10/15/17 16:00 11/14/17 15:59 10/25/17 21:44 0.25 MG Multivitamins/ Minerals (Multivitamin W/ Minerals Tab) 1 tab QAM PO 10/16/17 09:00 11/15/17 08:59 10/26/17 09:12 1 TAB Codeine Phosphate/ Guaifenesin (Robitussin-AC Sugar Free Syrup) 5 ml Q6H PRN PO 10/15/17 17:15 11/14/17 17:14 10/22/17 13:53 5 ML Albuterol/ Ipratropium (Duoneb) 3 ml Q2R PRN INH 10/15/17 17:30 11/14/17 17:29 Metoprolol Tartrate (Lopressor Iv) 5 mg Q6 PRN IV 10/16/17 00:15 11/15/17 00:14 10/24/17 08:56 5 MG Ipratropium [place] (Atrovent 0.02% 0.5MG/2.5ML Neb) 0.5 mg Q4R INH 10/16/17 12:00 11/15/17 11:59 10/26/17 11:05 0.5 MG Levalbuterol (Xopenex 1.25MG/ 0.5ML Neb) 1.25 mg Q4R INH 10/16/17 12:00 11/15/17 11:59 10/26/17 11:05 1.25 MG Sertraline HCl (Zoloft Tab) 150 mg HS PO 10/16/17 21:00 11/15/17 20:59 Future Hold 10/22/17 21:12 150 MG Lactobacillus Acidophilus (Floranex Tab) 1 tab QAM PO 10/20/17 09:00 11/15/17 08:59 10/26/17 09:12 1 TAB Diltiazem HCl (Cardizem Cd Cap) 240 mg QAM PO 10/21/17 09:00 11/20/17 08:59 10/26/17 09:12 240 MG Digoxin (Lanoxin Tab) 0.125 mg DAILY@16 PO 10/21/17 16:00 11/20/17 15:59 Future hold 10/25/17 17:09 0.125 MG Guaifenesin (Mucinex Contr Rel Tab) 1,200 mg Q12 PO 10/22/17 09:00 11/21/17 08:59 10/26/17 09:12 1,200 MG Insulin Glargine (Lantus Solostar Pen) 5 units BID SC 10/22/17 09:00 11/21/17 08:59 10/26/17 09:14 5 UNITS Miscellaneous Information (Pharmacist Discharge Med Rec Consult) 1 ea UD PRN N/A 10/23/17 09:15 11/22/17 09:14 Insulin Aspart (novoLOG ASPART) SLIDING SCALE If C... ACHS SC 10/24/17 11:30 11/23/17 11:29 10/26/17 12:21 3 UNITS Aspirin (Aspirin Chew) 81 mg DAILY PO 10/25/17 09:00 11/24/17 08:59 10/26/17 09:11 81 MG Prednisone (PredniSONE TAB) 40 mg DAILY PO 10/26/17 09:00 11/25/17 08:59 10/26/17 09:13 40 MG Impression 87 year old presented with SOB and FITZGERALD, pacemaker exchange- sudden MS, right side weakness with L frontal lobe infarct Plan 1. heparin gtt stopped and continue aspirin 81 mg daily 2. dysphagia screening - done -passed for soft foods and able to take oral medications 3. CT head - left sided stroke will need to watch for hemorrhagic conversion- passed high risk 4. unable to have MRI due to pacemaker exchange - 10/19/2017 5. cardiology for rate control afib- patient appropriate anticoag vs antiplt therapy due to fall risk 6. PT/OT speech assessments for discharge needs- family requesting rehab placement 7. cardiology on board for further evaluation of afib rate controlled no good candidate due to fall risk for anticoag. could be reevaluated after rehab. 8. limit ativan due to sedation 9. will need HTN, DL , DM control once out of stroke protocol window. 10. GI was reconsulted due to anemia. no endoscopy is planned, possible evaluation of flank bruising was recommended. 11. follow up with Neurology Puja De Guzman PAC schedule in 2-3 weeks after discharge from rehab I have seen and discussed above patient with Dr Puja Soto, neurology Pt seen and examined. word finding difficulty, mild R hemiparesis. Imp embolic stroke, continue asa. I believe pt is a poor candidate for anticoagulation. Pt LEA stenosis 50-69% is asymptomatic and should be followed up with carotid us in 1 year and yearly thereafter. Will sign off at present. KOFFI Soto MD
[2017-10-26] MEDS: DIGOXIN 0.125 MG TAB PO SCH (16:47)
--- NOTE | 2017-10-26 18:56 | Progress Note ---
Internal Med Progress Note Date of Service: Oct 26, 2017. Provider Documentation: SUBJECTIVE: Patient seen and examined at bedside. Is verbal with slurred speech. Denies pain. Able to make bilateral upper and lower extremity movements with right sided weakness OBJECTIVE: Exam: General- not in distress HEENT - slurred speech Neck- trachea midline Lungs- Clear to auscultation, no wheezing Heart- irregular rhythm Abdomen- soft, nontender, positive bowel sounds Extremities / Neuro - handgrip is stronger in left arm compared to right arm. able to raise both arms. Able to move ankles and toes bilaterally. Left leg elevation and strength greater compared to right leg. ASSESSMENT & PLAN: This is an 87 year old female with a PMH of A. Fib, HTN, CKD stage 3, sick sinus syndrome s/p pacemaker, CAD, DM2 presents from independent living due to worsening shortness of breath and subsequently developed stroke while patient was being evaluated for pulmonary nodules Bilateral Pulmonary Nodules -CT chest with contrast 10/15/17: Multiple bilateral pulmonary nodules which is suspicious for metastatic disease -no biopsy desired at this time Sick Sinus Syndrome pacemaker has been replaced on 10/19/17 TIA vs. Acute CVA on 10/23/17: patient with expressive aphasia, R sided weakness , Head CT at that time did not reveal acute process, was started on IV heparin and given aspirin suppository. Neurology recommended aspirin only. cannot obtain MRI due to recent pacemaker insertion (10/19/2017) -10/24/17: repeat CT head: Small to moderate-sized acute infarction of the left frontal lobe is noted with associated sulcal effacement and cytotoxic edema. No significant mass effect, hemorrhage or midline shift. -10/24/17 dysphagia screening - done -passed for soft foods and able to take oral medications - PT/OT speech assessments for discharge needs -follow up with Neurology Puja De Guzman PAC schedule in 2-3 weeks after discharge from rehab Anemia Hgb trended down from 11.7 to 8.7 between 10/23/17 to 10/24/17 which led to rescanning the head but there is no intracranial bleed Hgb on 10/25/17 is 9.4 Fecal occult blood test stool was positive. Hgb on is 8.5 Patient declined gastroenterology intervention to be scoped for anemia workup A. Fib with RVR that has been rate controlled recently -on PO diltiazem, oral digoxin -cardiology service has mentioned anticoagulation but it would appear that based on patient's history of bruising and fall risk that anticoagulation may be risky in this patient to cause bleeding, this was discussed with neurology service present with patient, patient's son Antony Conn at the bedside Echocardiogram 10/25/16 * 1. Normal left ventricular size and systolic function. EF 55-60%. No definite regional wall motion abnormalities. Septal motion consistent with bundle-branch block/pacing. No significant left ventricular hypertrophy. * 2. Dilated right ventricle with reduced systolic function. * 3. The left atrium is severely dilated. * 4. The right atrium is mildly dilated. * 5. Limited 2D study per request. * 6. Technically difficult study, enhanced with IV Definity. * 7. Compared to prior study on 10/16/2017, LV systolic function has improved. History of Prolonged QTc monitor electrolytes avoid QTc prolonging agents Acute Hypoxic Respiratory Failure secondary to presumed COPD Exacerbation Severe Pulmonary HTN -Xopenex, Solumedrol stopped on 10/25/17 and transitioned to oral prednisone daily on 10/26/17 -patient's son reports that she was not oxygen dependent at home, Chest X ray ordered to rule out pulmonary congestion although previous Chest X rays did not reveal acute findings of infiltrates Acute Kidney Injury - resolved DM2 : insulin DVT ppx: aspirin Palliative Care consult following patient DNR/DNI Antony Conn, son, is the A - [phone] Disposition: Plan for discharge to physical rehabilitation facility when bed is made available Vital Signs: Date Time Temp Pulse Resp B/P (MAP) Pulse Ox O2 Delivery O2 Flow Rate FiO2 10/26/17 16:47 80 10/26/17 16:38 37.0 70 20 126/64 (84) 96 Nasal Cannula 2.0 10/26/17 16:00 Nasal Cannula 2.0 10/26/17 15:14 87 18 98 Nasal Cannula 2.0 10/26/17 13:16 124/62 (82) 10/26/17 13:08 36.9 65 22 85/65 (72) 98 Nasal Cannula 3.0 10/26/17 12:00 Nasal Cannula 2.0 10/26/17 12:00 Nasal Cannula 2.0 10/26/17 11:05 82 18 97 Nasal Cannula 2.0 10/26/17 08:30 94 24 123/65 (84) 95 Nasal Cannula 2.0 10/26/17 08:30 Nasal Cannula 2.0 10/26/17 08:19 Nasal Cannula 2.0 10/26/17 08:18 37.0 88 27 127/60 (82) 94 Nasal Cannula 2.0 10/26/17 07:14 88 18 98 Nasal Cannula 2.0 10/26/17 04:00 Nasal Cannula 2.0 10/26/17 03:14 36.8 88 19 117/66 (83) 98 Nasal Cannula 2.0 10/26/17 03:08 88 20 98 Nasal Cannula 2.0 10/26/17 00:00 Nasal Cannula 2.0 10/25/17 23:20 36.6 106 20 110/74 (86) 95 Nasal Cannula 2.0 10/25/17 23:07 91 20 100 Nasal Cannula 2.0 10/25/17 20:00 Nasal Cannula 2.0 10/25/17 19:20 36.4 87 20 129/60 (83) 98 Nasal Cannula 2.0 10/25/17 19:02 85 20 98 Nasal Cannula 2.0 Lab Results: Results Past 24 Hours Test 10/25/17 20:59 10/26/17 04:53 10/26/17 06:43 10/26/17 11:01 Range/Units Bedside Glucose 222 192 253 70-90 mg/dl White Blood Count 17.49 4.8-10.8 K/uL Red Blood Count 2.55 4.2-5.4 M/uL Hemoglobin 8.5 12.0-16.0 g/dL Hematocrit 26.1 37-47 % Mean Corpuscular Volume 102.4 80-100 fL Mean Corpuscular Hemoglobin 33.3 25-34 pg Mean Corpuscular Hemoglobin Concent 32.6 32-36 g/dl Platelet Count 137 130-400 K/uL Mean Platelet Volume 10.0 7.4-10.4 fL Neutrophils (%) (Auto) 87.4 % Lymphocytes (%) (Auto) 3.0 % Monocytes (%) (Auto) 5.8 % Eosinophils (%) (Auto) 0.0 % Basophils (%) (Auto) 0.1 % Neutrophils # (Auto) 15.29 1.4-6.5 K/uL Lymphocytes # (Auto) 0.53 1.2-3.4 K/uL Monocytes # (Auto) 1.01 0.11-0.59 K/uL Eosinophils # (Auto) 0.00 0-0.5 K/uL Basophils # (Auto) 0.02 0-0.2 K/uL RDW Standard Deviation 56.4 36.4-46.3 fL RDW Coefficient of Variation 15.6 11.5-14.5 % Immature Granulocyte % (Auto) 3.7 % Immature Granulocyte # (Auto) 0.64 0.00-0.02 K/uL Nucleated RBC Absolute Count (auto) 0.17 0-0 K/uL Nucleated Red Blood Cells % 1.0 % Polychromasia 1+ Activated Partial Thromboplast Time 18.6 21.0-31.0 SECONDS Partial Thromboplastin Ratio 0.7 Sodium Level 135 136-145 mmol/L Potassium Level 4.7 3.5-5.1 mmol/L Chloride Level 104 98-107 mmol/L Carbon Dioxide Level 27 21-32 mmol/L Anion Gap 4.0 3-11 mmol/L Blood Urea Nitrogen 39 7-18 mg/dl Creatinine 0.90 0.60-1.20 mg/dl Est Creatinine Clear Calc Drug Dose 39.5 ml/min Estimated GFR () 66.2 Estimated GFR (Non- 57.1 BUN/Creatinine Ratio 44.0 10-20 Random Glucose 164 70-99 mg/dl Calcium Level 8.2 8.5-10.1 mg/dl Digoxin Level 1.4 0.8-2.0 ng/ml Test 10/26/17 15:43 Range/Units Bedside Glucose 159 70-90 mg/dl
--- NOTE | 2017-10-26 19:41 | DIAGNOSTIC IMAGING REPORT ---
CHEST ONE VIEW PORTABLE HISTORY: 87 years-old Female HYPOXIA acute hypoxia COMPARISON: Chest radiograph 10/23/2017, CTA of the chest 10/15/2017 TECHNIQUE: Portable AP view of the chest FINDINGS: Cardiac silhouette is moderately enlarged, unchanged. Left subclavian pacer is noted with leads intact. Calcifications of the tracheobronchial tree are noted. There is no pneumothorax, or overt pulmonary edema. Mild eventration of the right hemidiaphragm. Patchy subsegmental left basilar opacities suggest atelectasis or scarring. Trace bilateral pleural effusions. Unchanged pulmonary nodules with nodule of the right upper lobe measuring up to 1.4 cm. Bones appear grossly intact. Remote fracture deformity of the left clavicle. Cholecystectomy clips noted. IMPRESSION: 1. Stable exam with cardiomegaly, trace pleural effusions and probable left basilar atelectasis. 2. Pulmonary nodules redemonstrated. The above report was generated using voice recognition software. It may contain grammatical, syntax or spelling errors. Electronically signed by: Julian Martinez M.D. 10/26/2017 7:39 PM Dictated Date/Time: 10/26/2017 7:37 PM
[2017-10-26] MEDS: LORAZEPAM 0.5 MG TAB PO PRN (23:46)
[2017-10-27] VITALS (10 sets, daily range): BP systolic 121–127; BP diastolic 69–80; PULSE 70–90; TEMP 36.4–36.7; O2SAT 91–100
[2017-10-27] MEDS: GUAIFENESIN/CODEINE 100MG/10MG 5ML UDC PO PRN (01:46)
[2017-10-27] MEDS: LEVALBUTEROL 1.25MG/0.5ML NEB INH SCH ×6 (03:31→23:24)
[2017-10-27] MEDS: IPRATROPIUM BROMIDE NEB SOLN 0.02% 2.5 ML VIAL INH SCH ×6 (03:31→23:24)
[2017-10-27] MEDS: ASPIRIN 81 MG CHEW PO SCH (08:10)
[2017-10-27] MEDS: CEROVITE ADV FORMULA TAB PO SCH (08:11)
[2017-10-27] MEDS: DILTIAZEM HCL 240 MG CAPCR PO SCH (08:11)
[2017-10-27] MEDS: LACTOBACILLUS ACIDOPHILUS (FLORANEX) TAB PO SCH (08:11)
[2017-10-27] MEDS: GUAIFENESIN 600 MG TABCR PO SCH ×2 (08:12→20:27)
[2017-10-27] MEDS: INSULIN GLARGINE SOLOSTAR 100 UNITS/ML 3 ML PEN SC SCH ×2 (08:15→20:39)
[2017-10-27] MEDS: INSULIN ASPART 100 UNITS/ML 3 ML PEN SC SCH ×4 (08:15→20:38)
--- NOTE | 2017-10-27 14:26 | Progress Note ---
Internal Med Progress Note Date of Service: Oct 27, 2017. Provider Documentation: SUBJECTIVE: Patient seen and examined at bedside. Patient's aphasia has been improving and more fluid movements of upper extremities. Strength of right side appears to be improving as well OBJECTIVE: Exam: General- not in distress HEENT - slurred speech Neck- trachea midline Lungs- Clear to auscultation, no wheezing Heart- irregular rhythm Abdomen- soft, nontender, positive bowel sounds Extremities / Neuro - right arm strength and movements improving and almost matching that of left upper extremity. Able to move ankles and toes bilaterally. leg elevation with both legs with improvements ASSESSMENT & PLAN: This is an 87 year old female with a PMH of A. Fib, HTN, CKD stage 3, sick sinus syndrome s/p pacemaker, CAD, DM2 presents from independent living due to worsening shortness of breath and subsequently developed stroke while patient was being evaluated for pulmonary nodules Bilateral Pulmonary Nodules -CT chest with contrast 10/15/17: Multiple bilateral pulmonary nodules which is suspicious for metastatic disease -no biopsy desired at this time Sick Sinus Syndrome pacemaker has been replaced on 10/19/17 Stroke on 10/23/17: patient with expressive aphasia, R sided weakness, Head CT at that time did not reveal acute process, was started on IV heparin and given aspirin suppository. Neurology recommended aspirin only. cannot obtain MRI due to recent pacemaker insertion (10/19/2017) -10/24/17: repeat CT head: Small to moderate-sized acute infarction of the left frontal lobe is noted with associated sulcal effacement and cytotoxic edema. No significant mass effect, hemorrhage or midline shift. -10/24/17 dysphagia screening - done -passed for soft foods and able to take oral medications - PT/OT working with patient -follow up with Neurology Puja De Guzman PAC schedule in 2-3 weeks after discharge from rehab Anemia Hgb trended down from 11.7 to 8.7 between 10/23/17 to 10/24/17 which led to rescanning the head but there is no intracranial bleed Hgb on 10/25/17 is 9.4 Fecal occult blood test stool was positive. Hgb on is 8.5 Patient declined gastroenterology intervention to be scoped for anemia workup A. Fib with RVR that has been rate controlled -on PO diltiazem, oral digoxin -cardiology service has mentioned anticoagulation but it would appear that based on patient's history of bruising and fall risk that anticoagulation may be risky in this patient to cause bleeding, this was discussed with neurology service present with patient, patient's son Antony Conn at the bedside Echocardiogram 10/25/16 * 1. Normal left ventricular size and systolic function. EF 55-60%. No definite regional wall motion abnormalities. Septal motion consistent with bundle-branch block/pacing. No significant left ventricular hypertrophy. * 2. Dilated right ventricle with reduced systolic function. * 3. The left atrium is severely dilated. * 4. The right atrium is mildly dilated. * 5. Limited 2D study per request. * 6. Technically difficult study, enhanced with IV Definity. * 7. Compared to prior study on 10/16/2017, LV systolic function has improved. History of Prolonged QTc monitor electrolytes avoid QTc prolonging agents Acute Hypoxic Respiratory Failure secondary to presumed COPD Exacerbation Severe Pulmonary HTN -Xopenex, Solumedrol stopped on 10/25/17 and transitioned to oral prednisone daily on 10/26/17 -patient's son reports that she was not oxygen dependent at home -Recent Chest X ray 10/26/16: Stable exam with cardiomegaly, trace pleural effusions and probable left basilar atelectasis, Pulmonary nodules redemonstrated -as of AM of 10/27/17 patient requiring only 1 liter/min of oxygen via nasal cannula Acute Kidney Injury - resolved DM2 : insulin DVT ppx: aspirin Palliative Care consult have evaluated patient DNR/DNI Disposition: Plan for discharge to physical rehabilitation facility when bed is made available Antony Conn, son, is the [facility] - [phone] Vital Signs: Date Time Temp Pulse Resp B/P (MAP) Pulse Ox O2 Delivery O2 Flow Rate FiO2 10/27/17 11:43 76 18 91 Nasal Cannula 1.0 10/27/17 11:24 Nasal Cannula 1.0 10/27/17 07:52 36.4 86 18 127/80 (96) 100 Nasal Cannula 2.0 10/27/17 07:07 90 18 96 Nasal Cannula 2.0 10/27/17 03:31 77 18 99 Nasal Cannula 2.0 10/27/17 00:52 Nasal Cannula 2.0 10/26/17 23:39 116 18 92 Nasal Cannula 2.0 10/26/17 23:31 37.0 112 22 125/73 (90) Nasal Cannula 2.0 10/26/17 19:45 36.9 95 20 107/68 (81) 97 Nasal Cannula 2.0 10/26/17 19:05 37.0 80 20 96 10/26/17 19:04 37.0 88 21 125/57 (79) 99 Nasal Cannula 2.0 10/26/17 18:54 79 18 97 Nasal Cannula 2.0 10/26/17 16:47 80 10/26/17 16:38 37.0 70 20 126/64 (84) 96 Nasal Cannula 2.0 10/26/17 16:00 Nasal Cannula 2.0 10/26/17 15:14 87 18 98 Nasal Cannula 2.0 Lab Results: Results Past 24 Hours Test 10/26/17 15:43 10/26/17 20:07 10/27/17 08:01 10/27/17 11:25 Range/Units Bedside Glucose 159 228 110 157 70-90 mg/dl
--- NOTE | 2017-10-27 15:29 | Neurology Progress Notes ---
Neurology Progress Note Date of Service Oct 27, 2017. Tory Vallejo is an 87 year old female who has a PMH VT, AF, cardiac pacemaker, DM 2, HTN, thyroid CA, depression, GERD, DL, CAD, CKD stage III, mild cognitive impairment, was sent from [facility] with complaint of SOB, FITZGERALD for the past 2 weeks on 10/15/2017. She was weak and tired with minimal activity, occasional dizzy spell and non productive cough. She had a CT check in ED which r/o PE but suspicious pulmonary nodules were identified possible metastatic malignancy. She was not a smoker but her was a long time smoker and no prior history of asthma or COPD. She was admitted and had a pacemaker replacement/exchange 10/19. Today she had an episode of right sided weakness after coming from the bathroom with right facial droop which resolved going to CT head. She was sent for a CT head and had another episode after the CT head which did not resolve. Nursing staff reports she was very agitated and they have been giving her ativan. She was started on a heparin gtt and suppository aspirin after the second event. She is too confused and is not follow commands to pass her dysphagia screening. Since she just had the pacemaker exchange she can not have an MRI to verify the CVA. ROS can not be done due to confusion. She passed her dysphagia screening for soft foods and took her pill orally Today she is lying in bed and states she feels good. [facility] is willing to accept the patient waiting for insurance approval. denies CP, SOB, abdominal pain, N, V, headache. Objective Date Time Temp Pulse Resp B/P (MAP) Pulse Ox O2 Delivery O2 Flow Rate FiO2 10/27/17 11:43 76 18 91 Nasal Cannula 1.0 10/27/17 11:24 Nasal Cannula 1.0 10/27/17 07:52 36.4 86 18 127/80 (96) 100 Nasal Cannula 2.0 10/27/17 07:07 90 18 96 Nasal Cannula 2.0 10/27/17 03:31 77 18 99 Nasal Cannula 2.0 10/27/17 00:52 Nasal Cannula 2.0 10/26/17 23:39 116 18 92 Nasal Cannula 2.0 10/26/17 23:31 37.0 112 22 125/73 (90) Nasal Cannula 2.0 10/26/17 19:45 36.9 95 20 107/68 (81) 97 Nasal Cannula 2.0 10/26/17 19:05 37.0 80 20 96 10/26/17 19:04 37.0 88 21 125/57 (79) 99 Nasal Cannula 2.0 10/26/17 18:54 79 18 97 Nasal Cannula 2.0 10/26/17 16:47 80 10/26/17 16:38 37.0 70 20 126/64 (84) 96 Nasal Cannula 2.0 10/26/17 16:00 Nasal Cannula 2.0 Last 24 Hours Test 10/26/17 15:43 10/26/17 20:07 10/27/17 08:01 10/27/17 11:25 Bedside Glucose 159 mg/dl 228 mg/dl 110 mg/dl 157 mg/dl Imaging: no new imaging Exam: Physical Exam: Constitutional: appearance nourished, healthy and obese Ears, Nose, Mouth and Throat: mucous membranes moist, no injection and skin normal, eyes normal Cardiovascular: irregular Respiratory: course breath sounds Musculoskeletal: non pitting peripheral edema Skin: no stigmata of neurocutaneous disease noted and normal and intact Eyes: extraocular muscles intact (EOMI) and pupils equal, round and reactive to light (PERRL), right sided neglect NEUROLOGIC EXAMINATION: Mental status: Alert and interactive Oriented can identify pen, button, thumb Oriented to person Speech expressive aphasia Cranial Nerves right sided nasolabial flattening of fold Sensory: intact to light touch Coordination: finger to nose left without bipass, right unable to tap end of finger Gait/Stance: Posture lying in bed Motor: right arm drift Strength: raises right arm against gravity but unable to control, left hand improvement lead biceps triceps 5/5, hip flex bilaterally against gravity, plantar flex ext 5/5 left 4/ 5 right Current Inpatient Medications Medications (Trade) Dose Ordered Sig/Los Route Start Time Stop Time Status Last Admin Dose Admin Al Hydrox/Mg Hydrox/Simethicone (Maalox Max Susp) 15 ml Q4H PRN PO 10/15/17 16:00 11/14/17 15:59 Magnesium Hydroxide (Milk Of Magnesia Susp) 30 ml Q12H PRN PO 10/15/17 16:00 11/14/17 15:59 10/18/17 14:50 30 ML Nitroglycerin (Nitrostat Tab) 0.4 mg UD PRN SL 10/15/17 16:00 11/14/17 15:59 Polyethylene (Miralax Powder Packet) 17 gm DAILY PRN PO 10/15/17 16:00 11/14/17 15:59 10/18/17 18:32 17 GM Glucose (Glucose 40% Gel) 15-30 GRAMS 15 GRAMS... UD PRN PO 10/15/17 16:00 11/14/17 15:59 Glucose (Glucose Chew Tab) 4-8 Tablets 4 Tabl... UD PRN PO 10/15/17 16:00 11/14/17 15:59 Dextrose (Dextrose 50% 50ML Syringe) 25-50ML OF 50% DW IV FOR... UD PRN IV 10/15/17 16:00 11/14/17 15:59 Glucagon (Glucagon Inj) 1 mg UD PRN SQ 10/15/17 16:00 11/14/17 15:59 Loperamide HCl (Imodium Cap) 2 mg Q4H PRN PO 10/15/17 16:00 11/14/17 15:59 Lorazepam (Ativan Tab) 0.25 mg Q6H PRN PO 10/15/17 16:00 11/14/17 15:59 10/26/17 23:46 0.25 MG Multivitamins/ Minerals (Multivitamin W/ Minerals Tab) 1 tab QAM PO 10/16/17 09:00 11/15/17 08:59 10/27/17 08:11 1 TAB Codeine Phosphate/ Guaifenesin (Robitussin-AC Sugar Free Syrup) 5 ml Q6H PRN PO 10/15/17 17:15 11/14/17 17:14 10/27/17 01:46 5 ML Albuterol/ Ipratropium (Duoneb) 3 ml Q2R PRN INH 10/15/17 17:30 11/14/17 17:29 Metoprolol Tartrate (Lopressor Iv) 5 mg Q6 PRN IV 10/16/17 00:15 11/15/17 00:14 10/24/17 08:56 5 MG Ipratropium [place] (Atrovent 0.02% 0.5MG/2.5ML Neb) 0.5 mg Q4R INH 10/16/17 12:00 11/15/17 11:59 10/27/17 11:43 0.5 MG Levalbuterol (Xopenex 1.25MG/ 0.5ML Neb) 1.25 mg Q4R INH 10/16/17 12:00 11/15/17 11:59 10/27/17 11:43 1.25 MG Sertraline HCl (Zoloft Tab) 150 mg HS PO 10/16/17 21:00 11/15/17 20:59 Future Hold 10/22/17 21:12 150 MG Lactobacillus Acidophilus (Floranex Tab) 1 tab QAM PO 10/20/17 09:00 11/15/17 08:59 10/27/17 08:11 1 TAB Diltiazem HCl (Cardizem Cd Cap) 240 mg QAM PO 10/21/17 09:00 11/20/17 08:59 10/27/17 08:11 240 MG Digoxin (Lanoxin Tab) 0.125 mg DAILY@16 PO 10/21/17 16:00 11/20/17 15:59 Future hold 10/26/17 16:47 0.125 MG Guaifenesin (Mucinex Contr Rel Tab) 1,200 mg Q12 PO 10/22/17 09:00 11/21/17 08:59 10/27/17 08:12 1,200 MG Insulin Glargine (Lantus Solostar Pen) 5 units BID SC 10/22/17 09:00 11/21/17 08:59 10/27/17 08:15 5 UNITS Miscellaneous Information (Pharmacist Discharge Med Rec Consult) 1 ea UD PRN N/A 10/23/17 09:15 11/22/17 09:14 Insulin Aspart (novoLOG ASPART) SLIDING SCALE If C... ACHS SC 10/24/17 11:30 11/23/17 11:29 10/27/17 12:17 1 UNITS Aspirin (Aspirin Chew) 81 mg DAILY PO 10/25/17 09:00 11/24/17 08:59 10/27/17 08:10 81 MG Prednisone (PredniSONE TAB) 40 mg DAILY PO 10/26/17 09:00 11/25/17 08:59 10/27/17 08:11 40 MG Impression 87 year old presented with SOB and FITZGERALD, pacemaker exchange- sudden MS, right side weakness with L frontal lobe infarct Plan continue aspirin 81 mg daily 2. dysphagia screening - done -passed for soft foods and able to take oral medications 3. 5. cardiology for rate control afib- patient not appropriate for anticoag due to fall risk 6. PT/OT speech assessments for discharge needs- family requesting rehab placement 7. cardiology on board for further evaluation of afib rate controlled no good candidate due to fall risk for anticoag. could be reevaluated after rehab. 8. limit ativan due to sedation 9. HTN, DL , DM LDL < 70 10. GI was reconsulted due to anemia. no endoscopy is planned, possible evaluation of flank bruising was recommended. 11. ok for neurology stand point to discharge to rehab when medically stable 12. follow up with Neurology Puja De Guzman PAC schedule in 2-3 weeks after discharge from rehab will sign off for now call with questions concerns I have seen and discussed above patient with Dr Puja Soto, neurology Pt seen and examined, recommendations as prior. Will sign off. KOFFI Soto MD
[2017-10-27] MEDS: DIGOXIN 0.125 MG TAB PO SCH (18:23)
[2017-10-27] MEDS: LORAZEPAM 0.5 MG TAB PO PRN (23:24)
[2017-10-28 00:38] VITALS: O2SAT 98
[2017-10-28] MEDS: LEVALBUTEROL 1.25MG/0.5ML NEB INH SCH ×3 (03:34→11:29)
[2017-10-28] MEDS: IPRATROPIUM BROMIDE NEB SOLN 0.02% 2.5 ML VIAL INH SCH ×3 (03:34→11:29)
[2017-10-28] MEDS: INSULIN ASPART 100 UNITS/ML 3 ML PEN SC SCH (06:30)
[2017-10-28 07:16] VITALS: PULSE 88; O2SAT 98
[2017-10-28 08:14] VITALS: BP 119/70; PULSE 87; TEMP 36.5; O2SAT 96
[2017-10-28] MEDS: CEROVITE ADV FORMULA TAB PO SCH (08:17)
[2017-10-28] MEDS: LACTOBACILLUS ACIDOPHILUS (FLORANEX) TAB PO SCH (08:18)
[2017-10-28] MEDS: DILTIAZEM HCL 240 MG CAPCR PO SCH (08:18)
[2017-10-28] MEDS: GUAIFENESIN 600 MG TABCR PO SCH (08:18)
[2017-10-28] MEDS: INSULIN GLARGINE SOLOSTAR 100 UNITS/ML 3 ML PEN SC SCH (08:22)
--- NOTE | 2017-10-28 09:16 | Progress Note ---
Internal Med Progress Note Date of Service: Oct 28, 2017. Provider Documentation: SUBJECTIVE: Patient seen and examined at bedside. Patient breathing on room air. Able to utilize both upper extremities OBJECTIVE: Exam: General- not in distress HEENT - slurred speech has improved Neck- trachea midline Lungs- Clear to auscultation, no wheezing Heart- irregular rhythm Abdomen- soft, nontender, positive bowel sounds Back: Diffuse ecchymosis of the back is still present Extremities / Neuro - right arm strength and movements improving and matching that of left upper extremity. Able to move ankles and toes bilaterally. leg elevation with both legs with improvements ASSESSMENT & PLAN: This is an 87 year old female with a PMH of A. Fib, HTN, CKD stage 3, sick sinus syndrome s/p pacemaker, CAD, DM2 presents from independent living due to worsening shortness of breath and subsequently developed stroke while patient was being evaluated for pulmonary nodules Bilateral Pulmonary Nodules -CT chest with contrast 10/15/17: Multiple bilateral pulmonary nodules which is suspicious for metastatic disease -no biopsy desired at this time Sick Sinus Syndrome pacemaker has been replaced on 10/19/17 Stroke on 10/23/17: patient with expressive aphasia, R sided weakness, Head CT at that time did not reveal acute process, was started on IV heparin and given aspirin suppository. Neurology recommended aspirin only. cannot obtain MRI due to recent pacemaker insertion (10/19/2017) -10/24/17: repeat CT head: Small to moderate-sized acute infarction of the left frontal lobe is noted with associated sulcal effacement and cytotoxic edema. No significant mass effect, hemorrhage or midline shift. -10/24/17 dysphagia screening - done -passed for soft foods and able to take oral medications - PT/OT working with patient -follow up with Neurology Puja De Guzman PAC schedule in 2-3 weeks after discharge from rehab Anemia -Hgb trended down from 11.7 to 8.7 between 10/23/17 to 10/24/17 which led to rescanning the head but there is no intracranial bleed -Hgb on 10/25/17 is 9.4 Fecal occult blood test stool was positive. Hgb on is 8.5 -Patient declined gastroenterology intervention to be scoped for anemia workup -Patient does have diffuse ecchymosis of the back however, there is little utility in doing imaging studies as the ecchymosis is superficial and patient not -having back pain -It may be possible that patient's anemia is multifactorial with her being prone to bruise easily, previous history of blood thinner use, multiple hospital blood draws, presence of FOBT in stool but no gross gastrointestinal bleeding and perhaps pulmonary nodules may be suggestive of malignancy. Patient and family may decide for further workup of anemia as outpatient. -Otherwise patient has been hemodynamically stable in the hospital despite the anemia A. Fib with RVR that has been rate controlled -on PO diltiazem, oral digoxin -cardiology service has mentioned anticoagulation but it would appear that based on patient's history of bruising and fall risk that anticoagulation may be risky in this patient to cause bleeding, this was discussed with neurology service present with patient, patient's son Antony Conn at the bedside -at this time anticoagulation has been held due to bleeding risks Echocardiogram 10/25/16 * 1. Normal left ventricular size and systolic function. EF 55-60%. No definite regional wall motion abnormalities. Septal motion consistent with bundle-branch block/pacing. No significant left ventricular hypertrophy. * 2. Dilated right ventricle with reduced systolic function. * 3. The left atrium is severely dilated. * 4. The right atrium is mildly dilated. * 5. Limited 2D study per request. * 6. Technically difficult study, enhanced with IV Definity. * 7. Compared to prior study on 10/16/2017, LV systolic function has improved. History of Prolonged QTc monitor electrolytes avoid QTc prolonging agents Acute Hypoxic Respiratory Failure secondary to presumed COPD Exacerbation Severe Pulmonary HTN -Xopenex, Solumedrol stopped on 10/25/17 and transitioned to oral prednisone daily on 10/26/17. Patient to be discharged on prednisone taper -patient's son reports that she was not oxygen dependent at home -Recent Chest X ray 10/26/16: Stable exam with cardiomegaly, trace pleural effusions and probable left basilar atelectasis, Pulmonary nodules redemonstrated -As of AM of 10/27/17 patient requiring only 1 liter/min of oxygen via nasal cannula, -As of AM of 10/28/17, patient is breathing comfortably on room air Acute Kidney Injury - resolved DM2 : insulin DVT ppx: aspirin Palliative Care consult have evaluated patient DNR/DNI Antony Conn, son, is the A - [phone] Disposition: Plan for discharge to physical rehabilitation facility ([facility]) Vital Signs: Date Time Temp Pulse Resp B/P (MAP) Pulse Ox O2 Delivery O2 Flow Rate FiO2 10/28/17 08:14 36.5 87 18 119/70 (86) 96 Room Air 10/28/17 08:00 Room Air 10/28/17 07:16 88 18 98 Room Air 10/28/17 00:38 98 Room Air 10/27/17 23:24 82 18 98 Nasal Cannula 1.0 10/27/17 22:21 36.6 86 19 122/69 (86) 99 Nasal Cannula 2.0 10/27/17 20:30 98 Room Air 10/27/17 19:06 85 18 98 Nasal Cannula 0.5 10/27/17 18:23 87 10/27/17 16:37 18 10/27/17 16:33 Nasal Cannula 2.0 10/27/17 15:31 36.7 70 20 121/72 (88) 98 Nasal Cannula 2.0 10/27/17 15:27 83 18 96 Nasal Cannula 0.5 10/27/17 11:43 76 18 91 Nasal Cannula 1.0 10/27/17 11:24 Nasal Cannula 1.0 Lab Results: Results Past 24 Hours Test 10/27/17 11:25 10/27/17 16:48 10/27/17 20:20 10/28/17 08:01 Range/Units Bedside Glucose 157 197 285 117 70-90 mg/dl
[2017-10-28] MEDS ORDERED: LNX125 PO (09:23)
[2017-10-28] MEDS ORDERED: DLTCD/240 PO (09:23)
[2017-10-28] MEDS ORDERED: PRD10 OR (09:26)
--- NOTE | 2017-10-28 09:33 | Discharge Instructions ---
Discharge Instructions Date of Service Oct 28, 2017. Admission Reason for Admission: Chf, Sob Discharge Discharge Diagnosis / Problem: atrial fibrillation,stroke,anemia,Hypoxic Respiratory Failure, sick sinus Discharge Goals Goal(s): Improve function Activity Recommendations Activity Limitations: per Instructions/Follow-up section Shower/Bathe: no limitations . Instructions / Follow-Up Instructions / Follow-Up This is an 87 year old female with a PMH of A. Fib, HTN, CKD stage 3, sick sinus syndrome s/p pacemaker, CAD, DM2 presents from independent living due to worsening shortness of breath and subsequently developed stroke while patient was being evaluated for pulmonary nodules Bilateral Pulmonary Nodules -CT chest with contrast 10/15/17: Multiple bilateral pulmonary nodules which is suspicious for metastatic disease -no biopsy desired at this time Sick Sinus Syndrome pacemaker has been replaced on 10/19/17 Stroke on 10/23/17: patient with expressive aphasia, R sided weakness, Head CT at that time did not reveal acute process, was started on IV heparin and given aspirin suppository. Neurology recommended aspirin only. cannot obtain MRI due to recent pacemaker insertion (10/19/2017) -10/24/17: repeat CT head: Small to moderate-sized acute infarction of the left frontal lobe is noted with associated sulcal effacement and cytotoxic edema. No significant mass effect, hemorrhage or midline shift. -10/24/17 dysphagia screening - done -passed for soft foods and able to take oral medications - PT/OT working with patient -follow up with Neurology Puja De Guzman PAC schedule in 2-3 weeks after discharge from rehab Anemia -Hgb trended down from 11.7 to 8.7 between 10/23/17 to 10/24/17 which led to rescanning the head but there is no intracranial bleed -Hgb on 10/25/17 is 9.4 Fecal occult blood test stool was positive. Hgb on is 8.5 -Patient declined gastroenterology intervention to be scoped for anemia workup -Patient does have diffuse ecchymosis of the back however, there is little utility in doing imaging studies as the ecchymosis is superficial and patient not -having back pain -It may be possible that patient's anemia is multifactorial with her being prone to bruise easily, previous history of blood thinner use, multiple hospital blood draws, presence of FOBT in stool but no gross gastrointestinal bleeding and perhaps pulmonary nodules may be suggestive of malignancy. Patient and family may decide for further workup of anemia as outpatient. -Otherwise patient has been hemodynamically stable in the hospital despite the anemia A. Fib with RVR that has been rate controlled -on PO diltiazem, oral digoxin -cardiology service has mentioned anticoagulation but it would appear that based on patient's history of bruising and fall risk that anticoagulation may be risky in this patient to cause bleeding, this was discussed with neurology service present with patient, patient's son Antony Conn at the bedside -at this time anticoagulation has been held due to bleeding risks Echocardiogram 10/25/16 * 1. Normal left ventricular size and systolic function. EF 55-60%. No definite regional wall motion abnormalities. Septal motion consistent with bundle-branch block/pacing. No significant left ventricular hypertrophy. * 2. Dilated right ventricle with reduced systolic function. * 3. The left atrium is severely dilated. * 4. The right atrium is mildly dilated. * 5. Limited 2D study per request. * 6. Technically difficult study, enhanced with IV Definity. * 7. Compared to prior study on 10/16/2017, LV systolic function has improved. History of Prolonged QTc monitor electrolytes avoid QTc prolonging agents Acute Hypoxic Respiratory Failure secondary to presumed COPD Exacerbation Severe Pulmonary HTN -Xopenex, Solumedrol stopped on 10/25/17 and transitioned to oral prednisone daily on 10/26/17. Patient to be discharged on prednisone taper -patient's son reports that she was not oxygen dependent at home -Recent Chest X ray 10/26/16: Stable exam with cardiomegaly, trace pleural effusions and probable left basilar atelectasis, Pulmonary nodules redemonstrated -As of AM of 10/27/17 patient requiring only 1 liter/min of oxygen via nasal cannula, -As of AM of 10/28/17, patient is breathing comfortably on room air Acute Kidney Injury - resolved DM2 : insulin DVT ppx: aspirin Palliative Care consult have evaluated patient DNR/DNI Antony Conn, son, is the POA - [phone] Disposition: Plan for discharge to physical rehabilitation facility ([facility]) Current Hospital Diet Patient's current hospital diet: Diabetes Type 2 Diet, Low Sodium Diet (2gm Na) Discharge Diet Recommended Diet: Low Sodium Diet (2gm Na), Diabetes Type 2 Diet Pending Studies Studies pending at discharge: no Laboratory Results 10/26/17 04:53 Red Blood Count 2.55, Mean Corpuscular Volume 102.4, Mean Corpuscular Hemoglobin 33.3, Mean Corpuscular Hemoglobin Concent 32.6, Mean Platelet Volume 10.0, Neutrophils (%) (Auto) 87.4, Lymphocytes (%) (Auto) 3.0, Monocytes (%) ( Auto) 5.8, Eosinophils (%) (Auto) 0.0, Basophils (%) (Auto) 0.1, Neutrophils # ( Auto) 15.29, Lymphocytes # (Auto) 0.53, Monocytes # (Auto) 1.01, Eosinophils # ( Auto) 0.00, Basophils # (Auto) 0.02 10/26/17 04:53 Test 10/15/17 07:30 10/15/17 08:00 10/15/17 10:20 10/16/17 07:39 Total Bilirubin 0.6 mg/dl (0.2-1) Aspartate Amino Transf (AST/SGOT) 35 U/L (15-37) Alanine Aminotransferase (ALT/SGPT) 34 U/L (12-78) Alkaline Phosphatase 78 U/L (45-117) Total Creatine Kinase 47 U/L (26-192) Creatine Kinase MB 1.2 ng/ml (0.5-3.6) Creatine Kinase MB Ratio 2.6 (0-3.0) Pro-B-Type Natriuretic Peptide 5577 pg/ml (0-1800) Total Protein 5.8 gm/dl (6.4-8.2) Albumin 3.1 gm/dl (3.4-5.0) Globulin 2.7 gm/dl (2.5-4.0) Albumin/Globulin Ratio 1.1 (0.9-2) Influenza Type A Antigen Neg for Influ A (NEG) Influenza Type B Antigen Neg for Influ B (NEG) Urine RBC 0-4 /hpf (0-4) Urine WBC 1-5 /hpf (0-5) Urine Epithelial Cells >30 /lpf (0-5) Urine Bacteria NEG (NEG) Arterial Blood pH 7.43 (7.35-7.45) Arterial Blood Partial Pressure CO2 40 mmHg (35-46) Arterial Blood Partial Pressure O2 109 mm/Hg (80-95) Arterial Blood HCO3 26 mmol/L (19-24) Arterial Blood Oxygen Saturation 98.0 % (90-95) Arterial Blood Base Excess 1.7 mEq/L (-9-1.8) Arterial Blood Gas Delivery 3 L Chaz Test POS (POS) Test 10/16/17 07:42 10/17/17 05:27 10/23/17 05:19 10/23/17 09:17 Thyroid Stimulating Hormone (TSH) 1.240 uIu/ml (0.300-4.500) Urine Color RED Urine Appearance CLOUDY (CLEAR) Urine pH 5.5 (4.5-7.5) Urine Specific Hartley 1.025 (1.000-1.030) Urine Protein 2+ (NEG) Urine Glucose (UA) NEG (NEG) Urine Ketones NEG (NEG) Urine Occult Blood 3+ (NEG) Urine Nitrite NEG (NEG) Urine Bilirubin NEG (NEG) Urine Urobilinogen NEG (NEG) Urine Leukocyte Esterase SMALL (NEG) Urine WBC (Auto) 0 /hpf (0-5) Urine RBC (Auto) 10-30 /hpf (0-4) Urine Hyaline Casts (Auto) 0 /lpf (0-5) Urine Epithelial Cells (Auto) 0-5 /lpf (0-5) Urine Bacteria (Auto) NEG (NEG) Magnesium Level 2.4 mg/dl (1.8-2.4) Prothrombin Time 11.7 SECONDS (9.0-12.0) Prothromb Time International Ratio 1.1 (0.9-1.1) Estimated Average Glucose 140 mg/dl Hemoglobin A1c 6.5 % (4.5-5.6) Test 10/23/17 23:29 10/24/17 05:10 10/25/17 18:05 10/26/17 04:53 Troponin I 0.027 ng/ml (0-0.045) Tear Drop Cells OCCASIONAL Ovalocytes 1+ Triglycerides Level 99 mg/dl (0-150) Cholesterol Level 80 mg/dl (0-200) HDL Cholesterol 34 mg/dl LDL Cholesterol, Calculated 26 mg/dl VLDL Cholesterol, Calculated 20 mg/dl Cholesterol/HDL Ratio 2.4 Stool Occult Blood POSITIVE (NEGATIVE) White Blood Count 17.49 K/uL (4.8-10.8) Red Blood Count 2.55 M/uL (4.2-5.4) Hemoglobin 8.5 g/dL (12.0-16.0) Hematocrit 26.1 % (37-47) Mean Corpuscular Volume 102.4 fL (80-100) Mean Corpuscular Hemoglobin 33.3 pg (25-34) Mean Corpuscular Hemoglobin Concent 32.6 g/dl (32-36) Platelet Count 137 K/uL (130-400) Mean Platelet Volume 10.0 fL (7.4-10.4) Neutrophils (%) (Auto) 87.4 % Lymphocytes (%) (Auto) 3.0 % Monocytes (%) (Auto) 5.8 % Eosinophils (%) (Auto) 0.0 % Basophils (%) (Auto) 0.1 % Neutrophils # (Auto) 15.29 K/uL (1.4-6.5) Lymphocytes # (Auto) 0.53 K/uL (1.2-3.4) Monocytes # (Auto) 1.01 K/uL (0.11-0.59) Eosinophils # (Auto) 0.00 K/uL (0-0.5) Basophils # (Auto) 0.02 K/uL (0-0.2) RDW Standard Deviation 56.4 fL (36.4-46.3) RDW Coefficient of Variation 15.6 % (11.5-14.5) Immature Granulocyte % (Auto) 3.7 % Immature Granulocyte # (Auto) 0.64 K/uL (0.00-0.02) Nucleated RBC Absolute Count (auto) 0.17 K/uL (0-0) Nucleated Red Blood Cells % 1.0 % Polychromasia 1+ Activated Partial Thromboplast Time 18.6 SECONDS (21.0-31.0) Partial Thromboplastin Ratio 0.7 Anion Gap 4.0 mmol/L (3-11) Est Creatinine Clear Calc Drug Dose 39.5 ml/min Estimated GFR () 66.2 Estimated GFR (Non- 57.1 BUN/Creatinine Ratio 44.0 (10-20) Calcium Level 8.2 mg/dl (8.5-10.1) Digoxin Level 1.4 ng/ml (0.8-2.0) Test 10/28/17 08:01 Bedside Glucose 117 mg/dl (70-90) Date/Time Source Procedure Growth Status 10/15/17 07:55 Blood Blood Culture - Final NO GROWTH Complete Hemoglobin A1c Test 10/23/17 09:17 Range/Units Estimated Average Glucose 140 mg/dl Hemoglobin A1c 6.5 H 4.5-5.6 % Lipid Panel Test 10/24/17 05:10 Range/Units Triglycerides Level 99 0-150 mg/dl Cholesterol Level 80 0-200 mg/dl HDL Cholesterol 34 mg/dl Cholesterol/HDL Ratio 2.4 LDL Cholesterol, Calculated 26 mg/dl Medical Emergencies . Who to Call and When: Medical Emergencies: If at any time you feel your situation is an emergency, please call 911 immediately. . Non-Emergent Contact Non-Emergency issues call your: Primary Care Provider Call Non-Emergent contact if: you have any medication questions . . "Provider Documentation" section prepared by Philipp Gee. . VTE Core Measure Inpt VTE Proph given/why not?: Other Anticoagulation
--- NOTE | 2017-10-28 09:42 | Discharge Summary ---
Discharge Summary Date of Service Oct 28, 2017. Discharge Summary Admission Date: Oct 15, 2017 at 11:57 Discharge Date: Oct 28, 2017 Discharge Disposition: Rehab ([facility]) Principal Diagnosis: Bilateral Pulmonary Nodules: Sick Sinus Syndrome Pacemaker Stroke Aphasia Right sided weakness, Anemia A. Fib with RVR that has been rate controlled History of Prolonged QTc Acute Hypoxic Respiratory Failure secondary to presumed COPD Exacerbation Severe Pulmonary HTN Acute Kidney Injury - resolved DM2 Medication Reconciliation New Medications: Atorvastatin (Lipitor) 80 Mg Tab 1 TAB PO DAILY for 30 Days, #30 TAB 5 Refills Prednisone (Prednisone) 10 Mg Tab 0 OR DAILY for 6 Days, #9 TAB TAKE 20 MG DAILY X 3 DAYS, THEN 10 MG DAILY X 3 DAYS, THEN STOP Digoxin (Digoxin) 0.125 Mg Tab 0.125 MG PO DAILY@16 for 30 Days, #30 TAB Diltiazem Hcl (Diltiazem Cd) 240 Mg Capcr 240 MG PO QAM for 30 Days, #30 Continued Medications: Acetaminophen (Tylenol) 325 Mg Tab 650 MG PO Q4H PRN for Pain, TAB Allopurinol (Zyloprim) 300 Mg Tab 1 TAB PO QAM for 30 Days, #30 TAB 5 Refills Aspirin (Aspir-81) 81 Mg Tab 81 MG PO QAM, TAB Calcium Carbonate (Tums) 500 Mg Chew 2 TABS PO BID PRN for GERD Docusate Sodium (Colace) 100 Mg Cap 1 CAP PO BID for 15 Days, #30 CAP Furosemide (Lasix) 20 Mg Tab 1 TAB PO BID17 for 90 Days, TAB 1 Refill Ipratropium Industry (Ipratropium Industry) 0.5 Mg/2.5 Ml Nebu 1 VIAL NEB QID PRN for SOB/Wheezing for 30 Days, #300 ML 5 Refills Ipratropium-Albuterol (Duoneb) 3 Ml Nebu 1 TREATMENT INH Q4H PRN for SOB/Wheezing, #1 BOX Lactobacillus (Acidophilus Lactobacilli) 1 Cap Cap 1 CAP PO QAM Loperamide Hcl (Imodium) 2 Mg Cap 2 MG PO Q4H PRN for Diarrhea, CAP Lorazepam (Ativan) 0.5 Mg Tab 0.25 MG PO Q6H PRN for Anxiety/Agitation for 10 Days, #20 TAB (This prescription has been renewed) Magnesium Hydroxide (Milk of Magnesia) 30 Ml Susp 30 ML PO DAILY PRN for Constipation Metoprolol Succinate (Metoprolol Succinate ER) 50 Mg Tabcr 50 MG PO QAM Mirtazapine (Mirtazapine) 45 Mg Tab 45 MG PO HS, TAB Multiple Vitamins W/ Minerals (Therems M) 1 Tab Tab 1 TAB PO QAM Sennosides-Docusate Sodium (Sennalax-S) 1 Tab Tab 1 TAB PO QAM Sertraline (Zoloft) 100 Mg Tab 150 MG PO HS, TAB Discontinued Medications: Cetirizine Hcl (Qc All Day Allergy) 10 Mg Tab 10 MG PO QAM Dextromethorphan-Guaifenesin (Mucinex Dm) 1 Tab Tab 1 TAB PO Q12 PRN for CONGESTION for 14 Days, #28 TAB Admission Information HPI (per Admitting provider): 87 yo F sent form [facility] personal senior care with complain of SOB /FITZGERALD for past 2 weeks. Pt mentions of feeling weak and tired with minimum activity , occasional dizzy spell .has non productive cough felt feverish in the ER pt was found to be hypoxic in RA with audible wheeze CT chest with contrast shows no evidence of PE , multiple bilateral pulmonary nodule suspicions of metastatic malignancy pt is a non smoker all her life , no exposure to industrial chemicals , no prior hx of Asthma or COPD pt was seen at [facility] on 09/12/18 for Bronchitis /respiratory distress symptom improved with Neb tx pt was discharged form ER , arrangements made for home Neb tx Cxray -showed bilateral pulmonary nodule per Pulmonary Nodule programme CT chest with contrast on 10/09/17 showed bilateral multiple pulmonary nodule the dominant nodule being 1.5 cm had persisted non productive cough no report of hemoptysis pt had episode of significant epistaxis few days back -as daughter found a dressing gown soaked with blood both front and back pt did not report to [facility] staff the incident hx of Paroxysmal Afib on Beta chaya , not on chronic anticoagulation except for low dose aspirin 81 mg daily Physical Exam (per Admitting): General Appearance: no apparent distress, + pertinent finding (elderly female , in distress due to coughing spell ) Head: normocephalic, atraumatic Eyes: normal inspection, PERRL, EOMI, sclerae normal ENT: hearing grossly normal, pharynx normal Neck: supple, thyroid normal, no JVD, no carotid bruits, trachea midline Respiratory/Chest: + respiratory distress, + decreased breath sounds, + rales, + wheezing Cardiovascular: + irregularly irregular Abdomen/GI: normal bowel sounds, non tender, soft Extremities/Musculoskelatal: normal capillary refill, no pedal edema Neurologic/Psych: no motor/sensory deficits, alert, normal mood/affect, oriented x 3 Skin: normal color, warm/dry, no rash Hospital Course This is an 87 year old female with a PMH of A. Fib, HTN, CKD stage 3, sick sinus syndrome s/p pacemaker, CAD, DM2 presents from independent living due to worsening shortness of breath and subsequently developed stroke while patient was being evaluated for pulmonary nodules Bilateral Pulmonary Nodules -CT chest with contrast 10/15/17: Multiple bilateral pulmonary nodules which is suspicious for metastatic disease -no biopsy desired at this time Sick Sinus Syndrome pacemaker has been replaced on 10/19/17 Stroke on 10/23/17: patient with expressive aphasia, R sided weakness, Head CT at that time did not reveal acute process, was started on IV heparin and given aspirin suppository. Neurology recommended aspirin only. cannot obtain MRI due to recent pacemaker insertion (10/19/2017) -10/24/17: repeat CT head: Small to moderate-sized acute infarction of the left frontal lobe is noted with associated sulcal effacement and cytotoxic edema. No significant mass effect, hemorrhage or midline shift. -10/24/17 dysphagia screening - done -passed for soft foods and able to take oral medications - PT/OT working with patient -follow up with Neurology Puja De Guzman PAC schedule in 2-3 weeks after discharge from rehab Anemia -Hgb trended down from 11.7 to 8.7 between 10/23/17 to 10/24/17 which led to rescanning the head but there is no intracranial bleed -Hgb on 10/25/17 is 9.4 Fecal occult blood test stool was positive. Hgb on is 8.5 -Patient declined gastroenterology intervention to be scoped for anemia workup -Patient does have diffuse ecchymosis of the back however, there is little utility in doing imaging studies as the ecchymosis is superficial and patient not -having back pain -It may be possible that patient's anemia is multifactorial with her being prone to bruise easily, previous history of blood thinner use, multiple hospital blood draws, presence of FOBT in stool but no gross gastrointestinal bleeding and perhaps pulmonary nodules may be suggestive of malignancy. Patient and family may decide for further workup of anemia as outpatient. -Otherwise patient has been hemodynamically stable in the hospital despite the anemia A. Fib with RVR that has been rate controlled -on PO diltiazem, oral digoxin -cardiology service has mentioned anticoagulation but it would appear that based on patient's history of bruising and fall risk that anticoagulation may be risky in this patient to cause bleeding, this was discussed with neurology service present with patient, patient's son Antony Conn at the bedside -at this time anticoagulation has been held due to bleeding risks Echocardiogram 10/25/16 * 1. Normal left ventricular size and systolic function. EF 55-60%. No definite regional wall motion abnormalities. Septal motion consistent with bundle-branch block/pacing. No significant left ventricular hypertrophy. * 2. Dilated right ventricle with reduced systolic function. * 3. The left atrium is severely dilated. * 4. The right atrium is mildly dilated. * 5. Limited 2D study per request. * 6. Technically difficult study, enhanced with IV Definity. * 7. Compared to prior study on 10/16/2017, LV systolic function has improved. History of Prolonged QTc monitor electrolytes avoid QTc prolonging agents Acute Hypoxic Respiratory Failure secondary to presumed COPD Exacerbation Severe Pulmonary HTN -Xopenex, Solumedrol stopped on 10/25/17 and transitioned to oral prednisone daily on 10/26/17. Patient to be discharged on prednisone taper -patient's son reports that she was not oxygen dependent at home -Recent Chest X ray 10/26/16: Stable exam with cardiomegaly, trace pleural effusions and probable left basilar atelectasis, Pulmonary nodules redemonstrated -As of AM of 10/27/17 patient requiring only 1 liter/min of oxygen via nasal cannula, -As of AM of 10/28/17, patient is breathing comfortably on room air Acute Kidney Injury - resolved DM2 : insulin DVT ppx: aspirin Palliative Care consult have evaluated patient DNR/DNI Antony Conn, son, is the POA - [phone] Disposition: Plan for discharge to physical rehabilitation facility ([facility]) Total time spent on discharge = 60 minutes This includes examination of the patient, discharge planning, medication reconciliation, and communication with other providers. Discharge Instructions see above
--- NOTE | 2017-10-28 09:43 | Discharge Instructions ---
Discharge Instructions Date of Service Oct 28, 2017. Admission Reason for Admission: Chf, Sob Discharge Discharge Diagnosis / Problem: atrial fibrillation,stroke,anemia,Hypoxic Respiratory Failure, sick sinus Discharge Goals Goal(s): Improve function Activity Recommendations Activity Limitations: per Instructions/Follow-up section Shower/Bathe: no limitations . Instructions / Follow-Up Instructions / Follow-Up This is an 87 year old female with a PMH of A. Fib, HTN, CKD stage 3, sick sinus syndrome s/p pacemaker, CAD, DM2 presents from independent living due to worsening shortness of breath and subsequently developed stroke while patient was being evaluated for pulmonary nodules Bilateral Pulmonary Nodules -CT chest with contrast 10/15/17: Multiple bilateral pulmonary nodules which is suspicious for metastatic disease -no biopsy desired at this time Sick Sinus Syndrome pacemaker has been replaced on 10/19/17 Stroke on 10/23/17: patient with expressive aphasia, R sided weakness, Head CT at that time did not reveal acute process, was started on IV heparin and given aspirin suppository. Neurology recommended aspirin only. cannot obtain MRI due to recent pacemaker insertion (10/19/2017) -10/24/17: repeat CT head: Small to moderate-sized acute infarction of the left frontal lobe is noted with associated sulcal effacement and cytotoxic edema. No significant mass effect, hemorrhage or midline shift. -10/24/17 dysphagia screening - done -passed for soft foods and able to take oral medications - PT/OT working with patient -follow up with Neurology Puja De Guzman PAC schedule in 2-3 weeks after discharge from rehab Anemia -Hgb trended down from 11.7 to 8.7 between 10/23/17 to 10/24/17 which led to rescanning the head but there is no intracranial bleed -Hgb on 10/25/17 is 9.4 Fecal occult blood test stool was positive. Hgb on is 8.5 -Patient declined gastroenterology intervention to be scoped for anemia workup -Patient does have diffuse ecchymosis of the back however, there is little utility in doing imaging studies as the ecchymosis is superficial and patient not -having back pain -It may be possible that patient's anemia is multifactorial with her being prone to bruise easily, previous history of blood thinner use, multiple hospital blood draws, presence of FOBT in stool but no gross gastrointestinal bleeding and perhaps pulmonary nodules may be suggestive of malignancy. Patient and family may decide for further workup of anemia as outpatient. -Otherwise patient has been hemodynamically stable in the hospital despite the anemia A. Fib with RVR that has been rate controlled -on PO diltiazem, oral digoxin -cardiology service has mentioned anticoagulation but it would appear that based on patient's history of bruising and fall risk that anticoagulation may be risky in this patient to cause bleeding, this was discussed with neurology service present with patient, patient's son Antony Conn at the bedside -at this time anticoagulation has been held due to bleeding risks Echocardiogram 10/25/16 * 1. Normal left ventricular size and systolic function. EF 55-60%. No definite regional wall motion abnormalities. Septal motion consistent with bundle-branch block/pacing. No significant left ventricular hypertrophy. * 2. Dilated right ventricle with reduced systolic function. * 3. The left atrium is severely dilated. * 4. The right atrium is mildly dilated. * 5. Limited 2D study per request. * 6. Technically difficult study, enhanced with IV Definity. * 7. Compared to prior study on 10/16/2017, LV systolic function has improved. History of Prolonged QTc monitor electrolytes avoid QTc prolonging agents Acute Hypoxic Respiratory Failure secondary to presumed COPD Exacerbation Severe Pulmonary HTN -Xopenex, Solumedrol stopped on 10/25/17 and transitioned to oral prednisone daily on 10/26/17. Patient to be discharged on prednisone taper -patient's son reports that she was not oxygen dependent at home -Recent Chest X ray 10/26/16: Stable exam with cardiomegaly, trace pleural effusions and probable left basilar atelectasis, Pulmonary nodules redemonstrated -As of AM of 10/27/17 patient requiring only 1 liter/min of oxygen via nasal cannula, -As of AM of 10/28/17, patient is breathing comfortably on room air Acute Kidney Injury - resolved DM2 : insulin DVT ppx: aspirin Palliative Care consult have evaluated patient DNR/DNI Antony Conn, son, is the POA - [phone] Disposition: Plan for discharge to physical rehabilitation facility ([facility]) Risk Factors for Stroke: You can reduce your chances of stroke by working with your medical provider to adopt a healthy lifestyle. Some specific ways to lower your chance of stroke are: * If you are a smoker, now is the time to stop smoking cigarettes * If you are diabetic, improve the control of your blood sugars * Avoid excessive amounts of alcohol * Control high blood pressure * Lose weight if you are overweight * Be sure to lead an active lifestyle * Eat a healthy diet low in salt, cholesterol and fat You should know about other risk factors for stroke that you are unable to control. These include: * Age 55 years or older * Male gender * Certain racial groups: , or / * Family History of Stroke, Mini stroke or Heart Attack * Sickle Cell Disease Follow Up: It is important for you to keep your follow up appointments with your medical provider. Current Hospital Diet Patient's current hospital diet: Diabetes Type 2 Diet, Low Sodium Diet (2gm Na) Discharge Diet Recommended Diet: Low Sodium Diet (2gm Na), Diabetes Type 2 Diet Pending Studies Studies pending at discharge: no Laboratory Results 10/26/17 04:53 Red Blood Count 2.55, Mean Corpuscular Volume 102.4, Mean Corpuscular Hemoglobin 33.3, Mean Corpuscular Hemoglobin Concent 32.6, Mean Platelet Volume 10.0, Neutrophils (%) (Auto) 87.4, Lymphocytes (%) (Auto) 3.0, Monocytes (%) ( Auto) 5.8, Eosinophils (%) (Auto) 0.0, Basophils (%) (Auto) 0.1, Neutrophils # ( Auto) 15.29, Lymphocytes # (Auto) 0.53, Monocytes # (Auto) 1.01, Eosinophils # ( Auto) 0.00, Basophils # (Auto) 0.02 10/26/17 04:53 Test 10/15/17 07:30 10/15/17 08:00 10/15/17 10:20 10/16/17 07:39 Total Bilirubin 0.6 mg/dl (0.2-1) Aspartate Amino Transf (AST/SGOT) 35 U/L (15-37) Alanine Aminotransferase (ALT/SGPT) 34 U/L (12-78) Alkaline Phosphatase 78 U/L (45-117) Total Creatine Kinase 47 U/L (26-192) Creatine Kinase MB 1.2 ng/ml (0.5-3.6) Creatine Kinase MB Ratio 2.6 (0-3.0) Pro-B-Type Natriuretic Peptide 5577 pg/ml (0-1800) Total Protein 5.8 gm/dl (6.4-8.2) Albumin 3.1 gm/dl (3.4-5.0) Globulin 2.7 gm/dl (2.5-4.0) Albumin/Globulin Ratio 1.1 (0.9-2) Influenza Type A Antigen Neg for Influ A (NEG) Influenza Type B Antigen Neg for Influ B (NEG) Urine RBC 0-4 /hpf (0-4) Urine WBC 1-5 /hpf (0-5) Urine Epithelial Cells >30 /lpf (0-5) Urine Bacteria NEG (NEG) Arterial Blood pH 7.43 (7.35-7.45) Arterial Blood Partial Pressure CO2 40 mmHg (35-46) Arterial Blood Partial Pressure O2 109 mm/Hg (80-95) Arterial Blood HCO3 26 mmol/L (19-24) Arterial Blood Oxygen Saturation 98.0 % (90-95) Arterial Blood Base Excess 1.7 mEq/L (-9-1.8) Arterial Blood Gas Delivery 3 L Chaz Test POS (POS) Test 10/16/17 07:42 10/17/17 05:27 10/23/17 05:19 10/23/17 09:17 Thyroid Stimulating Hormone (TSH) 1.240 uIu/ml (0.300-4.500) Urine Color RED Urine Appearance CLOUDY (CLEAR) Urine pH 5.5 (4.5-7.5) Urine Specific [place] 1.025 (1.000-1.030) Urine Protein 2+ (NEG) Urine Glucose (UA) NEG (NEG) Urine Ketones NEG (NEG) Urine Occult Blood 3+ (NEG) Urine Nitrite NEG (NEG) Urine Bilirubin NEG (NEG) Urine Urobilinogen NEG (NEG) Urine Leukocyte Esterase SMALL (NEG) Urine WBC (Auto) 0 /hpf (0-5) Urine RBC (Auto) 10-30 /hpf (0-4) Urine Hyaline Casts (Auto) 0 /lpf (0-5) Urine Epithelial Cells (Auto) 0-5 /lpf (0-5) Urine Bacteria (Auto) NEG (NEG) Magnesium Level 2.4 mg/dl (1.8-2.4) Prothrombin Time 11.7 SECONDS (9.0-12.0) Prothromb Time International Ratio 1.1 (0.9-1.1) Estimated Average Glucose 140 mg/dl Hemoglobin A1c 6.5 % (4.5-5.6) Test 10/23/17 23:29 10/24/17 05:10 10/25/17 18:05 10/26/17 04:53 Troponin I 0.027 ng/ml (0-0.045) Tear Drop Cells OCCASIONAL Ovalocytes 1+ Triglycerides Level 99 mg/dl (0-150) Cholesterol Level 80 mg/dl (0-200) HDL Cholesterol 34 mg/dl LDL Cholesterol, Calculated 26 mg/dl VLDL Cholesterol, Calculated 20 mg/dl Cholesterol/HDL Ratio 2.4 Stool Occult Blood POSITIVE (NEGATIVE) White Blood Count 17.49 K/uL (4.8-10.8) Red Blood Count 2.55 M/uL (4.2-5.4) Hemoglobin 8.5 g/dL (12.0-16.0) Hematocrit 26.1 % (37-47) Mean Corpuscular Volume 102.4 fL (80-100) Mean Corpuscular Hemoglobin 33.3 pg (25-34) Mean Corpuscular Hemoglobin Concent 32.6 g/dl (32-36) Platelet Count 137 K/uL (130-400) Mean Platelet Volume 10.0 fL (7.4-10.4) Neutrophils (%) (Auto) 87.4 % Lymphocytes (%) (Auto) 3.0 % Monocytes (%) (Auto) 5.8 % Eosinophils (%) (Auto) 0.0 % Basophils (%) (Auto) 0.1 % Neutrophils # (Auto) 15.29 K/uL (1.4-6.5) Lymphocytes # (Auto) 0.53 K/uL (1.2-3.4) Monocytes # (Auto) 1.01 K/uL (0.11-0.59) Eosinophils # (Auto) 0.00 K/uL (0-0.5) Basophils # (Auto) 0.02 K/uL (0-0.2) RDW Standard Deviation 56.4 fL (36.4-46.3) RDW Coefficient of Variation 15.6 % (11.5-14.5) Immature Granulocyte % (Auto) 3.7 % Immature Granulocyte # (Auto) 0.64 K/uL (0.00-0.02) Nucleated RBC Absolute Count (auto) 0.17 K/uL (0-0) Nucleated Red Blood Cells % 1.0 % Polychromasia 1+ Activated Partial Thromboplast Time 18.6 SECONDS (21.0-31.0) Partial Thromboplastin Ratio 0.7 Anion Gap 4.0 mmol/L (3-11) Est Creatinine Clear Calc Drug Dose 39.5 ml/min Estimated GFR () 66.2 Estimated GFR (Non- 57.1 BUN/Creatinine Ratio 44.0 (10-20) Calcium Level 8.2 mg/dl (8.5-10.1) Digoxin Level 1.4 ng/ml (0.8-2.0) Test 10/28/17 08:01 Bedside Glucose 117 mg/dl (70-90) Date/Time Source Procedure Growth Status 10/15/17 07:55 Blood Blood Culture - Final NO GROWTH Complete Hemoglobin A1c Test 10/23/17 09:17 Range/Units Estimated Average Glucose 140 mg/dl Hemoglobin A1c 6.5 H 4.5-5.6 % Lipid Panel Test 10/24/17 05:10 Range/Units Triglycerides Level 99 0-150 mg/dl Cholesterol Level 80 0-200 mg/dl HDL Cholesterol 34 mg/dl Cholesterol/HDL Ratio 2.4 LDL Cholesterol, Calculated 26 mg/dl Medical Emergencies . Who to Call and When: Medical Emergencies: Call 911 immediately if you experience any of the following warning signs and symptoms of Stroke: * Sudden numbness or weakness of the face, arm or leg, especially on one side of the body * Sudden confusion, trouble speaking or understanding * Sudden trouble seeing in one or both eyes * Sudden trouble walking, dizziness, loss of balance or coordination * Sudden severe headache with no cause Do not delay calling 911 if you experience any warning signs or symptoms of a stroke. Delay in seeking medical attention may affect what treatments can be given to you. . Non-Emergent Contact Non-Emergency issues call your: Primary Care Provider Call Non-Emergent contact if: you have any medication questions . . "Provider Documentation" section prepared by Philipp Gee. . Stroke Core Measures Reason no t-PA for Stroke: Treatment not indicated Reason no antithrom by day 2: Treatment provided - N/A Reason no antithrom at D/C: Treatment provided - N/A Reason no statin at D/C: Treatment provided - N/A Reason no anticoag w/a fib: Contraindicated VTE Core Measure Inpt VTE Proph given/why not?: Other Anticoagulation
[2017-10-28] MEDS ORDERED: ATOR-26 PO (09:44)
[2017-10-28 09:50] VITALS: BP 119/70; TEMP 36.5; O2SAT 96
[2017-10-28] MEDS ORDERED: LORA-741 PO (09:54)
[2017-10-28 11:29] VITALS: PULSE 84; O2SAT 97
== END 2017-10-28 12:15 | DRG 258 ==
LOC: EDBD 06:39 → C.EDB 06:40 → C.2E 11:57 → ENRESERV 13:07 → C.4E 10-26 17:34 → ENRESERV 10-26 18:18
PROVIDERS: ADMIT Hospitalist; ATTEND Hospitalist
PROC: 0JH606Z Insertion of Pacemaker, Dual Chamber into Chest Subcutaneous Tissue and Fascia, Open Approach (ICD-10-PCS; principal; 2017-10-19 08:50)
PROC: 0JPT0PZ Removal of Cardiac Rhythm Related Device from Trunk Subcutaneous Tissue and Fascia, Open Approach (ICD-10-PCS; principal; 2017-10-19 08:50)
DX: I48.91 Unspecified atrial fibrillation (principal); I63.9 Cerebral infarction, unspecified; J96.01 Acute respiratory failure with hypoxia; I13.0 Hypertensive heart and chronic kidney disease with heart failure and stage 1 through stage 4 chronic kidney disease, or unspecified chronic kidney disease; J44.1 Chronic obstructive pulmonary disease with (acute) exacerbation; N17.9 Acute kidney failure, unspecified; G93.6 Cerebral edema; R47.01 Aphasia; G81.91 Hemiplegia, unspecified affecting right dominant side; C79.9 Secondary malignant neoplasm of unspecified site; C78.00 Secondary malignant neoplasm of unspecified lung; I49.5 Sick sinus syndrome; J20.9 Acute bronchitis, unspecified; E11.9 Type 2 diabetes mellitus without complications; E78.5 Hyperlipidemia, unspecified; K21.9 Gastro-esophageal reflux disease without esophagitis; Z85.850 Personal history of malignant neoplasm of thyroid; E03.9 Hypothyroidism, unspecified; Z95.0 Presence of cardiac pacemaker; I50.9 Heart failure, unspecified; N18.3 Chronic kidney disease, stage 3 (moderate); I27.20 Pulmonary hypertension, unspecified; D64.9 Anemia, unspecified; I44.7 Left bundle-branch block, unspecified; Z88.2 Allergy status to sulfonamides; I36.1 Nonrheumatic tricuspid (valve) insufficiency; Z66 Do not resuscitate